=== PATIENT | male | born 1960 | race Caucasian/White ===

== ENCOUNTER → 2019-03-19 12:58 | Outpatient (BNVA) | payer OTHER, SELFPAY | PROVIDERS: Referring Provider Internal Medicine Rheumatology; Visit Provider Internal Medicine Rheumatology | DX: M05.9 Rheumatoid arthritis with rheumatoid factor, unspecified (principal); Z79.899 Other long term (current) drug therapy | CPT/HCPCS: 36415; 80076; 82565; 86140 ==

== ENCOUNTER → 2019-03-19 13:07 | Outpatient (BNVA) | payer OTHER, SELFPAY | PROVIDERS: Referring Provider Internal Medicine Rheumatology; Visit Provider Internal Medicine Pulmonary Disease | DX: Z79.899 Other long term (current) drug therapy (principal); M05.9 Rheumatoid arthritis with rheumatoid factor, unspecified | CPT/HCPCS: 85025 ==

== ENCOUNTER → 2019-04-26 12:55 | Outpatient (BNVA) | payer OTHER, SELFPAY | PROVIDERS: Visit Provider Internal Medicine Rheumatology | DX: M05.9 Rheumatoid arthritis with rheumatoid factor, unspecified (principal); J44.9 Chronic obstructive pulmonary disease, unspecified; Z79.899 Other long term (current) drug therapy; Z79.52 Long term (current) use of systemic steroids; F17.210 Nicotine dependence, cigarettes, uncomplicated | CPT/HCPCS: 99214 ==

== ENCOUNTER 2019-04-30 15:36 | Outpatient (CLI) | payer OTHER, SELFPAY ==
--- NOTE | 2019-04-30 15:42 | XR_ITS ---
WS: [id number] XR chest 2V* [id number] REASON FOR EXAM: COPD FINDINGS: Tortuosity of the descending thoracic aorta. The heart is not grossly enlarged. The lung cruz are adequately aerated no pneumonia, pleural effusion, pulmonary edema, no evidence o f emphysema, and there is no masses. XR/XR chest 2V* [id number] IMPRESSION: No active cardiopulmonary changes.
== END 2019-04-30 15:37 | disposition home or self-care (01) ==
LOC: RADWPI 15:39
PROVIDERS: PCP Nurse Practitioner Family; Visit Provider Internal Medicine Rheumatology
DX: J44.9 Chronic obstructive pulmonary disease, unspecified (principal)
CPT/HCPCS: 71046

== ENCOUNTER → 2019-06-21 13:45 | Outpatient (BNVA) | payer OTHER, SELFPAY | PROVIDERS: PCP Nurse Practitioner Family; Visit Provider Internal Medicine Rheumatology | DX: M05.79 Rheumatoid arthritis with rheumatoid factor of multiple sites without organ or systems involvement (principal); Z79.899 Other long term (current) drug therapy; T14.90XA Injury, unspecified, initial encounter; W19.XXXA Unspecified fall, initial encounter; J43.9 Emphysema, unspecified; M81.0 Age-related osteoporosis without current pathological fracture; F17.210 Nicotine dependence, cigarettes, uncomplicated; Z79.52 Long term (current) use of systemic steroids | CPT/HCPCS: 96372; 99214; J1885 ==

== ENCOUNTER 2019-06-21 15:29 | Outpatient (CLI) | payer OTHER, SELFPAY ==
--- NOTE | 2019-06-21 15:41 | XR_ITS ---
WS: [id number] XR pelvis 1-2V* [id number] REASON FOR EXAM: fall FINDINGS: Sacroiliac joints were normal. Both hip joints show degenerate changes worse on the left side. No definite fractures are seen in either hip joint or pelvis. XR/XR pelvis 1-2V* [id number] IMPRESSION: Osteoarthritic changes of both hip joints worse on the left There is degenerate changes along the iliac crest There is no fractures seen.
--- NOTE | 2019-06-21 15:41 | XR_ITS ---
WS: [id number] XR chest 2V* [id number] REASON FOR EXAM: fall FINDINGS: There is fracture of the eighth and ninth ribs on the right side. And questionable fracture of the seventh rib on the left. The heart is not enlarged no lung contusion either lung field are seen. The clavicles were normal. The thoracic spine shows no definite fractures. No lung contusions or pneumonia as are seen are pulmonary edema. XR/XR chest 2V* [id number] IMPRESSION: Fracture eighth and ninth ribs on the right side Questionable fracture the seventh rib on the left The remaining chest was normal.
--- NOTE | 2019-06-21 15:41 | XR_ITS ---
WS: [id number] XR lumbar spine 2-3V* 00007 REASON FOR EXAM: fall FINDINGS: Lumbar spine series 3 views show degenerate changes along the apophyseal joints of the L2 a nd L4 vertebra as. Degenerate changes L5-S1 There is mild compression deformities seen of the L1-L2 vertebra as. The T11-T12 vertebra show degenerate changes. XR/XR lumbar spine 2-3V* [id number] IMPRESSION: Mild compression changes L1 and L2 Degenerate changes along the apophyseal joints Degenerated disc changes L5-S1.
[2019-06-21 16:29] LABS: Basophils # 0.1 10^3/uL (0.0-0.1); Basophils % 1.1 %; Eosinophils # 0.2 10^3/uL (0.0-0.8); Eosinophils % 2.2 %; Hematocrit 48.9 % (42.0-52.0); Hemoglobin 15.7 g/dL (11.7-16.6); Lymphocytes # 3.6 10^3/uL (0.8-4.8); Lymphocytes % 32.5 %; Mean Corpuscular HGB Conc 32.1 g/dL (30.0-36.0); Mean Corpuscular Hemoglobin 33.7 pg (28.0-34.0); Mean Corpuscular Volume 104.9 fL (80-94); Mean Platelet Volume 9.4 fL (7.4-10.4); Monocytes # 1.4 10^3/uL (0.2-0.9); Monocytes % 12.4 %; Neutrophils # 5.5 10^3/uL (1.8-7.7); Neutrophils % 50.3 %; Nucleated Red Blood Cells % 0 %; Platelet Count 308 10^3/cmm (130-400); Red Blood Count 4.66 10^6/uL (4.1-5.3)
[2019-06-21 16:39] LABS: Alanine Aminotransferase 26 U/L (0-41); Albumin Level 4.4 g/dL (3.5-5.2); Alkaline Phosphatase 72 IU/L (40-130); Aspartate Amino Transferase 25 U/L (0-40); Globulin 2.8 g/dL (1.3-4.6); Total Bilirubin 0.2 mg/dL (0.15-1.2); Total Protein 7.2 g/dL (6.6-8.7)
[2019-06-21 17:52] LABS: C Reactive Protein 3.9 mg/L (0.0-4.9); Erythrocyte Sedimentation Rate 23 mm/hr (0-10)
== END 2019-06-21 15:30 | disposition home or self-care (01) ==
LOC: RAD 15:35
PROVIDERS: Visit Provider Internal Medicine Rheumatology
DX: T14.90XA Injury, unspecified, initial encounter (principal); Z79.899 Other long term (current) drug therapy; W19.XXXA Unspecified fall, initial encounter; M16.0 Bilateral primary osteoarthritis of hip; S22.41XA Multiple fractures of ribs, right side, initial encounter for closed fracture; X58.XXXA Exposure to other specified factors, initial encounter
CPT/HCPCS: 36415; 71046; 72100; 72170; 80076; 82565; 85025; 85651; 86140

== ENCOUNTER 2019-07-06 13:03 | Outpatient (CLI) | payer OTHER, SELFPAY ==
--- NOTE | 2019-07-06 16:15 | XR_ITS ---
WS: [id number] DEXA (DUAL ENERGY X-RAY ABSORPTIOMETRY) Bone mineral density was performed using a [employer] machine. HISTORY: osteoporosis, 58-year-old male. COMPARISON: None available. Lumbar spine BMD (L1-L4): 1.198 g/cm2 T score: -0.2 Z score: -0.6 Total hip BMD: Left: 1.029 g/cm2. T score: -0.5 Z score: -0.5 Right: 1.002 g/cm2. T score: -0.7 Z score: -0.7 10 year probability of a major osteoporotic fracture is 6%. XR/XR DEXA axial skeleton* [id number] IMPRESSION: NORMAL BONE MINERAL DENSITY.
== END 2019-07-06 13:04 | disposition home or self-care (01) ==
LOC: RADWPI 13:07
PROVIDERS: Visit Provider Internal Medicine Rheumatology
DX: M81.0 Age-related osteoporosis without current pathological fracture (principal)
CPT/HCPCS: 77080

== ENCOUNTER 2019-07-16 09:11 | Outpatient (CLI) | payer OTHER, SELFPAY ==
--- NOTE | 2019-07-16 09:15 | CT_ITS ---
WS: [id number] CT CHEST WITHOUT INTRAVENOUS CONTRAST HISTORY: Evaluate for Multiple rib fractures TECHNIQUE: Contiguous 5 mm axial imaging performed on the thorax. Coronal and sagittal reformats are submitted. All CT scans at [facility] use at least one of these dose optimization techniq ues: automated exposure control; mA and/or kV adjustment per patient size (includes targeted exams wh ere dose is matched to clinical indication); or iterative reconstruction. CONTRAST: None DLP: 1255.65 mGycm COMPARISON: 06/24/2017 and chest radiograph 06/21/2019 Lungs and central airway: Hyperexpanded lungs with mild paraseptal emphysema. There has been a slight progression of the interstitial thickening since the prior examination. Linear pleural thickening al arpita the minor fissure is stable. Benign granuloma medial RIGHT upper lobe. Long-term stability of an 8 mm noncalcified nodule in the LEFT lower lobe. There is an additional irregular 8 mm nodule in the periphery of the RIGHT lower lobe, image 45 of series 3 which was also present on the prior study wit h greater than two-year stability. Pleura: Normal. No pleural effusion. Heart and pericardium: Normal size heart. No pericardial effusion. Mediastinum and david: No mediastinum or hilar adenopathy. Vessels: Mild atherosclerosis aorta and coronary arteries. Normal size pulmonary artery. Chest wall and lower neck: No soft tissue masses. Upper abdomen: Negative. Osseous structures: Mild thoracic spondylosis. Very slight anterior wedging of T12 stable. Remote hea led fractures posterior lateral RIGHT seventh, eighth, and ninth ribs. Remote healed fractures in the LEFT eighth and ninth ribs. No acute fracture.. No acute fractures or bone destruction. These fractu res were present on the study from 06/24/2017. CT/CT chest wo con [id number] IMPRESSION: 1. Long-term stability of healed bilateral rib fractures as described above. S imilar to the prior study of 06/24/2017. 2. Long-term stability of pulmonary nodules. No further workup necessary. 3. Paraseptal emphysema with mild progression since 06/24/2017.
== END 2019-07-16 09:12 | disposition home or self-care (01) ==
PROVIDERS: Visit Provider Internal Medicine Rheumatology
DX: S22.49XA Multiple fractures of ribs, unspecified side, initial encounter for closed fracture (principal); X58.XXXA Exposure to other specified factors, initial encounter; Z87.81 Personal history of (healed) traumatic fracture; R91.8 Other nonspecific abnormal finding of lung field; J43.9 Emphysema, unspecified
CPT/HCPCS: 71250

== ENCOUNTER 2019-08-08 11:23 | Outpatient (CLI) | payer OTHER, SELFPAY ==
--- NOTE | 2019-08-08 13:27 | PFTS_ITS ---
Date of Study:08/08/19 Date of Dictation: MECHANICS: Forced vital capacity (FVC) is reduced. Forced expiratory volume in one second (FEV1) is reduced. FEV1/FVC is normal. FLOW VOLUME LOOP: Reduced flow with scooping. LUNG VOLUMES: Lung volumes were not measured DIFFUSING CAPACITY FOR CARBON MONOXIDE: Normal. INTERPRETATION: The pulmonary function tests are consistent with moderate restriction. There is no significant postbronchodilator response. Gas exchange (DLCO) is normal. MTDD
== END 2019-08-08 11:24 | disposition home or self-care (01) ==
LOC: RT 11:27
PROVIDERS: PCP Nurse Practitioner Family; Visit Provider Internal Medicine Critical Care Medicine
DX: J43.9 Emphysema, unspecified (principal)
CPT/HCPCS: 94060; 94729; J7611

== ENCOUNTER 2019-09-05 17:54 | Emergency (ER) | payer OTHER, SELFPAY ==
[2019-09-05] VITALS (7 sets, daily range): BP systolic 107–178; BP diastolic 67–120; PULSE 88–112; RESP 15–20; TEMP 39.3; O2SAT 88–97; BMI 41.3
[2019-09-05 19:15] LABS: Basophils # 0.1 10^3/uL (0.0-0.1); Basophils % 0.4 %; Eosinophils % 0.1 %; Hematocrit 46.8 % (42.0-52.0); Lymphocytes # 1.9 10^3/uL (0.8-4.8); Lymphocytes % 8.3 %; Mean Corpuscular HGB Conc 32.1 g/dL (30.0-36.0); Mean Corpuscular Hemoglobin 34.6 pg (28.0-34.0); Mean Corpuscular Volume 108.1 fL (80-94); Mean Platelet Volume 9.5 fL (7.4-10.4); Monocytes # 1.5 10^3/uL (0.2-0.9); Monocytes % 6.6 %; Neutrophils # 18.65 10^3/uL (1.8-7.7); Neutrophils % 83.5 %; Nucleated Red Blood Cells % 0.1 %; Platelet Count 197 10^3/cmm (130-400); Red Blood Count 4.33 10^6/uL (4.1-5.3); Red Cell Distribution Width 13.9 % (12.1-15.1); White Blood Count 22.4 10^3/uL (4.0-10.0)
[2019-09-05 19:37] LABS: Alanine Aminotransferase 36 U/L (0-41); Alkaline Phosphatase 64 IU/L (40-130); Blood Urea Nitrogen 20 mg/dL (6-20); Calcium 9.1 mg/dL (8.5-10.5); Carbon Dioxide 26 mmol/L (22-29); Chloride 100 mmol/L (98-107); Globulin 3.1 g/dL (1.3-4.6); Glomerular Filtration Rate 116.2 mL/min (90-130); Glucose 175 mg/dL (65-115); Lipase 12 U/L (13-60); Osmolality Calculated 289 mOsm/kg (285-295); Sodium 139 mmol/L (136-145); Total Bilirubin 0.9 mg/dL (0.15-1.2); Total Protein 7.1 g/dL (6.6-8.7)
[2019-09-05 19:47] LABS: Aspartate Amino Transferase 37 U/L (0-40)
--- NOTE | 2019-09-05 20:55 | XR_ITS ---
WS: [id number] PORTABLE CHEST HISTORY: fever COMPARISON: 06/21/2019 Mild pulmonary hyperinflation. No pneumonia. Normal vasculature. No pleural effusion or pneumothorax. Cardiac size: Mildly enlarged cardiac silhouette. Mediastinum/Aorta: Mild atherosclerosis aorta. Bilateral AC joint narrowing. XR/XR chest 1V portable [id number] IMPRESSION: Chronic emphysema and cardiomegaly. No acute cardiopulmonary disease.
--- NOTE | 2019-09-05 20:55 | CTR_ITS ---
PROCEDURE INFORMATION: Exam: CT Abdomen And Pelvis With Contrast Exam date and time: 09/05/2019 8:58 PM Age: 58 years old Clinical indication: Fever; Abdominal pain; Localized; Lower; Prior surgery; Surgery type: Stents TECHNIQUE: Imaging protocol: Computed tomography of the abdomen and pelvis with intravenous contrast. Radiation optimization: All CT scans at this facility use at least one of these dose optimization techniques: automated exposure control; mA and/or kV adjustment per patient size (includes targeted exams where dose is matched to clinical indication); or iterative reconstruction. Contrast material: OMNI 300; Contrast volume: 95 ml; Contrast route: INTRAVENOUS (IV); COMPARISON: CT Abdomen/Pelvis o [id number] 12/03/2015 2:20 PM RADIATION DOSE METRICS: Total DLP (mGy-cm): 1955.57 FINDINGS: Lungs: Bibasilar atelectasis. Liver: Normal. No mass. Gallbladder and bile ducts: Normal. No calcified stones. No ductal dilation. Pancreas: Normal. No ductal dilation. Spleen: Normal. No splenomegaly. Adrenals: Normal. No mass. Kidneys and ureters: Right kidney cyst, no follow-up advised. Stomach and bowel: Prominent fluid in the small bowel suggestive of an enteritis. Appendix: No evidence of appendicitis. Intraperitoneal space: Unremarkable. No free air. No significant fluid collection. Vasculature: Unremarkable. No abdominal aortic aneurysm. Lymph nodes: Unremarkable. No enlarged lymph nodes. Bladder: Unremarkable as visualized. Reproductive: Unremarkable as visualized. Bones/joints: L1 vertebral body chronic compression fracture. Soft tissues: Unremarkable. CT/CT abdomen pelvis w con* [id number] IMPRESSION: 1. Prominent fluid in the small bowel suggestive of an enteritis. 2. L1 vertebral body chronic compression fracture. 3. Bibasilar atelectasis. 4. Right kidney cyst, no follow-up advised. Radiation Dose CTDIVOL = (mGy): DLP = 1955.57 (mGy-cm)
--- NOTE | 2019-09-05 21:00 | W.ED.ABDPA2 ---
HPI - Abdominal Pain General: Chief Complaint: Abdominal Pain Stated Complaint: abd pain Time Seen by Provider: 09/05/19 20:54 Source: patient Mode of arrival: ambulatory Limitations: no limitations History of Present Illness: HPI narrative: 58-year-old male who states he has had lower abdominal abdominal pain for the last day. He states pain is sharp in nature. He is also had a fever. He denies any dysuria. He denies any vomiting or diarrhea. He denies any cough or chest pain. Denies any worsening improving factors. MD elicited complaint: abdominal pain Onset (ago): day(s) Location: RLQ Severity: moderate Quality: sharp Radiation: none Associated Symptoms: Reports fever(s); Denies dysuria Review of Systems Const: Reports: fever(s) Eyes: Denies: blurry vision or eye discomfort ENMT: Denies: throat pain or dental pain Card: Denies: chest pain Resp: Denies: dyspnea GI: Reports: abdominal pain : Denies: dysuria Musc: Denies: neck pain or back pain Skin/Breast: Denies: rash Neuro: Denies: headache(s) Psych: Denies: depression Kenji/Lymph: Denies: easy bruising All/Imm: Denies: urticaria PFSH ED PFSH: Medical History (Updated 09/05/19 @ 23:45 by Tisha Lopez MD) CHF (congestive heart failure) COPD (chronic obstructive pulmonary disease) Depression Fall High risk medication use HTN (hypertension) Hyperlipidemia Immunization counseling Memory loss STEPHANIE (obstructive sleep apnea) Restless leg Seropositive rheumatoid arthritis Type 2 diabetes mellitus Surgical History History of carpal tunnel surgery History of surgical amputation of finger of right hand Stented coronary artery Family History Other Arthritis Diabetes Hypertension Stroke Denies family history of Rheumatoid arthritis Systemic lupus erythematosus (SLE) in adult Social History Smoking and tobacco status: current every day smoker cigarettes Packs smoked per day: 0.5 Years cigarettes smoked: 45 Alcohol intake: former Lives independently: Yes Household members: spouse Marital status: Current occupational status: disabled History of recent travel: No Current gender identity: Male Physical Exam Const: COMMON NORMALS: no acute distress, patient oriented x3 and healthy appearing HENMT: COMMON NORMALS: normocephalic and atraumatic HEAD & SCALP: normocephalic and atraumatic Eye: COMMON NORMALS: Equal, round and reactive pupils present and EOMs intact bilaterally PUPIL: Yes Equal, round and reactive pupils present Neck/C-Spine: COMMON NORMALS: full ROM and supple Chest: COMMONS NORMALS: normal inspection of the chest and normal palpation of entire chest wall Resp: COMMON NORMALS: normal respiratory effort, No retractions, No use of accessory muscles and clear to auscultation bilaterally AUSCULTATION: clear to auscultation bilaterally Cardio: COMMON NORMALS: regular rate, regular rhythm and No murmurs present (Cardio) RATE: regular rate RHYTHM: regular rhythm GI: COMMON NORMALS: Normal to inspection, nondistended, normoactive bowel sounds present, Soft to palpation and no masses PALPATION: Yes Soft to palpation OTHER: diffuse lower abdominal tenderness Extremity: COMMON NORMALS: normal to inspection and full ROM Neuro: COMMON NORMALS: patient oriented x3, moves all extremities and no focal motor deficits Psych: COMMON NORMALS: mental status grossly normal, Normal thought process present and cooperative THOUGHT PROCESS: Normal thought process present Skin: COMMON NORMALS: no rashes or lesions noted and no wounds GENERAL SKIN EXAM: no rashes or lesions noted Course Vital Signs: Vital signs: Vital Signs Temperature 102.7 F H 09/05/19 18:20 Pulse Rate 89 09/06/19 00:17 Respiratory Rate 15 09/06/19 00:17 Blood Pressure 157/96 09/06/19 00:17 Pulse Oximetry 97 09/06/19 00:17 MDM - Abdominal Pain MDM Narrative: Medical decision making narrative: Patient presents with abdominal pain with possible enteritis colitis. We will start him on Augmentin along with pain medicine. His pain is much improved here and his normal exam at discharge is benign. He does have an elevated white count but he does take prednisone chronically for his COPD. Patient is stable for discharge and is to follow-up with his primary care doctor in 2 to 4 days I did instruct him if he has any increasing fever or pain he is to return to the ER immediately. He understands and agrees to this plan. Lab Data: Labs: Lab Results 09/05/19 09/05/19 09/05/19 Range/Units 19:05 19:05 19:05 WBC 22.4 H (4.0-10.0) 10^3/ uL RBC 4.33 (4.1-5.3) 10^6/u L Hgb 15.0 (11.7-16.6) g/dL Hct 46.8 (42.0-52.0) % MCV 108.1 H (80-94) fL MCH 34.6 H (28.0-34.0) pg MCHC 32.1 (30.0-36.0) g/dL RDW 13.9 (12.1-15.1) % Plt Count 197 (130-400) 10^3/c mm MPV 9.5 (7.4-10.4) fL Neut % (Auto) 83.5 % Lymph % (Auto) 8.3 % [place] % (Auto) 6.6 % Eos % (Auto) 0.1 % Baso % (Auto) 0.4 % Neut # (Auto) 18.65 H (1.8-7.7) 10^3/u L Lymph # (Auto) 1.9 (0.8-4.8) 10^3/u L [place] # (Auto) 1.5 H (0.2-0.9) 10^3/u L Eos # (Auto) 0.0 (0.0-0.8) 10^3/u L Baso # (Auto) 0.1 (0.0-0.1) 10^3/u L Nucleated RBC % (a uto) 0.1 % Nucleated RBCs # 0.0 /100WBC Sodium 139 (136-145) mmol/L Potassium 4.0 (3.5-5.1) mmol/L Chloride 100 (98-107) mmol/L Carbon Dioxide 26 (22-29) mmol/L Anion Gap 17.0 (5-19) BUN 20 (6-20) mg/dL Creatinine 0.7 (0.7-1.2) mg/dL GFR Calculation 116.2 (90-130) mL/min Glucose 175 H (65-115) mg/dL Calculated Osmolal ity 289 (285-295) mOsm/k g Lactate 1.7 (0.5-2.2) mmol/L Calcium 9.1 (8.5-10.5) mg/dL Total Bilirubin 0.9 (0.15-1.2) mg/dL AST 37 (0-40) U/L ALT 36 (0-41) U/L Alkaline Phosphata se 64 (40-130) IU/L Total Protein 7.1 (6.6-8.7) g/dL Albumin 4.0 (3.5-5.2) g/dL Globulin 3.1 (1.3-4.6) g/dL Lipase 12 L (13-60) U/L Urine Color (Yellow) Urine Appearance (CLEAR) Urine pH (5-7) Ur Specific Gravit y (1.005-1.030) Urine Protein (Negative) Urine Glucose (UA) (Normal) Urine Ketones (Negative) Urine Blood (Negative) Urine Nitrate (Negative) Urine Bilirubin (NEGATIVE) Urine Urobilinogen (Negative) mg/dL Ur Leukocyte [place] (Negative) Urine RBC (0-2) /hpf Urine WBC (0-5) /hpf Ur Squamous Epith Cells (0-5) Amorphous Sediment Urine Bacteria (NONE) 09/05/19 Range/Units 22:25 WBC (4.0-10.0) 10^3/ uL RBC (4.1-5.3) 10^6/u L Hgb (11.7-16.6) g/dL Hct (42.0-52.0) % MCV (80-94) fL MCH (28.0-34.0) pg MCHC (30.0-36.0) g/dL RDW (12.1-15.1) % Plt Count (130-400) 10^3/c mm MPV (7.4-10.4) fL Neut % (Auto) % Lymph % (Auto) % [place] % (Auto) % Eos % (Auto) % Baso % (Auto) % Neut # (Auto) (1.8-7.7) 10^3/u L Lymph # (Auto) (0.8-4.8) 10^3/u L [place] # (Auto) (0.2-0.9) 10^3/u L Eos # (Auto) (0.0-0.8) 10^3/u L Baso # (Auto) (0.0-0.1) 10^3/u L Nucleated RBC % (a uto) % Nucleated RBCs # /100WBC Sodium (136-145) mmol/L Potassium (3.5-5.1) mmol/L Chloride (98-107) mmol/L Carbon Dioxide (22-29) mmol/L Anion Gap (5-19) BUN (6-20) mg/dL Creatinine (0.7-1.2) mg/dL GFR Calculation (90-130) mL/min Glucose (65-115) mg/dL Calculated Osmolal ity (285-295) mOsm/k g Lactate (0.5-2.2) mmol/L Calcium (8.5-10.5) mg/dL Total Bilirubin (0.15-1.2) mg/dL AST (0-40) U/L ALT (0-41) U/L Alkaline Phosphata se (40-130) IU/L Total Protein (6.6-8.7) g/dL Albumin (3.5-5.2) g/dL Globulin (1.3-4.6) g/dL Lipase (13-60) U/L Urine Color Yellow (Yellow) Urine Appearance Clear (CLEAR) Urine pH 8 H (5-7) Ur Specific Gravit y 1.010 (1.005-1.030) Urine Protein 1+ H (Negative) Urine Glucose (UA) Norm (Normal) Urine Ketones Negative (Negative) Urine Blood Neg (Negative) Urine Nitrate Negative (Negative) Urine Bilirubin Neg (NEGATIVE) Urine Urobilinogen Norm (Negative) mg/dL Ur Leukocyte [place] Negative (Negative) Urine RBC Rare (0-2) /hpf Urine WBC 0-4 H (0-5) /hpf Ur Squamous Epith Cells Rare (0-5) Amorphous Sediment Not Reportable Urine Bacteria Trace (NONE) Imaging Data ^: CT Abd/Pel: Attestation: I personally reviewed and interpreted this imaging study as follows: Radiologist's impression: [address] [address] [address] Scan Report Signed Patient: Scott Boswell Unit #: [id number] : 1960 Age/Sex: 58 / M ADM Date: 09/05/19 Loc: ER Room/Bed: Attending Dr: Ordering Provider/Ordering MD: Tisha Lpoez MD Date of Service: 09/05/19 Procedure(s): CT abdomen pelvis w con* [id number] Accession Number(s): [id number] Report Number: [id number] PROCEDURE INFORMATION: Exam: CT Abdomen And Pelvis With Contrast Exam date and time: 09/05/2019 8:58 PM Age: 58 years old Clinical indication: Fever; Abdominal pain; Localized; Lower; Prior surgery; Surgery type: Stents TECHNIQUE: Imaging protocol: Computed tomography of the abdomen and pelvis with intravenous contrast. Radiation optimization: All CT scans at this facility use at least one of these dose optimization techniques: automated exposure control; mA and/or kV adjustment per patient size (includes targeted exams where dose is matched to clinical indication); or iterative reconstruction. Contrast material: OMNI 300; Contrast volume: 95 ml; Contrast route: INTRAVENOUS (IV); COMPARISON: CT Abdomen/Pelvis o [id number] 12/03/2015 2:20 PM RADIATION DOSE METRICS: Total DLP (mGy-cm): 1955.57 FINDINGS: Lungs: Bibasilar atelectasis. Liver: Normal. No mass. Gallbladder and bile ducts: Normal. No calcified stones. No ductal dilation. Pancreas: Normal. No ductal dilation. Spleen: Normal. No splenomegaly. Adrenals: Normal. No mass. Kidneys and ureters: Right kidney cyst, no follow-up advised. Stomach and bowel: Prominent fluid in the small bowel suggestive of an enteritis. Appendix: No evidence of appendicitis. Intraperitoneal space: Unremarkable. No free air. No significant fluid collection. Vasculature: Unremarkable. No abdominal aortic aneurysm. Lymph nodes: Unremarkable. No enlarged lymph nodes. Bladder: Unremarkable as visualized. Reproductive: Unremarkable as visualized. Bones/joints: L1 vertebral body chronic compression fracture. Soft tissues: Unremarkable. CT/CT abdomen pelvis w con* [id number] IMPRESSION: 1. Prominent fluid in the small bowel suggestive of an enteritis. 2. L1 vertebral body chronic compression fracture. 3. Bibasilar atelectasis. 4. Right kidney cyst, no follow-up advised. Discharge Plan Discharge Patient Disposition: Home, Self-Care Clinical Impression: Abdominal pain Qualifiers: Abdominal location: generalized Qualified Code(s): R10.84 - Generalized abdominal pain Condition: Stable Prescriptions: New Augmentin 875-125 mg tablet 1 tab PO BID Qty: 14 RF: 0 ondansetron 4 mg tablet,disintegrating 4 mg PO Q6H PRN (Reason: nausea and vomiting) Qty: 14 RF: 0 [place] 5-325 mg tablet 1 tab PO Q6H PRN (Reason: pain) Qty: 14 RF: 0 No Action folic acid 1 mg tablet 1 mg PO DAILY RF: 0 memantine [Namenda XR] 28 mg capsule,sprinkle,ER 24hr 28 mg PO DAILY RF: 0 trandolapril 4 mg tablet 4 mg PO DAILY RF: 0 duloxetine 60 mg capsule,delayed release(DR/EC) 60 mg PO DAILY RF: 0 pregabalin [Lyrica] 150 mg capsule 150 mg PO DAILY RF: 0 ropinirole 2 mg tablet 2 mg PO TID RF: 0 carvedilol 6.25 mg tablet 6.25 mg PO BID RF: 0 metformin 1,000 mg tablet 1,000 mg PO BID RF: 0 oxycodone-acetaminophen 10-325 mg tablet 1 tab PO TID PRNRF: 0 albuterol sulfate [ProAir HFA] 90 mcg/actuation HFA aerosol inhaler 2 puff INHALATION Q6H PRNRF: 0 nitroglycerin [Nitrostat] 0.4 mg tablet, sublingual 0.4 mg SUBLINGUAL Q5M PRNRF: 0 amlodipine 2.5 mg tablet 2.5 mg PO DAILY RF: 0 rosuvastatin 40 mg tablet 40 mg PO DAILY RF: 0 chlorthalidone 25 mg tablet 25 mg PO DAILY RF: 0 pantoprazole 40 mg tablet,delayed release (DR/EC) 40 mg PO QAM Qty: 30 RF: 3 albuterol sulfate 2.5 mg /3 mL (0.083 %) solution for nebulization 2.5 mg INHALATION Q6H PRN (Reason: shortness of breath or wheezing) RF: 0 Symbicort 160-4.5 mcg/actuation HFA aerosol inhaler 2 puff INHALATION Q12H 90 Days Qty: 10.2 RF: 3 Spiriva with HandiHaler 18 mcg capsule, w/inhalation device 1 cap INHALATION DAILY 90 Days Qty: 60 RF: 3 meloxicam 15 mg tablet 15 mg PO DAILY RF: 0 fluticasone propionate 50 mcg/actuation spray,suspension 2 spray INTRANASAL DAILY RF: 0 ipratropium-albuterol 0.5 mg-3 mg(2.5 mg base)/3 mL solution for nebulization 3 ml INHALATION QID Qty: 320 RF: 3 Enbrel Mini 50 mg/mL (1 mL) cartridge 50 mg SUBCUT .Qweekly Qty: 4 RF: 3 methotrexate sodium 2.5 mg tablet 20 mg PO .weekly Qty: 40 RF: 3 prednisone 2.5 mg tablet 15 mg PO DAILY 30 Days Qty: 150 RF: 2 diclofenac potassium 50 mg tablet 50 mg PO TID Qty: 30 RF: 1 Discharge Orders: Discharge Order (Routine); Ordered 09/06/19 Ordered By: Tisha Lopez Referrals: GUNNAR SCHREIBER, [employer] [Primary Care Provider] - 1-3 days Discharge Diet: Advance as tolerated Discharge Activity: Resume usual activity Patient Instructions: Abdominal Pain (ED) Discharge Date/Time: 09/06/19 00:18 Coding Level of Care Code 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
[2019-09-05] MEDS: ipratropium-albuterol 3 mL Neb INHALATION (21:30)
[2019-09-05] MEDS: acetaminophen 325 mg Tablet 650 MG PO (21:40)
[2019-09-05] MEDS: sodium chloride 0.9% 1,000 ML 999 ML IV (21:42)
[2019-09-05] MEDS: ondansetron 2 mg/ML SDV 2 mL 4 MG IVP (21:43)
[2019-09-05] MEDS: morphine 4 mg/mL SDV 1 mL IVP (21:43)
[2019-09-05 22:07] LABS: Lactate (Lactic Acid level) 1.7 mmol/L (0.5-2.2)
[2019-09-05 23:32] LABS: Add Urine Microscopic? YES; Bacteria Urine TRACE; Bilirubin Urine Neg (NEGATIVE); Blood Urine Neg (Negative); Glucose Urine UA Norm (Normal); Ketones Urine Negative (Negative); Leukocyte Esterase Urine Negative (Negative); Nitrate Urine Negative (Negative); Protein Urine 1+ (Negative); RBC Urine RARE /hpf (0-2); Squamous Epithelial Cell Urine RARE (0-5); Urine Appearance Clear (CLEAR); Urine Color Yellow (Yellow); Urobilinogen Urine Norm (Negative); WBC Urine 0-4 /hpf (0-5); pH Urine 8 (5-7)
[2019-09-06 00:17] VITALS: BP 157/96; PULSE 89; RESP 15; O2SAT 97
== END 2019-09-06 00:18 | disposition home or self-care (01) ==
PROVIDERS: Emergency Provider Emergency Medicine; PCP Nurse Practitioner Family
DX: R10.84 Generalized abdominal pain (principal); F17.210 Nicotine dependence, cigarettes, uncomplicated; I11.0 Hypertensive heart disease with heart failure; I50.9 Heart failure, unspecified; J44.9 Chronic obstructive pulmonary disease, unspecified; E78.5 Hyperlipidemia, unspecified; E11.9 Type 2 diabetes mellitus without complications; Z79.84 Long term (current) use of oral hypoglycemic drugs
CPT/HCPCS: 12345; 36415; 71045; 74177; 80053; 81001; 81003; 83605; 83690; 85025; 94640; 96361; 96374; 96375; 99283; 99284; J2270; J2405; J7030; Q9967

== ENCOUNTER → 2019-10-01 13:02 | Outpatient (BNVA) | payer OTHER, SELFPAY | PROVIDERS: PCP Nurse Practitioner Family; Visit Provider Internal Medicine Rheumatology | DX: M05.79 Rheumatoid arthritis with rheumatoid factor of multiple sites without organ or systems involvement (principal); Z79.899 Other long term (current) drug therapy; J43.9 Emphysema, unspecified; K52.9 Noninfective gastroenteritis and colitis, unspecified; Z79.52 Long term (current) use of systemic steroids; F17.210 Nicotine dependence, cigarettes, uncomplicated; M54.9 Dorsalgia, unspecified | CPT/HCPCS: 99214 ==

== ENCOUNTER 2019-10-31 10:10 | Outpatient (CLI) | payer MEDICARE, SELFPAY ==
[2019-10-31 12:11] LABS: Basophils # 0.1 10^3/uL (0.0-0.1); Basophils % 1.2 %; Eosinophils # 0.2 10^3/uL (0.0-0.8); Eosinophils % 1.9 %; Hematocrit 45.6 % (42.0-52.0); Lymphocytes # 2.3 10^3/uL (0.8-4.8); Lymphocytes % 21.8 %; Mean Corpuscular HGB Conc 32.9 g/dL (30.0-36.0); Mean Corpuscular Hemoglobin 34.6 pg (28.0-34.0); Mean Corpuscular Volume 105.3 fL (80-94); Mean Platelet Volume 9.2 fL (7.4-10.4); Monocytes # 0.9 10^3/uL (0.2-0.9); Monocytes % 8.1 %; Neutrophils # 7.03 10^3/uL (1.8-7.7); Neutrophils % 65.6 %; Nucleated Red Blood Cells % 0 %; Platelet Count 300 10^3/cmm (130-400); Red Blood Count 4.33 10^6/uL (4.1-5.3); Red Cell Distribution Width 13.6 % (12.1-15.1); White Blood Count 10.7 10^3/uL (4.0-10.0)
[2019-10-31 12:34] LABS: LAB Peripheral Smear Sent for Review
[2019-10-31 12:46] LABS: Alanine Aminotransferase 27 U/L (0-41); Alkaline Phosphatase 65 IU/L (40-130); Anion Gap 17.8 (5-19); Aspartate Amino Transferase 28 U/L (0-40); Blood Urea Nitrogen 17 mg/dL (6-20); Calcium 9.2 mg/dL (8.5-10.5); Carbon Dioxide 28 mmol/L (22-29); Chloride 103 mmol/L (98-107); Globulin 2.9 g/dL (1.3-4.6); Glomerular Filtration Rate 99.3 mL/min (90-130); Glucose 200 mg/dL (65-115); Lactate Dehydrogenase 178 U/L (135-225); Osmolality Calculated 305 mOsm/kg (285-295); Potassium 4.8 mmol/L (3.5-5.1); Sodium 144 mmol/L (136-145); Total Bilirubin 0.2 mg/dL (0.15-1.2); Total Protein 6.9 g/dL (6.6-8.7)
[2019-10-31 13:48] LABS: Erythrocyte Sedimentation Rate 21 mm/hr (0-10)
[2019-10-31 13:51] LABS: Vitamin B12 > 2000 pg/mL (232-1245)
--- NOTE | 2019-11-01 08:03 | ONC CON_ITS ---
Dr. Celaya New Patient Note Patient: Scott Boswell Unit #: [id number]: 1960 Dicatated By: Cj Celaya M.D.Date of Visit: Oct 31, 2019 Onc MED New Patient/Consult Referring Physician: Fiona Pina Chief Complaint: Neutrophilia. History of Present Illness: This is a 59 year-old man with a mild neutrophilia. He has multiple medical illnesses including hypertension, hyperlipidemia, coronary artery disease, asthma/COPD, rheumatoid arthritis, and degenerative disease of the spine. He is followed at the [facility]. I am asked to see him in regard to a mild neutrophilia. The records which were provided include a CBC from 10/08/2019 which showed borderline high hemoglobin at 16.3 grams with hematocrit 46.8%. The red cell indices were slightly macrocytic. The white blood cell count was elevated at 15,200. The platelet count was normal at 302,000. The differential included 71% neutrophils, 21% lymphocytes, 5% monocytes, 1% eosinophils, and 1% basophils. His comprehensive metabolic profile from 09/18/2019 showed normal renal function with BUN 22 and creatinine 0.80 mg/dL. The total bilirubin and liver enzymes were normal. His hemoglobin A1c was elevated at 7.1%. He says he has been feeling pretty good, though he does have very limited activity due to shortness of breath and to chronic back pain. His ECOG score is 2. He has good appetite. He has had a weight gain in the range of 15 to 20 pounds over the past year, and he may have had a recent gain of 5 pounds, depending on the accuracy of scales. He does not have fever. He says he always sweats. He has chronic sinus drainage. He has cough productive of a little bit of light yellow sputum. He has shortness of breath. He does not complain of chest pain. He did have an episode of heart fluttering this morning. He has no GI complaints. He has urinary frequency and nocturia. He has chronic pain in the lower back and in the left hip and leg. He also has generalized joint pain associated with the rheumatoid arthritis. He does not complain of headache. He does tend to get dizzy. He complains that his feet tingle and burn. He sometimes has difficulty sleeping at night, but he does nap a lot during the daytime. He is on BiPAP. Past Medical History: His medical history includes asthma/chronic obstructive pulmonary disease, coronary artery disease, degenerative disease of the spine, depression, history of congestive heart failure, hyperlipidemia, hypertension, obstructive sleep apnea, rheumatoid arthritis, and type II diabetes. Past Surgical History: His surgical/procedural history includes carpal tunnel release bilaterally, colonoscopy, and coronary angioplasty/stent placement. Medications: Adult Aspirin EC Low Strength 1 Tablet (of 81 mg) Tablet, enteric coated Oral daily, amLODIPine Besylate 1 Tablet (of 5 mg) Oral daily, Opdeets-Serzhntpm-Xnvx 1 Tablet Oral daily, Carvedilol 1 Tablet (of 6.25 mg) Oral daily, Chlorthalidone 1 Tablet (of 25 mg) Oral daily, DULoxetine HCl 1 Capsule (of 60 mg) Capsule Delayed Release Particles Oral daily, Fish Oil 1 Capsule (of 1000 mg) Oral b.i.d., Flonase 2 Prescott(s) (of 50 mcg/act) Suspension Nasal daily, Folic Acid 1 Tablet (of 1 mg) Oral daily, Lyrica 1 Capsule (of 75 mg) Oral t.i.d., Meloxicam 1 Tablet (of 15 mg) Oral daily, Memantine HCl ER 1 Capsule (of 28 mg) Capsule SR 24 HR Oral daily, metFORMIN HCl 1 Tablet (of 1000 mg) Oral b.i.d., Methotrexate 2 Tablet (of 2.5 mg) Oral b.i.d., Multivitamin 1 Tablet Oral daily, oxyCODONE-Acetaminophen 1 Tablet (of 10-325 mg) Oral q 4 to 6 hours PRN, predniSONE 1 Tablet (of 2.5 mg) Oral 5x/d, ProAir HFA 1 Puff(s) (of 108 (90 base) mcg/act) Aerosol, solution Inhalation q 4 to 6 hours PRN, rOPINIRole HCl 1 Tablet (of 2 mg) Oral t.i.d., Rosuvastatin Calcium 1 Tablet (of 40 mg) Oral at bedtime, Spiriva HandiHaler 1 Capsule (of 18 mcg) Inhalation daily, Symbicort 1 Puff(s) (of 160-4.5 mcg/act) Aerosol Inhalation b.i.d., Trandolapril 1 Tablet (of 4 mg) Oral daily Allergies: MILK PRODUCTS, Reglan, and tiZANidine HCl. Social History: Mr. Boswell is . He had prviously worked on [employer]. He is disabled due to previous back injury. He has history of smoking for 50 years, previously in excess of 2 packs of cigarettes daily. He cut down somewhere in the range of 10 years ago. He currently smokes 1/2 pack/day. He had heavy alcohol use over a period of approximately 30 years. He stopped drinking 12 years ago. Family History: Father at age 53 as result of multiple strokes. Mother of head injury at age 72. He had 8 brothers, only 2 of whom are still living. One of drowning, another of suicide, another of collapsed lung in association with HIV disease. Two brothers reportedly of liver cancer and one had coronary artery disease. Review Of Symptoms: Constitutional - He sleeps alot during the day. Appetite is good. His weight has been fluctuating. No fevers. He has sweating. No hot flashes. ECOG score is 2, Eyes - No change in vision, ENMT - He has hearing loss and tinnitus. He has chronic sinus congestion/drainage. No mouth sores. No sore throat or difficulty swallowing, Hematologic/Lymphatic - He bruises and bleeds very easily, Respiratory - His shortness of breath seems to be getting worse. He has cough productive of yellow phlegm. No pleuritic pain or hemoptysis. He uses a BIPAP at night, Cardiovascular - No angina pain. He had a fluttering feeling in his chest this morning, Gastrointestinal - No nausea or vomiting. No heartburn or acid reflux. No diarrhea or constipation. No blood in the stool or black stools, Genitourinary (M) - No dysuria or hematuria. He has urinary frequency. No urgency or incontinence, Musculoskeletal - He has generalized aches from rheumatoid arthritis. He also has alot of pain in his lower back and hips, Integumentary - He has discoloration and swelling in his lower extremities, Neurologic - No headache. He has dizziness upon standing. He has a burning sensation and tingling in both feet. No other focal neurologic symptoms, Psychiatric - He has anxiety and he has had depression. He sometimes has difficulty staying asleep. Vital Signs: Performed on Oct 31, 2019 10:56: 7, 41.65 (HIGH), 2.50 sq.m, 71.00 in, 94 % (LOW), 81 /min, 24 /min, 141/79 mm(hg) (HIGH), 97.7 F (LOW), and 298.6 lbs (HIGH). Physical Examination: Constitutional - He appears somewhat weak generally. He has limited mobility, Eyes - Sclerae nonicteric. Conjunctivae clear, ENMT - No lesions noted in the oral cavity, Neck - No mass or thyromegaly, Hematologic/Lymphatic - No cervical, clavicular, or axillary adenopathy, Respiratory - Lungs show diminished air movement bilaterally. There are mild expiratory rhonchi, Cardiovascular - Heart rhythm is regular with occasional premature beats. There is no murmur, gallop, or rub noted, Abdomen - Moderately distended. There is some mild tenderness in the periumbilical area. Liver and spleen are not enlarged. There is no abdominal mass or ascites noted and there is no inguinal adenopathy, Back/Spine - No spine or CVA tenderness noted, Extremities - There are venous stasis changes bilaterally. There is mild lower extremity edema. He has a palpable dorsalis pedis pulse on the right. I do not feel pedal pulses on the left, but both feet are warm to touch, Integumentary - No suspicious skin lesions noted, Neurologic - No focal neurologic deficits noted. Lab/Imaging: In reviewing his records in [facility], a protein electrophoresis from 2017 showed an IgM monoclonal gammopathy quantitating at 0.67 g/dL. The serum free light chain assay showed normal kappa/lambda ratio of 0.58. 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 A noncontrast chest CT on 07/16/2019 showed long-term stability of healed bilateral rib fractures and long-term stability of subcentimeter pulmonary nodules. There was evidence of paraseptal emphysema with mild progression compared to the previous study from June 2017. Contrast-enhanced CT abdomen/pelvis on 09/05/2019 showed prominent fluid in the small bowel suggestive of enteritis. There was evidence of chronic L1 vertebral compression fracture. There was no evidence of malignancy. Impression: 1. Patient with mild neutrophilia. Given his multiple underlying medical illnesses, the probability is very high that it is reactive. Myeloproliferative disease at this point is not excluded. 2. He was found to have an IgM monoclonal gammopathy by protein electrophoresis in 2017. The clinical significance is uncertain. 3. 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 His other medical illnesses include: 4. Hypertension. 5. Hyperlipidemia. 6. Coronary artery disease with previous angioplasty/stent placement. 7. History of congestive heart failure. 8. He has elevated hemoglobin A1c level, consistent with type 2 diabetes. 9. He has symptoms of peripheral neuropathy. 10. Asthma/COPD. 11. Obstructive sleep apnea. 12. Seropositive rheumatoid arthritis. 13. Degenerative disease of the spine. 14. Anxiety/depression. Plan: The laboratory findings and clinic complications were reviewed with the patient. He has some mild neutrophilia. As noted, given his multiple underlying medical illnesses, the probability is very high that this is reactive. However, at this point a myeloproliferative disorder is not excluded. He will have additional laboratory studies today to include CBC, comprehensive metabolic profile, sed rate and LDH level, TSH level, and B12 level. I also will check a FISH study for BCR/abl, and I will review the blood smear. He will have further evaluation as indicated. While it is not urgent, at some point down the line I will want to recheck a protein electrophoresis and transferrin saturation. Signed By: Cj Celaya M.D. <<Signature on File>>
[2019-11-06 16:08] LABS: P190 BCR ALB1 Not Detected; P210 BCR ALB1 Not Detected; Prior Results Not Given
== END 2019-10-31 10:11 | disposition home or self-care (01) ==
PROVIDERS: PCP Nurse Practitioner Family; Visit Provider Internal Medicine Medical Oncology
DX: D72.828 Other elevated white blood cell count (principal); D47.2 Monoclonal gammopathy; R53.83 Other fatigue; G62.9 Polyneuropathy, unspecified; I10 Essential (primary) hypertension; E78.5 Hyperlipidemia, unspecified; I25.10 Atherosclerotic heart disease of native coronary artery without angina pectoris; J44.9 Chronic obstructive pulmonary disease, unspecified; M05.9 Rheumatoid arthritis with rheumatoid factor, unspecified; M47.9 Spondylosis, unspecified; F41.8 Other specified anxiety disorders; E11.9 Type 2 diabetes mellitus without complications; F17.210 Nicotine dependence, cigarettes, uncomplicated; Z79.84 Long term (current) use of oral hypoglycemic drugs
CPT/HCPCS: 80053; 81206; 82607; 83615; 84443; 85025; 85651; 99204

== ENCOUNTER 2019-11-08 11:00 | Outpatient (CLI) | payer MEDICARE, SELFPAY | END 2019-11-08 11:01 | disposition home or self-care (01) | LOC: SLEEP 11-12 11:55 | PROVIDERS: PCP Nurse Practitioner Family; Visit Provider Internal Medicine Critical Care Medicine | DX: J44.9 Chronic obstructive pulmonary disease, unspecified (principal) | CPT/HCPCS: 94762 ==

== ENCOUNTER → 2020-01-14 11:25 | Outpatient (BNVA) | payer OTHER, SELFPAY | PROVIDERS: PCP Nurse Practitioner Family; Visit Provider Internal Medicine Rheumatology | DX: M05.79 Rheumatoid arthritis with rheumatoid factor of multiple sites without organ or systems involvement (principal); Z79.899 Other long term (current) drug therapy; J43.9 Emphysema, unspecified; M16.12 Unilateral primary osteoarthritis, left hip; Z79.52 Long term (current) use of systemic steroids; F17.210 Nicotine dependence, cigarettes, uncomplicated; Z79.1 Long term (current) use of non-steroidal anti-inflammatories (NSAID) | CPT/HCPCS: 99214 ==

== ENCOUNTER 2020-01-30 12:57 | Outpatient (CLI) | payer MEDICARE, SELFPAY ==
[2020-01-30 14:19] LABS: Basophils # 0.1 10^3/uL (0.0-0.1); Eosinophils # 0.1 10^3/uL (0.0-0.8); Hematocrit 45.4 % (42.0-52.0); Hemoglobin 14.7 g/dL (11.7-16.6); Lymphocytes # 1.5 10^3/uL (0.8-4.8); Lymphocytes % 16.7 %; Mean Corpuscular HGB Conc 32.4 g/dL (30.0-36.0); Mean Corpuscular Hemoglobin 34.1 pg (28.0-34.0); Mean Corpuscular Volume 105.3 fL (80-94); Mean Platelet Volume 9.7 fL (7.4-10.4); Monocytes # 0.5 10^3/uL (0.2-0.9); Neutrophils # 6.59 10^3/uL (1.8-7.7); Neutrophils % 74.6 %; Nucleated Red Blood Cells % 0 %; Platelet Count 288 10^3/cmm (130-400); Red Blood Count 4.31 10^6/uL (4.1-5.3); White Blood Count 8.8 10^3/uL (4.0-10.0)
[2020-01-30 14:35] LABS: Alanine Aminotransferase 22 U/L (0-41); Albumin Level 4.2 g/dL (3.5-5.2); Alkaline Phosphatase 73 IU/L (40-130); Aspartate Amino Transferase 29 U/L (0-40); C Reactive Protein 2.4 mg/L (0.0-4.9); Globulin 2.9 g/dL (1.3-4.6); Glomerular Filtration Rate 99.3 mL/min (90-130); Total Bilirubin 0.2 mg/dL (0.15-1.2); Total Protein 7.1 g/dL (6.6-8.7)
[2020-01-30 17:28] LABS: Erythrocyte Sedimentation Rate 27 mm/hr (0-10)
[2020-01-31 17:09] LABS: Alternaria Alternata (M6) Ige <0.10 kU/L; Alternaria Class 0; Bermuda Class 0; Bermuda Grass (G2) Ige <0.10 kU/L; Cat Dander (E1) Ige <0.10 kU/L; Cat Dander Class 0; Common Ragweed (Short) (W1) Ig <0.10 kU/L; D. Farinae Class 0; Dermatophagoides Class 0; Dermatophagoides Farinae (D2) <0.10 kU/L; Dermatophagoides Pteronyssinus <0.10 kU/L; Dog Dander (E5) Ige <0.10 kU/L; Dog Dander Class 0; Elm (T8) Ige <0.10 kU/L; Elm Class 0; English Plantain (W9) Ige <0.10 kU/L; English Plantain Class 0; House Dust (Greer) (H1) Ige <0.10 kU/L; House Dust (Hollister- Stier) <0.10 kU/L; House Dust Class 0; Immunoglobulin E 145 kU/L (<OR=114); Immunoglobulin E 149 kU/L (<OR=114); Johnson Grass (G10) Ige <0.10 kU/L; Johnson Grass Cl 0; June Grass Class 0; June Grass(Kentucky Blue) (G8) <0.10 kU/L; Lamb'S Quarters Class 0/1; Maple (Box Elder) (T1) Ige <0.10 kU/L; Maple Class 0; Meadow Fescue (G4) Ige <0.10 kU/L; Meadow Fescue Class 0; Mucor Racemosus Class 0; Oak (T7) Ige <0.10 kU/L; Oak Class 0; Orchard Grass (Cocksfoot) (G3) <0.10 kU/L; Penicillium Class 0; Penicillium Notatum (M1) Ige <0.10 kU/L; Perennial Rye Grass (G5) Ige <0.10 kU/L; Perennial Rye Grass Class 0; Ragweeed Class 0; Rough Marsh Elder (W16) Ige <0.10 kU/L; Rough Marsh Elder Class 0; Sweet Vernal Class 0; Sweet Vernal Grass (G1) Ige <0.10 kU/L; Timothy Grass (G6) Ige <0.10 kU/L; Timothy Grass Class 0
[2020-02-05 15:28] LABS: Aspergillus Fumigatus, Igg Ab, 11.5 mg/L (<=102)
== END 2020-01-30 12:58 | disposition home or self-care (01) ==
PROVIDERS: Internal Medicine Critical Care Medicine; PCP Nurse Practitioner Family; Visit Provider Internal Medicine Rheumatology
DX: M05.79 Rheumatoid arthritis with rheumatoid factor of multiple sites without organ or systems involvement (principal); T78.40XA Allergy, unspecified, initial encounter; Z79.899 Other long term (current) drug therapy
CPT/HCPCS: 36415; 80076; 82565; 82785; 85025; 85651; 86003; 86140

== ENCOUNTER 2020-02-19 10:09 | Outpatient (CLI) | payer MEDICARE, SELFPAY ==
--- NOTE | 2020-02-19 10:15 | USCV_ITS ---
Scott Boswell Age: 59 Gender: M : 1960 Exam Date: 02/19/2020 10:35 Ordering Phys: Cheryl Koehler MD Technologist: Halina Bravo [place] [facility]: CHF BP: 156 / 98 HR: 83 Rhythm: Sinus Technical Quality: Adequate MEASUREMENTS (Male / Female) Normal Values 2D ECHO LV Diastolic Diameter PLAX 5.8 cm 4.2 - 5.9 / 3.9 - 5.3 cm LV Systolic Diameter PLAX 4.3 cm LV Chamber Size 3.3 cm IVS Diastolic Thickness 0.8 cm 0.6 - 1.0 / 0.6 - 0.9 cm IVS Systolic Thickness 1.7 cm LVPW Diastolic Thickness 1.0 cm 0.6 - 1.0 / 0.6 - 0.9 cm LVPW Systolic Thickness 0.9 cm RV Chamber Size 2.9 cm LVOT Diameter 2.0 cm LV Ejection Fraction 2D Teich 51.3 % LA Diameter 3.8 cm LA Width 3.3 cm LA Height 5.2 cm RA Width 3.6 cm RA Height 4.5 cm Aorta at Sinotubular Diameter 2.4 cm M-MODE LV Diastolic Diameter MM 6.0 cm 4.2 - 5.9 / 3.9 - 5.3 cm LV Systolic Diameter MM 4.0 cm LV Ejection Fraction MM Teich 61.1 % IVS Diastolic Thickness MM 1.0 cm 0.6 - 1.0 / 0.6 - 0.9 cm IVS Systolic Thickness MM 1.3 cm LVPW Diastolic Thickness MM 1.2 cm 0.6 - 1.0 / 0.6 - 0.9 cm LVPW Systolic Thickness MM 1.5 cm Aortic Annulus Diameter 3.2 cm LA Ao Ratio MM 1.3 MV E Point Septal Separation 0.3 cm DOPPLER AV Peak Velocity 147.0 cm/s LVOT Peak Velocity 116.0 cm/s AV Area Cont Eq vti 2.9 cm squared AV Area Cont Eq pk 2.5 cm squared MV Area PHT 3.1 cm squared Mitral E to A Ratio 1.1 MV E' Velocity 44.0 cm/s Mitral E to MV E' Ratio 11.3 Mitral E to LV E' Lateral Ratio 9.0 Mitral E to LV E' Septal Ratio 15.2 TV Peak E Velocity 45.0 cm/s Right Atrial Pressure 8.0 mmHg PV Peak Velocity 68.0 cm/s FINDINGS Left Ventricle Normal left ventricular size and systolic function, EF55%.no regional wall motion abnormalities. Right Ventricle Possibly of normal size ejection fraction Right Atrium The right atrium is normal in size. Left Atrium The left atrium is normal in size. Mitral Valve No gross abnormalities noted Aortic Valve No gross abnormalities noted Tricuspid Valve No gross abnormalities noted Pulmonic Valve Pulmonic valve not well visualized. Pericardium Normal pericardium without effusion. Aorta Normal ascending aorta dimension. CONCLUSIONS Normal left ventricular size and systolic function, EF55%. No regional wall motion abnormalities. No significant stenotic or regurgitant lesions. Possibly normal chamber sizes. Technically difficult study because of the poor ultrasonic window Dr Ashly Matos MD [facility] (Electronically Signed) Final Date: 19 February 2020 17:34 S
== END 2020-02-19 10:10 | disposition home or self-care (01) ==
LOC: RAD 10:14
PROVIDERS: PCP Nurse Practitioner Family; Visit Provider Internal Medicine Critical Care Medicine
DX: I50.9 Heart failure, unspecified (principal)
CPT/HCPCS: 93306

== ENCOUNTER 2020-03-27 10:04 | Outpatient (CLI) | payer MEDICARE, SELFPAY ==
--- NOTE | 2020-03-27 10:14 | CT_ITS ---
WS: [id number] LDCT LUNG CANCER SCREENING TECHNIQUE: Noncontrast CT of the chest with coronal and sagittal reformatted images. CLINICAL INFORMATION: NICOTINE DEPENDENCE, CIGARETTES COMPARISON: CT July 16, 2019 DLP: 51.81 mGy.cm DIvol: 1.[address] scans at [facility] use at least one of these dose optimization techniques: automat ed exposure control; mA and/or kV adjustment per patient size (includes targeted exams where dose is matched to clinical indication); or iterative reconstruction. FINDINGS: Moderate chronic emphysematous changes. No acute pulmonary infiltrates. No consolidation pleural flui d. No mediastinal or hilar lymphadenopathy. Coronary calcification. No mediastinal or hilar lymphadenopa thy. No axillary lymphadenopathy. Chronic bilateral rib fractures with callus formation. A few bilateral scattered noncalcified pulmonary nodules largest in the right upper lobe and left low er lobe measuring 6 mm. No significant changes from the prior examination. No no new suspicious pulmo nary parenchymal opacities. CT/CT lung screening 64521 IMPRESSION: LUNG-RADS: 2-Benign Appearance or Behavior FOLLOW UP: 12 Month: Continue annual screening with LDCT
== END 2020-03-27 10:05 | disposition home or self-care (01) ==
LOC: CT 10:05
PROVIDERS: PCP Nurse Practitioner Family; Visit Provider Internal Medicine Critical Care Medicine
DX: Z12.2 Encounter for screening for malignant neoplasm of respiratory organs (principal); F17.210 Nicotine dependence, cigarettes, uncomplicated
CPT/HCPCS: 71271

== ENCOUNTER → 2020-05-28 12:42 | Outpatient (BNVA) | payer MEDICARE, SELFPAY | PROVIDERS: PCP Nurse Practitioner Family; Visit Provider Internal Medicine Rheumatology | DX: M05.79 Rheumatoid arthritis with rheumatoid factor of multiple sites without organ or systems involvement (principal); Z79.899 Other long term (current) drug therapy; Z79.52 Long term (current) use of systemic steroids; M16.12 Unilateral primary osteoarthritis, left hip; M54.89 Other dorsalgia; J44.9 Chronic obstructive pulmonary disease, unspecified; Z87.81 Personal history of (healed) traumatic fracture; F17.210 Nicotine dependence, cigarettes, uncomplicated | CPT/HCPCS: 80076; 82565; 85025; 86140; 99214 ==

== ENCOUNTER → 2020-09-10 12:54 | Outpatient (BNVA) | payer MEDICARE, SELFPAY | PROVIDERS: PCP Nurse Practitioner Family; Visit Provider Internal Medicine Rheumatology | DX: Z71.89 Other specified counseling (principal); M05.79 Rheumatoid arthritis with rheumatoid factor of multiple sites without organ or systems involvement; Z79.899 Other long term (current) drug therapy | CPT/HCPCS: 36415; 80076; 82565; 85025; 86140 ==

== ENCOUNTER 2020-11-10 15:11 | Outpatient (CLI) | payer MEDICARE, SELFPAY ==
[2020-11-10 17:10] LABS: Alanine Aminotransferase 58 U/L (0-41); Albumin Level 4.4 g/dL (3.5-5.2); Alkaline Phosphatase 55 IU/L (40-130); Aspartate Amino Transferase 61 U/L (0-40); Total Bilirubin 0.2 mg/dL (0.15-1.2); Total Protein 6.4 g/dL (6.6-8.7)
== END 2020-11-10 15:12 | disposition home or self-care (01) ==
PROVIDERS: PCP Nurse Practitioner Family; Visit Provider Internal Medicine Rheumatology
DX: M05.79 Rheumatoid arthritis with rheumatoid factor of multiple sites without organ or systems involvement (principal); Z79.899 Other long term (current) drug therapy
CPT/HCPCS: 80076

== ENCOUNTER → 2020-12-15 15:08 | Outpatient (BNVA) | payer MEDICARE, SELFPAY | PROVIDERS: PCP Nurse Practitioner Family; Visit Provider Surgery | DX: Z11.52 Encounter for screening for COVID-19 (principal); Z20.822 Contact with and (suspected) exposure to COVID-19 | CPT/HCPCS: 87635 ==

== ENCOUNTER 2020-12-17 11:03 | Outpatient (CLI) | payer MEDICARE, SELFPAY ==
--- NOTE | 2020-12-17 09:12 | USCV_ITS ---
Dobutamine Stress Echo Scott Boswell Age: 60 Gender: M : 1960 Exam Date: 12/17/2020 12:35 Ordering Phys: Teresa Lang MD ([email or web address]) Technologist: Arnaud Corral [place] [facility] [place]ication: Shortness of breath Rhythm: Sinus Patient History: Smoker, Dyspnea/SOB Cardiac Medications: Beta nai, Statin Medications in past 24 hours: NONE Contrast: Optison Total Dose (mL): 3 Stress Results Protocol: Pharmacologic Peak Dose (???g/kg/min): 40 Duration (min:sec): 11:08 Atropine:(mg) 0.5 Target HR: 137 Double Product: 64511 Resting HR: 81 Resting BP: 136 / 80 Peak HR: 146 Peak BP: 148 / 85 Max Predicted HR: 161 91 % Max Predicted HR Stress Summary: The hemodynamic response to stress was normal. The patient's target heart rate was achieved. BP Response: Normal Reason for Termination: Exceeded target heart rate (85% max predicted) Cardiac Symptoms: None ECG Analysis Resting EKG: Stress EKG: Arrhythmia: MEASUREMENTS (Male/Female) Normal Values FINDINGS Baseline: Normal left ventricle ejection, estimated ejection fraction around 60%, No wall motion abnormality. At low and peak exercise level: Augmentation of cavity was good left ventricle function was hyperdynamic estimated ejection fraction was 60 to 70%, no wall motion abnormality Recovery: Uneventful no wall motion abnormality noted. CONCLUSIONS Echocardiographic portion of stress test was not suggestive of ischemia. Teresa Lang MD (Electronically Signed) Final Date: 17 December 2020 19:10 S
--- NOTE | 2020-12-17 11:00 | USCV_ITS ---
Scott Boswell Age: 60 Gender: M : 1960 Exam Date: 12/17/2020 10:56 Ordering Phys: Teresa Lang MD ([email or web address]) Technologist: Morro Colon Parachute Folder [place] [facility] [place]: PVD RIGHT LEFT Brachial 141.00 mmHg Brachial 142.00 mmHg Pressure (mmHg) Waveform Pressure (mmHg) Waveform 152.00 Above Knee 145.00 157.00 Below Knee 118.00 167.00 INSIDE TECHNICAL SALES REPRESENTATIVE 152.00 156.00 DPA 124.00 1.18 Ankle/Brachial Index 1.07 133.00 Pre-Exercise Toe Pressure 147.00 0.94 Pre-Exercise Toe/Brachial Index 1.04 FINDINGS Normal resting ABIs bilaterally Normal resting TBIs bilaterally Normal PVR waveforms bilaterally CONCLUSIONS No significant arterial obstruction, based on the above findings Dr Ashly Matos MD [facility] (Electronically Signed) Final Date: 17 December 2020 22:26 S
[2020-12-17 11:57] VITALS: BMI 42.3
--- NOTE | 2020-12-17 11:58 | ECG_ITS ---
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 Baseline heart rate was 81 beats per minute. Baseline blood pressure was 136/80 millimeters of mercury. Target heart rate was 161 beats per minute. Maximum heart rate achieved was 146, which was 90 % of the target heart rate. Maximum blood pressure was 148/85 millimeters of mercury. Total exercise time was 11-minute. The reason for ending the test was completion of the protocol. The patient complained of shortness of breath during the stress test, which then resolved at the end of the test. ELECTROCARDIOGRAM: BASELINE: Showed sinus rhythm, normal axis, no significant ST-T changes at the baseline noted. At the mid and peak dobutamine : No significant ST-T changes suggestive of ischemia noted. RECOVERY: During the recovery period, heart rate dropped appropriately. No significant ST-T changes in the recovery suggestive of ischemia noted. CONCLUSION: 1. Please see dobutamine dose infusion as per protocol in the main body of the test 2. Heart rate response was appropriate. 3. Blood pressure response was appropriate. 4. Symptoms not suggestive of ischemia. 5. Electrocardiogram portion of the stress test was not suggestive of ischemia. Electronically Signed On 12-31-2020 20:07:17 PROPERTY ECONOMIST by TERESA LANG [email or web address]
[2020-12-17] MEDS: sodium chloride 0.9% 250 ML 75 ML IV (12:35)
[2020-12-17] MEDS: DOBUTtamine 200 MG in sodium chloride 0.9% 34 ML 20 MG IV (12:42)
[2020-12-17] MEDS: atropine 0.1 mg/mL Syr 10 mL 0.5 MG IVP (12:52)
[2020-12-17] MEDS: metoprolol tartrate 1 mg/1 mL SDV 5 mL 5 MG IVP (12:56)
[2020-12-17 13:21] VITALS: BP 142/78; PULSE 93
== END 2020-12-17 11:04 | disposition home or self-care (01) ==
LOC: CDL 11:05
PROVIDERS: PCP Nurse Practitioner Family; Visit Provider Internal Medicine Cardiovascular Disease
DX: R06.02 Shortness of breath (principal); I73.9 Peripheral vascular disease, unspecified
CPT/HCPCS: 93017; 93350; 93352; 93923; J0461; J1250; J3490; J7050

== ENCOUNTER 2020-12-19 08:21 | Day surgery (SDC) | payer MEDICARE, SELFPAY ==
[2020-12-18 07:16] VITALS: BMI 41.1
--- NOTE | 2020-12-19 08:42 | P.ANESASSM_ITS ---
Pre-Anesthetic Assessment Pre-Anesthetic Assessment: Height/Weight: Height 1.8 m Weight 133.81 kg Preop Diagnosis: GERD Proposed Procedure: Operation Date: 12/19/20 09:30 Proposed Procedures p EGD 95782 K21.9(Not Applicable) - Leonel Boucher MD Familial anesthetic complications: none Was Beta Chantelle taken within 24 hours: Yes Was Clonidine taken within 24 hours: N/A Last intake: > 8 hrs Social: Social History: No alcohol and No tobacco Comment: former smoker Exam: Pre-Anes Outpt Exam: alert, oriented x 3, clear to auscultation bilaterally and regular rate & rhythm Airway: Cervical ROM: WNL MP: 4 Dentition: False Additional comments: large tongue and neck, tay Pulmonary: Pulmonary: COPD (3 L NC continuously (didn't bring it with him today)), Sleep apnea and SOB CV/HEM: CV/HEM: CAD (stents 2007), CHF and HTN Comments: CONCLUSIONS Normal left ventricular size and systolic function, EF55%. No regional wall motion abnormalities. No significant stenotic or regurgitant lesions. Possibly normal chamber sizes. Technically difficult study because of the poor ultrasonic window 12/17/20 stress echo FINDINGS Baseline: Normal left ventricle ejection, estimated ejection fraction around 60%, No wall motion abnormality. At low and peak exercise level: Augmentation of cavity was good left ventricle function was hyperdynamic estimated ejection fraction was 60 to 70%, no wall motion abnormality Recovery: Uneventful no wall motion abnormality noted. CONCLUSIONS Echocardiographic portion of stress test was not suggestive of ischemia Spoke with Dr David vaughn to proceed GI: GI: GERD Metabolic: Metabolic: Morbid obesity Neuropsych: Neuropsych: CVA (2006 - still Staggers like he's drunk ) Anesthetic Plan: ASA status: 4 Risk of > 500 ml blood loss (7ml/kg in child gume): No PFSH Anesthesia PFSH: Medical History CAD (coronary artery disease) CHF (congestive heart failure) COPD (chronic obstructive pulmonary disease) Depression Enteritis GERD (gastroesophageal reflux disease) HTN (hypertension) Hyperlipidemia Memory loss STEPHANIE (obstructive sleep apnea) Osteoarthritis of left hip Restless leg Seropositive rheumatoid arthritis Type 2 diabetes mellitus Surgical History History of carpal tunnel surgery History of colonoscopy with polypectomy 2010 History of sinus surgery History of surgical amputation of finger of right hand Stented coronary artery Family History Other Arthritis Diabetes Hypertension Stroke Denies family history of Rheumatoid arthritis Systemic lupus erythematosus (SLE) in adult Social History Quit status (tobacco): has quit using tobacco Year quit tobacco: 2020 Former quit date comment: Hx of 1 PPD x 53 Years Second hand smoke exposure: Yes Smoking risk assessment/counseling performed?: No Alcohol intake: former Counseling given: No Counseling given: No Lives independently: Yes Household members: spouse Marital status: Current occupational status: disabled Pets and animals: Yes History of recent travel: No Current gender identity: Male Data Anesthesia Cardiac Studies: No Data to Display
[2020-12-19 09:11] VITALS: BP 125/93; PULSE 73; RESP 18; TEMP 36.2; O2SAT 91
[2020-12-19] MEDS: sodium chloride 0.9% 1,000 ML 30 ML IV (09:26)
[2020-12-19 09:30] LABS: Glucose Point of Care 135 mg/dL (70-110)
--- NOTE | 2020-12-19 10:10 | W.PM.OPSFHP ---
Same Day Surgery H&P Indication for Procedure/HPI DATE OF PROCEDURE: December 19, 2020 CHIEF COMPLAINT/INDICATIONFOR SURGICAL PROCEDURE: gerd/egd PREOP DIAGNOSIS: GERD PLANNED PROCEDRUE: Operation Date: 12/19/20 09:30 Proposed Procedures p EGD 29708 K21.9(Not Applicable) - Leonel Boucher MD Medications/Allergies* Home Medications Medication Instructions Recorded Confirmed Type albuterol sulfate 90 mcg/actuation 2 puff INHALATION Q6H PRN 04/25/19 12/18/20 History aerosol inhaler chlorthalidone 25 mg tablet 25 mg PO DAILY 04/25/19 12/18/20 History duloxetine 60 mg capsule,delayed 60 mg PO DAILY 04/25/19 12/18/20 History release memantine 28 mg capsule 28 mg PO DAILY 04/25/19 12/18/20 History sprinkle,extended release 24hr metformin 1,000 mg tablet 1,000 mg PO BID 04/25/19 12/19/20 History nitroglycerin 0.4 mg sublingual 0.4 mg SUBLINGUAL Q5M PRN 04/25/19 12/18/20 History tablet oxycodone-acetaminophen 10 mg-325 1 tab PO TID PRN 04/25/19 12/18/20 History mg tablet ropinirole 2 mg tablet 2 mg PO TID 04/25/19 12/18/20 History rosuvastatin 40 mg tablet 40 mg PO DAILY 04/25/19 12/18/20 History trandolapril 4 mg tablet 4 mg PO DAILY 04/25/19 12/18/20 History albuterol sulfate 2.5 mg INHALATION Q6H PRN 05/23/19 12/18/20 History fluticasone propionate 50 2 spray INTRANASAL DAILY 07/23/19 12/18/20 History mcg/actuation nasal spray,suspension meloxicam 15 mg tablet 15 mg PO DAILY 07/23/19 12/18/20 History carvedilol 6.25 mg tablet 6.25 mg PO DAILY tab 10/01/19 12/19/20 History amlodipine 2.5 mg tablet 10 mg PO DAILY tab 05/28/20 12/18/20 History ascorbic acid (vitamin C) 500 mg 500 mg PO DAILY 11/11/20 12/18/20 History tablet cholecalciferol (vitamin D3) 25 25 mcg PO DAILY 11/11/20 12/18/20 History mcg (1,000 unit) capsule dulaglutide 0.75 mg/0.5 mL 0.75 mg SUBCUT .Once weekly ml 11/11/20 12/18/20 History subcutaneous pen injector krill oil 500 mg capsule 500 mg PO DAILY 11/11/20 12/18/20 History multivitamin 1 tab PO DAILY 11/11/20 12/18/20 History potassium chloride 20 mEq 20 meq PO DAILY tab 11/11/20 12/18/20 History tablet,extended release pregabalin 150 mg capsule 150 mg PO TID cap 11/11/20 12/18/20 History Allergies/Adverse Reactions Allergy/AdvReac Type Severity Reaction Status Date / Time metoclopramide [From Reglan] Allergy Severe ALGY-Hives Verified 12/16/20 13:25 Current Medications: Generic Name Dose Route Start Last Admin Trade Name Freq PRN Reason Stop Dose Admin Sodium Chloride 1,000 mls @ 30 mls/hr 12/19/20 09:15 12/19/20 09:26 Sodium Chloride 0.9% IV 12/20/20 09:14 30 mls/hr .Q24H BRADEN Administration Pertinent History/Comorbid Conditions* Medical History (Updated 11/21/20 @ 15:49 by Leonel Boucher MD) CAD (coronary artery disease) CHF (congestive heart failure) COPD (chronic obstructive pulmonary disease) Depression Enteritis GERD (gastroesophageal reflux disease) HTN (hypertension) Hyperlipidemia Memory loss STEPHANIE (obstructive sleep apnea) Osteoarthritis of left hip Restless leg Seropositive rheumatoid arthritis Type 2 diabetes mellitus Surgical History (Updated 11/21/20 @ 12:12 by Leonel Boucher MD) History of carpal tunnel surgery History of colonoscopy with polypectomy 2010 History of sinus surgery History of surgical amputation of finger of right hand Stented coronary artery Family History (Updated 06/21/19 @ 14:11 by Arcelia Mathis LPN) Diabetes Arthritis Hypertension Stroke Denies family history of Rheumatoid arthritis Systemic lupus erythematosus (SLE) in adult Social History Quit status (tobacco): has quit using tobacco Year quit tobacco: 2020 Former quit date comment: Hx of 1 PPD x 53 Years Second hand smoke exposure: Yes Smoking risk assessment/counseling performed?: No Alcohol intake: former Counseling given: No Counseling given: No Lives independently: Yes Household members: spouse Marital status: Current occupational status: disabled Pets and animals: Yes History of recent travel: No Current gender identity: Male Pertinent Exam Findings alert, oriented x 3 and regular rate & rhythm Recommendations Surgery/Procedure today Coding Level of Care Code Acute Civil Engineering Project 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
[2020-12-19 10:32] VITALS: BP 133/75; PULSE 79; RESP 16; TEMP 36.4; O2SAT 95
[2020-12-19 10:55] VITALS: BP 143/87; PULSE 77; RESP 16; TEMP 36.3; O2SAT 98
== END 2020-12-19 10:57 | disposition home or self-care (01) ==
PROVIDERS: PCP Nurse Practitioner Family; Visit Provider Surgery
PROC: 0DJ08ZZ Inspection of Upper Intestinal Tract, Via Natural or Artificial Opening Endoscopic (ICD-10-PCS; CPT 43235; principal; 2020-12-19 09:30)
DX: K21.9 Gastro-esophageal reflux disease without esophagitis (principal); K29.60 Other gastritis without bleeding; Z79.84 Long term (current) use of oral hypoglycemic drugs; I11.0 Hypertensive heart disease with heart failure; I50.9 Heart failure, unspecified; I25.10 Atherosclerotic heart disease of native coronary artery without angina pectoris; J44.9 Chronic obstructive pulmonary disease, unspecified; E11.9 Type 2 diabetes mellitus without complications; G47.33 Obstructive sleep apnea (adult) (pediatric); E78.5 Hyperlipidemia, unspecified; M05.9 Rheumatoid arthritis with rheumatoid factor, unspecified; M16.12 Unilateral primary osteoarthritis, left hip; G25.81 Restless legs syndrome; Z87.891 Personal history of nicotine dependence
CPT/HCPCS: 36416; 43239; 82962; 88305; 96360; J2704; J7030

== ENCOUNTER 2021-01-29 07:08 | Outpatient (CLI) | payer MEDICARE, SELFPAY ==
--- NOTE | 2021-01-29 08:00 | NM_ITS ---
WS: [id number] NUCLEAR MEDICINE GASTRIC EMPTYING EXAMINATION HISTORY: E11.43 - Type 2 diabetes mellitus with diabetic autonomic... COMPARISON: None available. TECHNIQUE: The patient ingested a meal containing 1.1 mCi of Tc 99m sulfur colloid mixed with eggs. The patient was placed in supine position and imaging over the abdomen was performed for a total of 9 0 minutes. Computer acquisition with the region of interest placed over the stomach to evaluate gastr ic emptying half-time. Radionuclide uptake evident within the stomach after ingestion of the radionuclide meal. 50% emptying of the stomach is calculated at 33 minutes. This is well within normal. At 50 minutes there is very little residual food remaining within the stomach. NM/[place] [id number] IMPRESSION: No evidence for gastroparesis.
== END 2021-01-29 07:09 | disposition home or self-care (01) ==
LOC: NM 07:11
PROVIDERS: PCP Nurse Practitioner Family; Visit Provider Surgery
DX: E11.43 Type 2 diabetes mellitus with diabetic autonomic (poly)neuropathy (principal); K31.84 Gastroparesis
CPT/HCPCS: 78264; A9541

== ENCOUNTER → 2021-02-02 13:25 | Outpatient (BNVA) | payer MEDICARE, SELFPAY | PROVIDERS: PCP Nurse Practitioner Family; Visit Provider Internal Medicine Rheumatology | DX: M05.79 Rheumatoid arthritis with rheumatoid factor of multiple sites without organ or systems involvement (principal); M54.59 Other low back pain; Z79.899 Other long term (current) drug therapy; J43.9 Emphysema, unspecified; Z71.89 Other specified counseling; Z87.891 Personal history of nicotine dependence | CPT/HCPCS: 99214 ==

== ENCOUNTER 2021-02-16 15:07 | Outpatient (CLI) | payer MEDICARE, SELFPAY ==
--- NOTE | 2021-02-16 15:15 | XR_ITS ---
WS: [id number] HIP WITH PELVIS LEFT TECHNIQUE: 3 views of the left hip with pelvis CLINICAL INFORMATION: LEFT HIP PAIN COMPARISON: None. FINDINGS: Advanced degenerative arthritis left hip with joint space narrowing. Iysi-ma-iwtu articulation. No ac coral fractures. Normal visualized left pubic rami. XR/XR hip LT 2-3V wo/w pel* [id number] IMPRESSION: Advanced degenerative arthritis left hip with joint space narrowing and bone-on -bone articulation. Tonnis classification: grade 3: large cysts in femoral head/acetabulum or joint space obliteration/severe narrowing or severe femoral head deformity vs AVN
== END 2021-02-16 15:08 | disposition home or self-care (01) ==
PROVIDERS: PCP Nurse Practitioner Family; Visit Provider Nurse Practitioner Family
DX: M16.12 Unilateral primary osteoarthritis, left hip
CPT/HCPCS: 73502

== ENCOUNTER → 2021-02-25 13:29 | Outpatient (BNVA) | payer MEDICARE, SELFPAY | PROVIDERS: PCP Nurse Practitioner Family; Referring Provider Nurse Practitioner Family; Visit Provider Specialist | DX: M16.12 Unilateral primary osteoarthritis, left hip (principal) | CPT/HCPCS: 73502 ==

== ENCOUNTER → 2021-04-23 13:25 | Outpatient (BNVA) | payer MEDICARE, SELFPAY | PROVIDERS: PCP Nurse Practitioner Family; Visit Provider Internal Medicine Critical Care Medicine | DX: J42 Unspecified chronic bronchitis (principal); G47.30 Sleep apnea, unspecified; I50.9 Heart failure, unspecified; R12 Heartburn; Z87.891 Personal history of nicotine dependence | CPT/HCPCS: 99214 ==

== ENCOUNTER → 2021-05-11 15:26 | Outpatient (BNVA) | payer MEDICARE, SELFPAY | PROVIDERS: PCP Nurse Practitioner Family; Visit Provider Internal Medicine Cardiovascular Disease | DX: I25.10 Atherosclerotic heart disease of native coronary artery without angina pectoris (principal); I50.9 Heart failure, unspecified; R07.9 Chest pain, unspecified; Z87.891 Personal history of nicotine dependence | CPT/HCPCS: 99213 ==

== ENCOUNTER → 2021-06-05 12:36 | Outpatient (BNVA) | payer MEDICARE, SELFPAY | PROVIDERS: PCP Nurse Practitioner Family; Visit Provider Internal Medicine Rheumatology | DX: M19.90 Unspecified osteoarthritis, unspecified site (principal); J44.9 Chronic obstructive pulmonary disease, unspecified; Z71.89 Other specified counseling; Z87.891 Personal history of nicotine dependence; M05.79 Rheumatoid arthritis with rheumatoid factor of multiple sites without organ or systems involvement; Z79.899 Other long term (current) drug therapy | CPT/HCPCS: 99214 ==

== ENCOUNTER → 2021-06-08 11:32 | Outpatient (BNVA) | payer MEDICARE, SELFPAY | PROVIDERS: PCP Nurse Practitioner Family; Visit Provider Internal Medicine Rheumatology | DX: M05.79 Rheumatoid arthritis with rheumatoid factor of multiple sites without organ or systems involvement (principal); Z79.899 Other long term (current) drug therapy; J44.9 Chronic obstructive pulmonary disease, unspecified; Z87.891 Personal history of nicotine dependence | CPT/HCPCS: 80076; 82565; 85025; 86140 ==

== ENCOUNTER 2021-06-11 08:10 | Outpatient (CLI) | payer MEDICARE, SELFPAY ==
--- NOTE | 2021-06-11 13:01 | PFTS_ITS ---
Date of Study:06/11/21 Date of Dictation: 06/11/2021 MECHANICS: Postbronchodilator forced vital capacity (FVC) is reduced. Postbronchodilator forced expiratory volume in one second (FEV1) is moderately reduced 55 %. FEV1/FVC is normal. There is no significant response to bronchodilators. FLOW VOLUME LOOP: Normal. LUNG VOLUMES: Total lung capacity (TLC) is reduced. Residual volume (RV) is normal. DIFFUSING CAPACITY FOR CARBON MONOXIDE: Normal . INTERPRETATION: The spirometry consistent with moderate restriction. There is no significant response to bronchodilators. Lung volumes are reduced. Normal gas transfer Please correlate clinically. MTDD
== END 2021-06-11 08:11 | disposition home or self-care (01) ==
LOC: RT 08:14
PROVIDERS: PCP Nurse Practitioner Family; Visit Provider Internal Medicine Critical Care Medicine
DX: R06.02 Shortness of breath (principal); J42 Unspecified chronic bronchitis
CPT/HCPCS: 94060; 94726; 94729; J7611

== ENCOUNTER 2021-07-01 07:37 | Outpatient (CLI) | payer MEDICARE, SELFPAY ==
[2021-06-29 12:31] LABS: Basophils # 0.1 10^3/uL (0.0-0.1); Basophils % 1.2 %; Eosinophils # 0.3 10^3/uL (0.0-0.8); Eosinophils % 2.3 %; Hematocrit 44.3 % (42.0-52.0); Hemoglobin 14.8 g/dL (11.7-16.6); Lymphocytes # 2.5 10^3/uL (0.8-4.8); Lymphocytes % 22.8 %; Mean Corpuscular HGB Conc 33.4 g/dL (30.0-36.0); Mean Corpuscular Hemoglobin 33.6 pg (28.0-34.0); Mean Corpuscular Volume 100.5 fl (80-94); Mean Platelet Volume 9.6 fL (7.4-10.4); Monocytes # 0.8 10^3/uL (0.2-0.9); Monocytes % 7.2 %; Neutrophils # 7.25 10^3/uL (1.8-7.7); Neutrophils % 65.9 %; Nucleated Red Blood Cells % 0 %; Platelet Count 296 10^3/cmm (130-400); Red Blood Count 4.41 10^6/uL (4.1-5.3); Red Cell Distribution Width 14.1 % (12.1-15.1)
[2021-06-29 13:04] LABS: Alanine Aminotransferase 37 U/L (0-41); Albumin Level 4.8 g/dL (3.5-5.2); Alkaline Phosphatase 62 IU/L (40-130); Aspartate Amino Transferase 43 U/L (0-40); Globulin 3.1 g/dL (1.3-4.6); Glomerular Filtration Rate 86.4 mL/min (90-130); Total Bilirubin 0.2 mg/dL (0.15-1.2); Total Protein 7.9 g/dL (6.6-8.7)
[2021-07-01] VITALS (48 sets, daily range): BP systolic 108–198; BP diastolic 58–120; PULSE 72–91; RESP 11–27; O2SAT 81–96; BMI 42.5
--- NOTE | 2021-07-01 07:30 | XACV_ITS ---
Exam Room: 2 Ht: 180 cm Wt: 138 kg BSA: 2.70 m2 Gender: Male : 1960 Any Known Allergies: Other Exam Priority: Routine Procedure(s): Procedure Description: Diagnostic procedure Procedure Description: PCI procedure Procedure Description: Left Heart Catheterization Procedure Description: Coronary IVUS Procedure Description: Drug Eluting Coronary Stent Procedure Description: PTCA Procedure Description: Coronary Angiography Diagnostic Cath Status: Elective Diagnostic Findings * 60-year-old man with past medical history of coronary artery disease with prior stents, hypertension, morbid obesity, COPD and obstructive sleep apnea who has been complaining of worsening chest pain and shortness of breath. * Mid Circumflex: obstructive 70% stenosis, ZULAY: 3 flow. * Proximal Right Coronary Artery: obstructive 70% stenosis, ZULAY: 3 flow. Ostial RCA has 70% stenosis. * Left Main has no disease. * Left Anterior Descending has no disease. * Coronary angiography shows right dominance. PCI Status: Elective PCI Indication: Other Interventional Findings * PROCEDURE DETAIL: We engaged the left main artery with XB 3.5 guide catheter. IV heparin was used to maintain ACT above 250 S. We crossed the mid left circumflex artery stenosis with run-through guidewire. 2.5 x 12 mm semicompliant balloon was used to predilate the stenosis. This was followed by placement of 3.5 x 15 mm resolute [place] drug-eluting stent. At this time final angiogram was performed that showed excellent stent expansion, no residual stenosis and ZULAY-3 flow. We then turned our attention to RCA stenosis. JR4 guide catheter was used to engage RCA. Run-through wire was used to cross the stenosis. Proximal RCA was predilated with 2.5 x 12 mm semicompliant balloon. This was followed by placement of 3.0 x 15 mm resolute [place] drug-eluting stent. We then dilated to the ostial RCA old stent with 3.0 x 8 mm noncompliant balloon. At this time we performed final angiogram that showed excellent stent expansion, no residual stenosis and ZULAY-3 flow. Guidewire and guide catheter were removed. Patient left the Desktop Publishing Associate in a stable condition.. * Proximal Right Coronary Artery: 70% stenosis treated with a AB TREK 2.50X12 RX BALLOON, MDT R RANJIT 3.0X15 JACLYN, and MDTrue NC EUPHORA RX [id number] BALLOON. 0% residual stenosis, ZULAY: 3 flow. * Proximal Circumflex to Mid Circumflex: 70% stenosis treated with a AB TREK 2.50X12 RX BALLOON, and MDT R RANJIT 3.5X15 JACLYN. 0% residual stenosis, ZULAY: 3 flow. Conclusions 1. There is obstructive coronary artery disease with two vessel disease. 2. Proximal Right Coronary Artery was treated with a Balloon, Drug Eluting Stent, and Balloon. 3. Proximal Circumflex to Mid Circumflex was treated with a Balloon, and Drug Eluting Stent. Recommendations * Transfer to [facility]. * Aspirin and plavix for atleast 1 year. * High intensity statin therapy. * Outpatient cardiology follow up in 4 weeks. Interventional RX Recommendation: PCI w/o planned CABG Diagnostic RX Recommendation: PCI w/o planned CABG Anticoagulation: Heparin Pressures Phase:Rest AO : 132 / 83 ( 98 ) @ 9:55:00 AM 119 / 83 ( 99 ) @ 10:06:00 AM 146 / 73 ( 109 ) @ 10:16:00 AM 142 / 80 ( 105 ) @ 10:16:00 AM 142 / 94 ( 115 ) @ 10:16:00 AM 145 / 82 ( 108 ) @ 10:19:00 AM 141 / 86 ( 110 ) @ 10:51:00 AM 151 / 89 ( 118 ) @ 11:06:00 AM LV : 158 / -9 / 19 @ 10:15:00 AM 159 / 0 / 22 @ 10:16:00 AM Valves Phase:DefaultPhase AV : 19.0 @ 10:22:16 AM AV Mean Gradient: 9.0 @ 10:22:16 AM Clinical Evaluation EBL: 5mL-10mL Procedural Details Procedure Consent Obtained. Pre-Procedure Time Out. Identified patient by full name and date of as verbalized by the patient/guarantor. Does the consent match the physician's order: Yes. Accurate & Complete Informed Consent: Yes. Inpatient/Outpatient History & Physical on Chart: Yes. If H&P is completed, is and addenduem needed: No; If yes, is the addendum complete: N/A. Visualize and Verify Site with Patient/Guarantor: N/A. Relevant Radiology Images available: Yes. The risks, benefits, and alternatives of sedation and/or procedure were discussed by physician. The patient agrees to continue. Procedure started. [facility] Clinical Fraility Score: 4: Vulnerable. [employer] Indications: Worsening Angina. Chest Pain Symptom Assessment: Typical Angina Symptoms. Cardiovascular Instability: No. Correct patient, site and procedure confirmed by cath team. PERRLA. Strong, equal hand roving inspector bilaterally. Lungs clear x 5 lobes. IV Site on Arrival: 18 gauge in the right forearm. IV Fluids: 0.9% NaCl at KVO. 0 mL infused prior to laboratory asst. Pre Procedural Pulses: bilateral dorsalis pedis was Doppled. Pre Procedural Pulses: bilateral posterior tibial was Doppled. Pre Procedural Pulses: bilateral radial was 2+. Oxygen started at 2liters/min via nasal canula. right groin was prepped with chloroprep then draped in the usual sterile fashion. right radial was prepped with chloroprep then draped in the usual sterile fashion. Physician notified. Baseline sample Acquired. HR: 80 BPM. Patient's family in CPRU. Dr. Hernandez will update at the completion of the procedure. Physician arrived. Physician scrubbed in. Immediate Pre-Procedure Time Out. Correct Patient: Yes; Correct Procedure: Yes; Correct Site: Yes; Correct Patient Position: Yes; Correct Supplies: Yes; Dried Flammable Prep: Yes; Blood Products Available: N/A. Lidocaine 1% infiltrated to the right radial. Arterial access obtained. A 5 qatari TIG catheter in over wire. Multiple views taken of left coronary artery. Catheter redirected to the RCA. Multiple views taken of right coronary artery. Catheter removed over the standard wire. A 5 qatari JL4 catheter in over wire. Multiple views taken of left coronary artery. 0.035 x [address] glidewire in. Catheter out. Dr. Hernandez reviewing cine. 6 qatari JR 4 guide catheter was inserted over the wire. EDP Sample taken: LV 158/-10,19; HR: 78 BPM; SpO2: 97%. Pullback taken: LV 159/0,22; AO 146/73(109); Mean: 9mmHg, Peak to Peak: 19mmHg, SEP: 21sec/min; HR: 77 BPM; SpO2: 96%. OmniWire pressure guidewire was advanced through the guide catheter to lesion in the prox RCA. Side port of sheath attached to Normal Saline flush at KVO to maintain patency. KVO off. iFR currently not working, will abort for now. iFR wire out. Guide out. 6 qatari XB 3.5 guide catheter was inserted over the wire. Runthrough guidewire was advanced through the guide catheter to lesion in the mid Circ. Inflation number : 1 A AB TREK 2.50X12 RX BALLOON was prepped and advanced across the Prox CX , then inflated to 12 LIZANDRO for 0:21 seconds. Balloon out. RANJIT 3.5 x 15 stent in, unable to advance, removed intact. Guideliner in. Inflation Number : 2 A DEBRA R RANJIT 3.5X15 JACLYN -Lot Number# [id number] was prepped and advanced across the Prox CX. The stent was deployed at 14 LIZANDRO for 0:27 seconds. Exp 2023-10-21. Guideliner and stent balloon out. Results checked. Guide catheter out. ACT drawn. Results 235 seconds. Therapeutic limits - pre-heparin administration 90-150 seconds and monitoring heparin during a vascular procedure >250 seconds. 6 qatari JR 4 guide catheter was inserted over the wire. IVUS catheter was advanced through the guide catheter to lesion in the prox RCA. Inflation number : 1 A AB TREK 2.50X12 RX BALLOON was prepped and advanced across the Prox RCA , then inflated to 14 LIZANDRO for 0:21 seconds. Balloon out. Inflation Number : 2 A MDT R RANJIT 3.0X15 JACLYN -Lot Number# was prepped and advanced across the Prox RCA. The stent was deployed at 14 LIZANDRO for 0:18 seconds. Results checked. Inflation number : 3 A MDT NC EUPHORA RX [id number] BALLOON was prepped and advanced across the Prox RCA , then inflated to 8 LIZANDRO for 0:14 seconds. Inflation number: 4 The MDT NC EUPHORA RX [id number] BALLOON was reinflated across the Prox RCA, to 8 LIZANDRO for 0:35 seconds. Inflation number: 5 The MDT NC EUPH[place] RX [id number] BALLOON was reinflated across the Prox RCA, to 10 LIZANDRO for 0:24 seconds. Inflation number: 6 The MDT NC EUPH[place] RX [id number] BALLOON was reinflated across the Prox RCA, to 10 LIZANDRO for 0:19 seconds. Balloon out. Results checked. Wire out. Guide catheter out. ACT drawn. Results 216 seconds. Therapeutic limits - pre-heparin administration 90-150 seconds and monitoring heparin during a vascular procedure >[address] Hernandez scrubbed out. A TR Band was successful obtaining hemostatsis at the Right Radial artery insertion site. TR band placed. Hemostasis obtained. Post Procedure: Pulses reassessed and unchanged. PERRLA. Strong, equal hand roving inspector bilaterally. No VTE prophylaxis required. Medication's Wasted: Lidocaine 1% = 5 mL. Medication's Wasted: Nitro = 49.4 mg. Medication's Wasted: Heparin = 1000 units. Total IV fluids: 116 mL. Post-op diagnosis: PCI of the Mid CX/IVUS and PCI of the Proximal RCA/IVUS and PTCA of ostial RCA. Complications: none. Estimated blood loss: 5mL-10mL. Responsiveness - Normal response to verbal stimuli; alert and oriented, PERRLA. Airway - Unaffected, no intervention required; spontaneous ventilation. Circulation: W/N/L, pulses unchanged. Nausea/Vomiting: No. Procedure completed. Patient transferred by bed to ICU. Vital chart was stopped. Access Site Site: Right Radial artery Sheath Size: 6 Fr Hemostasis Method: TR Band Hemostasis Success: Successful Procedure Medications Start: 8:42 AM Stop: 8:42 AM Medication: Versed Amount: 1 mg Route: I.V. Start: 8:42 AM Stop: 8:42 AM Medication: Fentanyl Amount: 25 mcg Route: I.V. Start: 8:50 AM Stop: 8:50 AM Medication: Versed Amount: 1 mg Route: I.V. Start: 8:54 AM Stop: 8:54 AM Medication: Nitrogylcerin Amount: 200 mcg Route: I.A. Start: 8:55 AM Stop: 8:55 AM Medication: Heparin Amount: 5000 units Route: I.V. Start: 9:11 AM Stop: 9:11 AM Medication: Versed Amount: 1 mg Route: I.V. Start: 9:14 AM Stop: 9:14 AM Medication: Heparin Amount: 6000 units Route: I.V. Start: 9:39 AM Stop: 9:39 AM Medication: Versed Amount: 1 mg Route: I.V. Start: 9:43 AM Stop: 9:43 AM Medication: Nitrogylcerin Amount: 200 mcg Route: I.C. Start: 9:48 AM Stop: 9:48 AM Medication: Heparin Amount: 2000 units Route: I.V. Start: 9:50 AM Stop: 9:50 AM Medication: Heparin Amount: 2000 units Route: I.V. Start: 9:53 AM Stop: 9:53 AM Medication: Aggrastat 12.5 mg/250 mL Amount: 70 ml Route: I.V. bolus Start: 9:53 AM Stop: 9:53 AM Medication: Aggrastat 12.5 mg/250 mL Amount: 25.2 ml/hr Route: I.V. drip Start: 10:07 AM Stop: 10:07 AM Medication: Nitrogylcerin Amount: 200 mcg Route: I.C. Start: 10:14 AM Stop: 10:14 AM Medication: Aspirin Amount: 325 mg Route: P.O. Start: 10:14 AM Stop: 10:14 AM Medication: Plavix Amount: 600 mg Route: P.O. Start: 10:16 AM Stop: 10:16 AM Medication: Heparin Amount: 2000 units Route: I.V. Start: 10:16 AM Stop: 10:16 AM Medication: Heparin Amount: 1000 units Route: I.V. I, the attending physician, have reviewed and verified all procedure medications. Yes, all medications given per verbal order History/Risk Factors Hypertension: Yes Dyslipidemia: Yes Peripheral Arterial Disease (PAD): No Myocardial Infarction (KS): No Obesity: Yes Renal Disease: No Tobacco Use: Former Prior Interventions PCI: Yes CABG: No Valve Surgery: No Date of PCI: 02/14/2010 Report Signatures Finalized by Donis Hernandez MD on 07/12/2021 11:35 PM
[2021-07-01] MEDS: diphenhydrAMINE 50 mg Capsule PO (07:45)
--- NOTE | 2021-07-01 08:47 | W.PM.OPSFHP ---
Same Day Surgery H&P Indication for Procedure/HPI DATE OF PROCEDURE: July 01, 2021 CHIEF COMPLAINT/INDICATIONFOR SURGICAL PROCEDURE: Worsening angina PREOP DIAGNOSIS: Worsening angina PLANNED PROCEDURE: Operation Date: 07/01/21 08:30 Proposed Procedures p Cardiac Catheterization(Left) - Donis Hernandez M.D Possible percutaneous coronary intervention 60-year-old man with past medical history of coronary artery disease with prior stents, hypertension, morbid obesity, COPD and obstructive sleep apnea who has been complaining of worsening chest pain and shortness of breath. Her stress test was normal last year. His functional capacity is decreasing. Also feels fatigued. He was seen by Dr. Barnard last month and given his worsening symptoms, plan was to perform coronary angiogram with possible percutaneous coronary intervention ROS CONSTITUTIONAL: No fever chills weight loss or gain or night sweats. [] HEENT: Normocephalic, atraumatic.[] RESPIRATORY: No cough, sputum, hemoptysis or wheezing.[] CARDIOVASCULAR: Has on and off chest discomfort and shortness of breath, no PND, orthopnea, lower extremity edema, presyncope or syncope. [] GI: no nausea vomiting diarrhea. [] FABRIC DESIGNER: No numbness, tingling, weakness or loss of function in any part of the body. [] MUSCULOSKELETAL: No knee or joint pain or rashes. [] Medications/Allergies* Home Medications Medication Instructions Recorded Confirmed Type albuterol sulfate 90 mcg/actuation 2 puff INHALATION Q6H PRN 04/25/19 07/01/21 History aerosol inhaler (ProAir HFA) chlorthalidone 25 mg tablet 25 mg PO DAILY 04/25/19 07/01/21 History duloxetine 60 mg capsule,delayed 60 mg PO DAILY 04/25/19 07/01/21 History release memantine 28 mg capsule 28 mg PO DAILY 04/25/19 07/01/21 History sprinkle,extended release 24hr (Namenda XR) metformin 1,000 mg tablet 1,000 mg PO BID 04/25/19 07/01/21 History nitroglycerin 0.4 mg sublingual 0.4 mg SUBLINGUAL Q5M PRN 04/25/19 07/01/21 History tablet (Nitrostat) oxycodone-acetaminophen 10 mg-325 1 tab PO TID PRN 04/25/19 07/01/21 History mg tablet ropinirole 2 mg tablet 2 mg PO TID 04/25/19 07/01/21 History rosuvastatin 40 mg tablet 40 mg PO DAILY 04/25/19 07/01/21 History trandolapril 4 mg tablet 4 mg PO DAILY 04/25/19 07/01/21 History albuterol sulfate 2.5 mg INHALATION Q6H PRN 05/23/19 07/01/21 History meloxicam 15 mg tablet 15 mg PO DAILY 07/23/19 07/01/21 History carvedilol 6.25 mg tablet 6.25 mg PO DAILY tab 10/01/19 07/01/21 History amlodipine 2.5 mg tablet 10 mg PO DAILY tab 05/28/20 07/01/21 History dulaglutide 0.75 mg/0.5 mL 0.75 mg SUBCUT .Once weekly ml 11/11/20 06/05/21 History subcutaneous pen injector (Trulicity) potassium chloride 20 mEq 20 meq PO DAILY tab 11/11/20 07/01/21 History tablet,extended release pregabalin 150 mg capsule (Lyrica) 150 mg PO TID cap 11/11/20 07/01/21 History fluticasone propionate 50 2 spray INTRANASAL DAILY PRN 05/11/21 07/01/21 History mcg/actuation nasal spray,suspension furosemide 20 mg tablet 40 mg PO DAILY 07/01/21 07/01/21 History Allergies/Adverse Reactions Allergy/AdvReac Type Severity Reaction Status Date / Time metoclopramide [From Reglan] Allergy Severe ALGY-Hives Verified 06/05/21 12:33 Current Medications: Generic Name Dose Route Start Last Admin Trade Name Freq PRN Reason Stop Dose Admin Sodium Chloride 1,000 mls @ 50 mls/hr 07/01/21 07:30 07/01/21 08:37 Sodium Chloride 0.9% IV 07/02/21 03:29 Not Given .Q20H ONE Pertinent History/Comorbid Conditions* Medical History (Updated 05/11/21 @ 16:32 by Moi Barnard MD) CAD (coronary artery disease) Chest pain CHF (congestive heart failure) COPD (chronic obstructive pulmonary disease) Depression Enteritis GERD (gastroesophageal reflux disease) HTN (hypertension) Hyperlipidemia Memory loss STEPHANIE (obstructive sleep apnea) Osteoarthritis of left hip Restless leg Seropositive rheumatoid arthritis Type 2 diabetes mellitus Surgical History (Updated 12/19/20 @ 10:42 by Leonel Boucher MD) H/O esophagogastroduodenoscopy (12/19/20) History of carpal tunnel surgery History of colonoscopy with polypectomy 2010 History of sinus surgery History of surgical amputation of finger of right hand Stented coronary artery Family History (Updated 06/21/19 @ 14:11 by Arcelia Mathis LPN) Diabetes Arthritis Hypertension Stroke Denies family history of Rheumatoid arthritis Systemic lupus erythematosus (SLE) in adult Social History Smoking and tobacco status: former smoker Quit status (tobacco): has quit using tobacco Year quit tobacco: 2020 Former quit date comment: Hx of 1 PPD x 53 Years Second hand smoke exposure: Yes Smoking risk assessment/counseling performed?: No Alcohol intake: former Counseling given: No Counseling given: No Lives independently: Yes Household members: spouse Marital status: Current occupational status: disabled Pets and animals: Yes History of recent travel: No Current gender identity: Male Pertinent Exam Findings alert, oriented x 3, clear to auscultation bilaterally and regular rate & rhythm Conscious Sedation Assessment PATIENT ASSESSED PRIOR TO SEDATION, WITH NO CHANGE NOTED: Yes AIRWAY EVAL/ANESTHESIA PLAN: ASA IV, Monitored Anesthesia, Local Anesthesia, Risks, benefits & alternatives of sedation and/or procedure discussed and Patient agrees to continue as planned Recommendations Surgery/Procedure today (Left heart cath with possible percutaneous coronary intervention) Coding Level of Care Code Acute Programmer Operator Numerical Control for Wali Peralta
[2021-07-01] MEDS: tirofiban 5 MG/100 ML PREMIX 24.9 MG IV (11:09)
[2021-07-01] MEDS: albuterol 8 gm MDI 2 PUFF INHALATION ×2 (11:16→19:59)
[2021-07-01] MEDS: sodium chloride 0.9% 1,000 ML 100 ML IV ×2 (12:32→20:02)
[2021-07-01] MEDS: ropinirole 2 mg Tablet PO ×2 (14:48→20:03)
[2021-07-01] MEDS: pregabalin 150 mg Capsule PO ×2 (14:48→20:03)
[2021-07-01] MEDS: oxyCODONE-APAP 10-325 mg Tablet 1 TAB PO (20:03)
[2021-07-01] MEDS: metoprolol tartrate 50 mg Tablet PO (21:44)
[2021-07-01] MEDS: amlodipine 5 mg Tablet PO (21:44)
[2021-07-02] VITALS (24 sets, daily range): BP systolic 112–161; BP diastolic 60–93; PULSE 61–76; RESP 10–28; O2SAT 90–95
[2021-07-02 02:42] LABS: Basophils # 0.1 10^3/uL (0.0-0.1); Basophils % 0.8 %; Eosinophils # 0.2 10^3/uL (0.0-0.8); Eosinophils % 2.2 %; Hematocrit 39.5 % (42.0-52.0); Hemoglobin 13.2 g/dL (11.7-16.6); Lymphocytes # 1.5 10^3/uL (0.8-4.8); Lymphocytes % 15.2 %; Mean Corpuscular HGB Conc 33.4 g/dL (30.0-36.0); Mean Corpuscular Hemoglobin 34.3 pg (28.0-34.0); Mean Corpuscular Volume 102.6 fl (80-94); Mean Platelet Volume 9.4 fL (7.4-10.4); Monocytes # 1.2 10^3/uL (0.2-0.9); Monocytes % 11.7 %; Neutrophils # 6.86 10^3/uL (1.8-7.7); Neutrophils % 69.6 %; Nucleated Red Blood Cells % 0 %; Platelet Count 254 10^3/cmm (130-400); Red Blood Count 3.85 10^6/uL (4.1-5.3); Red Cell Distribution Width 14.8 % (12.1-15.1); White Blood Count 9.9 10^3/uL (4.0-10.0)
[2021-07-02 03:02] LABS: Blood Urea Nitrogen 18 mg/dL (6-20); Carbon Dioxide 30 mmol/L (22-29); Chloride 101 mmol/L (98-107); Glomerular Filtration Rate 115.4 mL/min (90-130); Glucose 131 mg/dL (65-115); Osmolality Calculated 298 mOsm/kg (285-295); Sodium 142 mmol/L (136-145)
[2021-07-02 03:14] LABS: Anion Gap 14.1 (5-19); Potassium 3.1 mmol/L (3.5-5.1)
[2021-07-02] MEDS: sodium chloride 0.9% 1,000 ML 100 ML IV (06:20)
--- NOTE | 2021-07-02 07:44 | PM.SDS ---
Short Stay Summary Providers Date of Admit/Discharge: 07/01/21 Attending Provider: Donis Hernandez M.D Primary Care Provider: Beverly Garrison Chief Complaint: 33505 [id number] HPI History of Present Illness 60-year-old man with past medical history of coronary artery disease with prior stents, hypertension, morbid obesity, COPD and obstructive sleep apnea who has been complaining of worsening chest pain and shortness of breath.? Stress test was normal last year.? His functional capacity is decreasing.? Also feels fatigued. He was seen by Dr. Barnard last month and given his worsening symptoms, plan was to perform coronary angiogram with possible percutaneous coronary intervention Review of Systems Const: Denies: fever(s) or chills Eyes: Denies: dry eyes ENMT: Denies: bleeding gums Card: Reports: chest pain, palpitations, irregular heart rhythm, edema, swelling of feet/ankles, lightheadedness and dyspnea on exertion; Denies: syncope or pre-syncope Resp: Reports: dyspnea, wheezing and chest congestion GI: Denies: hematochezia : Denies: hematuria Musc: Denies: neck pain or back pain Skin/Breast: Reports: dry skin Neuro: Reports: dizziness; Denies: headache(s) Psych: Reports: anxiety and depression Endo: Reports: tired all the time Kenji/Lymph: Reports: easy bruising and easy bleeding All/Imm: Reports: seasonal rhinorrhea Home Meds/Allergies Home Medications and Allergies Home Medications Medication Instructions Recorded Confirmed Type albuterol sulfate 90 mcg/actuation 2 puff INHALATION Q6H PRN 04/25/19 07/09/21 History aerosol inhaler (ProAir HFA) chlorthalidone 25 mg tablet 25 mg PO DAILY 04/25/19 07/09/21 History duloxetine 60 mg capsule,delayed 60 mg PO DAILY 04/25/19 07/09/21 History release memantine 28 mg capsule 28 mg PO DAILY 04/25/19 07/09/21 History sprinkle,extended release 24hr (Namenda XR) metformin 1,000 mg tablet 1,000 mg PO BID 04/25/19 07/09/21 History nitroglycerin 0.4 mg sublingual 0.4 mg SUBLINGUAL Q5M PRN 04/25/19 07/09/21 History tablet (Nitrostat) oxycodone-acetaminophen 10 mg-325 1 tab PO TID PRN 04/25/19 07/09/21 History mg tablet ropinirole 2 mg tablet 2 mg PO TID 04/25/19 07/09/21 History rosuvastatin 40 mg tablet 40 mg PO DAILY 04/25/19 07/09/21 History trandolapril 4 mg tablet 4 mg PO DAILY 04/25/19 07/09/21 History albuterol sulfate 2.5 mg INHALATION Q6H PRN 05/23/19 07/09/21 History meloxicam 15 mg tablet 15 mg PO DAILY 07/23/19 07/09/21 History carvedilol 6.25 mg tablet 6.25 mg PO DAILY tab 10/01/19 07/09/21 History amlodipine 2.5 mg tablet 10 mg PO DAILY tab 05/28/20 07/09/21 History dulaglutide 0.75 mg/0.5 mL 0.75 mg SUBCUT .Once weekly ml 11/11/20 07/09/21 History subcutaneous pen injector (Trulicity) potassium chloride 20 mEq 20 meq PO DAILY tab 11/11/20 07/09/21 History tablet,extended release pregabalin 150 mg capsule (Lyrica) 150 mg PO TID cap 11/11/20 07/09/21 History fluticasone propionate 50 2 spray INTRANASAL DAILY PRN 05/11/21 07/09/21 History mcg/actuation nasal spray,suspension furosemide 20 mg tablet 40 mg PO DAILY 07/01/21 07/09/21 History Allergies Allergy/AdvReac Type Severity Reaction Status Date / Time metoclopramide [From Reglan] Allergy Severe ALGY-Hives Verified 07/09/21 08:20 PFSH Acute PFSH: Medical History CAD (coronary artery disease) Chest pain CHF (congestive heart failure) COPD (chronic obstructive pulmonary disease) Depression Enteritis GERD (gastroesophageal reflux disease) HTN (hypertension) Hyperlipidemia Memory loss STEPHANIE (obstructive sleep apnea) Osteoarthritis of left hip Restless leg Seropositive rheumatoid arthritis Type 2 diabetes mellitus Surgical History H/O esophagogastroduodenoscopy (12/19/20) History of carpal tunnel surgery History of colonoscopy with polypectomy 2010 History of sinus surgery History of surgical amputation of finger of right hand Stented coronary artery Family History Other Arthritis Diabetes Hypertension Stroke Denies family history of Rheumatoid arthritis Systemic lupus erythematosus (SLE) in adult Social History Smoking and tobacco status: former smoker Quit status (tobacco): has quit using tobacco Year quit tobacco: 2020 Former quit date comment: Hx of 1 PPD x 53 Years Second hand smoke exposure: Yes Smoking risk assessment/counseling performed?: No Alcohol intake: former Counseling given: No Counseling given: No Lives independently: Yes Household members: spouse Marital status: Current occupational status: disabled Pets and animals: Yes History of recent travel: No Current gender identity: Male Vitals/I&O/Wt Last Vital Signs Pulse 74 07/02/21 06:15 Resp 12 07/02/21 06:15 BP 141/67 07/02/21 06:15 Pulse Ox 95 07/02/21 04:30 07/01/21 07/02/21 07/02/21 22:59 06:59 14:59 Intake Total 990 / 0925.582 0339 / 2300.965 Output Total 300 / 950 Balance 990 / 650.965 700 / 1350.965 Weight last 48 hrs Weight 305 lb Physical Exam Narrative: GENERAL: Patient is alert, awake and oriented x3. [] NECK: No jugular vein distension. [] HEENT: No cyanosis. No icterus. No pallor. [] HEART: Regular S1 and S2. No murmur, rub or gallop. [] LUNGS: Clear to auscultate bilaterally. [] ABDOMEN: Soft, nontender and nondistended. Positive bowel sounds. No guarding, rebound or tenderness. [] CENTRAL NERVOUS SYSTEM: Grossly nonfocal. [] EXTREMITIES: Lower extremities with 1+ edema bilaterally. Pulses palpable in the lower extremities, both dorsalis pedis and posterior tibial. [] Hospital Course Hospital Course 60-year-old man with past medical history of coronary artery disease with prior stents, hypertension, morbid obesity, COPD and obstructive sleep apnea who has been complaining of worsening chest pain and shortness of breath.? Her stress test was normal last year.? His functional capacity is decreasing.? Also feels fatigued. He was seen by Dr. Barnard last month and given his worsening symptoms, plan was to perform coronary angiogram with possible percutaneous coronary intervention Coronary angiogram showed severe mid left circumflex artery stenosis which underwent successful revascularization with JACLYN x1. Proximal RCA also had a significant stenosis underwent successful revascularization with JACLYN x1. Ostial RCA in-stent restenosis was treated with balloon angioplasty. Patient stayed in the hospital overnight and was discharged stable condition on aspirin and Plavix. Patient with follow-up as outpatient. 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 Routin e Exams 07/01/21 07:30 Taken Discharge Plan Discharge Patient Disposition: Home Prescriptions: New clopidogrel 75 mg Tablet 75 mg PO DAILY Qty: 90 3RF aspirin 81 mg Tablet,Delayed Release (Dr/Ec) 81 mg PO DAILY Qty: 90 3RF Continued memantine [Namenda XR] 28 mg capsule,sprinkle,ER 24hr 28 mg PO DAILY 0RF trandolapril 4 mg tablet 4 mg PO DAILY 0RF duloxetine 60 mg capsule,delayed release(DR/EC) 60 mg PO DAILY 0RF ropinirole 2 mg tablet 2 mg PO TID 0RF oxycodone-acetaminophen 10-325 mg tablet 1 tab PO TID PRN (Reason: Pain) 0RF albuterol sulfate [ProAir HFA] 90 mcg/actuation HFA aerosol inhaler 2 puff INHALATION Q6H PRN (Reason: Shortness Of Breath) 0RF nitroglycerin [Nitrostat] 0.4 mg tablet, sublingual 0.4 mg SUBLINGUAL Q5M PRN (Reason: Chest Pain) 0RF rosuvastatin 40 mg tablet 40 mg PO DAILY 0RF chlorthalidone 25 mg tablet 25 mg PO DAILY 0RF carvedilol 6.25 mg tablet 6.25 mg PO DAILY 0RF amlodipine 2.5 mg tablet 10 mg PO DAILY 0RF pregabalin [Lyrica] 150 mg capsule 150 mg PO TID 0RF Trulicity 0.75 mg/0.5 mL pen injector 0.75 mg SUBCUT .Once weekly 0RF potassium chloride 20 mEq tablet extended release 20 meq PO DAILY 0RF albuterol sulfate 2.5 mg /3 mL (0.083 %) solution for nebulization 2.5 mg INHALATION Q6H PRN (Reason: shortness of breath or wheezing) 0RF Symbicort 160-4.5 mcg/actuation HFA aerosol inhaler 2 puff INHALATION Q12H 90 Days Qty: 10.2 3RF meloxicam 15 mg tablet 15 mg PO DAILY 0RF fluticasone propionate 50 mcg/actuation spray,suspension 2 spray INTRANASAL DAILY PRN (Reason: allergy) 0RF Rx Instructions: administer into each nostril Incruse Ellipta 62.5 mcg/actuation blister with device 1 inh inhalation DAILY 30 Days Qty: 30 3RF Rinvoq 15 mg tablet extended release 24 hr 15 mg PO DAILY Qty: 30 3RF methotrexate sodium 2.5 mg tablet 10 mg PO .weekly Qty: 60 1RF Spiriva Respimat 1.25 mcg/actuation mist 2 puff inhalation DAILY Qty: 4 3RF montelukast [Singulair] 10 mg tablet 10 mg PO DAILY 30 Days Qty: 30 4RF furosemide 20 mg tablet 40 mg PO DAILY 0RF Held metformin 1,000 mg tablet 1,000 mg PO BID 0RF Hold Instructions: Resume on 07/04/21. No Action pantoprazole 40 mg tablet,delayed release (DR/EC) 40 mg PO DAILY 28 Days Qty: 30 0RF Discharge Orders: Discharge Order (Routine); Ordered 07/02/21 Ordered By: Donis Hernandez Referrals: Moi Barnard MD [Physician] - 1 month ( appointment ,Tuesday ,July at 1:00 pm ) Adela Nguyen FNP [Nurse Practitioner] - 7-10 days (This follow up has been scheduled ,Adela Nguyen APN Nurse .for wound check ,lab work following post angiogram /stent placement. at 09:45 am ) Diet: Diabetic Activity: Increase activity as tolerated Patient Instructions: Aspirin (By mouth) (Vero Extra Strength, Vero Aspirin Children[facility],..., Clopidogrel (By mouth) (Plavix), Coronary Angioplasty (DC), Basic Carbohydrate Counting (DC), Post Angiogram Home Care Instructions Activity Restrictions/Additional Instructions: Please do not lift more than 5 pounds of weight for the next 5 days Discharge Date/Time: 07/02/21 09:30 Attestations Medical Necessity Statement*: Care not expected to cross 2 midnights. Patient had outpatient coronary angiogram. Successful revascularization of mid left circumflex artery and RCA. Was observed overnight and is ready to be discharged today. Time Spent in Patient Care*: less than 30 min Quality Metrics Clinical Quality Measures: [ No reported AMI, CVA or VTE this stay] Coding Level of Care Code Acute Speed Reading Teacher for Wali Peralta
[2021-07-02] MEDS: chlorthalidone 25 mg Tablet PO (08:06)
[2021-07-02] MEDS: ropinirole 2 mg Tablet PO (08:06)
[2021-07-02] MEDS: potassium chloride ER 20 mEq Tablet 40 MEQ PO (08:06)
[2021-07-02] MEDS: aspirin 81 mg EC Tablet PO (08:06)
[2021-07-02] MEDS: carvedilol 6.25 mg Tablet PO (08:07)
[2021-07-02] MEDS: amlodipine 10 mg Tablet PO (08:07)
[2021-07-02] MEDS: duloxetine 60 mg Capsule PO (08:07)
[2021-07-02] MEDS: pregabalin 150 mg Capsule PO (08:07)
[2021-07-02] MEDS: atorvastatin 40 mg Tablet 80 MG PO (08:07)
[2021-07-02] MEDS: clopidogrel 75 mg Tablet PO (08:07)
--- NOTE | 2021-07-02 09:31 | PC.NURSE ---
Patient discharged to main entrance door via w/c with staff and family. IV removed and catheter tip intact. All discharge and follow up appointments information given to patient. Prescriptions sent to pharmacy, all activity restrictions explained and patient verbalized understanding.
== END 2021-07-02 09:30 | disposition home or self-care (01) ==
LOC: CCL 07:40 → ICU 11:18
PROVIDERS: Internal Medicine Rheumatology; PCP Nurse Practitioner Family; Visit Provider Internal Medicine
DX: I25.10 Atherosclerotic heart disease of native coronary artery without angina pectoris (principal); R07.89 Other chest pain; Z95.5 Presence of coronary angioplasty implant and graft; I10 Essential (primary) hypertension; E66.01 Morbid (severe) obesity due to excess calories; Z68.41 Body mass index [BMI] 40.0-44.9, adult; J44.9 Chronic obstructive pulmonary disease, unspecified; G47.33 Obstructive sleep apnea (adult) (pediatric); E78.5 Hyperlipidemia, unspecified; E11.9 Type 2 diabetes mellitus without complications; Z79.84 Long term (current) use of oral hypoglycemic drugs; Z87.891 Personal history of nicotine dependence; I25.110 Atherosclerotic heart disease of native coronary artery with unstable angina pectoris
CPT/HCPCS: 36415; 80048; 80076; 82565; 85025; 85347; 86140; 92978; 93452; 93458; 94640; 96360; 96361; 99152; 99153; C1725; C1753; C1769; C1874; C1887; C1894; C9600; J1644; J2250; J3010; J3490; J3535; J7030; Q0163; Q9967

== ENCOUNTER → 2021-07-09 09:43 | Outpatient (BNVA) | payer MEDICARE, SELFPAY | PROVIDERS: PCP Nurse Practitioner Family; Visit Provider Nurse Practitioner Family | DX: I25.10 Atherosclerotic heart disease of native coronary artery without angina pectoris (principal); Z98.61 Coronary angioplasty status | CPT/HCPCS: 80048; 99213; 99214 ==

== ENCOUNTER → 2021-08-10 13:03 | Outpatient (BNVA) | payer MEDICARE, SELFPAY | PROVIDERS: PCP Nurse Practitioner Family; Visit Provider Internal Medicine Cardiovascular Disease | DX: Z09 Encounter for follow-up examination after completed treatment for conditions other than malignant neoplasm (principal); R07.9 Chest pain, unspecified; J42 Unspecified chronic bronchitis; E66.01 Morbid (severe) obesity due to excess calories; Z68.41 Body mass index [BMI] 40.0-44.9, adult; I11.0 Hypertensive heart disease with heart failure; I50.9 Heart failure, unspecified; G47.30 Sleep apnea, unspecified; J43.9 Emphysema, unspecified; Z87.891 Personal history of nicotine dependence; Z95.5 Presence of coronary angioplasty implant and graft; I25.10 Atherosclerotic heart disease of native coronary artery without angina pectoris | CPT/HCPCS: 99214 ==

== ENCOUNTER → 2021-09-14 14:26 | Outpatient (BNVA) | payer MEDICARE, SELFPAY | PROVIDERS: PCP Nurse Practitioner Family; Visit Provider Internal Medicine Rheumatology | DX: M05.79 Rheumatoid arthritis with rheumatoid factor of multiple sites without organ or systems involvement (principal); Z79.899 Other long term (current) drug therapy; Z71.89 Other specified counseling; J43.9 Emphysema, unspecified; Z87.891 Personal history of nicotine dependence | CPT/HCPCS: 72040; 99214 ==

== ENCOUNTER → 2021-11-16 15:00 | Outpatient (BNVA) | payer MEDICARE, SELFPAY | PROVIDERS: PCP Nurse Practitioner Family; Visit Provider Internal Medicine | DX: I25.10 Atherosclerotic heart disease of native coronary artery without angina pectoris (principal); I11.0 Hypertensive heart disease with heart failure; I50.9 Heart failure, unspecified; F17.210 Nicotine dependence, cigarettes, uncomplicated; E66.01 Morbid (severe) obesity due to excess calories; Z68.41 Body mass index [BMI] 40.0-44.9, adult; G47.30 Sleep apnea, unspecified; J43.9 Emphysema, unspecified; J42 Unspecified chronic bronchitis | CPT/HCPCS: 99214 ==

== ENCOUNTER → 2022-03-17 12:15 | Outpatient (BNVA) | payer MEDICARE, SELFPAY | PROVIDERS: PCP Family Medicine; Visit Provider Internal Medicine Rheumatology | DX: M05.79 Rheumatoid arthritis with rheumatoid factor of multiple sites without organ or systems involvement (principal); Z71.89 Other specified counseling; Z79.899 Other long term (current) drug therapy; J43.9 Emphysema, unspecified; M16.12 Unilateral primary osteoarthritis, left hip; Z87.891 Personal history of nicotine dependence; Z87.81 Personal history of (healed) traumatic fracture | CPT/HCPCS: 99214 ==

== ENCOUNTER 2022-04-01 11:58 | Inpatient (IN) | payer MEDICARE, SELFPAY ==
[2022-04-01] VITALS (47 sets, daily range): BP systolic 92–156; BP diastolic 54–99; PULSE 65–117; RESP 9–24; TEMP 36.8–37.1; O2SAT 81–98; BMI 43.2
--- NOTE | 2022-04-01 12:12 | XR_ITS ---
WS: [id number] Portable AP upright chest, 04/01/2022 Clinical Data: sob Comparison: Portable chest, 09/05/2019 Findings: There is a right lower lobe patchy opacity which can be seen with pneumonia, atelectasis an d/or effusion. The heart is enlarged. The left lung is clear. No pneumothorax or pulmonary vascular e ngorgement is seen. The aortic arch and descending thoracic aorta show tortuosity. Monitor leads are on the chest wall. XR/XR chest 1V portable [id number] Impression: 1. Patchy right lower lobe opacity which may be pneumonia, atelectasis and/or e ffusion. 2. Cardiomegaly and atherosclerosis.
--- NOTE | 2022-04-01 12:12 | ED_ITS ---
HPI - SOB/Dyspnea General: Chief Complaint: Shortness of Breath/Dyspnea Stated Complaint: low ox Time Seen by Provider: 04/01/22 12:12 Limitations: altered mental status History of Present Illness: HPI Narrative: Mr. Boswell is a 61-year-old gentleman with history of COPD, CAD, obesity with STEPHANIE, heart failure presenting to the emergency department for respiratory distress. He had a fall few days ago and essentially since that time has had increasing shortness of breath with some hemoptysis. He was seen in clinic today and noted to have hypoxemia and referred to the emergency department for further evaluation. Patient was hypoxemic on nasal cannula and has decreased LOC. History provided by . No other specific changes in health, exacerbating, or alleviating factors identified. Review of Systems General: Reports: ROS unobtainable due to mental status [facility] PFSH: Medical History CAD (coronary artery disease) Chest pain CHF (congestive heart failure) COPD (chronic obstructive pulmonary disease) Depression Enteritis GERD (gastroesophageal reflux disease) HTN (hypertension) Hyperlipidemia Memory loss STEPHANIE (obstructive sleep apnea) Osteoarthritis of left hip Restless leg Seropositive rheumatoid arthritis Type 2 diabetes mellitus Surgical History H/O esophagogastroduodenoscopy (12/19/20) History of carpal tunnel surgery History of colonoscopy with polypectomy 2010 History of sinus surgery History of surgical amputation of finger of right hand Stented coronary artery Family History Other Arthritis Diabetes Hypertension Stroke Denies family history of Rheumatoid arthritis Systemic lupus erythematosus (SLE) in adult Social History Smoking and tobacco status: current every day smoker cigarettes Packs smoked per day: 0.25 Years cigarettes smoked: 45 Quit status (tobacco): has quit using tobacco Year quit tobacco: 2020 Former quit date comment: Hx of 1 PPD x 53 Years Second hand smoke exposure: Yes Smoking risk assessment/counseling performed?: No Alcohol intake: former Counseling given: No Counseling given: No Lives independently: Yes Household members: spouse Marital status: Current occupational status: disabled Pets and animals: Yes History of recent travel: No Current gender identity: Male Physical Exam Const: COMMON NORMALS: alert GENERAL APPEARANCE: well developed and ill appearing HENMT: COMMON NORMALS: normocephalic and atraumatic HEAD & SCALP: normocephalic and atraumatic THROAT: posterior oropharynx normal Eye: COMMON NORMALS: conjunctivae normal CONJUNCTIVA: Yes conjunctivae normal SCLERA: sclerae normal Neck/C-Spine: COMMON NORMALS: supple GENERAL: Yes trachea midline Resp: EFFORT & INSPECTION: Yes tachypneic and Yes respiratory distress Cardio: COMMON NORMALS: regular rate and regular rhythm RATE: regular rate RHYTHM: regular rhythm GI: COMMON NORMALS: Soft to palpation PALPATION: Yes Soft to palpation and No Tenderness to palpation present (GI) OTHER: Left upper quadrant abdominal contusion Extremity: GENERAL: Yes normal exam except as noted and No edema Neuro: COMMON NORMALS: moves all extremities SENSORIUM/ORIENTATION: Yes alert and Yes Orientation impaired Procedures Intubation Time out performed: Yes sedative: Etomidate Mg Given: 40 paralytic: Vecuronium Mg Given: 15 Laryngoscope: fiber optic video scope ET Tube Size: 8 ET Tube Uncuffed: No Tube Secured Depth (cm): 25 Tube Secured Location: lips Tube Placement Confirmation: visualized tube passing through cords, equal breath sounds bilaterally, no breath sounds over epigastrium and confirmation by capnometry Patient Tolerated Procedure: well and no complications Intubation Complications: none Course Vital Signs: Vital signs: Vital Signs Temperature 98.6 F 04/11/22 12:00 Pulse Rate 109 H 04/11/22 18:00 Respiratory Rate 25 H 04/11/22 18:00 Blood Pressure 156/96 04/11/22 18:00 Pulse Oximetry 93 04/11/22 18:00 Oxygen Delivery Me thod 04/11/22 18:00 Oxygen Flow Rate 6 04/11/22 18:00 Fraction of Inspir ed Oxygen 35 04/10/22 08:00 MDM - SOB/Dyspnea Medical Decision Making 61-year-old male with complex history presenting to the emergency department due to respiratory symptoms. Patient hypoxemic on initial arrival despite supplemental oxygen. Patient has decreased level of consciousness however he believe that he is able to protect his airway and subsequently BiPAP ordered. No focal neurologic exam findings identified. Initial blood gas with compensated pH and hypercapnia. RT treatment ended. Antibiotics and IV fluids given. EKG notable for sinus rhythm with nonspecific ST segment abnormalities. Normal axis and intervals. No STEMI. Labs with leukocytosis, normal hemoglobin and platelet count. Metabolic panel without significant electrolyte arrangement, there is elevated glucose without evidence of DKA. Intermediate range 2 out of troponin. Elevated BNP. Negative viral panel. Chest x-ray concerning for pneumonia. CT head negative for acute pathology. CT chest abdomen pelvis with no PE, right pneumonia, no GI pathology identified. On serial reassessment patient has declined mental status. Patient has decompensation and further worsening on ABG. I discussed with the patient's and she wishes to proceed with aggressive management. I did discuss that given patient's and her comorbidities give likely challenge to wean patient off ventilator. She understands and still wishes to proceed. Patient intubated without complication. No desaturation. Satisfactory post intubation x-ray. Most likely etiology of patient's symptoms is pneumonia with sepsis, acute exacerbation of chronic respiratory failure, heart failure exacerbation, acute alteration mental status. The results of ED evaluation were discussed with the patient including plan for admission due to requirement for level of care not available if discharged to prevent significant worsening/deterioration. Patient agreeable with plan. Discussed with hospitalist service who was agreeable to admit patient. Medical Records I reviewed the patient's medical records. Lab Data I reviewed the patient's lab results. 04/01/22 12:15 04/01/22 12:15 Labs/Radiology: Radiology Impressions Chest/Abdomen/Pelvis CT 04/01/22 12:27 IMPRESSION: 1. Quality of this examination is overall limited by body habitus, position of the arms and motion. 2. No central pulmonary embolism. 3. RIGHT lung pneumonia. Most dense consolidation RIGHT lower lobe. 4. No GI tract obstruction. No renal obstruction. Adnexa normal appendix. Chest CTA 04/02/22 14:04 IMPRESSION: 1. Negative CT angiogram of the chest. No evidence of acute pulmonary embolism. 2. Decreased lung volumes with rather extensive lower lobe atelectasis progressed from previous exam. 3. Superimposed nodular infiltrate right lower lobe improved from earlier study. 4. Significant cardiomegaly, stable. 5. Mild mediastinal lymphadenopathy, stable. Chest X-Ray 04/08/22 07:39 IMPRESSION: 1. Bibasal infiltrates and atelectasis and pleural effusions showing little change. 2. The ET tube and NG tube have been removed. 3. Cardiac enlargement unchanged. Head CT 04/11/22 10:14 IMPRESSION: 1. No acute intracranial abnormality. 2. Small mastoid effusion. Laboratory Results WBC 16.7 10^3/uL (4.0-10.0) H 04/01/22 12:15 RBC 5.48 10^6/uL (4.1-5.3) H 04/01/22 12:15 Hgb 14.8 g/dL (11.7-16.6) 04/01/22 12:15 Hct 49.7 % (42.0-52.0) 04/01/22 12:15 MCV 90.7 fl (80-94) 04/01/22 12:15 MCH 27.0 pg (28.0-34.0) L 04/01/22 12:15 MCHC 29.8 g/dL (30.0-36.0) L 04/01/22 12:15 RDW 15.8 % (12.1-15.1) H 04/01/22 12:15 Plt Count 324 10^3/cmm (130-400) 04/01/22 12:15 MPV 9.7 fL (7.4-10.4) 04/01/22 12:15 Neut % (Auto) 78.3 % 04/01/22 12:15 Lymph % (Auto) 10.3 % 04/01/22 12:15 [place]row[place] % (Auto) 9.8 % 04/01/22 12:15 Eos % (Auto) 0.5 % 04/01/22 12:15 Baso % (Auto) 0.5 % 04/01/22 12:15 Neut # (Auto) 13.06 10^3/uL (1.8-7.7) H 04/01/22 12:15 Lymph # (Auto) 1.7 10^3/uL (0.8-4.8) 04/01/22 12:15 [place] # (Auto) 1.6 10^3/uL (0.2-0.9) H 04/01/22 12:15 Eos # (Auto) 0.1 10^3/uL (0.0-0.8) 04/01/22 12:15 Baso # (Auto) 0.1 10^3/uL (0.0-0.1) 04/01/22 12:15 Nucleated RBC % (auto) 0.2 % 04/01/22 12:15 Nucleated RBCs # 0.0 /100WBC 04/01/22 12:15 PT 14.40 SECONDS (12.1-14.9) 04/01/22 12:15 INR 1.09 (0.8-1.2) 04/01/22 12:15 APTT 32.8 SECONDS (23.9-36.7) 04/01/22 12:15 Specimen Type Arterial 04/01/22 17:08 Sample Site Radial, left 04/01/22 17:08 ABG pH 7.29 (7.35-7.45) L 04/01/22 17:08 ABG pCO2 70.5 mmHg (35-45) H* 04/01/22 17:08 ABG pO2 75.4 mmHg (80.0-100.0) L 04/01/22 17:08 ABG HCO3 34.2 mmol/L (22-26) H 04/01/22 17:08 ABG O2 Saturation 93.7 04/01/22 14:44 ABG Base Excess 5.2 mmol/L (-2.0-2.0) H 04/01/22 17:08 Wil Test Pos 04/01/22 17:08 A-a O2 Gradient 22.1 mmHg (5-10) H 04/01/22 14:44 Hematocrit 42.8 % (42-52) 04/01/22 17:08 Hgb O2 Saturation 90.5 % (95-100) L 04/01/22 14:44 Carboxyhemoglobin 3.0 %THgb (0.4-20.1) 04/01/22 14:44 Methemoglobin 0.5 % (0.4-1.5) 04/01/22 14:44 Total Hemoglobin 14.8 g/dL (14-18) 04/01/22 14:44 Sodium 144.0 mmol/L (131-143) H 04/01/22 14:44 Potassium 3.8 mmol/L (3.5-5.0) 04/01/22 14:44 Glucose 177.0 mg/dL (70-115) H 04/01/22 14:44 Ionized Calcium 1.2 mmol/L (1.1-1.4) 04/01/22 14:44 O2 Delivery Device Vent 04/01/22 17:08 O2 Liters/Min 15.0 % 04/01/22 12:10 FiO2 70.0 % 04/01/22 17:08 Tidal Volume 0.50 04/01/22 17:08 PEEP 8.0 cmH20 04/01/22 17:08 Specimen Drawn By Anand 04/01/22 17:08 Raw Material Handler ID Anand 04/01/22 17:08 Sodium 142 mmol/L (136-145) 04/01/22 12:15 Potassium 3.8 mmol/L (3.5-5.1) 04/01/22 12:15 Chloride 96 mmol/L (98-107) L 04/01/22 12:15 Carbon Dioxide 33 mmol/L (22-29) H 04/01/22 12:15 Anion Gap 16.8 (5-19) 04/01/22 12:15 BUN 32 mg/dL (8-23) H 04/01/22 12:15 Creatinine 0.9 mg/dL (0.7-1.2) 04/01/22 12:15 GFR Calculation 86.1 mL/min (90-130) L 04/01/22 12:15 Glucose 123 mg/dL (65-115) H 04/01/22 12:15 Calculated Osmolality 302 mOsm/kg (285-295) H 04/01/22 12:15 Lactic Acid 1.5 mmol/L (0.5-2.2) 04/01/22 12:15 Calcium 8.8 mg/dL (8.5-10.5) 04/01/22 12:15 Total Bilirubin 0.3 mg/dL (0.15-1.2) 04/01/22 12:15 AST 42 U/L (0-40) H 04/01/22 12:15 ALT 26 U/L (0-41) 04/01/22 12:15 Alkaline Phosphatase 102 U/L (40-130) 04/01/22 12:15 Troponin T Baseline 75 ng/L (0-15) H 04/01/22 12:15 Troponin T 120 Minute 79.13 ng/L (0-15) H 04/01/22 14:30 Delta Troponin T 4.13 ABS# (0-10) 04/01/22 14:30 NT-Pro-B Natriuret Pep 4085 pg/mL (0-125) H 04/01/22 12:15 Total Protein 6.4 g/dL (6.6-8.7) L 04/01/22 12:15 Albumin 3.7 g/dL (3.5-5.2) 04/01/22 12:15 Globulin 2.7 g/dL (1.3-4.6) 04/01/22 12:15 Critical Care Time Critical Care Time: Critical Care Time: Yes Total Critical Care Time: 80 Attestation: Due to a high probability of clinically significant, possibly life threatening deterioration, the patient required my highest level of attention and preparedness to intervene emergently and I personally spent this critical care time directly and personally managing the patient. This critical care time included obtaining a history; examining the patient; pulse oximetry; ordering and review of laboratory and imaging studies; arranging urgent treatment with development of a management plan; evaluation of patient's response to treatment; frequent reassessment; and, discussions with other providers as applicable. It was exclusive of separately billable procedures. Primary system involved is respiratory Discharge Plan Discharge Patient Disposition: Admitted As Inpatient Admit Provider: Alfredo Broussard Clinical Impression: Pneumonia, Acute exacerbation of chronic obstructive airways disease, Sepsis, Acute respiratory failure with hypoxia and hypercapnia, Acute alteration in mental status, Elevated brain natriuretic peptide (BNP) level Condition: Stable Coding Level of Care Code ED Plaster Foreman for Wali Peralta
--- NOTE | 2022-04-01 12:17 | ECG_ITS ---
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 Measurements Intervals [place] Rate: 86 P: 0 NH: 0 QRS: 66 QRSD: 107 T: 62 QT: 384 QTc: 460 Interpretive Statements Multifocal atrial rhythm INFERIOR MYOCARDIAL INFARCTION , PROBABLY OLD [40+ ms Q WAVE AND/OR ST/T ABNORMALITY IN II/aVF] Compared to ECG 08/09/2017 07:41:57 Sinus rhythm no longer present T-wave abnormality no longer present Possible ischemia no longer present Myocardial infarct finding still present Electronically Signed On 04-01-2022 20:05:34 CENTER PUNCH OPERATOR by Ashly Matos M.D. [id number]
[2022-04-01 12:21] LABS: ABG PH Result 7.37 (7.35-7.45); Arterial Blood Gas Hematocrit 46.5 % (42-52); Blood Gas Allen Test Pos; Blood Gas Operator Identificat CAK; Blood Gas Sample Site Radial, left; Blood Gas Sample Type Arterial; HCO3 ABG 38.4 mmol/L (22-26); Oxygen Device NRB
--- NOTE | 2022-04-01 12:27 | CT_ITS ---
WS: [id number] CTA CHEST WITH CT ABDOMEN AND PELVIS. HISTORY: Altered mental status with fall. TECHNIQUE: CT angiogram is performed through the chest. Additional imaging is performed through the a bdomen and pelvis with IV contrast. Sagittal and coronal reformats have been submitted. MIP imaging also reviewed. All CT scans at [facility] use at least one of these dose optimization techniqu es: automated exposure control; mA and/or kV adjustment per patient size (includes targeted exams whe re dose is matched to clinical indication); or iterative reconstruction. Contrast: Omnipaque 350; 100 cc IV. DLP: 2779.90 mGy.cm COMPARISON: 09/05/2019 and 07/16/2019 Chest CTA: Limited opacification of the pulmonary arteries. No central pulmonary embolism. Atheroscle rosis aorta. No aneurysm. Marked enlargement of the LEFT heart chambers. No pericardial effusion. Den se consolidation RIGHT lower lobe from pneumonia. Additional tree-in-bud airspace disease RIGHT upper and RIGHT middle lobe. No significant effusion. No mediastinal or hilar adenopathy. Abdomen CT: Liver is normal size. Very mildly distended gallbladder with no adjacent inflammation. Ne gative spleen and pancreas. No adrenal mass. No renal obstruction. No ascites or free air. No GI tract obstruction. No mucosal thickening. Normal appendix. Pelvic CT: Nondistended urinary bladder. No adenopathy. No free fluid. CT/CT angio chest w abd pel w con IMPRESSION: 1. Quality of this examination is overall limited by body habitus, position of the arms and motion. 2. No central pulmonary embolism. 3. RIGHT lung pneumonia. Most dense consolidation RIGHT lower lobe. 4. No GI tract obstruction. No renal obstruction. Adnexa normal appendix.
[2022-04-01] MEDS: albuterol 2.5 mg/3 mL Neb INHALATION (12:28)
[2022-04-01] MEDS: ipratropium-albuterol 3 mL Neb INHALATION ×4 (12:28→23:49)
[2022-04-01 12:29] LABS: Basophils # 0.1 10^3/uL (0.0-0.1); Basophils % 0.5 %; Eosinophils # 0.1 10^3/uL (0.0-0.8); Eosinophils % 0.5 %; Hematocrit 49.7 % (42.0-52.0); Hemoglobin 14.8 g/dL (11.7-16.6); Lymphocytes # 1.7 10^3/uL (0.8-4.8); Lymphocytes % 10.3 %; Mean Corpuscular HGB Conc 29.8 g/dL (30.0-36.0); Mean Corpuscular Volume 90.7 fl (80-94); Mean Platelet Volume 9.7 fL (7.4-10.4); Monocytes # 1.6 10^3/uL (0.2-0.9); Monocytes % 9.8 %; Neutrophils # 13.06 10^3/uL (1.8-7.7); Neutrophils % 78.3 %; Nucleated Red Blood Cells % 0.2 %; Platelet Count 324 10^3/cmm (130-400); Red Blood Count 5.48 10^6/uL (4.1-5.3); Red Cell Distribution Width 15.8 % (12.1-15.1); White Blood Count 16.7 10^3/uL (4.0-10.0)
--- NOTE | 2022-04-01 12:29 | CT_ITS ---
WS: [id number] CT HEAD NONCONTRAST HISTORY: ams TECHNIQUE: Contiguous axial imaging performed through the brain in 2.5 mm imaging. Bone and soft tiss ue windows. Sagittal and coronal reformats reviewed. All CT scans at [facility] use at least one of these dose optimization techniques: automated exposure control; mA and/or kV adjustment per pa tient size (includes targeted exams where dose is matched to clinical indication); or iterative recon struction. DLP: 1156.79 mGy.cm COMPARISON: None available. No acute intracranial hemorrhage, midline shift or mass effect. Mild atrophy and moderate small vessel ischemic changes within the white matter. No sulcal effacement . Ventricles: Normal size with no hydrocephalus. No inferior displacement of cerebellar tonsils. Paranasal sinuses: As visualized are clear. Mastoid air cells: Well pneumatized. Calvarium and scalp: Skull is intact with no soft tissue edema or swelling. CT/CT head wo con* [id number] IMPRESSION: 1. No acute intracranial hemorrhage or edema. 2. Mild atrophy and moderate small vessel ischemic type changes.
[2022-04-01 12:50] LABS: INR 1.09 (0.8-1.2)
[2022-04-01 12:51] LABS: Partial Thromboplastin Time 32.8 SECONDS (23.9-36.7)
[2022-04-01 12:54] LABS: ABG PCO2 66.8 mmHg (35-45)
[2022-04-01 12:55] LABS: Lactic Sepsis W/Reflex 1.5 mmol/L (0.5-2.2)
[2022-04-01 12:58] LABS: Troponin(5th) Baseline 75 ng/L (0-15)
[2022-04-01 13:07] LABS: Alanine Aminotransferase 26 U/L (0-41); Albumin Level 3.7 g/dL (3.5-5.2); Alkaline Phosphatase 102 U/L (40-130); Anion Gap 16.8 (5-19); Aspartate Amino Transferase 42 U/L (0-40); Blood Urea Nitrogen 32 mg/dL (8-23); Calcium 8.8 mg/dL (8.5-10.5); Carbon Dioxide 33 mmol/L (22-29); Chloride 96 mmol/L (98-107); Globulin 2.7 g/dL (1.3-4.6); Glomerular Filtration Rate 86.1 mL/min (90-130); Glucose 123 mg/dL (65-115); NT Pro B Type Natriuretic Pept 4085 pg/mL (0-125); Osmolality Calculated 302 mOsm/kg (285-295); Potassium 3.8 mmol/L (3.5-5.1); Sodium 142 mmol/L (136-145); Total Bilirubin 0.3 mg/dL (0.15-1.2); Total Protein 6.4 g/dL (6.6-8.7)
[2022-04-01] MEDS: SODIUM CHLORIDE 0.9% 2259 ML IV (13:27)
[2022-04-01] MEDS: piperacillin-tazobactam 4.5 GM in sodium chloride 0.9% (plus) 50 ML IV (13:27)
[2022-04-01] MEDS: iohexol 350 mg/mL 500 mL Btl (per mL) IV (14:10)
--- NOTE | 2022-04-01 14:26 | ECG_ITS ---
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 Measurements Intervals [place] Rate: 86 P: 70 MD: 245 QRS: 30 QRSD: 98 T: 87 QT: 401 QTc: 480 Interpretive Statements SINUS RHYTHM WITH FIRST DEGREE AV BLOCK WITH FREQUENT SUPRAVENTRICULAR PREMATURE COMPLEXES INFERIOR MYOCARDIAL INFARCTION , PROBABLY OLD [40+ ms Q WAVE AND/OR ST/T ABNORMALITY IN II/aVF] Compared to ECG 04/01/2022 12:17:10 First degree AV block now present Atrial fibrillation no longer present Myocardial infarct finding still present Electronically Signed On 04-01-2022 20:15:56 BUS AND TROLLEY INSPECTING DISPATCHER by Ashly Matos M.D. [id number]
--- NOTE | 2022-04-01 14:56 | PC.NURSE ---
PT SLIGHTLY RESPONSIVE TO STERNAL RUB. PT GROANS WHEN STERNAL RUB IS PERFORMED. PT EYES DO NOT OPEN. PT DOES NOT WITHDRAW FROM PAINFUL STIMULI.
[2022-04-01 14:57] LABS: ABG PH Result 7.23 (7.35-7.45); Alveolar-Arterial Oxygen Gradi 22.1 mmHg (5-10); Arterial Blood Gas Hematocrit 45.5 % (42-52); Base Excess ABG 5.4 mmol/L (-2.0-2.0); Blood Gas Allen Test Pos; Blood Gas Operator Identificat MONRO; Blood Gas Sample Site Radial, left; Blood Gas Sample Type Arterial; HCO3 ABG 36.6 mmol/L (22-26); HGB O2 Sat 90.5 % (95-100); Ionized Calcium Level - ABG 1.2 mmol/L (1.1-1.4); Methemoglobin 0.5 % (0.4-1.5); Oxygen Device BIPAP; Oxygen Saturation ABG 93.7; PO2 ABG 82.5 mmHg (80.0-100.0); Potassium Level - ABG 3.8 mmol/L (3.5-5.0); Total Hemoglobin 14.8 g/dL (14-18)
--- NOTE | 2022-04-01 14:57 | PC.NURSE ---
PHYSICIAN NOTIFIED ABOUT PT RESPONSIVENESS. NO VERBAL ORDERS AT THIS TIME.
[2022-04-01 14:58] LABS: ABG PCO2 88.2 mmHg (35-45)
--- NOTE | 2022-04-01 15:03 | XR_ITS ---
WS: [id number] Portable AP supine chest, 04/01/2022, 1522 hours Clinical Data: post intubation Comparison: Portable chest, 04/01/2022, 1222 hours Findings: There is an endotracheal tube above the lucy. The right lower lobe opacity and heart siz e remain the same. XR/XR chest 1V portable [id number] Impression: Satisfactory placement of endotracheal tube.
[2022-04-01 15:05] LABS: Troponin 5 2HR 79.13 ng/L (0-15)
[2022-04-01 15:06] LABS: Troponin 5 2HR Delta 4.13 ABS# (0-10)
[2022-04-01] MEDS: etomidate 2 mg/mL INJ SDV 10 mL 40 MG IVP (15:16)
[2022-04-01] MEDS: vecuronium 10 mg SDV 15 MG IVP (15:17)
--- NOTE | 2022-04-01 15:41 | PC.NURSE ---
INTUBATION: PHYSICIAN: MARIO 40MG ETOMIDATE GIVEN AT 1516 ADMINISTERED BY EPHRAIM ESPINO RN 15 MG VECURONIUM GIVEN AT 1517 ADMINISTERED BY EPHRAIM ESPINO RN TUBE SIZE: 8 PLACEMENT: 25 AT LIP XRAY VERIFIED PLACEMENT OF TUBE.
[2022-04-01] MEDS: propofol 1,000 MG/100 ML INJ 4.37 MG IV (16:48)
--- NOTE | 2022-04-01 16:52 | PC.NURSE ---
SOFT WRIST RESTRAINT APPLIED PER VERBAL ORDER OF DR. MARTIN
[2022-04-01 17:20] LABS: ABG PH Result 7.29 (7.35-7.45); Arterial Blood Gas Hematocrit 42.8 % (42-52); Base Excess ABG 5.2 mmol/L (-2.0-2.0); Blood Gas Allen Test Pos; Blood Gas Sample Type Arterial; HCO3 ABG 34.2 mmol/L (22-26); PO2 ABG 75.4 mmHg (80.0-100.0)
[2022-04-01 17:23] LABS: ABG PCO2 70.5 mmHg (35-45)
[2022-04-01 17:25] LABS: Blood Gas Drawn By MONRO; Blood Gas Operator Identificat MONRO; Oxygen Device VENT
--- NOTE | 2022-04-01 17:40 | XRR_ITS ---
PROCEDURE INFORMATION: Exam: XR Chest Exam date and time: 04/01/2022 5:43 PM Age: 61 years old Clinical indication: Device placement; Other: Og tube placement TECHNIQUE: Imaging protocol: Radiologic exam of the chest. Views: 1 view. COMPARISON: CR XR chest 1V portable [id number] 04/01/2022 3:10 PM FINDINGS: Tubes, catheters and devices: There is an endotracheal tube with the tip 3.8 cm above the lucy. Interval placement of an enteric tube with the tip lower esophagus. Lungs: Stable mild interstitial pulmonary edema with superimposed atelectasis versus pneumonia in the right and left lower lobes. Pleural spaces: Stable small right pleural effusion. Heart/Mediastinum: Stable moderate enlargement of the cardiac silhouette. Bones/joints: Unremarkable for age. XR/XR chest 1V portable [id number] IMPRESSION: 1. Stable mild interstitial pulmonary edema with superimposed atelectasis versus pneumonia in the right and left lower lobes. Recommend followup chest imaging to insure resolution of these findings. 2. Stable small right pleural effusion. 3. There is an endotracheal tube with the tip 3.8 cm above the lucy. 4. Interval placement of an enteric tube with the tip lower esophagus. Recommend advancing the tube a minimum of 17 cm.. 5. Incidental/nonacute findings are listed in the report.
[2022-04-01 17:42] LABS: Blood Gas Sample Site Radial, left
--- NOTE | 2022-04-01 18:05 | PM.HP ---
Providers/Chief Complaint Admitting Physician: Alfredo Broussard Primary Care Provider: Tania Garcia DO Chief Complaint: low ox History of Present Illness 61-year-old gentleman was brought in for evaluation from orthopedic clinic where he was following up for assessment of hip arthritis and consideration of hip replacement surgery, there he was found to be hypoxic with saturation down in the 60s. 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 He has not missed any of his treatments. She states that he has had worsened productive cough for longer than a week, getting more dyspneic, as well as having hemoptysis, he had a fall on Tuesday with contusion/large bruise on the left upper quadrant of the abdomen, reported some burning sensation at the left side near the umbilicus. She denies that he had any fever. They were visited by their little niece last week who had a cold, and thought perhaps he may have picked up an infection from her. She denies any vomiting, denies any aspiration with food or drink. He also has congestive heart failure, history of cardiac stents. Has been having some peripheral edema although not clear that this is worse than usual. Takes diuretics at home, also wears compression stockings. In ER he was found to be in hypoxic and hypercapnic respiratory failure with tachypnea 24, respiratory distress, decreased level of consciousness. With leukocytosis 16.7, heart rates 80s-90s. Chest x-ray with patchy right lower lobe opacity which may be pneumonia, atelectasis and/or effusion. Cardiomegaly and atherosclerosis. CT chest abdomen pelvis with overall limited quality due to body habitus, position of the arms and motion. No central pulmonary embolism. Right lung pneumonia. Most dense consolidation right lower lobe. No GI tract obstruction. No renal obstruction. Adnexa normal appendix. Head CT without acute findings. Mild atrophy and moderate small vessel ischemic type changes. Received breathing treatment, steroid, fluid bolus, Zosyn and vancomycin. 7.37/66.8/117/30 8.4 initially started on BiPAP, but without improvement, repeat ABG 7.23/88.2/83.5/36.6. He was intubated and started on mechanical ventilatory support. Review of Systems General: Reports: ROS unobtainable due to endotracheal tube Narrative: ROS as above obtained from his . Additionally she states he has not had any fevers at home, no headache, no chest pain or pressure. No nausea vomiting or diarrhea. Abdominal tenderness as above after fall. She states that while walking with a walker his legs somehow gave out from underneath him and he fell onto his left upper quadrant onto the walker. He always has some slight reddish discoloration of his lower extremities. Denies any other new pain, focal redness or rash. Medications/Allergies Home Medications Medication Instructions Recorded Confirmed Last Taken Type chlorthalidone 25 mg tablet 25 mg PO DAILY 04/25/19 04/01/22 04/01/22 History duloxetine 60 mg capsule,delayed 60 mg PO DAILY 04/25/19 04/01/22 04/01/22 History release memantine 28 mg capsule 28 mg PO DAILY 04/25/19 04/01/22 04/01/22 History sprinkle,extended release 24hr (Namenda XR) metformin 1,000 mg tablet 1,000 mg PO BID 04/25/19 04/01/22 04/01/22 History nitroglycerin 0.4 mg sublingual 0.4 mg sublingual Q5M PRN Chest 04/25/19 04/01/22 12/19/20 History tablet (Nitrostat) Pain oxycodone-acetaminophen 10 mg-325 1 tab PO TID PRN Pain 04/25/19 04/01/22 04/01/22 History mg tablet ropinirole 2 mg tablet 4 mg PO TID 04/25/19 04/01/22 04/01/22 History rosuvastatin 40 mg tablet 40 mg PO DAILY 04/25/19 04/01/22 03/31/22 History trandolapril 4 mg tablet 4 mg PO DAILY 04/25/19 04/01/22 04/01/22 History albuterol sulfate 2.5 mg/3 mL 2.5 mg inhalation Q6H PRN 05/23/19 04/01/22 12/19/20 History (0.083 %) solution for nebulization shortness of breath or wheezing budesonide-formoterol HFA 160 2 puff inhalation Q12H 90 days 05/23/19 04/01/22 04/01/22 Rx mcg-4.5 mcg/actuation aerosol #10.2 grams inhaler (Symbicort) carvedilol 6.25 mg tablet 6.25 mg PO DAILY 10/01/19 04/01/22 04/01/22 History dulaglutide 0.75 mg/0.5 mL 1.5 mg SUBCUT .Once weekly 11/11/20 04/01/22 03/29/22 History subcutaneous pen injector (Trulicity) pregabalin 150 mg capsule (Lyrica) 150 mg PO TID 11/11/20 04/01/22 04/01/22 History fluticasone propionate 50 2 spray intranasal DAILY PRN 05/11/21 04/01/22 Unknown History mcg/actuation nasal allergy spray,suspension clopidogrel 75 mg tablet 75 mg PO DAILY #90 tabs 07/02/21 04/01/22 04/01/22 Rx potassium chloride 20 mEq 40 meq PO DAILY #180 tabs 07/22/21 04/01/22 04/01/22 Rx tablet,extended release albuterol sulfate 90 mcg/actuation 2 puff inhalation Q6H PRN 08/04/21 04/01/22 Unknown Rx aerosol inhaler (ProAir HFA) Shortness Of Breath #8.5 grams amlodipine 2.5 mg tablet 5 mg PO DAILY #180 tabs 09/04/21 04/01/22 04/01/22 Rx montelukast 10 mg tablet 10 mg PO DAILY #30 tabs 02/09/22 04/01/22 Unknown Rx (Singulair) diclofenac sodium 75 mg 75 mg PO Q12H PRN for severe pain 03/17/22 04/01/22 Unknown Rx tablet,delayed release as needed #30 tabs adalimumab 40 mg/0.8 mL 40 mg (0.8 mL) SUBCUT .Q7days 28 03/25/22 04/01/22 Unknown Rx subcutaneous pen kit (Humira Pen) days #4 ea ascorbic acid (vitamin C) 500 mg 500 mg PO DAILY 04/01/22 04/01/22 04/01/22 History capsule,extended release (Vitamin C) cholecalciferol (vitamin D3) 25 25 mcg PO DAILY 04/01/22 04/01/22 04/01/22 History mcg (1,000 unit) capsule (Vitamin D3) folic acid 20 mg capsule 20 mg PO DAILY 04/01/22 04/01/22 04/01/22 History furosemide 40 mg tablet 40 mg PO DAILY 04/01/22 04/01/22 04/01/22 History meloxicam 15 mg tablet 15 mg PO DAILY 04/01/22 04/01/22 04/01/22 History gqtpyhxhadwm-xvi-lyers acid-vit 1 tab PO DAILY 04/01/22 04/01/22 04/01/22 History K-lycop 400 mcg-20 mcg-370 mcg tablet (Men's 50 Plus Multivitamin) vitamin C 45 mg-zinc citrate 3.75 1 tab PO DAILY 04/01/22 04/01/22 04/01/22 History mg-elderberry 50 mg chewable tablet ([employer]) Allergies Allergy/AdvReac Type Severity Reaction Status Date / Time metoclopramide [From Reglan] Allergy Severe ALGY-Hives Verified 04/01/22 11:48 gabapentin Allergy Unknown Unknown Verified 04/01/22 11:48 PFSH Acute PFSH: Medical History CAD (coronary artery disease) Chest pain CHF (congestive heart failure) COPD (chronic obstructive pulmonary disease) Depression Enteritis GERD (gastroesophageal reflux disease) HTN (hypertension) Hyperlipidemia Memory loss STEPHANIE (obstructive sleep apnea) Osteoarthritis of left hip Restless leg Seropositive rheumatoid arthritis Type 2 diabetes mellitus Surgical History H/O esophagogastroduodenoscopy (12/19/20) History of carpal tunnel surgery History of colonoscopy with polypectomy 2010 History of sinus surgery History of surgical amputation of finger of right hand Stented coronary artery Family History Other Arthritis Diabetes Hypertension Stroke Denies family history of Rheumatoid arthritis Systemic lupus erythematosus (SLE) in adult Social History Smoking and tobacco status: current every day smoker cigarettes Packs smoked per day: 0.25 Years cigarettes smoked: 45 Quit status (tobacco): has quit using tobacco Year quit tobacco: 2020 Former quit date comment: Hx of 1 PPD x 53 Years Second hand smoke exposure: Yes Smoking risk assessment/counseling performed?: No Alcohol intake: former Counseling given: No Counseling given: No Lives independently: Yes Household members: spouse Marital status: Current occupational status: disabled Pets and animals: Yes History of recent travel: No Current gender identity: Male Vitals/I&O/Wt Last Vital Signs Temp 98.7 F 04/01/22 12:01 Pulse 117 H 04/01/22 16:52 Resp 14 04/01/22 17:26 BP 134/92 04/01/22 16:52 Pulse Ox 93 04/01/22 17:26 O2 Del Method 04/01/22 16:42 O2 Flow Rate 2 04/01/22 12:01 FiO2 70 04/01/22 17:26 04/01/22 04/01/22 04/01/22 06:59 14:59 22:59 Intake Total 50 / 50 520.627 / 570.627 Balance 50 / 50 520.627 / 570.627 Weight last 48 hrs Weight 145.603 kg Physical Exam Narrative: at bedside provides history. Const: GENERAL APPEARANCE: patient mechanically ventilated HENMT: COMMON NORMALS: oropharynx normal Neck/C-Spine: COMMON NORMALS: no JVD Resp: AUSCULTATION: rhonchi, wheezes and diminished lung sounds Cardio: COMMON NORMALS: S1 normal heart sound present, S2 normal heart sound present and No murmurs present (Cardio) RATE: tachycardic RHYTHM: regular rhythm HEART SOUNDS: S1 normal heart sound present and S2 normal heart sound present GI: COMMON NORMALS: Normal to inspection, nondistended, normoactive bowel sounds present, Soft to palpation and non-tender PALPATION: Yes Soft to palpation OTHER: Large abdomen. Large oval shaped bruise over left upper quadrant Extremity: COMMON NORMALS: no joint enlargement OTHER: 2+ BL LE edema Compression stockings Neuro: SENSORIUM/ORIENTATION: Yes alert Skin: COMMON NORMALS: no rashes or lesions noted GENERAL SKIN EXAM: no rashes or lesions noted OTHER: Faint erythema/stasis of bilateral lower extremities above compression stockings. No induration, not hot to touch. Urinary Catheter Management: Perez: Cath Placed During This Visit: yes Urinary Catheter Date of Insertion: 04/01/22 Urinary Catheter Time of Insertion: 17:48 Sepsis: Is patient septic: Yes Focused sepsis exam performed: Yes Data 04/01/22 12:15 02/16/23 12:15 Micro: Microbiology 04/01/22 12:49 Blood Culture - Preliminary Blood SPECIMEN COLLECTED 04/01/22 12:49 Blood Culture - Preliminary Blood SPECIMEN COLLECTED A&P Assessment and plan (1) Pneumonia: Right lower lobe pneumonia. His denies any aspiration. He has had worsening of productive cough over the last week. States initially came in contact with their niece who was having a cold and they thought maybe he got an infection from her. He received Zosyn, vancomycin. We will continue empiric antibiotics. Collect urine bacterial antigens. Assess MRSA PCR. Check COVID-19 PCR panel. Collect sputum culture. Continue mechanical ventilatory support in intensive care unit. Continue sedation, currently also blood pressure soft after intubation, started on norepinephrine. Pulmonary toilet. PPI prophylaxis for stress ulcer. DVT prophylaxis with SCD only due to hemoptysis. Monitor hemoptysis. ABG in the morning. Reassess respiratory status, mental status in the morning. Discussed with ER physician. ER documentation reviewed. (2) Acute exacerbation of chronic obstructive airways disease: Continue IV steroid with Solu-Medrol. Additionally antibiotics and assessments as above. Breathing treatments with DuoNebs. (3) Sepsis: Sepsis with leukocytosis 16.7, sinus tachycardia 117. Pulmonary source with pneumonia. Without endorgan damage currently. Follow-up blood culture. Additional work-up and treatment above under pneumonia. Lactic acid noted 1.5. (4) Acute respiratory failure with hypoxia and hypercapnia: Normally on 3 L of oxygen continuously, BiPAP at night for COPD/STEPHANIE. Currently failed BiPAP, required intubation mechanical ventilation. Failed BiPAP support in ER. Required intubation mechanical ventilation. Secondary to pneumonia, COPD exacerbation, decompensated CHF. (5) Acute alteration in mental status: Acute metabolic encephalopathy on presentation secondary to respiratory failure, hypercapnia. Possibly secondary to sepsis as well. secondary to hypoxic and hypercapnic acute respiratory failure. Treat underlying conditions as above. (6) Elevated brain natriuretic peptide (BNP) level: Acute diastolic CHF with lower extremity edema, dyspnea and hypoxia, BNP 4085. Last echocardiogram back in 2020 with normal ejection fraction, suboptimal study. Complete troponin EKG series. Troponin with moderate elevation to 75-80. Suspect likely demand secondary to respiratory failure. Assess with TTE. Mechanical ventilatory support as above. We will give 40 mg IV Lasix. Follow-up volume status, renal function and blood pressures which are soft. Plan Hemoptysis since last week: Suspect secondary to pneumonia. Does not appear to have signs of contusion on the left side where his fall/large bruise was. SCDs only for DVT prophylaxis. CAD Depression GERD HTN HLD Memory loss STEPHANIE on nightly BiPAP Osteoarthritis of left hip Restless leg Seropositive RA DM2: Sliding scale insulin, glucose monitoring requested. Attestations Medical Necessity Statement*: [place] of over 2 midnights anticipated for assessment of management of acute on chronic respiratory failure with need for mechanical ventilatory support, to monitor, COPD, CHF decompensation, with acute encephalopathy, sepsis. Coding Level of Care Code Critical Care >/= 30 minutes Critical care time (in minutes): 60 The high probability of a clinically significant, sudden or life threatening deterioration, as referenced in this documentation, required my full and direct attention, intervention and personal management. The critical care time shown is in addition to time spent performing any reported separately billable procedures and includes the following: [x] Data and vital sign review and interpretation [x] Patient assessment, examination and intervention [x] Medication orders and management [x] Patient/Family updates as able [x] Care Coordination and Documentation. Diagnoses Pneumonia J18.9 Acute exacerbation of chronic obstructive airways disease J44.1 Sepsis A41.9 Acute respiratory failure with hypoxia and hypercapnia J96.01; J96.02 Acute alteration in mental status R41.82 Elevated brain natriuretic peptide (BNP) level R79.89
--- NOTE | 2022-04-01 18:13 | ECG_ITS ---
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 Measurements Intervals [place] Rate: 62 P: 102 MD: 182 QRS: 30 QRSD: 107 T: 111 QT: 458 QTc: 468 Interpretive Statements SINUS RHYTHM WITH OCCASIONAL SUPRAVENTRICULAR PREMATURE COMPLEXES LOW QRS VOLTAGE IN PRECORDIAL LEADS [QRS DEFLECTION < 1.0 mV IN CHEST LEADS] INFERIOR MYOCARDIAL INFARCTION , PROBABLY OLD [40+ ms Q WAVE AND/OR ST/T ABNORMALITY IN II/aVF] Compared to ECG 04/01/2022 14:26:02 Low QRS voltage now present First degree AV block no longer present Myocardial infarct finding still present Electronically Signed On 04-01-2022 20:18:48 OPERATING ROOM NURSE by Ashly Matos M.D. [id number]
[2022-04-01 19:22] LABS: Troponin 5 6HR 69.13 ng/L (0-15)
[2022-04-01 19:24] LABS: Troponin 5 6HR Delta -5.87 ng/L (0-12)
[2022-04-01] MEDS: propofol 1,000 MG/100 ML INJ 30.58 MG IV (19:50)
[2022-04-01] MEDS: piperacillin-tazobactam 3.375 GM in sodium chloride 0.9% (plus) 50 ML IV (19:58)
[2022-04-01] MEDS: FUROsemide 10 mg/mL SDV 4mL 40 MG IVP (19:58)
[2022-04-01] MEDS: pantoprazole 40 mg SDV IVP (19:58)
[2022-04-01] MEDS: sodium chloride 0.9% 1,000 ML 999 ML IV (20:17)
[2022-04-01] MEDS: insulin lispro 100 unit/1 mL SUBCUT (20:30)
[2022-04-01 20:35] LABS: Glucose Point of Care 199 mg/dL (70-110)
[2022-04-01 21:15] LABS: Adenovirus Not Detected (NOT DETECT); Chlamydia Pneumoniae Not Detected (NOT DETECT); Coronavirus 229E,HKU1,NL63,OC4 Not Detected (NOT DETECT); Human Metapneumovirus Not Detected (NOT DETECT); Human Rhinovirus/Enterovirus Not Detected (NOT DETECT); Influenza A Not Detected (NOT DETECT); Influenza A H1 Not Detected (NOT DETECT); Influenza A H1-2009 Not Detected (NOT DETECT); Influenza A H3 Not Detected (NOT DETECT); Influenza B Not Detected (NOT DETECT); Mycoplasma Pneumoniae Not Detected (NOT DETECT); Parainfluenza Virus Type 1 Not Detected (NOT DETECT); Parainfluenza Virus Type 2 Not Detected (NOT DETECT); Parainfluenza Virus Type 3 Not Detected (NOT DETECT); Parainfluenza Virus Type 4 Not Detected (NOT DETECT); Respiratory Syncytial Virus A Not Detected (NOT DETECT); Respiratory Syncytial Virus B Not Detected (NOT DETECT); SARS-COV-2 Not Detected (NOT DETECT)
[2022-04-01] MEDS: propofol 1,000 MG/100 ML INJ 34.95 MG IV (22:50)
[2022-04-01] MEDS: vancomycin 1,500 MG/300 ML PIGGYBACK 200 MG IV (23:01)
[2022-04-02] VITALS (65 sets, daily range): BP systolic 91–141; BP diastolic 53–86; PULSE 75–100; RESP 3–18; TEMP 36.1–37.1; O2SAT 65–94; BMI 44.1
--- NOTE | 2022-04-02 00:03 | USCV_ITS ---
Obswell Scott Age: 61 Gender: M : 1960 Exam Date: 04/02/2022 01:08 Ordering Phys: Alfredo Broussard MD Technologist: LUZ ELENA [place] [facility] [place]: c/o respiratory distress. Patient on vent in ICU- 9. history CAD, morbid obesity, hx CHF. BP: 134 / 92 HR: 76 Rhythm: Sinus Technical Quality: Fair with [employer] MEASUREMENTS (Male / Female) Normal Values 2D ECHO LV Diastolic Diameter PLAX 4.7 cm 4.2 - 5.9 / 3.9 - 5.3 cm LV Systolic Diameter PLAX 3.4 cm IVS Diastolic Thickness 2.0 cm 0.6 - 1.0 / 0.6 - 0.9 cm IVS Systolic Thickness 2.5 cm LVPW Diastolic Thickness 1.7 cm 0.6 - 1.0 / 0.6 - 0.9 cm LVPW Systolic Thickness 2.4 cm LVOT Diameter 2.0 cm LV Ejection Fraction 2D Teich 57.5 % LV Ejection Fraction MOD 2C 61.6 % LV Ejection Fraction 2C AL 63.1 % LA Diameter 5.3 cm LA Width 4.4 cm LA Height 5.8 cm RA Width 3.8 cm RA Height 6.1 cm Aorta at Sinotubular Diameter 3.1 cm IVC Diameter 2.1 cm M-MODE Aortic Annulus Diameter 3.4 cm LA Ao Ratio MM 1.6 MV E Point Septal Separation 0.5 cm DOPPLER AV Peak Velocity 140.0 cm/s LVOT Peak Velocity 90.0 cm/s AV Area Cont Eq vti 2.3 cm squared AV Area Cont Eq pk 2.1 cm squared MV Area PHT 2.7 cm squared Mitral E to A Ratio 1.0 MV E' Velocity 54.5 cm/s Mitral E to MV E' Ratio 11.9 Mitral E to LV E' Lateral Ratio 11.7 Mitral E to LV E' Septal Ratio 12.2 TR Peak Velocity 220.0 cm/s TR Peak Gradient 19.4 mmHg TV Peak E Velocity 40.0 cm/s Right Atrial Pressure 10.0 mmHg Pulmonary Artery Systolic Pressu 29.4 mmHg PV Peak Velocity 85.0 cm/s RV Acceleration Time 0.1 s RV Ejection Time 0.3 s RV AcT/ET 0.3 FINDINGS Left Ventricle Normal left ventricular cavity size and systolic function. Increased left ventricular wall thickness. Left ventricular ejection fraction is estimated at 55 %. There seems to be mild hypokinesis of apical lateral wall. Normal diastolic function. Right Ventricle Normal right ventricular size and systolic function. Right ventricular systolic pressure 27 mmHg. Right Atrium Normal right atrial size. Left Atrium Normal left atrial size. Mitral Valve Structurally normal mitral valve. No mitral valve stenosis. No mitral valve regurgitation. Aortic Valve Structurally normal trileaflet aortic valve. No aortic valve stenosis. No aortic valve regurgitation. Tricuspid Valve Structurally normal tricuspid valve. Trace tricuspid valve regurgitation. Pulmonic Valve Structurally normal pulmonic valve. No pulmonary valve stenosis. No significant pulmonary valve regurgitation. Pericardium No pericardial effusion Aorta Normal size aortic root and proximal ascending aorta. IVC Normal IVC dimension with <50% respiratory change of the inferior vena cava. CONCLUSIONS 1. This is a technically difficult study. [employer]ison was used per protocol. 2. Normal left ventricular cavity size and systolic function. Increased left ventricular wall thickness. Left ventricular ejection fraction is estimated at 55 %. There seems to be mild hypokinesis of apical lateral wall. Normal diastolic function. 3. Normal pulmonary artey pressure. 4. Direct comparison to previous study dated 02/19/20 is not possible d/t TDS study. Tressa Roberts MD (Electronically Signed) Final Date: 02 April 2022 13:24 S
[2022-04-02] MEDS: propofol 1,000 MG/100 ML INJ 34.95 MG IV ×2 (01:22→21:06)
[2022-04-02] MEDS: insulin lispro 100 unit/1 mL SUBCUT ×4 (01:28→17:42)
[2022-04-02 01:33] LABS: Glucose Point of Care 187 mg/dL (70-110)
[2022-04-02] MEDS: ipratropium-albuterol 3 mL Neb INHALATION ×6 (03:13→23:38)
[2022-04-02 03:22] LABS: Basophils % 0.2 %; Hematocrit 46.3 % (42.0-52.0); Hemoglobin 13.7 g/dL (11.7-16.6); Lymphocytes # 0.9 10^3/uL (0.8-4.8); Lymphocytes % 6.7 %; Mean Corpuscular HGB Conc 29.6 g/dL (30.0-36.0); Mean Corpuscular Hemoglobin 27.5 pg (28.0-34.0); Mean Corpuscular Volume 92.8 fl (80-94); Mean Platelet Volume 9.7 fL (7.4-10.4); Monocytes # 0.4 10^3/uL (0.2-0.9); Monocytes % 2.7 %; Neutrophils # 11.79 10^3/uL (1.8-7.7); Neutrophils % 89.7 %; Nucleated Red Blood Cells % 0 %; Platelet Count 312 10^3/cmm (130-400); Red Blood Count 4.99 10^6/uL (4.1-5.3); Red Cell Distribution Width 15.9 % (12.1-15.1); White Blood Count 13.2 10^3/uL (4.0-10.0)
[2022-04-02 03:39] LABS: Alanine Aminotransferase 20 U/L (0-41); Alkaline Phosphatase 108 U/L (40-130); Anion Gap 15.1 (5-19); Aspartate Amino Transferase 30 U/L (0-40); Blood Urea Nitrogen 31 mg/dL (8-23); Calcium 8.1 mg/dL (8.5-10.5); Carbon Dioxide 32 mmol/L (22-29); Chloride 101 mmol/L (98-107); Globulin 3.1 g/dL (1.3-4.6); Glomerular Filtration Rate 98.6 mL/min (90-130); Glucose 192 mg/dL (65-115); Magnesium 2.1 mg/dL (1.7-2.3); Osmolality Calculated 312 mOsm/kg (285-295); Potassium 3.1 mmol/L (3.5-5.1); Sodium 145 mmol/L (136-145); Total Bilirubin 0.2 mg/dL (0.15-1.2); Total Protein 6.1 g/dL (6.6-8.7)
[2022-04-02] MEDS: piperacillin-tazobactam 3.375 GM in sodium chloride 0.9% (plus) 50 ML IV ×3 (04:18→19:47)
[2022-04-02] MEDS: propofol 1,000 MG/100 ML INJ 26.21 MG IV (04:33)
[2022-04-02 05:17] LABS: ABG PCO2 60.1 mmHg (35-45); ABG PH Result 7.38 (7.35-7.45); Alveolar-Arterial Oxygen Gradi 42.6 mmHg (5-10); Arterial Blood Gas Hematocrit 43.6 % (42-52); Base Excess ABG 7.8 mmol/L (-2.0-2.0); Blood Gas Allen Test Pos; Blood Gas Operator Identificat JB; Blood Gas Sample Site Radial, right; Blood Gas Sample Type Arterial; Carboxyhemoglobin 0.8 %THgb (0.4-20.1); HCO3 ABG 35.2 mmol/L (22-26); HGB O2 Sat 91.2 % (95-100); Ionized Calcium Level - ABG 1.1 mmol/L (1.1-1.4); Methemoglobin 0.5 % (0.4-1.5); Oxygen Device VENT; Oxygen Saturation ABG 92.4; PO2 ABG 68.1 mmHg (80.0-100.0); Total Hemoglobin 14.2 g/dL (14-18)
[2022-04-02] MEDS: perflutren protein-a microsphr 0.22 mg/mL SDV 3 mL IV (05:46)
[2022-04-02] MEDS: vancomycin 1,500 MG/300 ML PIGGYBACK 200 MG IV ×2 (06:14→14:09)
[2022-04-02 06:29] LABS: Glucose Point of Care 162 mg/dL (70-110)
[2022-04-02] MEDS: propofol 1,000 MG/100 ML INJ 30.58 MG IV ×5 (07:55→17:42)
[2022-04-02 08:55] LABS: Glucose Point of Care 155 mg/dL (70-110)
[2022-04-02] MEDS: pantoprazole 40 mg SDV IVP (10:00)
[2022-04-02] MEDS: FUROsemide 10 mg/mL SDV 4mL 40 MG IVP (10:01)
[2022-04-02] MEDS: lidocaine 1% 5 ML in potassium chloride premix 100 ML 26.25 ML IV (10:15)
--- NOTE | 2022-04-02 11:04 | PC.CHAP ---
Pastoral Care Encounter/Spiritual Assessment Type of Contact [] Declined liaison planner visit [] Patient/Family/Request visit [] Outpatient visit [] Follow-up visit [] Physician referral [] Code/Alert [x] Routine visit [] Staff referral [] Actively dying [] Patient sleeping [x] Family support [] [] Out of room [] Palliative care [] [] Receiving care in room [] Pre-surgical visit [] Trauma [] Long length of stay [] ICU visit [] Other: Relational/Emotional Strength [x] Patient feels connected with others/family/visitors/staff [] Distress [] Loneliness/isolation [] Abandonment Spirituality of Patient x] Person of Bisi [] Attends Spiritism of their Bisi []x Believes in Prayer [] Reads Bible or Restorationist materials [] There are Spiritual issues to be addressed [employer] Interventions [x] Prayer x] Active listening [x] Non-anxious presence [] Spiritual/emotional support [] Crisis/trauma care [] Spiritual counseling [] Bereavement support [] Provided bereavement packet [] Provided Bible/devotional materials [] Provided toy/stuffed animal, coloring book to patient or family member [] Provided Communion [] Anointing/[place] [] Salvation x] Completed spiritual assessment [] Other: Impact on Illness or Injury [] Angry [] Fearful [] Anxious [] Often cries [] Exhaustion [] Unable to work [] Unable to attend anglican [] Unable to walk/stand [] Unable to read [] Unable to drive [] Unable to eat/drink [] Unable to sleep [] Unable to be with family [] Patient intubated [] Other: Summary Time spent with patient 10 min
[2022-04-02 11:56] LABS: Glucose Point of Care 161 mg/dL (70-110)
--- NOTE | 2022-04-02 13:41 | PM.PN ---
Subjective Subjective: Noted waking up this morning, opening his eyes, interacting with his . He is sedated/sleeping during my visit. states he has not been in discomfort. Intubated, mechanically ventilated. at bedside. States that he goes by Sara. States that she has been preparing him that he may not be extubated today. Vitals/I&O/Wt Last Vital Signs Temp 97 F L 04/02/22 12:00 Pulse 86 04/02/22 12:05 Resp 16 04/02/22 12:57 BP 106/63 04/02/22 12:00 Pulse Ox 92 04/02/22 12:57 O2 Del Method 04/02/22 12:05 O2 Flow Rate 2 04/01/22 12:01 FiO2 65 04/02/22 12:57 04/01/22 04/02/22 04/02/22 22:59 06:59 14:59 Intake Total 3034.979 / 3084.979 1942.339 / 5027.318 553.133 / 553.133 Output Total 1775 / 1775 600 / 2375 Balance 1259.979 / 3919.999 8019.339 / 2652.318 553.133 / 553.133 Weight last 48 hrs Weight 143.789 kg Weight 140.784 kg Weight 145.603 kg Physical Exam Narrative: at bedside provides history. Const: GENERAL APPEARANCE: patient mechanically ventilated HENMT: COMMON NORMALS: oropharynx normal Neck/C-Spine: COMMON NORMALS: no JVD Resp: AUSCULTATION: rhonchi, wheezes and diminished lung sounds Cardio: COMMON NORMALS: no JVD, regular rhythm, S1 normal heart sound present, S2 normal heart sound present and No murmurs present (Cardio) RATE: tachycardic RHYTHM: regular rhythm HEART SOUNDS: S1 normal heart sound present and S2 normal heart sound present GI: COMMON NORMALS: Normal to inspection, nondistended, normoactive bowel sounds present, Soft to palpation and non-tender PALPATION: Yes Soft to palpation OTHER: Large abdomen. Large oval shaped bruise over left upper quadrant Extremity: COMMON NORMALS: no joint enlargement OTHER: 2+ BL LE edema Compression stockings Skin: COMMON NORMALS: no rashes or lesions noted GENERAL SKIN EXAM: no rashes or lesions noted OTHER: Bilateral stasis erythema, states that it is unchanged and chronic. No induration, not hot to touch. Urinary Catheter Management: Perez: Cath Placed During This Visit: yes Reason for Continuing Indwelling Catheter: Accurate Measurement of Urinary Output in Critically Ill Patients Urinary Catheter Date of Insertion: 04/01/22 Urinary Catheter Time of Insertion: 17:48 Data 04/02/22 02:44 04/02/22 02:44 Micro: Microbiology 04/01/22 12:49 Blood Culture - Preliminary Blood NEGATIVE TO DATE 04/01/22 12:49 Blood Culture - Preliminary Blood NEGATIVE TO DATE 04/01/22 18:35 Legionella Urinary Antigen - Final Urine Catheterized 04/01/22 18:35 Bacterial Antigens - Final Urine,Clean Catch A&P Assessment and plan (1) Pneumonia: Reviewed documented vitals, respiratory support. Discussed with RT, is on 65% FiO2. Moderate amount of secretions. Sputum culture obtained and sent. Continue empiric antibiotic coverage IV with Zosyn, vancomycin. Reviewed bacterial antigen results, negative. MRSA PCR pending. COVID-19 PCR panel reviewed and negative. Discussed with his RN, OG tube noted on chest x-ray needing advancement. Per RN this tube was removed in ER. We will cautiously attempt to replace so that he may get his home medications including Plavix. Right lower lobe pneumonia. His denies any aspiration. He has had worsening of productive cough over the last week. States initially came in contact with their niece who was having a cold and they thought maybe he got an infection from her. Continue mechanical ventilatory support in intensive care unit. Continue sedation, currently also blood pressure soft after intubation, started on norepinephrine. Continue to reassess respiratory status, oxygenation, secretions, awakening trial again tomorrow. Pulmonary toilet. PPI prophylaxis for stress ulcer. DVT prophylaxis with SCD only due to hemoptysis. Monitor hemoptysis. ABG in the morning. Reassess respiratory status, mental status in the morning. Discussed additionally with pulmonology. With history of hemoptysis, poor mobility, will additionally assess CTA for more detailed assessment of segmental/subsegmental PE. Will obtain duplex lower extremities as well. With hemoptysis danger of him on anticoagulation empirically. Dispatch Specialist will additionally consider possible bedside bronchoscopy. (2) Acute exacerbation of chronic obstructive airways disease: ABG reviewed and better today, 7.38/60.1/68.1 Moderate amount of secretions as above. Continue IV steroid with Solu-Medrol. Additionally antibiotics and assessments as above. Breathing treatments with DuoNebs. (3) Sepsis: Improving, noted improvement in leukocytosis, tachycardia. Overnight noticed transient Levophed support, weaned off. Follow-up blood culture. Additional work-up and treatment above under pneumonia. Lactic acid noted 1.5. (4) Elevated brain natriuretic peptide (BNP) level: Reviewed MINISTERIO, and positive balance. Additional Lasix 40 mg IV. TTE reviewed, EF 55%. Normal diastolic function. Seems to be mild hypokinesis of apical lateral wall. Normal pulmonary artery pressure. Possible direct comparison to prior study. Acute diastolic CHF with lower extremity edema, dyspnea and hypoxia, BNP 4085. Last echocardiogram back in 2020 with normal ejection fraction, suboptimal study. Troponin with moderate elevation secondary likely to demand ischemia. History of underlying CAD, wall motion abnormality noted. May benefit subsequently from additional risk stratification with stress testing. Mechanical ventilatory support as above. Follow-up volume status, renal function. Follow blood pressures, improved today. Weaned off pressor. (5) Acute respiratory failure with hypoxia and hypercapnia: Continue treatment of underlying conditions as above. Normally on 3 L of oxygen continuously, BiPAP at night for COPD/STEPHANIE. Currently failed BiPAP, required intubation mechanical ventilation. Failed BiPAP support in ER. Required intubation mechanical ventilation. Secondary to pneumonia, COPD exacerbation, decompensated CHF. (6) Acute alteration in mental status: Acute metabolic encephalopathy on presentation secondary to respiratory failure, hypercapnia. Possibly secondary to sepsis as well. secondary to hypoxic and hypercapnic acute respiratory failure. Treat underlying conditions as above. Plan Hemoptysis since last week: Suspect secondary to pneumonia. Does not appear to have signs of contusion on the left side where his fall/large bruise was. SCDs only for DVT prophylaxis. CAD Depression GERD HTN HLD Memory loss STEPHANIE on nightly BiPAP Osteoarthritis of left hip Restless leg Seropositive RA DM2: Sliding scale insulin, glucose monitoring requested. Attestations Medical Necessity Statement*: Continue admission for management Coding Level of Care Code Critical Care >/= 30 minutes Critical care time (in minutes): 50 The high probability of a clinically significant, sudden or life threatening deterioration, as referenced in this documentation, required my full and direct attention, intervention and personal management. The critical care time shown is in addition to time spent performing any reported separately billable procedures and includes the following: [x] Data and vital sign review and interpretation [x] Patient assessment, examination and intervention [x] Medication orders and management [x] Patient/Family updates as able [x] Care Coordination and Documentation. Diagnoses Pneumonia J18.9 Acute exacerbation of chronic obstructive airways disease J44.1 Sepsis A41.9 Elevated brain natriuretic peptide (BNP) level R79.89 Acute respiratory failure with hypoxia and hypercapnia J96.01; J96.02 Acute alteration in mental status R41.82
--- NOTE | 2022-04-02 14:04 | USCV_ITS ---
Scott Boswell Age: 61 Gender: M : 1960 Exam Date: 04/02/2022 14:40 Ordering Phys: Alfredo Broussard MD Technologist: RISA [place] [facility] [place] PROCEDURES: Venous duplex imaging was performed in bilateral lower extremities. The following venous structures were evaluated: common femoral vein, profunda vein, proximal portion of the greater saphenous vein, superficial femoral vein, and the popliteal vein. Serial compression, augmentation maneuvers, and spectral Doppler flow evaluation were performed. In addition, the posterior tibial and peroneal trunk were evaluated. FINDINGS: The veins were found to be easily compressible with spontaneous blood flow. Non pulsatile flow pattern. CONCLUSIONS No evidence of DVT in the above-mentioned identifiable vein Dr Ashly Matos MD [facility] (Electronically Signed) Final Date: 04 April 2022 21:19 S
--- NOTE | 2022-04-02 14:04 | CTR_ITS ---
PROCEDURE INFORMATION: Exam: CTA Chest With Contrast Exam date and time: 04/02/2022 3:58 PM Age: 61 years old Clinical indication: Dyspnea; Prior surgery; Surgery date: 6+ months; Surgery type: Stent; Patient HX: Low o2; Additional info: Assess for pe TECHNIQUE: Imaging protocol: Computed tomographic angiography of the chest with contrast. 3D rendering (Not supervised by radiologist): MIP and/or 3D reconstructed images were created by the technologist. Radiation optimization: All CT scans at this facility use at least one of these dose optimization techniques: automated exposure control; mA and/or kV adjustment per patient size (includes targeted exams where dose is matched to clinical indication); or iterative reconstruction. Contrast material: OMNI 350; Contrast volume: 100 ml; Contrast route: INTRAVENOUS (IV); Other protocol: This patient has received 2 known CTs and 0 known cardiac nuclear medicine studies in the 12 months prior to the current study. COMPARISON: CT angio chest w abd pel w con 04/01/2022 2:03 PM RADIATION DOSE METRICS: Total DLP (mGy-cm): 546.92 FINDINGS: Pulmonary arteries: Pulmonary vasculature is adequately opacified without filling defects or other evidence of acute pulmonary embolism. Aorta: Unremarkable. No aortic aneurysm. No aortic dissection. Trachea: There is an ET 2 in adequate position 4 cm above the lucy. There is an NG tube coursing into the stomach. Lungs: Lung volumes are moderately decreased, stable. There is progressive bilateral lower lobe atelectasis more pronounced on the left. Previously noted superimposed nodular infiltrate right lower lobe has significantly improved. There is some residual bronchiolitis. Pleural spaces: Unremarkable. No pneumothorax. No pleural effusion. Heart: Heart is significantly enlarged, unchanged. Lymph nodes: There is mild mediastinal lymphadenopathy with multiple small and borderline mediastinal lymph nodes, stable. Bones/joints: Unremarkable. No acute fracture. Soft tissues: Unremarkable. CT/CT angio chest PE protcl [id number] IMPRESSION: 1. Negative CT angiogram of the chest. No evidence of acute pulmonary embolism. 2. Decreased lung volumes with rather extensive lower lobe atelectasis progressed from previous exam. 3. Superimposed nodular infiltrate right lower lobe improved from earlier study. 4. Significant cardiomegaly, stable. 5. Mild mediastinal lymphadenopathy, stable.
[2022-04-02] MEDS: iohexol 350 mg/mL 500 mL Btl (per mL) IV (15:58)
[2022-04-02 17:38] LABS: Glucose Point of Care 187 mg/dL (70-110)
[2022-04-02 22:51] LABS: Vancomycin Trough 28.6 ug/mL (10-15)
[2022-04-02] MEDS: propofol 1,000 MG/100 ML INJ 39.31 MG IV (23:30)
[2022-04-03] VITALS (40 sets, daily range): BP systolic 108–144; BP diastolic 55–95; PULSE 63–97; RESP 16; TEMP 36.4–36.8; O2SAT 90–95; BMI 45.0
[2022-04-03 00:18] LABS: Glucose Point of Care 173 mg/dL (70-110)
[2022-04-03] MEDS: insulin lispro 100 unit/1 mL SUBCUT ×4 (00:19→18:01)
[2022-04-03] MEDS: propofol 1,000 MG/100 ML INJ 34.95 MG IV (02:14)
[2022-04-03] MEDS: vancomycin 1,250 MG/250 ML PIGGYBACK 200 MG IV ×2 (02:14→18:44)
[2022-04-03] MEDS: ipratropium-albuterol 3 mL Neb INHALATION ×6 (03:14→23:05)
[2022-04-03] MEDS: propofol 1,000 MG/100 ML INJ 39.31 MG IV ×6 (04:17→18:45)
[2022-04-03] MEDS: piperacillin-tazobactam 3.375 GM in sodium chloride 0.9% (plus) 50 ML IV ×3 (04:32→21:28)
[2022-04-03 04:55] LABS: ABG PCO2 57.3 mmHg (35-45); Blood Gas Allen Test Pos; Blood Gas Operator Identificat JB; Blood Gas Sample Site Radial, right; Blood Gas Sample Type Arterial; HCO3 ABG 35.8 mmol/L (22-26); Oxygen Device VENT; PO2 ABG 79.3 mmHg (80.0-100.0)
[2022-04-03 05:33] LABS: Basophils % 0.2 %; Hematocrit 44.4 % (42.0-52.0); Hemoglobin 13.1 g/dL (11.7-16.6); Lymphocytes # 1.1 10^3/uL (0.8-4.8); Lymphocytes % 7.8 %; Mean Corpuscular HGB Conc 29.5 g/dL (30.0-36.0); Mean Corpuscular Hemoglobin 26.8 pg (28.0-34.0); Mean Platelet Volume 10.1 fL (7.4-10.4); Monocytes # 0.8 10^3/uL (0.2-0.9); Monocytes % 5.5 %; Neutrophils # 11.91 10^3/uL (1.8-7.7); Neutrophils % 85.6 %; Nucleated Red Blood Cells % 0.1 %; Platelet Count 302 10^3/cmm (130-400); Red Blood Count 4.88 10^6/uL (4.1-5.3); White Blood Count 13.9 10^3/uL (4.0-10.0)
--- NOTE | 2022-04-03 05:40 | XRR_ITS ---
PROCEDURE INFORMATION: Exam: XR Chest Exam date and time: 04/03/2022 7:20 AM Age: 61 years old Clinical indication: Dyspnea; Additional info: [facility] lung sounds TECHNIQUE: Imaging protocol: Radiologic exam of the chest. Views: 1 view. COMPARISON: CR (CHEST, ) 04/01/2022 5:43 PM FINDINGS: Tubes, catheters and devices: Endotracheal tube is in satisfactory position. Feeding tube is in satisfactory position. Lungs: Low lung volumes. There is increased lung markings, in association with haziness of the lungs and small bilateral pleural effusions, which in the setting of cardiomegaly is consistent with pulmonary edema. Pneumonia should be excluded clinically. No pneumothorax. Pleural spaces: See Lungs finding. Heart/Mediastinum: Stable cardiomediastinal silhouette. Bones/joints: Unremarkable. XR/XR chest 1V portable [id number] IMPRESSION: Imaging findings of pulmonary edema with small bilateral pleural effusions. Pneumonia should be excluded clinically.
--- NOTE | 2022-04-03 05:45 | PC.NURSE ---
[facility] Lung sounds Coarse crackles heard upon auscultation of patient's lung sounds and edema in hands graded as +[address] Berg contacted and order received for chest xray. Order placed.
[2022-04-03 05:54] LABS: Alanine Aminotransferase 18 U/L (0-41); Albumin Level 2.9 g/dL (3.5-5.2); Alkaline Phosphatase 102 U/L (40-130); Anion Gap 12.6 (5-19); Aspartate Amino Transferase 25 U/L (0-40); Blood Urea Nitrogen 28 mg/dL (8-23); Calcium 8.3 mg/dL (8.5-10.5); Carbon Dioxide 34 mmol/L (22-29); Chloride 97 mmol/L (98-107); Globulin 3.2 g/dL (1.3-4.6); Glomerular Filtration Rate 76.2 mL/min (90-130); Glucose 178 mg/dL (65-115); Osmolality Calculated 300 mOsm/kg (285-295); Potassium 3.6 mmol/L (3.5-5.1); Sodium 140 mmol/L (136-145); Total Bilirubin 0.3 mg/dL (0.15-1.2); Total Protein 6.1 g/dL (6.6-8.7)
[2022-04-03 06:12] LABS: Glucose Point of Care 193 mg/dL (70-110)
[2022-04-03 08:02] LABS: Glucose Point of Care 132 mg/dL (70-110)
[2022-04-03] MEDS: pantoprazole 40 mg SDV IVP (08:18)
[2022-04-03] MEDS: FUROsemide 10 mg/mL SDV 4mL 60 MG IVP ×2 (09:22→16:28)
[2022-04-03] MEDS: ropinirole 2 mg Tablet 4 MG PO ×3 (10:03→21:29)
[2022-04-03] MEDS: montelukast sodium 10 mg Tablet PO (10:03)
[2022-04-03] MEDS: clopidogrel 75 mg Tablet PO (10:03)
[2022-04-03] MEDS: duloxetine 60 mg Capsule PO (10:03)
[2022-04-03] MEDS: pregabalin 150 mg Capsule PO ×3 (10:03→21:29)
[2022-04-03] MEDS: heparin 5,000 unit/mL INJ 1 mL 5000 UNIT SUBCUT (10:33)
[2022-04-03 11:47] LABS: Glucose Point of Care 177 mg/dL (70-110)
[2022-04-03 17:15] LABS: Glucose Point of Care 217 mg/dL (70-110)
[2022-04-03 18:17] LABS: Vancomycin Trough 16.6 ug/mL (10-15)
--- NOTE | 2022-04-03 19:33 | P.PN_ITS ---
Subjective Subjective: Intubated, mechanically ventilated, was getting restless earlier this morning. Could not tolerate SCDs overnight, getting much more restless as told by his . Vitals/I&O/Wt Last Vital Signs Temp 97.6 F 04/03/22 18:00 Pulse 76 04/03/22 18:00 Resp 16 04/03/22 18:22 BP 141/83 04/03/22 18:00 Pulse Ox 92 04/03/22 18:22 O2 Del Method 04/03/22 18:00 O2 Flow Rate 2 04/01/22 12:01 FiO2 55 04/03/22 18:22 04/03/22 04/03/22 04/03/22 06:59 14:59 22:59 Intake Total 661.15 / 2176.180 427.916 / 427.916 250 / 677.916 Output Total 1000 / 2000 1700 / 1700 1200 / 2900 Balance -338.85 / 176.180 -1272.084 / -1272.084 -950 / -2222.084 Weight last 48 hrs Weight 146.51 kg Weight 143.789 kg Physical Exam Narrative: at bedside provides history. Const: COMMON NORMALS: alert GENERAL APPEARANCE: patient mechanically ventilated HENMT: COMMON NORMALS: oropharynx normal Neck/C-Spine: COMMON NORMALS: no JVD Resp: AUSCULTATION: rhonchi, wheezes and diminished lung sounds Cardio: COMMON NORMALS: no JVD, regular rhythm, S1 normal heart sound present, S2 normal heart sound present and No murmurs present (Cardio) RATE: tachycardic RHYTHM: regular rhythm HEART SOUNDS: S1 normal heart sound present and S2 normal heart sound present GI: COMMON NORMALS: Normal to inspection, nondistended, normoactive bowel sounds present, Soft to palpation and non-tender PALPATION: Yes Soft to palpation OTHER: Large abdomen. Large oval shaped bruise over left upper quadrant Extremity: COMMON NORMALS: no joint enlargement OTHER: 2+ BL LE edema Neuro: SENSORIUM/ORIENTATION: Yes alert Skin: COMMON NORMALS: no rashes or lesions noted GENERAL SKIN EXAM: no rashes or lesions noted OTHER: Bilateral stasis erythema, states that it is unchanged and chronic. No induration, not hot to touch. Urinary Catheter Management: Perez: Cath Placed During This Visit: yes Reason for Continuing Indwelling Catheter: Accurate Measurement of Urinary Output in Critically Ill Patients Urinary Catheter Date of Insertion: 04/01/22 Urinary Catheter Time of Insertion: 17:48 Data 04/03/22 05:00 04/03/22 05:00 Micro: Microbiology 04/01/22 15:33 Gram Stain - Final Sputum - Endotracheal Tube Aspirate Sputum Culture - Final 04/01/22 18:35 MRSA Culture - Final Nose A&P Assessment and plan (1) Pneumonia: Review of vital signs, ventilator settings, showing some mild improvement in oxygenation. So far no bleeding. Could not tolerate SCDs. Adding heparin VTE prophylaxis. Follow-up hemoglobin and monitor for hemoptysis. Discussed with pulmonology, CT imaging appears to be corresponding more to pne umonia, less likely bleeding. This is supported with not getting up any blood with suctioning. Off pressor support. Maintaining blood pressure. Continue to monitor closely. Continue sedation. Propofol attempted to be weaned off, he became restless. Depending on how he is waking up may need conscious sedation to aid with transition. Awakening trial in the morning. MRSA PCR reviewed and negative. Follow-up sputum culture Continue empiric antibiotic coverage IV with Zosyn, vancomycin. If continue to improve may be able to discontinue vancomycin. Reviewed bacterial antigen results, negative. COVID-19 PCR panel reviewed and negative. Her G-tube was replaced. Resumed number of his home medications. Right lower lobe pneumonia. His denies any aspiration. He has had worsening of productive cough over the last week. States initially came in contact with their niece who was having a cold and they thought maybe he got an infection from her. Continue to reassess respiratory status, oxygenation, secretions, awakening trial again tomorrow. Pulmonary toilet. PPI prophylaxis for stress ulcer. DVT prophylaxis with SCD only due to hemoptysis. (2) Acute exacerbation of chronic obstructive airways disease: As above. Sputum culture reviewed, so far pending, Gram stain with moderate PMN, few gram- positive cocci, tiny, moderate gram-positive cocci in pairs and chains. Continue IV steroid with Solu-Medrol. Additionally antibiotics and assessments as above. Breathing treatments with DuoNebs. (3) Sepsis: Improving, noted improvement in leukocytosis, tachycardia. Overnight noticed transient Levophed support, weaned off. Follow-up blood culture. Additional work-up and treatment above under pneumonia. Lactic acid noted 1.5. (4) Elevated brain natriuretic peptide (BNP) level: Still in positive balance this morning on review of MINISTERIO. Reviewed chest x-ray showing pulmonary edema. Added standing Lasix 60 mg every 12 hours. TTE reviewed, EF 55%. Normal diastolic function. Seems to be mild hypokinesis of apical lateral wall. Normal pulmonary artery pressure. Possible direct comparison to prior study. Acute diastolic CHF with lower extremity edema, dyspnea and hypoxia, BNP 4085. Last echocardiogram back in 2020 with normal ejection fraction, suboptimal study. Troponin with moderate elevation secondary likely to demand ischemia. History of underlying CAD, wall motion abnormality noted. May benefit subsequently from additional risk stratification with stress testing. Mechanical ventilatory support as above. Follow-up volume status, renal function. Follow blood pressures, improved. Weaned off pressor. (5) Acute respiratory failure with hypoxia and hypercapnia: Continue treatment of underlying conditions as above. Normally on 3 L of oxygen continuously, BiPAP at night for COPD/STEPHANIE. Currently failed BiPAP, required intubation mechanical ventilation. Failed BiPAP support in ER. Required intubation mechanical ventilation. Secondary to pneumonia, COPD exacerbation, decompensated CHF. (6) Acute alteration in mental status: Acute metabolic encephalopathy on presentation secondary to respiratory failure, hypercapnia. Possibly secondary to sepsis as well. secondary to hypoxic and hypercapnic acute respiratory failure. Treat underlying conditions as above. Plan Hemoptysis since last week: Suspect secondary to pneumonia. Does not appear to have signs of contusion on the left side where his fall/large bruise was. So far no additional blood noted in pulmonary secretions. CAD Depression GERD HTN HLD Memory loss STEPHANIE on nightly BiPAP Osteoarthritis of left hip Restless leg Seropositive RA DM2: Sliding scale insulin, glucose monitoring requested. Discussed with care coordination, depending on how long it takes him to recover, and his condition afterwards may or may not need rehabilitation. Attestations Medical Necessity Statement*: Continue admission for respiratory failure. Coding Level of Care Code Critical Care >/= 30 minutes Critical care time (in minutes): 50 The high probability of a clinically significant, sudden or life threatening deterioration, as referenced in this documentation, required my full and direct attention, intervention and personal management. The critical care time shown is in addition to time spent performing any reported separately billable procedures and includes the following: [x] Data and vital sign review and interpretation [x ] Patient assessment, examination and intervention [x] Medication orders and management [] Patient/Family updates as able [x] Care Coordination and Documentation. Diagnoses Pneumonia J18.9 Acute exacerbation of chronic obstructive airways disease J44.1 Sepsis A41.9 Elevated brain natriuretic peptide (BNP) level R79.89 Acute respiratory failure with hypoxia and hypercapnia J96.01; J96.02 Acute alteration in mental status R41.82
[2022-04-03] MEDS: propofol 1,000 MG/100 ML INJ 26.21 MG IV (22:02)
[2022-04-03 23:34] LABS: Glucose Point of Care 154 mg/dL (70-110)
[2022-04-04] VITALS (37 sets, daily range): BP systolic 122–152; BP diastolic 74–103; PULSE 57–83; RESP 16; TEMP 36.4–36.8; O2SAT 90–94
[2022-04-04] MEDS: insulin lispro 100 unit/1 mL SUBCUT ×4 (00:13→17:33)
[2022-04-04] MEDS: chlorhexidine gluconate 4% Btl 118 mL 1 APPLIC TOPICAL (00:15)
[2022-04-04] MEDS: propofol 1,000 MG/100 ML INJ 34.95 MG IV (01:09)
[2022-04-04] MEDS: ipratropium 0.5 mg/2.5 mL Neb INHALATION ×6 (03:21→23:27)
[2022-04-04] MEDS: albuterol 2.5 mg/3 mL Neb INHALATION ×6 (03:21→23:28)
[2022-04-04] MEDS: propofol 1,000 MG/100 ML INJ 39.31 MG IV ×8 (03:51→21:51)
[2022-04-04] MEDS: FUROsemide 10 mg/mL SDV 4mL 60 MG IVP ×2 (03:59→15:19)
[2022-04-04] MEDS: piperacillin-tazobactam 3.375 GM in sodium chloride 0.9% (plus) 50 ML IV ×3 (03:59→21:26)
[2022-04-04 05:36] LABS: Basophils % 0.2 %; Hematocrit 44.9 % (42.0-52.0); Hemoglobin 13.3 g/dL (11.7-16.6); Lymphocytes # 0.7 10^3/uL (0.8-4.8); Mean Corpuscular HGB Conc 29.6 g/dL (30.0-36.0); Mean Corpuscular Hemoglobin 26.7 pg (28.0-34.0); Mean Corpuscular Volume 90.2 fl (80-94); Mean Platelet Volume 10.2 fL (7.4-10.4); Monocytes # 0.6 10^3/uL (0.2-0.9); Monocytes % 5.7 %; Neutrophils # 9.08 10^3/uL (1.8-7.7); Neutrophils % 86.3 %; Nucleated Red Blood Cells % 0 %; Platelet Count 302 10^3/cmm (130-400); Red Blood Count 4.98 10^6/uL (4.1-5.3); Red Cell Distribution Width 16.1 % (12.1-15.1); White Blood Count 10.5 10^3/uL (4.0-10.0)
[2022-04-04] MEDS: vancomycin 1,250 MG/250 ML PIGGYBACK 200 MG IV (06:03)
[2022-04-04 06:04] LABS: Alanine Aminotransferase 18 U/L (0-41); Alkaline Phosphatase 85 U/L (40-130); Aspartate Amino Transferase 22 U/L (0-40); Blood Urea Nitrogen 29 mg/dL (8-23); Calcium 8.7 mg/dL (8.5-10.5); Carbon Dioxide 34 mmol/L (22-29); Chloride 94 mmol/L (98-107); Globulin 3.2 g/dL (1.3-4.6); Glomerular Filtration Rate 76.2 mL/min (90-130); Glucose 184 mg/dL (65-115); Osmolality Calculated 301 mOsm/kg (285-295); Sodium 140 mmol/L (136-145); Total Bilirubin 0.3 mg/dL (0.15-1.2); Total Protein 6.2 g/dL (6.6-8.7)
[2022-04-04 06:06] LABS: Glucose Point of Care 202 mg/dL (70-110)
[2022-04-04 06:08] LABS: Anion Gap 15.3 (5-19); Potassium 3.3 mmol/L (3.5-5.1)
[2022-04-04] MEDS: clopidogrel 75 mg Tablet PO (08:32)
[2022-04-04] MEDS: duloxetine 60 mg Capsule PO (08:32)
[2022-04-04] MEDS: carvedilol 3.125 mg Tablet PO (08:32)
[2022-04-04] MEDS: atorvastatin 40 mg Tablet 80 MG PO (08:32)
[2022-04-04] MEDS: pregabalin 150 mg Capsule PO ×3 (08:33→21:26)
[2022-04-04] MEDS: pantoprazole 40 mg SDV IVP (08:33)
[2022-04-04] MEDS: ropinirole 2 mg Tablet 4 MG PO ×3 (08:33→21:25)
[2022-04-04] MEDS: montelukast sodium 10 mg Tablet PO (08:33)
[2022-04-04] MEDS: potassium chloride oral liq 20 mEq/15 mL UDC 40 MEQ OG-TUBE (09:15)
[2022-04-04] MEDS: heparin 5,000 unit/mL INJ 1 mL 5000 UNIT SUBCUT ×2 (10:20→21:26)
--- NOTE | 2022-04-04 11:56 | PC.SOCIAL ---
Imm updaate Imm not updated at this time as patient remains intubated. There is no plan to dc in next 24-48 hours.
[2022-04-04 12:39] LABS: Glucose Point of Care 172 mg/dL (70-110)
--- NOTE | 2022-04-04 13:13 | P.PN_ITS ---
Subjective Subjective: Intubated, sedated, not so restless today. Discussed concomitant CHF, fluid overload with his . states that he does not like to take his Lasix at home as he is bothered Vitals/I&O/Wt Last Vital Signs Temp 97.5 F L 04/04/22 04:00 Pulse 66 04/04/22 12:00 Resp 16 04/04/22 11:14 BP 132/81 04/04/22 12:00 Pulse Ox 92 04/04/22 12:00 O2 Del Method 04/04/22 11:10 O2 Flow Rate 2 04/01/22 12:01 FiO2 55 04/04/22 12:00 04/03/22 04/04/22 04/04/22 22:59 06:59 14:59 Intake Total 669.658 / 1097.574 430.342 / 1527.916 580.171 / 580.171 Output Total 1850 / 3550 850 / 4400 1000 / 1000 Balance -1180.342 / -2452.426 -419.658 / -2872.084 -419.829 / -419.829 Weight last 48 hrs Weight 144.968 kg Weight 146.51 kg Physical Exam Narrative: at bedside provides history. Const: COMMON NORMALS: alert GENERAL APPEARANCE: patient mechanically vent ilated HENMT: COMMON NORMALS: oropharynx normal Neck/C-Spine: COMMON NORMALS: no JVD Resp: AUSCULTATION: rhonchi, wheezes and diminished lung sounds Cardio: COMMON NORMALS: no JVD, regular rhythm, S1 normal heart sound present, S2 normal heart sound present and No murmurs present (Cardio) RATE: tachycardic RHYTHM: regular rhythm HEART SOUNDS: S1 normal heart sound present and S2 normal heart sound present GI: COMMON NORMALS: Normal to inspection, nondistended, normoactive bowel sounds present, Soft to palpation and non-tender PALPATION: Yes Soft to palpation OTHER: Large abdomen. Large oval shaped bruise over left upper quadrant Extremity: COMMON NORMALS: no joint enlargement OTHER: 1-2+ BL LE edema improving, wrinkling Neuro: SENSORIUM/ORIENTATION: Yes alert Skin: COMMON NORMALS: no rashes or lesions noted GENERAL SKIN EXAM: no rashes or lesions noted OTHER: Bilateral stasis erythema, states that it is unchanged and chronic. No induration, not hot to touch. Urinary Catheter Management: Perez: Cath Placed During This Visit: yes Reason for Continuing Indwelling Catheter: Accurate Measurement of Urinary Output in Critically Ill Patients Urinary Catheter Date of Insertion: 04/01/22 Urinary Catheter Time of Insertion: 17:48 Data 04/04/22 04:24 04/04/22 04:24 Micro: Microbiology 04/01/22 15:33 Gram Stain - Final Sputum - Endotracheal Tube Aspirate Sputum Culture - Final A&P Assessment and plan (1) Pneumonia: Continues in hypoxic respiratory failure. Hypercapnia has improved. Ventilator settings reviewed, continues to require 55% FiO2. Leukocytosis is improving. Heart rate is doing well, afebrile. Cussed with his Fluid overload/acute CHF. But now he is diuresing well, and negative balance. Respiratory culture reviewed, heavy normal alexis present on day 2 final culture. On Zosyn and vancomycin. Vancomycin level appreciated, prior level 28.6, now improved to 16.6. We will stop vancomycin. Requesting procalcitonin for the morning. Ppneumonia, opacification does not appear to be secondary to hemorrhagic. This is supported with appearance on CT and not getting up any blood with suctioning. Continue ventilatory support and sedation. Wean down as tolerating. MRSA PCR reviewed and negative. Continue empiric antibiotic coverage IV with Zosyn, vancomycin. If continue to improve may be able to discontinue vancomycin. Reviewed bacterial antigen results, negative. COVID-19 PCR panel reviewed and negative. Her G-tube was replaced. Resumed number of his home medications. Right lower lobe pneumonia. His denies any aspiration. He has had worsening of productive cough over the last week. States initially came in contact with their niece who was having a cold and they thought maybe he got an infection from her. PPI prophylaxis for stress ulcer. DVT prophylaxis with heparin (2) Acute exacerbation of chronic obstructive airways disease: As above. Continue IV steroids unchanged for now. Lung sounds still diminished. Hypercapnia/respiratory status have resolved. Sputum culture reviewed, as above. Stop vancomycin as above. Breathing treatments with DuoNebs. Pulmonary toilet. (3) Sepsis: Reviewed CBC, WBC down to 10.5. No tachycardia or fever. Sepsis resolved Overnight noticed transient Levophed support, weaned off. Blood culture reviewed, preliminary negative. Additional work-up and treatment above under pneumonia. (4) Elevated brain natriuretic peptide (BNP) level: Acute diastolic CHF. Discussed with his . He is now diuresing well with increased Lasix 60 mg twice daily. Reviewed intake and output. In negative balance. Edema is improving. Some wrinkling on lower extremities is becoming evident. Still substantial edema left. Still hypoxic. Continue diuresis. Monitor I&O. Noted hypokalemic, requiring close electrolyte monitoring due to risk of adverse effects with electrolyte disturbances, arrhythmia. Continue cardiac monitoring. Recheck electrolytes in the morning. TTE - EF 55%. Normal diastolic function. Seems to be mild hypokinesis of apical lateral wall. Normal pulmonary artery pressure. Possible direct comparison to prior study. Will benefit from further CAD risk stratification with acute conditions improve. Acute diastolic CHF with lower extremity edema, dyspnea and hypoxia, BNP 4085. Last echocardiogram back in 2020 with normal ejection fraction, suboptimal study. Troponin with moderate elevation secondary likely to demand ischemia. History of underlying CAD, wall motion abnormality noted. May benefit subsequently from additional risk stratification with stress testing. Mechanical ventilatory support as above. Follow-up volume status, renal function. Follow blood pressures, improved. Weaned off pressor. (5) Acute respiratory failure with hypoxia and hypercapnia: Continue treatment of underlying conditions as above. Normally on 3 L of oxygen continuously, BiPAP at night for COPD/STEPHANIE. Currently failed BiPAP, required intubation mechanical ventilation. Failed BiPAP support in ER. Required intubation mechanical ventilation. Secondary to pneumonia, COPD exacerbation, decompensated CHF. (6) Acute alteration in mental status: Acute metabolic encephalopathy on presentation secondary to respiratory failure, hypercapnia. Possibly secondary to sepsis as well. secondary to hypoxic and hypercapnic acute respiratory failure. Treat underlying conditions as above. (7) Hypokalemia: Replacement potassium given. Follow-up potassium with intensive IV diuresis. Requested. Check also magnesium. Plan Hemoptysis since last week: Suspect secondary to pneumonia. Does not appear to have signs of contusion on the left side where his fall/large bruise was. So far no additional blood noted in pulmonary secretions. CAD Depression GERD HTN HLD Memory loss STEPHANIE on nightly BiPAP Osteoarthritis of left hip Restless leg Seropositive RA DM2: Sliding scale insulin, glucose monitoring requested. Discussed with care coordination, depending on how long it takes him to recover, and his condition afterwards may or may not need rehabilitation. Attestations Medical Necessity Statement*: Continue admission for assessment management of respiratory failure with pneumonia, acute CHF, COPD exacerbation. Coding Level of Care Code Critical Care >/= 30 minutes Critical care time (in minutes): 45 The high probability of a clinically significant, sudden or life threatening deterioration, as referenced in this documentation, required my full and direct attention, intervention and personal management. The critical care time shown is in addition to time spent performing any reported separately billable procedures and includes the following: [x] Data and vital sign review and interpretation [x ] Patient assessment, examination and intervention [x] Medication orders and management [x] Patient/Family updates as able [x] Care Coordination and Documentation. Diagnoses Pneumonia J18.9 Acute exacerbation of chronic obstructive airways disease J44.1 Sepsis A41.9 Elevated brain natriuretic peptide (BNP) level R79.89 Acute respiratory failure with hypoxia and hypercapnia J96.01; J96.02 Acute alteration in mental status R41.82 Hypokalemia E87.6
[2022-04-04 23:42] LABS: Glucose Point of Care 156 mg/dL (70-110)
[2022-04-05] VITALS (48 sets, daily range): BP systolic 101–159; BP diastolic 62–96; PULSE 64–92; RESP 16–18; TEMP 36.7–37.3; O2SAT 87–98
[2022-04-05] MEDS: chlorhexidine gluconate 4% Btl 118 mL 1 APPLIC TOPICAL (00:10)
[2022-04-05] MEDS: insulin lispro 100 unit/1 mL SUBCUT ×4 (00:10→18:07)
[2022-04-05] MEDS: propofol 1,000 MG/100 ML INJ 39.31 MG IV ×4 (00:34→07:51)
[2022-04-05] MEDS: ipratropium 0.5 mg/2.5 mL Neb INHALATION ×6 (04:03→23:25)
[2022-04-05] MEDS: albuterol 2.5 mg/3 mL Neb INHALATION ×6 (04:03→23:25)
[2022-04-05] MEDS: FUROsemide 10 mg/mL SDV 4mL 60 MG IVP ×2 (04:18→15:21)
[2022-04-05] MEDS: piperacillin-tazobactam 3.375 GM in sodium chloride 0.9% (plus) 50 ML IV ×3 (04:19→20:45)
[2022-04-05 05:31] LABS: Basophils % 0.2 %; Hematocrit 46.6 % (42.0-52.0); Hemoglobin 14.1 g/dL (11.7-16.6); Lymphocytes # 0.9 10^3/uL (0.8-4.8); Lymphocytes % 8.8 %; Mean Corpuscular HGB Conc 30.3 g/dL (30.0-36.0); Mean Corpuscular Hemoglobin 26.8 pg (28.0-34.0); Mean Corpuscular Volume 88.6 fl (80-94); Mean Platelet Volume 9.7 fL (7.4-10.4); Monocytes # 0.7 10^3/uL (0.2-0.9); Monocytes % 7.4 %; Neutrophils # 8.28 10^3/uL (1.8-7.7); Neutrophils % 82.9 %; Nucleated Red Blood Cells % 0 %; Platelet Count 275 10^3/cmm (130-400); Red Blood Count 5.26 10^6/uL (4.1-5.3); Red Cell Distribution Width 15.8 % (12.1-15.1)
[2022-04-05 05:55] LABS: Anion Gap 15.7 (5-19); Blood Urea Nitrogen 33 mg/dL (8-23); Calcium 8.6 mg/dL (8.5-10.5); Carbon Dioxide 34 mmol/L (22-29); Chloride 96 mmol/L (98-107); Glomerular Filtration Rate 98.6 mL/min (90-130); Glucose 182 mg/dL (65-115); Osmolality Calculated 306 mOsm/kg (285-295); Potassium 3.7 mmol/L (3.5-5.1); Sodium 142 mmol/L (136-145)
[2022-04-05 05:56] LABS: Magnesium 2.4 mg/dL (1.7-2.3)
[2022-04-05 06:00] LABS: Procalcitonin 0.05 ng/mL (0-0.5)
[2022-04-05 06:06] LABS: Glucose Point of Care 168 mg/dL (70-110)
--- NOTE | 2022-04-05 09:00 | PC.NURSE ---
During bedside rounding with Dr. Moore, plan made for weaning sedation and vent. Dr. Moore notified of possible propofol toxicity. Urine in Perez bag inspected by . No new orders at this time.
[2022-04-05] MEDS: montelukast sodium 10 mg Tablet PO (09:08)
[2022-04-05] MEDS: duloxetine 60 mg Capsule PO (09:08)
[2022-04-05] MEDS: atorvastatin 40 mg Tablet 80 MG PO (09:08)
[2022-04-05] MEDS: carvedilol 3.125 mg Tablet PO (09:08)
[2022-04-05] MEDS: clopidogrel 75 mg Tablet PO (09:08)
[2022-04-05] MEDS: pregabalin 150 mg Capsule PO ×3 (09:08→20:45)
[2022-04-05] MEDS: pantoprazole 40 mg SDV IVP (09:08)
[2022-04-05] MEDS: ropinirole 2 mg Tablet 4 MG PO ×3 (09:09→20:45)
--- NOTE | 2022-04-05 09:45 | P.PN_ITS ---
Subjective Subjective: Afebrile, hemodynamically stable. On fentanyl 125, propofol 40 when seen this morning. While examining patient started to wake up, he had a significant gag reflex, was biting down on the tube, oxygen saturation dropped to 84% when he was biting on the tube. Propofol was increased to 60, patient calmed down, oxygen saturation up to 91 to 92% with patient calm. ABG this morning 7.4/57.3/79.3/35.8 on 65% FiO2 PEEP of 10 on ventilator. Since then FiO2 has been titrated down to 55%. Net -4.2 L. Urine output has been 6 L over 24 hours. Medications: Reviewed: Yes Vitals/I&O/Wt Last Vital Signs Temp 98.7 F 04/05/22 07:00 Pulse 87 04/05/22 09:30 Resp 16 04/05/22 09:30 BP 127/77 04/05/22 08:00 Pulse Ox 91 04/05/22 09:30 O2 Del Method 04/05/22 09:15 O2 Flow Rate 2 04/01/22 12:01 FiO2 55 04/05/22 09:30 04/04/22 04/05/22 04/05/22 22:59 06:59 14:59 Intake Total 380.413 / 1060.584 595.654 / 1656.238 146.310 / 146.310 Output Total 2450 / 3450 1350 / 4800 1200 / 1200 Balance -2069.587 / -2389.416 -754.346 / -3143.762 -1053.690 / -1053.690 Weight last 48 hrs Weight 141.475 kg Weight 144.968 kg Physical Exam Narrative: General: Intubated sedated on fentanyl and propofol HEENT: PERRLA, pupils bilaterally equal and reactive, pallors not present Chest: Diffuse wheezing to auscultation bilaterally CVS: S1-S2 regular, no murmurs, no tachycardia, no gallops, no rubs Abdomen: Soft, nontender, no organomegaly, bowel sounds present Neuro: Unable to assess as intubated sedated. Extremities: No edema clubbing or cyanosis. Urinary Catheter Management: Perez: Cath Placed During This Visit: yes Reason for Continuing Indwelling Catheter: Accurate Measurement of Urinary Output in Critically Ill Patients Urinary Catheter Date of Insertion: 04/01/22 Urinary Catheter Time of Insertion: 17:48 Data 04/05/22 05:00 04/05/22 05:00 A&P Assessment and plan (1) Acute respiratory failure with hypoxia and hypercapnia: Acute hypoxic hypercapnic respiratory failure, failed BiPAP initially upon ad mission and needed to be intubated upon arrival. Patient has remained intubated since April 01, 2022. Likely that his respiratory failure is multifactorial, related to COPD exacerbation, CHF and pneumonia. Plan for today: We will attempt to wean down on his sedation, titrate down FiO2, would be okay for extubation with FiO2 closer to 45% given his longstanding COPD and hypoxia. Spontaneous breathing trial. If tolerates all of the above interventions we will plan to extubate over the next 24 hours. (2) Acute exacerbation of chronic obstructive airways disease: Still has significant wheezing and copious secretions coming out of his endotracheal tube. He is currently on treatment with Solu-Medrol 40 mg IV every 8 hour, will cut back to 40 mg IV every 12 hours today. Continue DuoNeb inhalation every 4 hours scheduled Add budesonide 0.5 mg elation twice daily Add glycopyrrolate to assist with secretions Continue pulmonary toilet Had initially hemoptysis upon presentation which has resolved. (3) Sepsis: Required transient Levophed support upon admission, has now been weaned off. Sepsis likely related to pneumonia. Currently on treatment with piperacillin/tazobactam (04/01-) Vancomycin has been discontinued after negative MRSA PCR Negative COVID PCR upon admission Respiratory culture with heavy respiratory alexis Blood culture reviewed, preliminary negative. (4) Elevated brain natriuretic peptide (BNP) level: Related to acute diastolic CHF. He is now diuresing well with increased Lasix 60 mg twice daily. Reviewed intake and output. In negative balance. Edema is nearly resolved. Continue diuresis. Monitor I&O. Creatinine stable at 0.8 TTE - EF 55%. Seems to be mild hypokinesis of apical lateral wall. Normal pulmonary artery pressure. Will benefit from further CAD risk stratification with acute conditions improve. Troponin with moderate elevation secondary likely to demand ischemia from CHF. History of underlying CAD, wall motion abnormality noted. May benefit subsequently from additional risk stratification with stress testing. (5) Pneumonia: As above and sepsis (6) Acute alteration in mental status: Acute metabolic encephalopathy on presentation secondary to respiratory failure, hypercapnia. Will need to be reassessed once extubated. (7) Hypokalemia: Now resolved Plan Other chronic medical conditions including CAD: Continue atorvastatin 80, Plavix 75 mg, Coreg 3.125 mg p.o. daily Depression GERD: Currently on Protonix HTN HLD Memory loss STEPHANIE on nightly BiPAP Osteoarthritis of left hip Restless leg Seropositive RA DM2: Sliding scale insulin, glucose monitoring requested. DVT prophylaxis: Lovenox PUD prophylaxis Protonix 40 mg IV daily currently at bedside, updated. Attestations Medical Necessity Statement*: Needs ongoing admission for hypoxic respiratory failure, currently on mechanical ventilation, attempts to wean down as noted above. Critical Care Time: The high probability of a clinically significant, sudden or life threatening deterioration of the patient's [respiratory,cardac] system(s) required my full and direct attention, intervention and personal management. The critical care time is as shown. This time is in addition to time spent performing any reported procedures but includes the following: [x] Data and vital sign review and interpretation [x] Patient assessment, examination and intervention [x] Documentation [x] Medication orders and management Coding Level of Care Code Critical Care >/= 30 minutes Critical care time (in minutes): 50 The high probability of a clinically significant, sudden or life threatening deterioration, as referenced in this documentation, required my full and direct attention, intervention and personal management. The critical care time shown is in addition to time spent performing any reported separately billable procedures and includes the following: [x] Data and vital sign review and interpretation [x ] Patient assessment, examination and intervention [x] Medication orders and management [x] Patient/Family updates as able [x] Care Coordination and Documentation. Diagnoses Acute respiratory failure with hypoxia and hypercapnia J96.01; J96.02 Acute exacerbation of chronic obstructive airways disease J44.1 Sepsis A41.9 Elevated brain natriuretic peptide (BNP) level R79.89 Pneumonia J18.9 Acute alteration in mental status R41.82 Hypokalemia E87.6
[2022-04-05] MEDS: propofol 1,000 MG/100 ML INJ 52.42 MG IV ×2 (10:27→11:37)
[2022-04-05] MEDS: enoxaparin 40 mg/0.4 mL Syringe SUBCUT (11:15)
[2022-04-05 12:59] LABS: Glucose Point of Care 187 mg/dL (70-110)
[2022-04-05] MEDS: propofol 1,000 MG/100 ML INJ 26.21 MG IV (13:43)
--- NOTE | 2022-04-05 14:34 | PC.NURSE ---
Dr. Moore aware of patient heart rate dropping intermittently to low 40's after repositioning patient. See MAR for Propofol titration. Dr. Moore updated on current vent settings. See respiratory documentation on ventilator settings. No new orders at this time.
[2022-04-05] MEDS: dexmedetomidine 400 MCG in sodium chloride 0.9% (100 ml) 100 ML IV (17:08)
[2022-04-05] MEDS: propofol 1,000 MG/100 ML INJ 21.84 MG IV (17:32)
[2022-04-05 18:02] LABS: Glucose Point of Care 180 mg/dL (70-110)
[2022-04-05] MEDS: budesonide 0.5 mg/2 mL Neb INHALATION (19:59)
[2022-04-05] MEDS: quetiapine 25 mg Tablet 50 MG PO (20:45)
--- NOTE | 2022-04-05 22:06 | P.CONIM_ITS ---
Providers/Reason For Consult Consulting Physician/Specialty*: Wilfredo Pinon MD/ Pulmonary Critical Care Reason for Consult*: help with weaning ventilator and extubation Requesting Physician: Belinda Moore MD Attending Physician: Belinda Moore MD Primary Care Provider: Tania Garcia DO History of Present Illness History of Present Illness 61-year-old gentleman with PMH of COPD on 3L home oxygen, Morbid Obesity BMI 43, STEPHANIE on BiPAP, CAD with stents, CHF, seropositive RA on humira untill 1 month ago He has hip arthritis and consideration of replacement surgery and went to orthopedic clinic - found to be hypoxic with saturation down in the 60s with worsening shortness of breath productive cough and hemoptysis. He had a fall 4 days ago with contusion/large bruise on the left upper quadrant of the abdomen. His admission? Chest x-ray with patchy right lower lobe opacity which may be pneumonia, atelectasis and/or effusion.? Cardiomegaly and atherosclerosis.? CT chest abdomen pelvis with overall limited quality due to body habitus, position of the arms and motion.? No central pulmonary embolism.? Right lung pneumonia.? Most dense consolidation right lower lobe.? Received breathing treatment, steroid, fluid bolus, Zosyn and vancomycin.? 7.37/66.8/117/30 8.4 initially started on BiPAP, but without improvement, repeat ABG 7.23/88.2/83.5/36.6.? He was intubated and started on mechanical ventilatory support. Since admission he has been on Zosyn, IV lasix 60 mg bid, net negative 4L, requiring 50% FIO2 on ventilator today while tapering of sedation, he became agitated and failed breathing trial, FIO2 increased up to 80%; increased propofol and he became bradycardiac to 40s. Pulmonary Critical care consulted to help with extubation Patient seen at bedside-intubated and sedated Currently FiO2 on ventilator down to 50%, there is still significant wheezing and clear secretions in the ET tube Patient was on Lyrica 150 mg 3 times daily at home-he is receiving it here as well Other labs and imaging reviewed Review of Systems General: Reports: ROS unobtainable due to endotracheal tube, ROS unobtainable due to medical condition and ROS unobtainable due to mental status Medications/Allergies Home Medications Medication Instructions Recorded Confirmed Last Taken Type chlorthalidone 25 mg tablet 25 mg PO DAILY 04/25/19 04/01/22 04/01/22 History duloxetine 60 mg capsule,delayed 60 mg PO DAILY 04/25/19 04/01/22 04/01/22 History release memantine 28 mg capsule 28 mg PO DAILY 04/25/19 04/01/22 03/31/22 History sprinkle,extended release 24hr (Namenda XR) metformin 1,000 mg tablet 1,000 mg PO BID 04/25/19 04/01/22 04/01/22 History nitroglycerin 0.4 mg sublingual 0.4 mg sublingual Q5M PRN Chest 04/25/19 04/01/22 12/19/20 History tablet (Nitrostat) Pain oxycodone-acetaminophen 10 mg-325 1 tab PO TID PRN Pain 04/25/19 04/01/22 04/01/22 History mg tablet ropinirole 2 mg tablet 4 mg PO TID 04/25/19 04/01/22 04/01/22 History rosuvastatin 40 mg tablet 40 mg PO DAILY 04/25/19 04/01/22 03/31/22 History trandolapril 4 mg tablet 4 mg PO DAILY 04/25/19 04/01/22 04/01/22 History albuterol sulfate 2.5 mg/3 mL 2.5 mg inhalation Q6H PRN 05/23/19 04/01/22 12/19/20 History (0.083 %) solution for nebulization shortness of breath or wheezing budesonide-formoterol HFA 160 2 puff inhalation Q12H 90 days 05/23/19 04/01/22 12/19/20 Rx mcg-4.5 mcg/actuation aerosol #10.2 grams inhaler (Symbicort) carvedilol 6.25 mg tablet 6.25 mg PO DAILY 10/01/19 04/01/22 04/01/22 History dulaglutide 0.75 mg/0.5 mL 1.5 mg SUBCUT .Once weekly 11/11/20 04/01/22 03/29/22 History subcutaneous pen injector (Trulicity) pregabalin 150 mg capsule (Lyrica) 150 mg PO TID 11/11/20 04/01/22 04/01/22 H istory fluticasone propionate 50 2 spray intranasal DAILY PRN 05/11/21 04/01/22 Unknown History mcg/actuation nasal allergy spray,suspension clopidogrel 75 mg tablet 75 mg PO DAILY #90 tabs 07/02/21 04/01/22 04/01/22 Rx potassium chloride 20 mEq 40 meq PO DAILY #180 tabs 07/22/21 04/01/22 04/01/22 Rx tablet,extended release albuterol sulfate 90 mcg/actuation 2 puff inhalation Q6H PRN 08/04/21 04/01/22 Unknown Rx aerosol inhaler (ProAir HFA) Shortness Of Breath #8.5 grams amlodipine 2.5 mg tablet 5 mg PO DAILY #180 tabs 09/04/21 04/01/22 04/01/22 Rx montelukast 10 mg tablet 10 mg PO DAILY #30 tabs 02/09/22 04/01/22 03/25/22 Rx (Singulair) diclofenac sodium 75 mg 75 mg PO Q12H PRN for severe pain 03/17/22 04/01/22 04/01/22 Rx tablet,delayed release as needed #30 tabs adalimumab 40 mg/0.8 mL 40 mg (0.8 mL) SUBCUT .Q7days 28 03/25/22 04/01/22 02/28/22 Rx subcutaneous pen kit (Humira Pen) days #4 ea ascorbic acid (vitamin C) 500 mg 500 mg PO DAILY 04/01/22 04/01/22 04/01/22 History capsule,extended release (Vitamin C) cholecalciferol (vitamin D3) 25 25 mcg PO DAILY 04/01/22 04/01/22 03/31/22 History mcg (1,000 unit) capsule (Vitamin D3) folic acid 20 mg capsule 20 mg PO DAILY 04/01/22 04/01/22 04/01/22 History furosemide 40 mg tablet 40 mg PO DAILY 04/01/22 04/01/22 04/01/22 History meloxicam 15 mg tablet 15 mg PO DAILY 04/01/22 04/01/22 04/01/22 History oawxdjacjpkr-kis-xoydr acid-vit 1 tab PO DAILY 04/01/22 04/01/22 04/01/22 History K-lycop 400 mcg-20 mcg-370 mcg tablet (Men's 50 Plus Multivitamin) vitamin C 45 mg-zinc citrate 3.75 1 tab PO DAILY 04/01/22 04/01/22 03/31/22 History mg-elderberry 50 mg chewable tablet ([employer]) Allergies Allergy/AdvReac Type Severity Reaction Status Date / Time metoclopramide [From Reglan] Allergy Severe ALGY-Hives Verified 04/01/22 11:48 gabapentin Allergy Unknown Unknown Verified 04/01/22 11:48 Current Medications Generic Name Dose Route Start Last Admin Trade Name Jhonq PRN Reason Stop Dose Admin Albuterol Sulfate 2.5 mg 04/04/22 04:00 04/05/22 19:59 Albuterol 2.5 Mg/3 Ml Neb INHALATION 2.5 mg Q4H.RESPIRATORY BRADEN Administration Atorvastatin Calcium 80 mg 04/04/22 09:00 04/05/22 09:08 Atorvastatin 40 Mg Tablet PO 80 mg DAILY BRADEN Administration Budesonide 0.5 mg 04/05/22 20:00 04/05/22 19:59 Budesonide 0.5 Mg/2 Ml Neb INHALATION 0.5 mg BID.RESPIRATORY BRADEN Administration Carvedilol 3.125 mg 04/04/22 09:00 04/05/22 09:08 Carvedilol 3.125 Mg Tablet PO 3.125 mg DAILY BRADEN Administration Chlorhexidine Gluconate 1 applic 04/03/22 01:00 04/05/22 00:10 Chlorhexidine Gluconate 4% Btl 118 Ml TOPICAL 1 applic Q24H BRADEN Administration Clopidogrel Bisulfate 75 mg 04/03/22 09:45 04/05/22 09:08 Clopidogrel 75 Mg Tablet PO 75 mg DAILY BRADEN Administration Duloxetine HCl 60 mg 04/03/22 09:45 04/05/22 09:08 Duloxetine 60 Mg Capsule PO 60 mg DAILY BRADEN Administration Enoxaparin Sodium 40 mg 04/05/22 10:00 04/05/22 11:15 Enoxaparin 40 Mg/0.4 Ml Syringe SUBCUT 40 mg Q24H BRADEN Administration Furosemide 60 mg 04/03/22 08:45 04/05/22 15:21 Furosemide 10 Mg/Ml Sdv 4ml IVP 60 mg BID@0400,1600 BRADEN Administration Propofol 1,000 mg in 100 mls @ 0 mls/hr 04/01/22 15:15 04/05/22 18:11 Diprivan IV 11.45 mcg/kg/min .Q0M BRADEN 10 mls/hr Titration Protocol Per Protocol Fentanyl 1,000 mcg/ Sodium 100 mls @ 0 mls/hr 04/01/22 15:15 04/04/22 09:21 Chloride IV Infused .Q0M BRADEN Titration Protocol Per Protocol Piperacillin Sod/Tazobactam 50 mls @ 12.5 mls/hr 04/01/22 20:30 04/05/22 20:45 Sod 3.375 gm/ Sodium Chloride IV 12.5 mls/hr Q8H BRADEN Administration Protocol Fentanyl 2,500 mcg/ Sodium 250 mls @ 0 mls/hr 04/04/22 07:30 04/05/22 19:45 Chloride IV Infused .Q0M BRADEN Titration Protocol Per Protocol Dexmedetomidine HCl 400 mcg/ 104 mls @ 0 mls/hr 04/05/22 17:00 04/05/22 21:01 Sodium Chloride IV 0.8 mcg/kg/hr .Q0M BRADEN 29.43 mls/hr Titration Protocol Per Protocol Insulin Human Lispro 0 unit 04/01/22 18:45 04/05/22 18:07 Insulin Lispro 100 Unit/1 Ml SUBCUT 2 unit Q6H BRADEN Administration Protocol Ipratropium [place] 0.5 mg 04/04/22 04:00 04/05/22 19:59 Ipratropium 0.5 Mg/2.5 Ml Neb INHALATION 0.5 mg Q4H.RESPIRATORY BRADEN Administration Methylprednisolone Sodium Succinate 40 mg 04/05/22 16:00 04/05/22 15:20 Methylprednisolone Sod Succ 40 Mg/Ml Inj IVP 40 mg Q12H BRADEN Administration Montelukast Sodium 10 mg 04/03/22 10:00 04/05/22 09:08 Montelukast Sodium 10 Mg Tablet PO 10 mg DAILY BRADEN Administration Non-Formulary Medication 28 mg 04/03/22 10:00 04/05/22 09:07 Memantine [Namenda Xr] PO Not Given DAILY BRADEN Pantoprazole Sodium 40 mg 04/01/22 18:50 04/05/22 09:08 Pantoprazole 40 Mg Sdv IVP 40 mg DAILY BRADEN Administration Pregabalin 150 mg 04/03/22 09:50 04/05/22 20:45 Pregabalin 150 Mg Capsule PO 150 mg TID BRADEN Administration Quetiapine Fumarate 50 mg 04/05/22 21:00 04/05/22 20:45 Quetiapine 25 Mg Tablet PO 50 mg BEDTIME BRADEN Administration Ropinirole HCl 4 mg 04/03/22 09:50 04/05/22 20:45 Ropinirole 2 Mg Tablet PO 4 mg TID BRADEN Administration PFSH Acute PFSH: Medical History CAD (coronary artery disease) Chest pain CHF (congestive heart failure) COPD (chronic obstructive pulmonary disease) Depression Enteritis GERD (gastroesophageal reflux disease) HTN (hypertension) Hyperlipidemia Memory loss STEPHANIE (obstructive sleep apnea) Osteoarthritis of left hip Restless leg Seropositive rheumatoid arthritis Type 2 diabetes mellitus Surgical History H/O esophagogastroduodenoscopy (12/19/20) History of carpal tunnel surgery History of colonoscopy with polypectomy 2010 History of sinus surgery History of surgical amputation of finger of right hand Stented coronary artery Family History Other Arthritis Diabetes Hypertension Stroke Denies family history of Rheumatoid arthritis Systemic lupus erythematosus (SLE) in adult Social History Smoking and tobacco status: current every day smoker cigarettes Packs smoked per day: 0.25 Years cigarettes smoked: 45 Quit status (tobacco): has quit using tobacco Year quit tobacco: 2020 Former quit date comment: Hx of 1 PPD x 53 Years Second hand smoke exposure: Yes Smoking risk assessment/counseling performed?: No Alcohol intake: former Counseling given: No Counseling given: No Lives independently: Yes Household members: spouse Marital status: Current occupational status: disabled Pets and animals: Yes History of recent travel: No Current gender identity: Male Vitals/I&O/Wt Last Vital Signs Temp 99.1 F 04/05/22 18:00 Pulse 66 04/05/22 20:00 Resp 16 04/05/22 20:00 BP 118/71 04/05/22 19:00 Pulse Ox 92 04/05/22 20:00 O2 Del Method 04/05/22 20:00 O2 Flow Rate 95 04/05/22 11:00 FiO2 55 04/05/22 20:00 04/05/22 04/05/22 04/05/22 06:59 14:59 22:59 Intake Total 595.654 / 1656.238 491.303 / 491.303 379.767 / 871.070 Output Total 1350 / 4800 1500 / 1500 1500 / 3000 Balance -754.346 / -3143.762 -1008.697 / -1008.697 -1120.233 / -2128.930 Weight last 48 hrs Weight 311 lb 14.4 oz Weight 319 lb 9.6 oz Physical Exam Narrative: PHYSICAL EXAM: General: lying in bed, sedated and intubated. HEENT:NCAT, PERRLA, EOMI Neck: Supple Lungs: Bilateral diffuse wheeze and bibasilar crackles Heart: s1/s2, RRR Abd: soft, NT, ND, BS + Normoactive Extremities: No edema APPLICATIONS INSTRUCTOR: sedated and limited APPLICATIONS INSTRUCTOR exam possible. SKIN: no rash Urinary Catheter Management: Perez: Cath Placed During This Visit: yes Reason for Continuing Indwelling Catheter: Accurate Measurement of Urinary Output in Critically Ill Patients Urinary Catheter Date of Insertion: 04/01/22 Urinary Catheter Time of Insertion: 17:48 Data 04/05/22 05:00 04/05/22 05:00 Other Labs: Radiology Impressions Chest/Abdomen/Pelvis CT 04/01/22 12:27 IMPRESSION: 1. Quality of this examination is overall limited by body habitus, position of the arms and motion. 2. No central pulmonary embolism. 3. RIGHT lung pneumonia. Most dense consolidation RIGHT lower lobe. 4. No GI tract obstruction. No renal obstruction. Adnexa normal appendix. Head CT 04/01/22 12:29 IMPRESSION: 1. No acute intracranial hemorrhage or edema. 2. Mild atrophy and moderate small vessel ischemic type changes. Chest CTA 04/02/22 14:04 IMPRESSION: 1. Negative CT angiogram of the chest. No evidence of acute pulmonary embolism. 2. Decreased lung volumes with rather extensive lower lobe atelectasis progressed from previous exam. 3. Superimposed nodular infiltrate right lower lobe improved from earlier study. 4. Significant cardiomegaly, stable. 5. Mild mediastinal lymphadenopathy, stable. Chest X-Ray 04/06/22 05:00 IMPRESSION: 1. Cardiac enlargement with pulmonary edema and signs of CHF. 2. Bibasal infiltrates. Superimposed pneumonia not excluded. 3. ET tube and enteric tube both in satisfactory location. 4. Overall, little change since the previous study. Laboratory Results WBC 11.5 10^3/uL (4.0-10.0) H 04/06/22 04:45 RBC 5.70 10^6/uL (4.1-5.3) H 04/06/22 04:45 Hgb 15.5 g/dL (11.7-16.6) 04/06/22 04:45 Hct 50.0 % (42.0-52.0) 04/06/22 04:45 MCV 87.7 fl (80-94) 04/06/22 04:45 MCH 27.2 pg (28.0-34.0) L 04/06/22 04:45 MCHC 31.0 g/dL (30.0-36.0) 04/06/22 04:45 RDW 16.0 % (12.1-15.1) H 04/06/22 04:45 Plt Count 267 10^3/cmm (130-400) 04/06/22 04:45 MPV 9.8 fL (7.4-10.4) 04/06/22 04:45 Neut % (Auto) 69.9 % 04/06/22 04:45 Lymph % (Auto) 17.1 % 04/06/22 04:45 [place] % (Auto) 11.5 % 04/06/22 04:45 Eos % (Auto) 0.3 % 04/06/22 04:45 Baso % (Auto) 0.3 % 04/06/22 04:45 Neut # (Auto) 8.02 10^3/uL (1.8-7.7) H 04/06/22 04:45 Lymph # (Auto) 2.0 10^3/uL (0.8-4.8) 04/06/22 04:45 [place] # (Auto) 1.3 10^3/uL (0.2-0.9) H 04/06/22 04:45 Eos # (Auto) 0.0 10^3/uL (0.0-0.8) 04/06/22 04:45 Baso # (Auto) 0.0 10^3/uL (0.0-0.1) 04/06/22 04:45 Nucleated RBC % (auto) 0 % 04/06/22 04:45 Nucleated RBCs # 0.0 /100WBC 04/06/22 04:45 PT 14.40 SECONDS (12.1-14.9) 04/01/22 12:15 INR 1.09 (0.8-1.2) 04/01/22 12:15 APTT 32.8 SECONDS (23.9-36.7) 04/01/22 12:15 Specimen Type Arterial 04/06/22 05:57 Sample Site Radial, right 04/06/22 05:57 ABG pH 7.49 (7.35-7.45) H 04/06/22 05:57 ABG pCO2 52.4 mmHg (35-45) H 04/06/22 05:57 ABG pO2 58.6 mmHg (80.0-100.0) L 04/06/22 05:57 ABG HCO3 39.9 mmol/L (22-26) H 04/06/22 05:57 ABG O2 Saturation 93.0 04/06/22 05:57 ABG Base Excess 14.1 mmol/L (-2.0-2.0) H 04/06/22 05:57 Wil Test Pos 04/06/22 05:57 A-a O2 Gradient 34.8 mmHg (5-10) H 04/06/22 05:57 Hematocrit 43.6 % (42-52) 04/06/22 05:57 Hgb O2 Saturation 91.1 % (95-100) L 04/06/22 05:57 Carboxyhemoglobin 1.1 %THgb (0.4-20.1) 04/06/22 05:57 Methemoglobin 1.0 % (0.4-1.5) 04/06/22 05:57 Total Hemoglobin 14.2 g/dL (14-18) 04/06/22 05:57 Sodium 144.0 mmol/L (131-143) H 04/06/22 05:57 Potassium 3.4 mmol/L (3.5-5.0) L 04/06/22 05:57 Glucose 228.0 mg/dL (70-115) H 04/06/22 05:57 Ionized Calcium 1.1 mmol/L (1.1-1.4) 04/06/22 05:57 O2 Delivery Device Vent 04/06/22 05:57 O2 Liters/Min 15.0 % 04/01/22 12:10 FiO2 55.0 % 04/06/22 05:57 Tidal Volume 0.50 04/06/22 05:57 PEEP 10.0 cmH20 04/06/22 05:57 Specimen Drawn By Anand 04/01/22 17:08 Utility Aircrewman ID dayna 04/06/22 05:57 Sodium 143 mmol/L (136-145) 04/06/22 04:45 Potassium 3.3 mmol/L (3.5-5.1) L 04/06/22 04:45 Chloride 95 mmol/L (98-107) L 04/06/22 04:45 Carbon Dioxide 37 mmol/L (22-29) H 04/06/22 04:45 Anion Gap 14.3 (5-19) 04/06/22 04:45 BUN 32 mg/dL (8-23) H 04/06/22 04:45 Creatinine 0.8 mg/dL (0.7-1.2) 04/06/22 04:45 GFR Calculation 98.6 mL/min (90-130) 04/06/22 04:45 Glucose 176 mg/dL (65-115) H 04/06/22 04:45 POC Glucose 198 mg/dL (70-110) H 04/06/22 18:06 Calculated Osmolality 307 mOsm/kg (285-295) H 04/06/22 04:45 Lactic Acid 1.5 mmol/L (0.5-2.2) 04/01/22 12:15 Calcium 8.8 mg/dL (8.5-10.5) 04/06/22 04:45 Magnesium 2.4 mg/dL (1.7-2.3) H 04/05/22 05:00 Total Bilirubin 0.3 mg/dL (0.15-1.2) 04/04/22 04:24 AST 22 U/L (0-40) 04/04/22 04:24 ALT 18 U/L (0-41) 04/04/22 04:24 Alkaline Phosphatase 85 U/L (40-130) 04/04/22 04:24 Troponin T Baseline 75 ng/L (0-15) H 04/01/22 12:15 Troponin T 120 Minute 79.13 ng/L (0-15) H 04/01/22 14:30 Delta Troponin T 4.13 ABS# (0-10) 04/01/22 14:30 Troponin T Hi Sens 6Hr 69.13 ng/L (0-15) H 04/01/22 18:35 Troponin T Hi Sens 6Hr Delta -5.87 ng/L (0-12) L 04/01/22 18:35 NT-Pro-B Natriuret Pep 4085 pg/mL (0-125) H 04/01/22 12:15 Total Protein 6.2 g/dL (6.6-8.7) L 04/04/22 04:24 Albumin 3.0 g/dL (3.5-5.2) L 04/04/22 04:24 Globulin 3.2 g/dL (1.3-4.6) 04/04/22 04:24 Procalcitonin 0.05 ng/mL (0-0.5) 04/05/22 05:00 Vancomycin Trough 16.6 ug/mL (10-15) H 04/03/22 17:20 Coronavirus 229E (PCR) Not detected (NOT DETECT) 04/01/22 18:35 SARS-CoV-2 (PCR) Not detected (NOT DETECT) 04/01/22 18:35 A&P Assessment and plan (1) Acute respiratory failure with hypoxia and hypercapnia: (2) Pneumonia: (3) Acute exacerbation of chronic obstructive airways disease: (4) Morbid obesity with BMI of 40.0-44.9, adult: (5) CAD (coronary artery disease): (6) Seropositive rheumatoid arthritis of multiple sites: (7) Sleep apnea: (8) High risk medication use: (9) Heart failure: (10) Difficult ventilator weaning: Plan #Acute Hypoxic Hypercapneic respiratory failure secondary to COPD exacerbation due to right lower lobe pneumonia #Underlying CHF with history of CAD s/p stents #Underlying seropositive rheumatoid arthritis-on Humira- reported last dose was 1 month ago #Takes Lyrica 150 3 times daily as outpatient #STEPHANIE on BiPAP at nighttime #Severe underlying emphysema patient with chronic smoking history -Currently intubated and sedated-on CMV 500/10/5 5% -Failed breathing trial-secondary to significant secretions, persistent end expiratory wheeze as well as agitation while tapering down sedation -He is on fentanyl 175 mcg/hour, propofol 40 Mg/hour-recommended to start Precedex and taper down propofol, -He is already on Lyrica 150 3 Mg twice daily -less likely benzodiazepine withdrawal; I will start him Seroquel 50 mg at bedtime -Patient continues to have diffuse end expiratory wheeze-recommended to continue scheduled nebulizations, IV steroids 40 every 12 hours -Currently on Zosyn -Plan is to continue aggressive diuresis and reevaluate tomorrow morning ICU CHECKLIST: Problem list updated Verbal orders reviewed and signed Code Status: Full code Disposition: Remains in ICU Critically ill: Yes MD discussed with: Hospitalist, RN, RT taking care of the patient Analgesia: Fentanyl Glycemic Control: Insulin scale coverage Nutrition: Tube feeding Restraint Renewal (within 24 hrs): Yes Ulcer Prophylaxis: PPI Chemical Thromboprophylaxis: Prophylaxis: Lovenox Mechanical Thromboprophylaxis: SCDs Need for Central line: N/A Need for Perez catheter: For urine output monitoring Consult Attestations Medical Necessity Statement: Acute hypoxic/hypercapnic respiratory failure secondary to COPD exacerbation due to right lower lobe pneumonia-currently still on ventilator and undergoing weaning trials possibility of extubation in next 24 to 48 hours-remains in ICU for more than 48 hours Time Spent in Patient Care: Greater than 35 minutes (>than 50% of time spent in counselling and/or direct pt care on unit) . Critical Care Time: Critical Care Time (No Overlap):55 min This patient has a high probability of clinically significant, sudden or life threatening deterioration of the patient's () systems required my full, direct attention, the highest level of physician preparedness for urgent intervention and personal management. I managed/supervised life or organ supporting interventions that required frequent physician assessment. I devoted my full attention in the ICU to the direct care of this patient for the period of time indicated above. Time I spent with family or surrogate(s) is included only if the patient was incapable of providing necessary information or participating in decision making. This time includes the following services provided: Telemetry review Mechanical Ventilation Hemodynamic interpretation, assessment and management Review and interpretation of CXR Review and interpretation of lab values Review and interpretation of microbiologic data and culture results Review of medications and administration Review and interpretation of Nutrition requirements and management Discussion of management with other consultants and services Clinical update to family members [x] Data and vital sign review and interpretation [x] Patient assessment, examination and intervention [x] Documentation [x] Medication orders and management Time spent for teaching as well as performing procedures are billed separately and is not included in this note Coding Level of Care Code Critical Care >/= 30 minutes Critical care time (in minutes): 55 The high probability of a clinically significant, sudden or life threatening deterioration, as referenced in this documentation, required my full and direct attention, intervention and personal management. The critical care time shown is in addition to time spent performing any reported separately billable procedures and includes the following: [x] Data and vital sign review and interpretation [x ] Patient assessment, examination and intervention [x] Medication orders and management [x] Patient/Family updates as able [x] Care Coordination and Documentation. Diagnoses Acute respiratory failure with hypoxia and hypercapnia J96.01; J96.02 Pneumonia J18.9 Acute exacerbation of chronic obstructive airways disease J44.1 Morbid obesity with BMI of 40.0-44.9, adult E66.01; Z68.41 CAD (coronary artery disease) I25.10 Seropositive rheumatoid arthritis of multiple sites M05.79 Sleep apnea G47.30 High risk medication use Z79.899 Heart failure I50.9 Difficult ventilator weaning Z99.11 Time Spent (min) 55
[2022-04-05] MEDS: dexmedetomidine 400 MCG in sodium chloride 0.9% (100 ml) 100 ML 33.11 MCG IV (22:16)
[2022-04-05 23:53] LABS: Glucose Point of Care 190 mg/dL (70-110)
[2022-04-06] VITALS (73 sets, daily range): BP systolic 104–175; BP diastolic 60–113; PULSE 63–73; RESP 15–20; TEMP 37.5–38.5; O2SAT 90–100
[2022-04-06] MEDS: insulin lispro 100 unit/1 mL SUBCUT ×4 (00:10→18:16)
[2022-04-06] MEDS: chlorhexidine gluconate 4% Btl 118 mL 1 APPLIC TOPICAL (00:10)
[2022-04-06] MEDS: albuterol 2.5 mg/3 mL Neb INHALATION ×5 (03:26→20:48)
[2022-04-06] MEDS: ipratropium 0.5 mg/2.5 mL Neb INHALATION ×5 (03:26→20:49)
[2022-04-06] MEDS: FUROsemide 10 mg/mL SDV 4mL 60 MG IVP (04:04)
[2022-04-06] MEDS: piperacillin-tazobactam 3.375 GM in sodium chloride 0.9% (plus) 50 ML IV ×3 (04:05→21:08)
--- NOTE | 2022-04-06 05:00 | XR_ITS ---
WS: [id number] Exam: XR chest 1V portable [id number] Date/Time of Exam: 04/06/2022 5:36 AM Reason For Exam: follow up, possible extubation Comparison 04/03/2022. Marked cardiac enlargement with probable pulmonary edema. Bibasal pleural effusions. The lungs are fu lly inflated. ET tube ends about 4 cm above the lucy in good position. An enteric tube is noted pro bably extending into the stomach but the tip is out of the [id number]. Additional monitoring leads superimpose the chest. Bony structures are intact. Widening of the mediastinum unchanged. Bibasal in filtrates showing little change. XR/XR chest 1V portable [id number] IMPRESSION: 1. Cardiac enlargement with pulmonary edema and signs of CHF. 2. Bibasal infiltrates. Superimposed pneumonia not excluded. 3. ET tube and enteric tube both in satisfactory location. 4. Overall, little change since the previous study.
[2022-04-06 05:01] LABS: Basophils % 0.3 %; Eosinophils % 0.3 %; Hemoglobin 15.5 g/dL (11.7-16.6); Lymphocytes % 17.1 %; Mean Corpuscular Hemoglobin 27.2 pg (28.0-34.0); Mean Corpuscular Volume 87.7 fl (80-94); Mean Platelet Volume 9.8 fL (7.4-10.4); Monocytes # 1.3 10^3/uL (0.2-0.9); Monocytes % 11.5 %; Neutrophils # 8.02 10^3/uL (1.8-7.7); Neutrophils % 69.9 %; Nucleated Red Blood Cells % 0 %; Platelet Count 267 10^3/cmm (130-400); White Blood Count 11.5 10^3/uL (4.0-10.0)
[2022-04-06 05:26] LABS: Anion Gap 14.3 (5-19); Blood Urea Nitrogen 32 mg/dL (8-23); Calcium 8.8 mg/dL (8.5-10.5); Carbon Dioxide 37 mmol/L (22-29); Chloride 95 mmol/L (98-107); Glomerular Filtration Rate 98.6 mL/min (90-130); Glucose 176 mg/dL (65-115); Osmolality Calculated 307 mOsm/kg (285-295); Potassium 3.3 mmol/L (3.5-5.1); Sodium 143 mmol/L (136-145)
[2022-04-06 06:13] LABS: ABG PCO2 52.4 mmHg (35-45); ABG PH Result 7.49 (7.35-7.45); Alveolar-Arterial Oxygen Gradi 34.8 mmHg (5-10); Arterial Blood Gas Hematocrit 43.6 % (42-52); Base Excess ABG 14.1 mmol/L (-2.0-2.0); Blood Gas Allen Test Pos; Blood Gas Sample Site Radial, right; Blood Gas Sample Type Arterial; Carboxyhemoglobin 1.1 %THgb (0.4-20.1); HCO3 ABG 39.9 mmol/L (22-26); HGB O2 Sat 91.1 % (95-100); Ionized Calcium Level - ABG 1.1 mmol/L (1.1-1.4); Oxygen Device VENT; PO2 ABG 58.6 mmHg (80.0-100.0); Potassium Level - ABG 3.4 mmol/L (3.5-5.0); Total Hemoglobin 14.2 g/dL (14-18)
[2022-04-06 06:16] LABS: Glucose Point of Care 192 mg/dL (70-110)
[2022-04-06] MEDS: potassium chloride premix 100 ML 50 MEQ IV (06:24)
[2022-04-06] MEDS: potassium chloride ER 20 mEq Tablet 40 MEQ PO (06:25)
[2022-04-06] MEDS: budesonide 0.5 mg/2 mL Neb INHALATION ×2 (08:00→20:48)
[2022-04-06] MEDS: pantoprazole 40 mg SDV IVP (08:23)
[2022-04-06] MEDS: ropinirole 2 mg Tablet 4 MG PO ×3 (08:23→21:09)
[2022-04-06] MEDS: atorvastatin 40 mg Tablet 80 MG PO (08:23)
[2022-04-06] MEDS: duloxetine 60 mg Capsule PO (08:23)
[2022-04-06] MEDS: montelukast sodium 10 mg Tablet PO (08:24)
[2022-04-06] MEDS: carvedilol 3.125 mg Tablet PO (08:24)
[2022-04-06] MEDS: clopidogrel 75 mg Tablet PO (08:25)
[2022-04-06] MEDS: pregabalin 150 mg Capsule PO ×3 (08:25→21:09)
[2022-04-06] MEDS: enoxaparin 40 mg/0.4 mL Syringe SUBCUT (09:33)
[2022-04-06 11:58] LABS: Glucose Point of Care 161 mg/dL (70-110)
--- NOTE | 2022-04-06 12:09 | PC.SOCIAL ---
IMM Updated Updated pt's on IMM. No questions voiced. Provided a copy. Initialed, dated, & timed a copy & placed in chart.
[2022-04-06] MEDS: FUROsemide 10 mg/mL SDV 4mL 20 MG IVP (15:15)
[2022-04-06] MEDS: acetaminophen 325 mg Tablet 650 MG PO ×2 (15:31→21:09)
--- NOTE | 2022-04-06 17:34 | PM.PN ---
Subjective Subjective: Patient spiked a temperature of 100.4 Fahrenheit today. Blood cultures have been taken. Continues to be on 55% FiO2 this morning with ABG showing 7.4/52.4/58.6 indicating hypoxia on 55% FiO2. Appreciate pulmonology recommendations. Medications: Reviewed: Yes Vitals/I&O/Wt Last Vital Signs Temp 100.3 F H 04/06/22 14:00 Pulse 68 04/06/22 15:08 Resp 20 H 04/06/22 17:14 BP 166/105 04/06/22 14:00 Pulse Ox 92 04/06/22 17:14 O2 Del Method 04/06/22 15:00 O2 Flow Rate 95 04/05/22 11:00 FiO2 40 04/06/22 17:14 04/06/22 04/06/22 04/06/22 06:59 14:59 22:59 Intake Total 417.330 / 1381.638 484.003 / 484.003 310 / 794.003 Output Total 1999 / 5800 Balance -1582.670 / -4418.362 484.003 / 484.003 310 / 794.003 Weight last 48 hrs Weight 140.977 kg Weight 141.475 kg Physical Exam Narrative: General: Intubated sedated on fentanyl and propofol HEENT: PERRLA, pupils bilaterally equal and reactive, pallors not present Chest: Diffuse wheezing to auscultation bilaterally CVS: S1-S2 regular, no murmurs, no tachycardia, no gallops, no rubs Abdomen: Soft, nontender, no organomegaly, bowel sounds present Neuro: Unable to assess as intubated sedated. Extremities: No edema clubbing or cyanosis. Urinary Catheter Management: Perez: Cath Placed During This Visit: yes Reason for Continuing Indwelling Catheter: Accurate Measurement of Urinary Output in Critically Ill Patients Urinary Catheter Date of Insertion: 04/01/22 Urinary Catheter Time of Insertion: 17:48 Data 04/06/22 04:45 04/06/22 04:45 Micro: Microbiology 04/01/22 12:49 Blood Culture - Final Blood NO GROWTH AFTER 5 DAYS 04/01/22 12:49 Blood Culture - Final Blood NO GROWTH AFTER 5 DAYS 04/06/22 10:12 Blood Culture - Preliminary Blood SPECIMEN COLLECTED 04/06/22 10:12 Blood Culture - Preliminary Blood SPECIMEN COLLECTED A&P Assessment and plan (1) Acute respiratory failure with hypoxia and hypercapnia: Acute hypoxic hypercapnic respiratory failure, failed BiPAP initially upon admission and needed to be intubated upon arrival. Patient has remained intubated since April 01, 2022. Likely that his respiratory failure is multifactorial, related to COPD exacerbation, CHF and pneumonia. Plan for today: Continued attempts to wean from ventilator appreciate pulmonology recommendations., titrate down FiO2, would be okay for extubation with FiO2 closer to 45% given his longstanding COPD and hypoxia. Spontaneous breathing trial. (2) Acute exacerbation of chronic obstructive airways disease: Still has significant wheezing and copious secretions coming out of his endotracheal tube. He is currently on treatment with Solu-Medrol 40 mg IV 12 hours today. Continue DuoNeb inhalation every 4 hours scheduled continue budesonide 0.5 mg elation twice daily Add glycopyrrolate to assist with secretions Continue pulmonary toilet Had initially hemoptysis upon presentation which has resolved. (3) Sepsis: Required transient Levophed support upon admission, has now been weaned off. Sepsis likely related to pneumonia. Currently on treatment with piperacillin/tazobactam (04/01-) Vancomycin has been discontinued after negative MRSA PCR Negative COVID PCR upon admission Respiratory culture with heavy respiratory alexis Blood culture reviewed, preliminary negative. Repeated today with fever 100.4F. CXR with consolidation, no new changes (4) Elevated brain natriuretic peptide (BNP) level: Related to acute diastolic CHF. He is now diuresing well with increased Lasix 60 mg twice daily. Reviewed intake and output. In negative balance. Edema is nearly resolved. Continue diuresis. Monitor I&O. Creatinine stable at 0.8 TTE - EF 55%. Seems to be mild hypokinesis of apical lateral wall. Normal pulmonary artery pressure. Will benefit from further CAD risk stratification with acute conditions improve. Troponin with moderate elevation secondary likely to demand ischemia from CHF. History of underlying CAD, wall motion abnormality noted. May benefit subsequently from additional risk stratification with stress testing. (5) Pneumonia: As above and sepsis (6) Acute alteration in mental status: Acute metabolic encephalopathy on presentation secondary to respiratory failure, hypercapnia. Will need to be reassessed once extubated. (7) Hypokalemia: Now resolved Plan Other chronic medical conditions including CAD: Continue atorvastatin 80, Plavix 75 mg, Coreg 3.125 mg p.o. daily Depression GERD: Currently on Protonix HTN HLD Memory loss STEPHANIE on nightly BiPAP Osteoarthritis of left hip Restless leg Seropositive RA DM2: Sliding scale insulin, glucose monitoring requested. DVT prophylaxis: Lovenox PUD prophylaxis Protonix 40 mg IV daily currently at bedside, updated. Attestations Medical Necessity Statement*: continued attempts at weaning down oxygen requirements with goal to extubate Coding Level of Care Code Critical Care >/= 30 minutes Diagnoses Acute respiratory failure with hypoxia and hypercapnia J96.01; J96.02 Acute exacerbation of chronic obstructive airways disease J44.1 Sepsis A41.9 Elevated brain natriuretic peptide (BNP) level R79.89 Pneumonia J18.9 Acute alteration in mental status R41.82 Hypokalemia E87.6
[2022-04-06 18:08] LABS: Glucose Point of Care 198 mg/dL (70-110)
--- NOTE | 2022-04-06 18:34 | P.PCN_ITS ---
Procedure/Consent Time out: Time Out Performed: Yes Consent: Consent for Procedure: Consent obtained from other (indicate) () Procedure Narrative: 55854 Dx Bronchoscope w/Washings or airway inspection 00335 Dx Bronchoscope w/BAL 95858 Bronchoscopy w/ therapeutic aspiration of the tracheobronchial tree (clearance of airway secretions, removal of mucus plugs) Surgeon: Wilfredo Pinon MD [facility] Brief History: Mr. Scott Boswell is a 61-year-old male with past medical history of severe COPD, severe RA on Humira, CHF-admitted for acute on chronic hypoxic/hypercapnic respiratory failure requiring mechanical intubation secondary to COPD exacerbation due to right lower lobe pneumonia. Patient was initially respo nding to Zosyn-however he started spiking fevers today. Today I am doing bronchoscopic inspection of airways and to obtain bronchoalveolar lavage samples from right lower lobe Bronchoscopy for airway inspection and obtaining bronchoalveolar lavage sample for various studies Pre-Operative Diagnosis: Bilateral infiltrates predominantly right upper lobe suspicious for pneumonia Post-Operative Diagnosis:?Same Indication:?Persistent fever spikes in patient got intubated for respiratory failure on significant immunosuppression-suspicious for PCP pneumonia/fungal pneumonia Pre-procedure Evaluation:Patient was evaluated clinically and ancillary testing reviewed. ASA: 4 Malampati score:?unable to evaluate due to presence of endotracheal tube Description of the procedure: The procedure was explained to the patient at bedside and she agreed with the procedure. Anesthesia: Patient is already on fentanyl GTT, Precedex gtt.-titrated to achieve adequate sedation; Local anesthesia: The Lucy, right and left mainstem bronchi were anesthetized with 1% lidocaine, 3 mL. Once adequate sedation was achieved, patient hemodynamics were stable, the flexible bronchoscope was introduced through ET tube and used for?initial inspection (67095)..? The lower trachea mucosa appeared normal, no endotracheal lesion was seen.? The lucy was sharp.? The lucy, the right and left mainstem bronchi are anesthetized with 1% lidocaine.? In a systematic manner bilateral bronchial tree was then examined. ? The bronchoscope was then introduced into the right mainstem bronchus.? The right upper lobe, right middle lobe and right lower lobe bronchi were examined up to the third subsegmental level and no abnormalities were identified. ? There were thick mucus secretions in right middle lobe as well as right lower lobe segments which were suctioned right away.([id number]) The bronchoscope was advanced into the left mainstem bronchus.? The mucosa appeared normal with no endobronchial lesions.? Then the scope was advanced into left upper lobe, lingula and left lower lobe bronchi, and there was scant mucus with clear secretions were noted which were easily suctioned.? There were no endobronchial lesions.? The scope was further advanced into the third subsegmental level and mucosa appeared normal with significant mucus secretions clogging left lower lobe, which were suctioned right away.? After thorough suctioning, the scope was then wedged in medial segment of right lower pper lobe, instilled 30 cc normal saline, aspirated 15 cc bronchoalveolar lavage fluid.([id number]) After making sure there is no active bleeding bronchoscope was retracted and procedure terminated. ? ? Samples: 1.? Bronchoalveolar fluid from right lower lobe-sent for fluid analysis, micro biology cultures, PCP PCR, galactomannan, Complications: None.The patient tolerated well with vital stable. Acute Procedures Epistaxis Control: Time out performed: Yes
--- NOTE | 2022-04-06 19:02 | PC.NURSE ---
Shift Note:Pt remains sedated and intubated. Fentanyl and Precedex for sedation, slightly decreased the rate at the end of the shift, see MAR. His lungs sounds were diminished, wheezy and /or coarse at times. OG was clamped at beginning of shift, he started having more gastric secrections, now OG to LIS. He was febrile, highest temp 101. 3 axilliary. Acetaminophen admin for temp, and pt bathed. Blood cultures and a broncoscopy completed this shift. Sinus rhythm noted on monitor throughout shift. NO edema noted. No Bm this shift . 2700ml urine output noted this shift. Frequent safety and comfort rounds continue. Orders and/or nursing care completed as indicated. Patient monitored for response to intervention and treatment(s). Education provided includes solu-medrol, precedes, plan of care, progress and broncoscopy. Patient's access services representative verbalized understanding ot topics discussed, pt unable at this time. . Will continue to monitor.
--- NOTE | 2022-04-06 21:05 | PM.PN ---
Subjective Subjective: -seen patient multiple times today -Today morning-patient was on 55% FiO2-received a 60 Mg Lasix today supervisor seaming and has significant urine output-2 hours evening his FiO2 came down to 40% -Overall with Precedex 1.2, fentanyl 175, Seroquel 50 mg at bedtime, Lyrica 150 mg 3 times daily-patient appears more calm today -His wheezing is significantly improved compared to yesterday -Labs revealed hypokalemia 3.3-patient received supplementation -Skin appeared dry-we will back off on Lasix - There were temperature spikes-Tmax 101.5-repeat blood cultures sent, and I performed bronchoscopy today evening at bedside which revealed a thick mucus secretions in bilateral lower lobes and right middle lobe-all the secretions were suctioned and BAL sent from right lower lobe for cultures, galactomannan, PCP-given patient's history of being on Humira for rheumatoid arthritis -I will plan for awakening trial as well as breathing trial tomorrow morning -labs and imaging reviewed Medications: Reviewed: Yes Vitals/I&O/Wt Last Vital Signs Temp 101 F H 04/06/22 20:00 Pulse 68 04/06/22 20:49 Resp 16 04/06/22 20:49 BP 138/77 04/06/22 20:00 Pulse Ox 93 04/06/22 20:49 O2 Del Method 04/06/22 20:49 O2 Flow Rate 95 04/05/22 11:00 FiO2 70 04/06/22 20:49 04/06/22 04/06/22 04/06/22 06:59 14:59 22:59 Intake Total 417.330 / 1381.638 484.003 / 484.003 477.499 / 961.502 Output Total 1999 / 5800 700 / 700 1999 / 2700 Balance -1582.670 / -4418.362 -215.997 / -215.997 -1522.501 / -1738.498 Weight last 48 hrs Weight 310 lb 12.8 oz Weight 311 lb 14.4 oz Physical Exam Narrative: PHYSICAL EXAM: General: lying in bed, sedated and intubated. 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 SKIN: Appears dry on the legs Urinary Catheter Management: Perez: Cath Placed During This Visit: yes Reason for Continuing Indwelling Catheter: Accurate Measurement of Urinary Output in Critically Ill Patients Urinary Catheter Date of Insertion: 04/01/22 Urinary Catheter Time of Insertion: 17:48 Data 04/06/22 04:45 04/06/22 04:45 Other Labs: Radiology Impressions Chest/Abdomen/Pelvis CT 04/01/22 12:27 IMPRESSION: 1. Quality of this examination is overall limited by body habitus, position of the arms and motion. 2. No central pulmonary embolism. 3. RIGHT lung pneumonia. Most dense consolidation RIGHT lower lobe. 4. No GI tract obstruction. No renal obstruction. Adnexa normal appendix. Head CT 04/01/22 12:29 IMPRESSION: 1. No acute intracranial hemorrhage or edema. 2. Mild atrophy and moderate small vessel ischemic type changes. Chest CTA 04/02/22 14:04 IMPRESSION: 1. Negative CT angiogram of the chest. No evidence of acute pulmonary embolism. 2. Decreased lung volumes with rather extensive lower lobe atelectasis progressed from previous exam. 3. Superimposed nodular infiltrate right lower lobe improved from earlier study. 4. Significant cardiomegaly, stable. 5. Mild mediastinal lymphadenopathy, stable. Chest X-Ray 04/06/22 05:00 IMPRESSION: 1. Cardiac enlargement with pulmonary edema and signs of CHF. 2. Bibasal infiltrates. Superimposed pneumonia not excluded. 3. ET tube and enteric tube both in satisfactory location. 4. Overall, little change since the previous study. Laboratory Results WBC 11.5 10^3/uL (4.0-10.0) H 04/06/22 04:45 RBC 5.70 10^6/uL (4.1-5.3) H 04/06/22 04:45 Hgb 15.5 g/dL (11.7-16.6) 04/06/22 04:45 Hct 50.0 % (42.0-52.0) 04/06/22 04:45 MCV 87.7 fl (80-94) 04/06/22 04:45 MCH 27.2 pg (28.0-34.0) L 04/06/22 04:45 MCHC 31.0 g/dL (30.0-36.0) 04/06/22 04:45 RDW 16.0 % (12.1-15.1) H 04/06/22 04:45 Plt Count 267 10^3/cmm (130-400) 04/06/22 04:45 MPV 9.8 fL (7.4-10.4) 04/06/22 04:45 Neut % (Auto) 69.9 % 04/06/22 04:45 Lymph % (Auto) 17.1 % 04/06/22 04:45 [place] % (Auto) 11.5 % 04/06/22 04:45 Eos % (Auto) 0.3 % 04/06/22 04:45 Baso % (Auto) 0.3 % 04/06/22 04:45 Neut # (Auto) 8.02 10^3/uL (1.8-7.7) H 04/06/22 04:45 Lymph # (Auto) 2.0 10^3/uL (0.8-4.8) 04/06/22 04:45 [place] # (Auto) 1.3 10^3/uL (0.2-0.9) H 04/06/22 04:45 Eos # (Auto) 0.0 10^3/uL (0.0-0.8) 04/06/22 04:45 Baso # (Auto) 0.0 10^3/uL (0.0-0.1) 04/06/22 04:45 Nucleated RBC % (auto) 0 % 04/06/22 04:45 Nucleated RBCs # 0.0 /100WBC 04/06/22 04:45 PT 14.40 SECONDS (12.1-14.9) 04/01/22 12:15 INR 1.09 (0.8-1.2) 04/01/22 12:15 APTT 32.8 SECONDS (23.9-36.7) 04/01/22 12:15 Specimen Type Arterial 04/06/22 05:57 Sample Site Radial, right 04/06/22 05:57 ABG pH 7.49 (7.35-7.45) H 04/06/22 05:57 ABG pCO2 52.4 mmHg (35-45) H 04/06/22 05:57 ABG pO2 58.6 mmHg (80.0-100.0) L 04/06/22 05:57 ABG HCO3 39.9 mmol/L (22-26) H 04/06/22 05:57 ABG O2 Saturation 93.0 04/06/22 05:57 ABG Base Excess 14.1 mmol/L (-2.0-2.0) H 04/06/22 05:57 Wil Test Pos 04/06/22 05:57 A-a O2 Gradient 34.8 mmHg (5-10) H 04/06/22 05:57 Hematocrit 43.6 % (42-52) 04/06/22 05:57 Hgb O2 Saturation 91.1 % (95-100) L 04/06/22 05:57 Carboxyhemoglobin 1.1 %THgb (0.4-20.1) 04/06/22 05:57 Methemoglobin 1.0 % (0.4-1.5) 04/06/22 05:57 Total Hemoglobin 14.2 g/dL (14-18) 04/06/22 05:57 Sodium 144.0 mmol/L (131-143) H 04/06/22 05:57 Potassium 3.4 mmol/L (3.5-5.0) L 04/06/22 05:57 Glucose 228.0 mg/dL (70-115) H 04/06/22 05:57 Ionized Calcium 1.1 mmol/L (1.1-1.4) 04/06/22 05:57 O2 Delivery Device Vent 04/06/22 05:57 O2 Liters/Min 15.0 % 04/01/22 12:10 FiO2 55.0 % 04/06/22 05:57 Tidal Volume 0.50 04/06/22 05:57 PEEP 10.0 cmH20 04/06/22 05:57 Specimen Drawn By Anand 04/01/22 17:08 Manager Regional ID dayna 04/06/22 05:57 Sodium 143 mmol/L (136-145) 04/06/22 04:45 Potassium 3.3 mmol/L (3.5-5.1) L 04/06/22 04:45 Chloride 95 mmol/L (98-107) L 04/06/22 04:45 Carbon Dioxide 37 mmol/L (22-29) H 04/06/22 04:45 Anion Gap 14.3 (5-19) 04/06/22 04:45 BUN 32 mg/dL (8-23) H 04/06/22 04:45 Creatinine 0.8 mg/dL (0.7-1.2) 04/06/22 04:45 GFR Calculation 98.6 mL/min (90-130) 04/06/22 04:45 Glucose 176 mg/dL (65-115) H 04/06/22 04:45 POC Glucose 198 mg/dL (70-110) H 04/06/22 18:06 Calculated Osmolality 307 mOsm/kg (285-295) H 04/06/22 04:45 Lactic Acid 1.5 mmol/L (0.5-2.2) 04/01/22 12:15 Calcium 8.8 mg/dL (8.5-10.5) 04/06/22 04:45 Magnesium 2.4 mg/dL (1.7-2.3) H 04/05/22 05:00 Total Bilirubin 0.3 mg/dL (0.15-1.2) 04/04/22 04:24 AST 22 U/L (0-40) 04/04/22 04:24 ALT 18 U/L (0-41) 04/04/22 04:24 Alkaline Phosphatase 85 U/L (40-130) 04/04/22 04:24 Troponin T Baseline 75 ng/L (0-15) H 04/01/22 12:15 Troponin T 120 Minute 79.13 ng/L (0-15) H 04/01/22 14:30 Delta Troponin T 4.13 ABS# (0-10) 04/01/22 14:30 Troponin T Hi Sens 6Hr 69.13 ng/L (0-15) H 04/01/22 18:35 Troponin T Hi Sens 6Hr Delta -5.87 ng/L (0-12) L 04/01/22 18:35 NT-Pro-B Natriuret Pep 4085 pg/mL (0-125) H 04/01/22 12:15 Total Protein 6.2 g/dL (6.6-8.7) L 04/04/22 04:24 Albumin 3.0 g/dL (3.5-5.2) L 04/04/22 04:24 Globulin 3.2 g/dL (1.3-4.6) 04/04/22 04:24 Procalcitonin 0.05 ng/mL (0-0.5) 04/05/22 05:00 Vancomycin Trough 16.6 ug/mL (10-15) H 04/03/22 17:20 Coronavirus 229E (PCR) Not detected (NOT DETECT) 04/01/22 18:35 SARS-CoV-2 (PCR) Not detected (NOT DETECT) 04/01/22 18:35 Micro: Microbiology 04/01/22 12:49 Blood Culture - Final Blood NO GROWTH AFTER 5 DAYS 04/01/22 12:49 Blood Culture - Final Blood NO GROWTH AFTER 5 DAYS 04/06/22 10:12 Blood Culture - Preliminary Blood SPECIMEN COLLECTED 04/06/22 10:12 Blood Culture - Preliminary Blood SPECIMEN COLLECTED A&P Assessment and plan (1) Acute respiratory failure with hypoxia and hypercapnia: (2) Pneumonia: (3) Acute exacerbation of chronic obstructive airways disease: (4) Morbid obesity with BMI of 40.0-44.9, adult: (5) CAD (coronary artery disease): (6) Seropositive rheumatoid arthritis of multiple sites: (7) Sleep apnea: (8) High risk medication use: (9) Heart failure: (10) Difficult ventilator weaning: (11) Diuretic-induced hypokalemia: Plan #Acute Hypoxic Hypercapneic respiratory failure secondary to COPD exacerbation due to right lower lobe pneumonia #Underlying CHF with history of CAD s/p stents #Underlying seropositive rheumatoid arthritis-on Humira- reported last dose was 1 month ago #Takes Lyrica 150 3 times daily as outpatient #STEPHANIE on BiPAP at nighttime #Severe underlying emphysema patient with chronic smoking history #Diuretic induced hypokalemia #Difficulty weaning #Fever spikes -Currently intubated and sedated-on CMV 500/10/40% -appears well sedated with fentanyl 175 mcg/hour, precedex 1.2, seroquel 50 gm at bedtime; pt received duloxetine; Lyrica 150 3 Mg twice daily -less likely benzodiazepine withdrawal; -improvement in wheeze-recommended to continue scheduled nebulizations, IV steroids 40 every 12 hours -Currently on Zosyn; Tmax 101.5-sent for blood cultures, BAL cultures-bronchoscopy showed thick mucus secretions in bilateral lower lobes and right middle lobe; there is also concern for fungal pneumonias as patient was receiving Humira 1 month ago for rheumatoid arthritis-send BAL for galactomannan and PCP as well in view of spiking fevers -K3.3-supplemented potassium-patient appears clinically dry-is significantly net -9 L since admission-we will reduce Lasix to 20 mg twice daily -We will proceed with awakening trial and breathing trial tomorrow morning ICU CHECKLIST: Problem list updated Verbal orders reviewed and signed Code Status: Full code Disposition: Remains in ICU Critically ill: Yes MD discussed with: Hospitalist, RN, RT taking care of the patient Analgesia: Fentanyl Glycemic Control: Insulin scale coverage Nutrition: Tube feeding Restraint Renewal (within 24 hrs): Yes Ulcer Prophylaxis: PPI Chemical Thromboprophylaxis: Prophylaxis: Lovenox Mechanical Thromboprophylaxis: SCDs Need for Central line: N/A Need for Perez catheter: For urine output monitoring Attestations Medical Necessity Statement*: We will continue in ICU Critical Care Time: Critical Care Time (No Overlap): 57 min This patient has a high probability of clinically significant, sudden or life threatening deterioration of the patient's (respiratory, renal, cardiac, neurological) systems required my full, direct attention, the highest level of physician preparedness for urgent intervention and personal management. I managed/supervised life or organ supporting interventions that required frequent physician assessment. I devoted my full attention in the ICU to the direct care of this patient for the period of time indicated above. Time I spent with family or surrogate(s) is included only if the patient was incapable of providing necessary information or participating in decision making. This time includes the following services provided: Telemetry review Mechanical Ventilation Hemodynamic interpretation, assessment and management Review and interpretation of CXR Review and interpretation of lab values Review and interpretation of microbiologic data and culture results Review of medications and administration Review and interpretation of Nutrition requirements and management Discussion of management with other consultants and services Clinical update to family members [x] Data and vital sign review and interpretation [x] Patient assessment, examination and intervention [x] Documentation [x] Medication orders and management Time spent for teaching as well as performing procedures are billed separately and is not included in this note Coding Level of Care Code Critical Care >/= 30 minutes Diagnoses Acute respiratory failure with hypoxia and hypercapnia J96.01; J96.02 Pneumonia J18.9 Acute exacerbation of chronic obstructive airways disease J44.1 Morbid obesity with BMI of 40.0-44.9, adult E66.01; Z68.41 CAD (coronary artery disease) I25.10 Seropositive rheumatoid arthritis of multiple sites M05.79 Sleep apnea G47.30 High risk medication use Z79.899 Heart failure I50.9 Difficult ventilator weaning Z99.11 Diuretic-induced hypokalemia E87.6; T50.2X5A Time Spent (min) 57
[2022-04-06] MEDS: quetiapine 25 mg Tablet 50 MG PO (21:09)
[2022-04-06 22:02] LABS: Adenovirus Not Detected (NOT DETECT); Chlamydia Pneumoniae Not Detected (NOT DETECT); Coronavirus 229E,HKU1,NL63,OC4 Not Detected (NOT DETECT); Human Metapneumovirus Not Detected (NOT DETECT); Human Rhinovirus/Enterovirus Not Detected (NOT DETECT); Influenza A Not Detected (NOT DETECT); Influenza A H1 Not Detected (NOT DETECT); Influenza A H1-2009 Not Detected (NOT DETECT); Influenza A H3 Not Detected (NOT DETECT); Influenza B Not Detected (NOT DETECT); Mycoplasma Pneumoniae Not Detected (NOT DETECT); Parainfluenza Virus Type 1 Not Detected (NOT DETECT); Parainfluenza Virus Type 2 Not Detected (NOT DETECT); Parainfluenza Virus Type 3 Not Detected (NOT DETECT); Parainfluenza Virus Type 4 Not Detected (NOT DETECT); Respiratory Syncytial Virus A Not Detected (NOT DETECT); Respiratory Syncytial Virus B Not Detected (NOT DETECT); SARS-COV-2 Not Detected (NOT DETECT)
[2022-04-06 22:16] LABS: Apprearance, Bronch Wash Hazy (CLEAR); Bronch Source Right Lower Lobe; Color, Bronc Wash Colorless; PATH Referral Yes
[2022-04-07] VITALS (80 sets, daily range): BP systolic 97–148; BP diastolic 53–93; PULSE 60–108; RESP 12–28; TEMP 37.4–38.8; O2SAT 87–96
[2022-04-07] MEDS: albuterol 2.5 mg/3 mL Neb INHALATION ×7 (00:18→23:21)
[2022-04-07] MEDS: ipratropium 0.5 mg/2.5 mL Neb INHALATION ×6 (00:18→23:21)
[2022-04-07 01:17] LABS: Total Cells Counted Bronch 200
[2022-04-07 01:26] LABS: Glucose Point of Care 176 mg/dL (70-110)
[2022-04-07] MEDS: insulin lispro 100 unit/1 mL SUBCUT ×4 (01:26→18:20)
[2022-04-07] MEDS: chlorhexidine gluconate 4% Btl 118 mL 1 APPLIC TOPICAL (01:27)
[2022-04-07 03:10] LABS: Basophils % 0.3 %; Eosinophils % 0.2 %; Hemoglobin 15.5 g/dL (11.7-16.6); Lymphocytes # 2.2 10^3/uL (0.8-4.8); Lymphocytes % 17.2 %; Mean Corpuscular HGB Conc 29.8 g/dL (30.0-36.0); Mean Corpuscular Hemoglobin 26.5 pg (28.0-34.0); Mean Platelet Volume 10.8 fL (7.4-10.4); Monocytes # 1.6 10^3/uL (0.2-0.9); Monocytes % 12.6 %; Neutrophils # 8.68 10^3/uL (1.8-7.7); Neutrophils % 68.6 %; Nucleated Red Blood Cells % 0 %; Platelet Count 236 10^3/cmm (130-400); Red Blood Count 5.84 10^6/uL (4.1-5.3); Red Cell Distribution Width 16.2 % (12.1-15.1); White Blood Count 12.6 10^3/uL (4.0-10.0)
--- NOTE | 2022-04-07 04:00 | XR_ITS ---
WS: [id number] Exam: XR chest 1V portable [id number] Date/Time of Exam: 04/07/2022 3:50 AM Reason For Exam: pulmonary edema Comparison 04/06/2022. Improved infiltrates in the left lower lung zone. There is still a infiltrate and atelectasis in the right lower lobe. The heart is smaller. ET tube remains in good position about 4 cm above the lucy. Slightly less pulmonary vascular congestion. Left basal pleural effusion unchanged. An NG tube exten ds below the level of the diaphragm but the tip is not visible. XR/XR chest 1V portable [id number] IMPRESSION: 1. Chest radiograph showing some improvement since the last exam. The heart is smaller. Less pulmonary vascular congestion. 2. ET tube remains in good position. NG tube extends below the diaphragm.
[2022-04-07] MEDS: piperacillin-tazobactam 3.375 GM in sodium chloride 0.9% (plus) 50 ML IV ×3 (04:31→21:13)
[2022-04-07] MEDS: FUROsemide 10 mg/mL SDV 4mL 20 MG IVP ×2 (04:31→15:54)
[2022-04-07 05:16] LABS: ABG PCO2 51.4 mmHg (35-45); ABG PH Result 7.46 (7.35-7.45); Arterial Blood Gas Hematocrit 48.4 % (42-52); Base Excess ABG 10.6 mmol/L (-2.0-2.0); Blood Gas Sample Site Brachial, left; Blood Gas Sample Type Arterial; HCO3 ABG 36.6 mmol/L (22-26); Oxygen Device VENT; PO2 ABG 60.8 mmHg (80.0-100.0)
[2022-04-07 06:53] LABS: Alanine Aminotransferase 22 U/L (0-41); Albumin Level 3.2 g/dL (3.5-5.2); Alkaline Phosphatase 79 U/L (40-130); Anion Gap 13.8 (5-19); Aspartate Amino Transferase 23 U/L (0-40); Blood Urea Nitrogen 32 mg/dL (8-23); Calcium 8.7 mg/dL (8.5-10.5); Carbon Dioxide 34 mmol/L (22-29); Chloride 97 mmol/L (98-107); Creatinine Clr Calc Pharmacy 122.4938; Globulin 3.4 g/dL (1.3-4.6); Glomerular Filtration Rate 86.1 mL/min (90-130); Glucose 204 mg/dL (65-115); Osmolality Calculated 305 mOsm/kg (285-295); Potassium 3.8 mmol/L (3.5-5.1); Sodium 141 mmol/L (136-145); Total Bilirubin 0.7 mg/dL (0.15-1.2); Total Protein 6.6 g/dL (6.6-8.7)
[2022-04-07 06:58] LABS: Glucose Point of Care 201 mg/dL (70-110)
[2022-04-07] MEDS: acetaminophen 325 mg Tablet 650 MG PO (07:30)
[2022-04-07] MEDS: budesonide 0.5 mg/2 mL Neb INHALATION ×2 (08:22→20:04)
[2022-04-07] MEDS: ropinirole 2 mg Tablet 4 MG PO ×2 (08:52→15:54)
[2022-04-07] MEDS: duloxetine 60 mg Capsule PO (08:52)
[2022-04-07] MEDS: pantoprazole 40 mg SDV IVP (08:52)
[2022-04-07] MEDS: clopidogrel 75 mg Tablet PO (08:53)
[2022-04-07] MEDS: montelukast sodium 10 mg Tablet PO (08:53)
[2022-04-07] MEDS: atorvastatin 40 mg Tablet 80 MG PO (08:53)
[2022-04-07] MEDS: pregabalin 150 mg Capsule PO ×2 (08:53→15:54)
[2022-04-07] MEDS: carvedilol 3.125 mg Tablet PO (08:54)
[2022-04-07] MEDS: enoxaparin 40 mg/0.4 mL Syringe SUBCUT (09:50)
[2022-04-07 11:06] LABS: Glucose Point of Care 156 mg/dL (70-110)
[2022-04-07] MEDS: vancomycin 1,500 MG/300 ML PIGGYBACK 200 MG IV (11:35)
--- NOTE | 2022-04-07 14:22 | PM.PN ---
Subjective Subjective: Patient has been febrile to 101 Fahrenheit. Blood cultures returned positive for gram-positive cocci awaiting further identification. Vancomycin has been restarted. Continuing to attempt weaning down on FiO2 underwent. Underwent bronchoscopy yesterday due to new fevers, mucous was encountered, cleared and culture sent. Medications: Reviewed: Yes Vitals/I&O/Wt Last Vital Signs Temp 101.1 F H 04/07/22 12:15 Pulse 68 04/07/22 14:00 Resp 20 H 04/07/22 13:30 BP 103/55 04/07/22 14:00 Pulse Ox 94 04/07/22 14:00 O2 Del Method 04/07/22 11:35 O2 Flow Rate 95 04/05/22 11:00 FiO2 50 04/07/22 13:30 04/06/22 04/07/22 04/07/22 22:59 06:59 14:59 Intake Total 617.499 / 1101.502 630.823 / 1732.325 644.607 / 644.607 Output Total 2000 / 2700 1400 / 4100 1100 / 1100 Balance -1382.501 / -1598.498 -769.177 / -2367.675 -455.393 / -455.393 Weight last 48 hrs Weight 135.1 kg Weight 140.977 kg Physical Exam Narrative: General: intubated, sedated HEENT: PERRLA, pupils bilaterally equal and reactive, pallors not present Chest: Normal vesicular breath sounds, no added sounds, equal good air entry bilaterally CVS: S1-S2 regular, no murmurs, no tachycardia, no gallops, no rubs Abdomen: Soft, nontender, no organomegaly, bowel sounds present Neuro: intubated, sedated Extremities: stasis dermatitis changes B/L LE, no edema or cellulitis Urinary Catheter Management: Perez: Cath Placed During This Visit: yes Reason for Continuing Indwelling Catheter: Accurate Measurement of Urinary Output in Critically Ill Patients Urinary Catheter Date of Insertion: 04/01/22 Urinary Catheter Time of Insertion: 17:48 Data 04/07/22 02:33 04/07/22 06:18 Micro: Microbiology 04/07/22 12:54 Blood Culture - Preliminary Blood SPECIMEN COLLECTED 04/07/22 12:45 Blood Culture - Preliminary Blood SPECIMEN COLLECTED 04/06/22 10:12 Blood Culture - Preliminary Blood 04/06/22 10:12 Blood Culture - Preliminary Blood 04/06/22 18:25 Gram Stain - Final Lung Right Lower Lobe 04/01/22 12:49 Blood Culture - Final Blood NO GROWTH AFTER 5 DAYS 04/01/22 12:49 Blood Culture - Final Blood NO GROWTH AFTER 5 DAYS A&P Assessment and plan (1) Acute respiratory failure with hypoxia and hypercapnia: Acute hypoxic hypercapnic respiratory failure, failed BiPAP initially upon admission and needed to be intubated upon arrival. Patient has remained intubated since April 01, 2022. Likely that his respiratory failure is multifactorial, related to COPD exacerbation, CHF and pneumonia. Plan for today: Continued attempts to wean from ventilator s/p bronchoscopy yesterday, cx awaited, Sent Ag/GM and BDG from bronch and serum, low suspicion for opportunistic infection currently (2) Acute exacerbation of chronic obstructive airways disease: He is currently on treatment with Solu-Medrol 40 mg IV 12 hours today. Continue DuoNeb inhalation every 4 hours scheduled continue budesonide 0.5 mg elation twice daily Add glycopyrrolate to assist with secretions Continue pulmonary toilet Had initially hemoptysis upon presentation which has resolved. Appreciate pulmonary recommendations (3) Sepsis: Required transient Levophed support upon admission, has now been weaned off. Sepsis likely related to pneumonia. Currently on treatment with piperacillin/tazobactam (04/01-) Vancomycin added today after + blood cx for GPC, pending further identification Repeat blood cx Negative COVID PCR upon admission Respiratory culture with heavy respiratory alexis (4) Elevated brain natriuretic peptide (BNP) level: Related to acute diastolic CHF. He is now diuresing well with increased Lasix 60 mg twice daily. Reviewed intake and output. In negative balance. Edema is nearly resolved. Continue diuresis. Monitor I&O. Creatinine stable at 0.8 TTE - EF 55%. Seems to be mild hypokinesis of apical lateral wall. Normal pulmonary artery pressure. Will benefit from further CAD risk stratification with acute conditions improve. Troponin with moderate elevation secondary likely to demand ischemia from CHF. History of underlying CAD, wall motion abnormality noted. May benefit subsequently from additional risk stratification with stress testing. (5) Pneumonia: As above and sepsis (6) Acute alteration in mental status: Acute metabolic encephalopathy on presentation secondary to respiratory failure, hypercapnia. Will need to be reassessed once extubated. (7) Hypokalemia: Now resolved Plan Other chronic medical conditions including CAD: Continue atorvastatin 80, Plavix 75 mg, Coreg 3.125 mg p.o. daily Depression GERD: Currently on Protonix HTN HLD Memory loss STEPHANIE on nightly BiPAP Osteoarthritis of left hip Restless leg Seropositive RA DM2: Sliding scale insulin, glucose monitoring requested. DVT prophylaxis: Lovenox PUD prophylaxis Protonix 40 mg IV daily currently at bedside, updated. Attestations Medical Necessity Statement*: + blood cx, broadening abx, s/p bronch yesterday, continued attempts at extubation Coding Level of Care Code Critical Care >/= 30 minutes Diagnoses Acute respiratory failure with hypoxia and hypercapnia J96.01; J96.02 Acute exacerbation of chronic obstructive airways disease J44.1 Sepsis A41.9 Elevated brain natriuretic peptide (BNP) level R79.89 Pneumonia J18.9 Acute alteration in mental status R41.82 Hypokalemia E87.6
[2022-04-07 16:31] LABS: ABG PH Result 7.39 (7.35-7.45); Alveolar-Arterial Oxygen Gradi 14.8 mmHg (5-10); Arterial Blood Gas Hematocrit 48.7 % (42-52); Base Excess ABG 9.3 mmol/L (-2.0-2.0); Blood Gas Allen Test Pos; Blood Gas Operator Identificat CAK; Blood Gas Sample Site Brachial, left; Blood Gas Sample Type Arterial; Carboxyhemoglobin 1.3 %THgb (0.4-20.1); HCO3 ABG 37.2 mmol/L (22-26); HGB O2 Sat 85.6 % (95-100); Ionized Calcium Level - ABG 1.2 mmol/L (1.1-1.4); Methemoglobin 0.6 % (0.4-1.5); Oxygen Device VENT; Oxygen Saturation ABG 87.3; PO2 ABG 57.5 mmHg (80.0-100.0); Potassium Level - ABG 3.6 mmol/L (3.5-5.0); Total Hemoglobin 15.9 g/dL (14-18)
--- NOTE | 2022-04-07 16:57 | P.PN_ITS ---
Subjective Subjective: -Continues to spike fevers, blood cultures growing gram-positive cocci-identification pending, started on vancomycin and another set of blood cultures sent -Hemodynamically stable -Taper down fentanyl to 25 mcg/hour and currently on Precedex-opens eyes moves all his limbs and follows commands -Chest x-ray today morning showing some improvement since last exam. Less pulmonary vascular congestion --2.3 L last 24 hours and -10 L since admission, renal function is good, electrolytes are normal -Tolerated pressure support ventilation 01/19, FiO2 35%, PEEP of 6 and generating tidal volumes 420-ABG 7.3 /57/37/87 % saturation -We will proceed with extubation to BiPAP with 5 to 6 L supplemental oxygen -Other labs and imaging reviewed Medications: Reviewed: Yes Vitals/I&O/Wt Last Vital Signs Temp 101.1 F H 04/07/22 12:15 Pulse 87 04/07/22 15:22 Resp 12 04/07/22 15:22 BP 103/55 04/07/22 14:00 Pulse Ox 92 04/07/22 15:22 O2 Del Method 04/07/22 15:22 O2 Flow Rate 95 04/05/22 11:00 FiO2 35 04/07/22 15:22 04/07/22 04/07/22 04/07/22 06:59 14:59 22:59 Intake Total 630.823 / 1732.325 644.607 / 644.607 12.833 / 657.440 Output Total 1400 / 4100 1100 / 1100 Balance -769.177 / -2367.675 -455.393 / -455.393 12.833 / -442.560 Weight last 48 hrs Weight 297 lb 13.512 oz Weight 310 lb 12.8 oz Physical Exam Narrative: PHYSICAL EXAM: General: lying in bed, sedated and intubated. HEENT:NCAT, PERRLA, EOMI Neck: Supple Lungs: Improved diffuse wheeze there are still some bibasilar crepitations Heart: s1/s2, RRR Abd: soft, NT, ND, BS + Normoactive Extremities: No edema AGRICULTURAL RESEARCH DIRECTOR: sedated and limited AGRICULTURAL RESEARCH DIRECTOR exam possible. SKIN: Appears dry on the legs Urinary Catheter Management: Perez: Cath Placed During This Visit: yes Reason for Continuing Indwelling Catheter: Accurate Measurement of Urinary Output in Critically Ill Patients Urinary Catheter Date of Insertion: 04/01/22 Urinary Catheter Time of Insertion: 17:48 Data 04/07/22 02:33 04/07/22 06:18 Other Labs: Radiology Impressions Chest/Abdomen/Pelvis CT 04/01/22 12:27 IMPRESSION: 1. Quality of this examination is overall limited by body habitus, position of the arms and motion. 2. No central pulmonary embolism. 3. RIGHT lung pneumonia. Most dense consolidation RIGHT lower lobe. 4. No GI tract obstruction. No renal obstruction. Adnexa normal appendix. Head CT 04/01/22 12:29 IMPRESSION: 1. No acute intracranial hemorrhage or edema. 2. Mild atrophy and moderate small vessel ischemic type changes. Chest CTA 04/02/22 14:04 IMPRESSION: 1. Negative CT angiogram of the chest. No evidence of acute pulmonary embolism. 2. Decreased lung volumes with rather extensive lower lobe atelectasis progressed from previous exam. 3. Superimposed nodular infiltrate right lower lobe improved from earlier study. 4. Significant cardiomegaly, stable. 5. Mild mediastinal lymphadenopathy, stable. Chest X-Ray 04/07/22 04:00 IMPRESSION: 1. Chest radiograph showing some improvement since the last exam. The heart is smaller. Less pulmonary vascular congestion. 2. ET tube remains in good position. NG tube extends below the diaphragm. Laboratory Results WBC 12.6 10^3/uL (4.0-10.0) H 04/07/22 02:33 RBC 5.84 10^6/uL (4.1-5.3) H 04/07/22 02:33 Hgb 15.5 g/dL (11.7-16.6) 04/07/22 02:33 Hct 52.0 % (42.0-52.0) 04/07/22 02:33 MCV 89.0 fl (80-94) 04/07/22 02:33 MCH 26.5 pg (28.0-34.0) L 04/07/22 02:33 MCHC 29.8 g/dL (30.0-36.0) L 04/07/22 02:33 RDW 16.2 % (12.1-15.1) H 04/07/22 02:33 Plt Count 236 10^3/cmm (130-400) 04/07/22 02:33 MPV 10.8 fL (7.4-10.4) H 04/07/22 02:33 Neut % (Auto) 68.6 % 04/07/22 02:33 Lymph % (Auto) 17.2 % 04/07/22 02:33 [place] % (Auto) 12.6 % 04/07/22 02:33 Eos % (Auto) 0.2 % 04/07/22 02:33 Baso % (Auto) 0.3 % 04/07/22 02:33 Neut # (Auto) 8.68 10^3/uL (1.8-7.7) H 04/07/22 02:33 Lymph # (Auto) 2.2 10^3/uL (0.8-4.8) 04/07/22 02:33 [place] # (Auto) 1.6 10^3/uL (0.2-0.9) H 04/07/22 02:33 Eos # (Auto) 0.0 10^3/uL (0.0-0.8) 04/07/22 02:33 Baso # (Auto) 0.0 10^3/uL (0.0-0.1) 04/07/22 02:33 Nucleated RBC % (auto) 0 % 04/07/22 02:33 Nucleated RBCs # 0.0 /100WBC 04/07/22 02:33 PT 14.40 SECONDS (12.1-14.9) 04/01/22 12:15 INR 1.09 (0.8-1.2) 04/01/22 12:15 APTT 32.8 SECONDS (23.9-36.7) 04/01/22 12:15 Specimen Type Arterial 04/07/22 16:19 Sample Site Brachial, left 04/07/22 16:19 ABG pH 7.39 (7.35-7.45) 04/07/22 16:19 ABG pCO2 51.4 mmHg (35-45) H 04/07/22 05:04 ABG pO2 57.5 mmHg (80.0-100.0) L 04/07/22 16:19 ABG HCO3 37.2 mmol/L (22-26) H 04/07/22 16:19 ABG O2 Saturation 87.3 04/07/22 16:19 ABG Base Excess 9.3 mmol/L (-2.0-2.0) H 04/07/22 16:19 Wil Test Pos 04/07/22 16:19 A-a O2 Gradient 14.8 mmHg (5-10) H 04/07/22 16:19 Hematocrit 48.7 % (42-52) 04/07/22 16:19 Hgb O2 Saturation 85.6 % (95-100) L 04/07/22 16:19 Carboxyhemoglobin 1.3 %THgb (0.4-20.1) 04/07/22 16:19 Methemoglobin 0.6 % (0.4-1.5) 04/07/22 16:19 Total Hemoglobin 15.9 g/dL (14-18) 04/07/22 16:19 Sodium 145.0 mmol/L (131-143) H 04/07/22 16:19 Potassium 3.6 mmol/L (3.5-5.0) 04/07/22 16:19 Glucose 154.0 mg/dL (70-115) H 04/07/22 16:19 Ionized Calcium 1.2 mmol/L (1.1-1.4) 04/07/22 16:19 O2 Delivery Device Vent 04/07/22 16:19 O2 Liters/Min 15.0 % 04/01/22 12:10 FiO2 35.0 % 04/07/22 16:19 Tidal Volume 0.50 04/06/22 05:57 PEEP 6.0 cmH20 04/07/22 16:19 Specimen Drawn By Anand 04/01/22 17:08 Core Cleaner ID Cak 04/07/22 16:19 Sodium 141 mmol/L (136-145) 04/07/22 06:18 Potassium 3.8 mmol/L (3.5-5.1) 04/07/22 06:18 Chloride 97 mmol/L (98-107) L 04/07/22 06:18 Carbon Dioxide 34 mmol/L (22-29) H 04/07/22 06:18 Anion Gap 13.8 (5-19) 04/07/22 06:18 BUN 32 mg/dL (8-23) H 04/07/22 06:18 Creatinine 0.9 mg/dL (0.7-1.2) 04/07/22 06:18 GFR Calculation 86.1 mL/min (90-130) L 04/07/22 06:18 Glucose 204 mg/dL (65-115) H 04/07/22 06:18 POC Glucose 156 mg/dL (70-110) H 04/07/22 11:03 Calculated Osmolality 305 mOsm/kg (285-295) H 04/07/22 06:18 Lactic Acid 1.5 mmol/L (0.5-2.2) 04/01/22 12:15 Calcium 8.7 mg/dL (8.5-10.5) 04/07/22 06:18 Magnesium 2.4 mg/dL (1.7-2.3) H 04/05/22 05:00 Total Bilirubin 0.7 mg/dL (0.15-1.2) 04/07/22 06:18 AST 23 U/L (0-40) 04/07/22 06:18 ALT 22 U/L (0-41) 04/07/22 06:18 Alkaline Phosphatase 79 U/L (40-130) 04/07/22 06:18 Troponin T Baseline 75 ng/L (0-15) H 04/01/22 12:15 Troponin T 120 Minute 79.13 ng/L (0-15) H 04/01/22 14:30 Delta Troponin T 4.13 ABS# (0-10) 04/01/22 14:30 Troponin T Hi Sens 6Hr 69.13 ng/L (0-15) H 04/01/22 18:35 Troponin T Hi Sens 6Hr Delta -5.87 ng/L (0-12) L 04/01/22 18:35 NT-Pro-B Natriuret Pep 4085 pg/mL (0-125) H 04/01/22 12:15 Total Protein 6.6 g/dL (6.6-8.7) 04/07/22 06:18 Albumin 3.2 g/dL (3.5-5.2) L 04/07/22 06:18 Globulin 3.4 g/dL (1.3-4.6) 04/07/22 06:18 Procalcitonin 0.05 ng/mL (0-0.5) 04/05/22 05:00 Nasal Influ A H1 2008 PCR Not detected (NOT DETECT) 04/06/22 18:10 Bronch Specimen Source Right lower lobe 04/06/22 18:25 Bronchial Fluid Color Colorless 04/06/22 18:25 Bronchial Fluid Appearance Hazy (CLEAR) 04/06/22 18:25 Bronchial Fluid WBC 1513 /uL 04/06/22 18:25 Bronchial Fluid RBC 350 10^3/uL 04/06/22 18:25 Bronch Cells Counted 200 04/06/22 18:25 Bronchial Neutrophils 47.00 % (0.9-2.3) H 04/06/22 18: Bronchial Lymphocytes 52.00 % (10.71-12.91) H 04/06/22 18: Bronchial Macrophages 1.00 % (83.6-86.8) L 04/06/22 18:25 Bronchial Diff Comment Yes 04/06/22 18: Vancomycin Trough 16.6 ug/mL (10-15) H 04/03/22 17:20 Adenovirus (PCR) Not detected (NOT DETECT) 04/06/22 18:10 C. pneumoniae DNA (PCR) Not detected (NOT DETECT) 04/06/22 18:10 Coronavirus 229E (PCR) Not detected (NOT DETECT) 04/06/22 18:10 Human Metapneumovir PCR Not detected (NOT DETECT) 04/06/22 18:10 Influenza A (H1) PCR Not detected (NOT DETECT) 04/06/22 18:10 Influenza A (H3) PCR Not detected (NOT DETECT) 04/06/22 18:10 Influenza Type A (PCR) Not detected (NOT DETECT) 04/06/22 18:10 Influenza Type B (PCR) Not detected (NOT DETECT) 04/06/22 18:10 M. pneumoniae (PCR) Not detected (NOT DETECT) 04/06/22 18:10 Parainfluenza 1 (PCR) Not detected (NOT DETECT) 04/06/22 18:10 Parainfluenza 2 (PCR) Not detected (NOT DETECT) 04/06/22 18:10 Parainfluenza 3 (PCR) Not detected (NOT DETECT) 04/06/22 18:10 Parainfluenza 4 (PCR) Not detected (NOT DETECT) 04/06/22 18:10 RSV Type A (PCR) Not detected (NOT DETECT) 04/06/22 18:10 RSV Type B (PCR) Not detected (NOT DETECT) 04/06/22 18:10 Entero/Rhino (PCR) Not detected (NOT DETECT) 04/06/22 18:10 SARS-CoV-2 (PCR) Not detected (NOT DETECT) 04/06/22 18:10 Micro: Microbiology 04/07/22 12:54 Blood Culture - Preliminary Blood SPECIMEN COLLECTED 04/07/22 12:45 Blood Culture - Preliminary Blood SPECIMEN COLLECTED 04/06/22 10:12 Blood Culture - Preliminary Blood 04/06/22 10:12 Blood Culture - Preliminary Blood 04/06/22 18:25 Gram Stain - Final Lung Right Lower Lobe 04/01/22 12:49 Blood Culture - Final Blood NO GROWTH AFTER 5 DAYS 04/01/22 12:49 Blood Culture - Final Blood NO GROWTH AFTER 5 DAYS A&P Assessment and plan (1) Acute respiratory failure with hypoxia and hypercapnia: (2) Pneumonia: (3) Acute exacerbation of chronic obstructive airways disease: (4) Morbid obesity with BMI of 40.0-44.9, adult: (5) CAD (coronary artery disease): (6) Seropositive rheumatoid arthritis of multiple sites: (7) Sleep apnea: (8) High risk medication use: (9) Heart failure: (10) Difficult ventilator weaning: (11) Bacteremia: Plan #Acute Hypoxic Hypercapneic respiratory failure secondary to COPD exacerbation due to right lower lobe pneumonia-improving #Underlying CHF with history of CAD s/p stents on Plavix 75 Mg p.o. daily, Lipitor 80 Mg p.o. daily, carvedilol 3.125 Mg p.o. daily, #Underlying seropositive rheumatoid arthritis-on Humira- reported last dose was 1 month ago #Takes Lyrica 150 3 times daily as outpatient #STEPHANIE on BiPAP at nighttime #Severe underlying emphysema patient with chronic smoking history-continue scheduled albuterol/Atrovent/budesonide nebulizations, taper IV steroids based on clinical response #Diuretic induced hypokalemia-resolved #Difficulty weaning-passed SAT and SBT today-we will extubate to BiPAP on 5 to 6 L supplemental oxygen #Persistent fever spikes-blood culture 04/06/2022 growing gram-positive cocci in pairs and clusters-identification pending-started on vancomycin and continue Zosyn -Hemodynamically stable -Taper down fentanyl to 25 mcg/hour and currently on Precedex-opens eyes moves all his limbs and follows commands -Chest x-ray today morning showing some improvement since last exam. Less pulmonary vascular congestion --2.3 L last 24 hours and -10 L since admission, renal function is good, electrolytes are normal-on Lasix 20 Mg twice daily-I will reduce to daily once -Tolerated pressure support ventilation 12/6, FiO2 35%, PEEP of 6 and generating tidal volumes 420-ABG 7.3 9/62/57/37/87 % saturation -We will proceed with extubation to BiPAP with 5 to 6 L supplemental oxygenrecommended to continue scheduled nebulizations, IV steroids 40 every 12 hours -Continues to spike fevers, blood cultures growing gram-positive cocci- identification pending, started on vancomycin and another set of blood cultures sent, continue Zosyn; follow-up on, BAL cultures -Bronchoscopy showed thick mucus secretions in bilateral lower lobes and right middle lobe; there is also concern for fungal pneumonias as patient was receiving Humira 1 month ago for rheumatoid arthritis-send BAL for galactomannan and PCP as well in view of spiking fevers ICU CHECKLIST: Problem list updated Verbal orders reviewed and signed Code Status: Full code Disposition: Remains in ICU Critically ill: Yes MD discussed with: Hospitalist, RN, RT taking care of the patient Analgesia: Fentanyl Glycemic Control: Insulin scale coverage Nutrition: N.p.o. for tonight Restraint Renewal (within 24 hrs): Yes Ulcer Prophylaxis: PPI Chemical Thromboprophylaxis: Prophylaxis: Lovenox Mechanical Thromboprophylaxis: SCDs Need for Central line: N/A Need for Perez catheter: For urine output monitoring Attestations Medical Necessity Statement*: Possible extubation today evening, will need monitoring for 24 to 48 hours in ICU Critical Care Time: Critical Care Time (No Overlap): 63 min This patient has a high probability of clinically significant, sudden or life threatening deterioration of the patient's (respiratory, renal, cardiac, neurological) systems required my full, direct attention, the highest level of physician preparedness for urgent intervention and personal management. I managed/supervised life or organ supporting interventions that required frequent physician assessment. I devoted my full attention in the ICU to the direct care of this patient for the period of time indicated above. Time I spent with family or surrogate(s) is included only if the patient was incapable of providing necessary information or participating in decision making. This time includes the following services provided: Telemetry review Mechanical Ventilation Hemodynamic interpretation, assessment and management Review and interpretation of CXR Review and interpretation of lab values Review and interpretation of microbiologic data and culture results Review of medications and administration Review and interpretation of Nutrition requirements and management Discussion of management with other consultants and services Clinical update to family members [x] Data and vital sign review and interpretation [x] Patient assessment, examination and intervention [x] Documentation [x] Medication orders and management Time spent for teaching as well as performing procedures are billed separately and is not included in this note Critical Care Time (min): 63 Coding Level of Care Code Acute Code for g Fwd Diagnoses Acute respiratory failure with hypoxia and hypercapnia J96.01; J96.02 Pneumonia J18.9 Acute exacerbation of chronic obstructive airways disease J44.1 Morbid obesity with BMI of 40.0-44.9, adult E66.01; Z68.41 CAD (coronary artery disease) I25.10 Seropositive rheumatoid arthritis of multiple sites M05.79 Sleep apnea G47.30 High risk medication use Z79.899 Heart failure I50.9 Difficult ventilator weaning Z99.11 Bacteremia R78.81 Time Spent (min) 63
--- NOTE | 2022-04-07 18:08 | PC.NURSE ---
Extubated 175, nonverbal, following simple commands, VSS, HHFNC in place, at bedside.
[2022-04-07 18:20] LABS: Glucose Point of Care 178 mg/dL (70-110)
[2022-04-07 21:43] LABS: ABG PCO2 57.4 mmHg (35-45); ABG PH Result 7.42 (7.35-7.45); Alveolar-Arterial Oxygen Gradi 39.2 mmHg (5-10); Base Excess ABG 9.9 mmol/L (-2.0-2.0); Blood Gas Allen Test Pos; Blood Gas Operator Identificat JB; Blood Gas Sample Site Radial, right; Blood Gas Sample Type Arterial; Carboxyhemoglobin 1.4 %THgb (0.4-20.1); HCO3 ABG 37.1 mmol/L (22-26); HGB O2 Sat 81.6 % (95-100); Ionized Calcium Level - ABG 1.2 mmol/L (1.1-1.4); Methemoglobin 0.7 % (0.4-1.5); Oxygen Device HAG; Oxygen Saturation ABG 83.3; PO2 ABG 52.3 mmHg (80.0-100.0); Potassium Level - ABG 3.7 mmol/L (3.5-5.0); Total Hemoglobin 16.3 g/dL (14-18)
[2022-04-08] VITALS (40 sets, daily range): BP systolic 103–187; BP diastolic 58–135; PULSE 66–106; RESP 12–27; TEMP 36.6–37.3; O2SAT 89–95
[2022-04-08] MEDS: vancomycin 1,500 MG/300 ML PIGGYBACK 200 MG IV ×3 (00:18→23:36)
[2022-04-08 01:15] LABS: Glucose Point of Care 151 mg/dL (70-110)
[2022-04-08] MEDS: insulin lispro 100 unit/1 mL SUBCUT ×2 (01:16→06:29)
[2022-04-08] MEDS: chlorhexidine gluconate 4% Btl 118 mL 1 APPLIC TOPICAL (01:18)
[2022-04-08] MEDS: ipratropium 0.5 mg/2.5 mL Neb INHALATION ×2 (03:54→07:47)
[2022-04-08] MEDS: albuterol 2.5 mg/3 mL Neb INHALATION ×2 (03:54→07:47)
[2022-04-08] MEDS: piperacillin-tazobactam 3.375 GM in sodium chloride 0.9% (plus) 50 ML IV ×3 (03:58→20:04)
[2022-04-08] MEDS: FUROsemide 10 mg/mL SDV 4mL 20 MG IVP (03:59)
[2022-04-08 06:12] LABS: Basophils # 0.1 10^3/uL (0.0-0.1); Basophils % 0.4 %; Eosinophils # 0.1 10^3/uL (0.0-0.8); Eosinophils % 0.5 %; Hematocrit 50.8 % (42.0-52.0); Hemoglobin 15.8 g/dL (11.7-16.6); Lymphocytes # 0.7 10^3/uL (0.8-4.8); Lymphocytes % 4.9 %; Mean Corpuscular HGB Conc 31.1 g/dL (30.0-36.0); Mean Corpuscular Hemoglobin 27.2 pg (28.0-34.0); Mean Corpuscular Volume 87.4 fl (80-94); Mean Platelet Volume 12.1 fL (7.4-10.4); Monocytes # 1.1 10^3/uL (0.2-0.9); Monocytes % 7.5 %; Neutrophils # 11.95 10^3/uL (1.8-7.7); Neutrophils % 85.3 %; Nucleated Red Blood Cells % 0 %; Platelet Count 166 10^3/cmm (130-400); Red Blood Count 5.81 10^6/uL (4.1-5.3); Red Cell Distribution Width 16.5 % (12.1-15.1)
[2022-04-08 06:15] LABS: Slide Review Slide Review Perform
[2022-04-08 06:41] LABS: Glucose Point of Care 157 mg/dL (70-110)
[2022-04-08 07:24] LABS: Alanine Aminotransferase 54 U/L (0-41); Albumin Level 3.2 g/dL (3.5-5.2); Alkaline Phosphatase 83 U/L (40-130); Blood Urea Nitrogen 35 mg/dL (8-23); Calcium 8.8 mg/dL (8.5-10.5); Carbon Dioxide 32 mmol/L (22-29); Globulin 3.5 g/dL (1.3-4.6); Glomerular Filtration Rate 98.6 mL/min (90-130); Glucose 182 mg/dL (65-115); Total Bilirubin 0.9 mg/dL (0.15-1.2); Total Protein 6.7 g/dL (6.6-8.7)
--- NOTE | 2022-04-08 07:39 | XR_ITS ---
WS: [id number] Exam: XR chest 1V portable [id number] Date/Time of Exam: 04/08/2022 7:40 AM Reason For Exam: pneumonia Comparison 04/07/2022. The endotracheal tube has been removed and also the enteric tube. There is infiltrate and atelectasis in the right base with pleural effusion. There is also infiltrate in the left lower lobe with small left pleural effusion. Little change since previous study. The heart is enlarged but unchanged in siz e. The mediastinum is normal in contour. Bony structures are intact. Monitoring leads superimpose the chest. XR/XR chest 1V portable [id number] IMPRESSION: 1. Bibasal infiltrates and atelectasis and pleural effusions showing little mary nge. 2. The ET tube and NG tube have been removed. 3. Cardiac enlargement unchanged.
[2022-04-08] MEDS: budesonide 0.5 mg/2 mL Neb INHALATION ×2 (07:47→19:55)
[2022-04-08 07:48] LABS: Chloride 99 mmol/L (98-107); Osmolality Calculated 311 mOsm/kg (285-295); Sodium 144 mmol/L (136-145)
[2022-04-08 07:57] LABS: Anion Gap 16.7 (5-19); Aspartate Amino Transferase 63 U/L (0-40); Potassium 3.7 mmol/L (3.5-5.1)
[2022-04-08 08:03] LABS: Glucose Point of Care 163 mg/dL (70-110)
[2022-04-08 08:11] LABS: ABG PCO2 59.8 mmHg (35-45)
--- NOTE | 2022-04-08 08:54 | P.PN_ITS ---
Subjective Subjective: -Extubated successfully yesterday -Overnight placed on BiPAP-currently on high flow nasal cannula 40 L 40% saturating 92% -We will put him back on BiPAP at nighttime -No more fever spikes since yesterday evening -Hemodynamically stable -opens eyes moves all his limbs and follows commands- still drowsy - -10 L since admission, renal function is good, electrolytes are normal; reduced Lasix to 20 mg daily -bedside evaluation - recommended to keep NPO for today except meds -Other labs and imaging reviewed -plan is to send him to rehab Medications: Reviewed: Yes Vitals/I&O/Wt Last Vital Signs Temp 97.9 F 04/08/22 04:00 Pulse 75 04/08/22 08:03 Resp 20 H 04/08/22 08:03 BP 131/81 04/08/22 06:00 Pulse Ox 92 04/08/22 08:03 O2 Del Method 04/08/22 08:00 O2 Flow Rate 45 04/08/22 08:03 FiO2 60 04/08/22 08:03 04/07/22 04/08/22 04/08/22 22:59 06:59 14:59 Intake Total 99.449 / 744.056 355.769 / 1099.825 310 / 310 Output Total 1000 / 2100 1700 / 3800 Balance -900.551 / -1355.944 -1344.231 / -2700.175 310 / 310 Weight last 48 hrs Weight 288 lb 2.307 oz Weight 297 lb 13.512 oz Physical Exam Narrative: PHYSICAL EXAM: General: lying in bed, extubated, following commands appeared little bit drowsy from sedation HEENT:NCAT, PERRLA, EOMI Neck: Supple Lungs: Reduced to bilateral basal sounds with some coarse crepitations Heart: s1/s2, RRR Abd: soft, NT, ND, BS + Normoactive Extremities: No edema TOW DRIVER: Drowsy but following commands and answering all questions SKIN: Appears dry on the legs Urinary Catheter Management: Perez: Cath Placed During This Visit: yes Reason for Continuing Indwelling Catheter: Accurate Measurement of Urinary Output in Critically Ill Patients Urinary Catheter Date of Insertion: 04/01/22 Urinary Catheter Time of Insertion: 17:48 Data 04/08/22 05:51 04/08/22 06:32 Other Labs: Radiology Impressions Chest/Abdomen/Pelvis CT 04/01/22 12:27 IMPRESSION: 1. Quality of this examination is overall limited by body habitus, position of the arms and motion. 2. No central pulmonary embolism. 3. RIGHT lung pneumonia. Most dense consolidation RIGHT lower lobe. 4. No GI tract obstruction. No renal obstruction. Adnexa normal appendix. Head CT 04/01/22 12:29 IMPRESSION: 1. No acute intracranial hemorrhage or edema. 2. Mild atrophy and moderate small vessel ischemic type changes. Chest CTA 04/02/22 14:04 IMPRESSION: 1. Negative CT angiogram of the chest. No evidence of acute pulmonary embolism. 2. Decreased lung volumes with rather extensive lower lobe atelectasis progressed from previous exam. 3. Superimposed nodular infiltrate right lower lobe improved from earlier study. 4. Significant cardiomegaly, stable. 5. Mild mediastinal lymphadenopathy, stable. Chest X-Ray 04/08/22 07:39 IMPRESSION: 1. Bibasal infiltrates and atelectasis and pleural effusions showing little change. 2. The ET tube and NG tube have been removed. 3. Cardiac enlargement unchanged. Laboratory Results WBC 14.0 10^3/uL (4.0-10.0) H 04/08/22 05:51 RBC 5.81 10^6/uL (4.1-5.3) H 04/08/22 05:51 Hgb 15.8 g/dL (11.7-16.6) 04/08/22 05:51 Hct 50.8 % (42.0-52.0) 04/08/22 05:51 MCV 87.4 fl (80-94) 04/08/22 05:51 MCH 27.2 pg (28.0-34.0) L 04/08/22 05:51 MCHC 31.1 g/dL (30.0-36.0) 04/08/22 05:51 RDW 16.5 % (12.1-15.1) H 04/08/22 05:51 Plt Count 166 10^3/cmm (130-400) 04/08/22 05:51 MPV 12.1 fL (7.4-10.4) H 04/08/22 05:51 Neut % (Auto) 85.3 % 04/08/22 05:51 Lymph % (Auto) 4.9 % 04/08/22 05:51 Edgar % (Auto) 7.5 % 04/08/22 05:51 Eos % (Auto) 0.5 % 04/08/22 05:51 Baso % (Auto) 0.4 % 04/08/22 05:51 Neut # (Auto) 11.95 10^3/uL (1.8-7.7) H 04/08/22 05:51 Lymph # (Auto) 0.7 10^3/uL (0.8-4.8) L 04/08/22 05:51 Edgar # (Auto) 1.1 10^3/uL (0.2-0.9) H 04/08/22 05:51 Eos # (Auto) 0.1 10^3/uL (0.0-0.8) 04/08/22 05:51 Baso # (Auto) 0.1 10^3/uL (0.0-0.1) 04/08/22 05:51 Nucleated RBC % (auto) 0 % 04/08/22 05:51 Nucleated RBCs # 0.0 /100WBC 04/08/22 05:51 PT 14.40 SECONDS (12.1-14.9) 04/01/22 12:15 INR 1.09 (0.8-1.2) 04/01/22 12:15 APTT 32.8 SECONDS (23.9-36.7) 04/01/22 12:15 Specimen Type Arterial 04/07/22 21:28 Sample Site Radial, right 04/07/22 21:28 ABG pH 7.42 (7.35-7.45) 04/07/22 21:28 ABG pCO2 57.4 mmHg (35-45) H 04/07/22 21:28 ABG pO2 52.3 mmHg (80.0-100.0) L 04/07/22 21:28 ABG HCO3 37.1 mmol/L (22-26) H 04/07/22 21:28 ABG O2 Saturation 83.3 04/07/22 21:28 ABG Base Excess 9.9 mmol/L (-2.0-2.0) H 04/07/22 21:28 Wil Test Pos 04/07/22 21:28 A-a O2 Gradient 39.2 mmHg (5-10) H 04/07/22 21:28 Hematocrit 50.0 % (42-52) 04/07/22 21:28 Hgb O2 Saturation 81.6 % (95-100) L 04/07/22 21:28 Carboxyhemoglobin 1.4 %THgb (0.4-20.1) 04/07/22 21:28 Methemoglobin 0.7 % (0.4-1.5) 04/07/22 21:28 Total Hemoglobin 16.3 g/dL (14-18) 04/07/22 21:28 Sodium 146.0 mmol/L (131-143) H 04/07/22 21:28 Potassium 3.7 mmol/L (3.5-5.0) 04/07/22 21:28 Glucose 156.0 mg/dL (70-115) H 04/07/22 21:28 Ionized Calcium 1.2 mmol/L (1.1-1.4) 04/07/22 21:28 O2 Delivery Device Hag 04/07/22 21:28 O2 Liters/Min 55.0 % 04/07/22 21:28 FiO2 60.0 % 04/07/22 21:28 Tidal Volume 0.50 04/06/22 05:57 PEEP 6.0 cmH20 04/07/22 16:19 Specimen Drawn By Anand 04/01/22 17:08 Crisis Mental Health Therapist ID Anthony 04/07/22 21:28 Sodium 144 mmol/L (136-145) 04/08/22 06:32 Potassium 3.7 mmol/L (3.5-5.1) 04/08/22 06:32 Chloride 99 mmol/L (98-107) 04/08/22 06:32 Carbon Dioxide 32 mmol/L (22-29) H 04/08/22 06:32 Anion Gap 16.7 (5-19) 04/08/22 06:32 BUN 35 mg/dL (8-23) H 04/08/22 06:32 Creatinine 0.8 mg/dL (0.7-1.2) 04/08/22 06:32 GFR Calculation 98.6 mL/min (90-130) 04/08/22 06:32 Glucose 182 mg/dL (65-115) H 04/08/22 06:32 POC Glucose 94 mg/dL (70-110) 04/08/22 18:26 Calculated Osmolality 311 mOsm/kg (285-295) H 04/08/22 06:32 Lactic Acid 1.5 mmol/L (0.5-2.2) 04/01/22 12:15 Calcium 8.8 mg/dL (8.5-10.5) 04/08/22 06:32 Magnesium 2.4 mg/dL (1.7-2.3) H 04/05/22 05:00 Total Bilirubin 0.9 mg/dL (0.15-1.2) 04/08/22 06:32 AST 63 U/L (0-40) H 04/08/22 06:32 ALT 54 U/L (0-41) H 04/08/22 06:32 Alkaline Phosphatase 83 U/L (40-130) 04/08/22 06:32 Troponin T Baseline 75 ng/L (0-15) H 04/01/22 12:15 Troponin T 120 Minute 79.13 ng/L (0-15) H 04/01/22 14:30 Delta Troponin T 4.13 ABS# (0-10) 04/01/22 14:30 Troponin T Hi Sens 6Hr 69.13 ng/L (0-15) H 04/01/22 18:35 Troponin T Hi Sens 6Hr Delta -5.87 ng/L (0-12) L 04/01/22 18:35 NT-Pro-B Natriuret Pep 4085 pg/mL (0-125) H 04/01/22 12:15 Total Protein 6.7 g/dL (6.6-8.7) 04/08/22 06:32 Albumin 3.2 g/dL (3.5-5.2) L 04/08/22 06:32 Globulin 3.5 g/dL (1.3-4.6) 04/08/22 06:32 Procalcitonin 0.05 ng/mL (0-0.5) 04/05/22 05:00 Nasal Influ A H1 2008 PCR Not detected (NOT DETECT) 04/06/22 18:10 Bronch Specimen Source Right lower lobe 04/06/22 18:25 Bronchial Fluid Color Colorless 04/06/22 18:25 Bronchial Fluid Appearance Hazy (CLEAR) 04/06/22 18:25 Bronchial Fluid WBC 1513 /uL 04/06/22 18:25 Bronchial Fluid RBC 350 10^3/uL 04/06/22 18:25 Bronch Cells Counted 200 04/06/22 18:25 Bronchial Neutrophils 47.00 % (0.9-2.3) H 04/06/22 18:25 Bronchial Lymphocytes 52.00 % (10.71-12.91) H 04/06/22 18: Bronchial Macrophages 1.00 % (83.6-86.8) L 04/06/22 18:25 Bronchial Diff Comment Yes 04/06/22 18: Vancomycin Trough 16.6 ug/mL (10-15) H 04/03/22 17:20 Adenovirus (PCR) Not detected (NOT DETECT) 04/06/22 18:10 C. pneumoniae DNA (PCR) Not detected (NOT DETECT) 04/06/22 18:10 Coronavirus 229E (PCR) Not detected (NOT DETECT) 04/06/22 18:10 Human Metapneumovir PCR Not detected (NOT DETECT) 04/06/22 18:10 Influenza A (H1) PCR Not detected (NOT DETECT) 04/06/22 18:10 Influenza A (H3) PCR Not detected (NOT DETECT) 04/06/22 18:10 Influenza Type A (PCR) Not detected (NOT DETECT) 04/06/22 18:10 Influenza Type B (PCR) Not detected (NOT DETECT) 04/06/22 18:10 M. pneumoniae (PCR) Not detected (NOT DETECT) 04/06/22 18:10 Parainfluenza 1 (PCR) Not detected (NOT DETECT) 04/06/22 18:10 Parainfluenza 2 (PCR) Not detected (NOT DETECT) 04/06/22 18:10 Parainfluenza 3 (PCR) Not detected (NOT DETECT) 04/06/22 18:10 Parainfluenza 4 (PCR) Not detected (NOT DETECT) 04/06/22 18:10 RSV Type A (PCR) Not detected (NOT DETECT) 04/06/22 18:10 RSV Type B (PCR) Not detected (NOT DETECT) 04/06/22 18:10 Entero/Rhino (PCR) Not detected (NOT DETECT) 04/06/22 18:10 SARS-CoV-2 (PCR) Not detected (NOT DETECT) 04/06/22 18:10 Micro: Microbiology 04/07/22 12:54 Blood Culture - Preliminary Blood SPECIMEN COLLECTED 04/07/22 12:45 Blood Culture - Preliminary Blood SPECIMEN COLLECTED 04/06/22 10:12 Blood Culture - Preliminary Blood 04/06/22 10:12 Blood Culture - Preliminary Blood 04/06/22 18:25 Gram Stain - Final Lung Right Lower Lobe A&P Assessment and plan (1) Acute respiratory failure with hypoxia and hypercapnia: (2) Pneumonia: (3) Acute exacerbation of chronic obstructive airways disease: (4) Morbid obesity with BMI of 40.0-44.9, adult: (5) CAD (coronary artery disease): (6) Seropositive rheumatoid arthritis of multiple sites: (7) Sleep apnea: (8) High risk medication use: (9) Heart failure: (10) Difficult ventilator weaning: (11) Bacteremia: Plan #Acute Hypoxic Hypercapneic respiratory failure secondary to COPD exacerbation due to right lower lobe pneumonia-improving #Underlying CHF with history of CAD s/p stents on Plavix 75 Mg p.o. daily, Lipitor 80 Mg p.o. daily, carvedilol 3.125 Mg p.o. daily, #Underlying seropositive rheumatoid arthritis-on Humira- reported last dose was 1 month ago #Takes Lyrica 150 3 times daily as outpatient #STEPHANIE on BiPAP at nighttime #Severe underlying emphysema patient with chronic smoking history-continue scheduled albuterol/Atrovent/budesonide nebulizations, taper IV steroids based on clinical response #Diuretic induced hypokalemia-resolved #Difficulty weaning-passed SAT and SBT extubated to BiPAP with 40% FIO2 #Persistent fever spikes-blood culture 04/06/2022 growing gram-positive cocci in pairs and clusters-identification pending-started on vancomycin and continue Zosyn -Extubated to BIPAP yesterday and pt tolerating well; - Encourage bedside physical therapy and incentive spirometry and aggressive pulmonary toileting. -Hemodynamically stable -opens eyes moves all his limbs and follows commands -Chest x-ray today morning showing bilateral lower lobe infiltrate and effusions - we will do hypertonic saline nebulization three times daily and chest vest three times daily - continue scheduled nebulizations, IV steroids 40 every 12 hours- - -10 L since admission, renal function is good, electrolytes are normal-on Lasix 20 Mg twice daily-I will reduce to daily once -no fever spikes in last 24 hours, blood cultures growing gram-positive cocci- identification pending, started on vancomycin and another set of blood cultures sent, continue Zosyn; follow-up on, BAL cultures -Bronchoscopy showed thick mucus secretions in bilateral lower lobes and right middle lobe; there is also concern for fungal pneumonias as patient was receiving Humira 1 month ago for rheumatoid arthritis-sent BAL for galactomannan and PCP as well in view of spiking fevers -Speech therapy to continue to do bedside evaluation for swallow-today recommended to keep n.p.o. except medications -I have discontinued Seroquel as patient appears still drowsy and is on Lyrica 150 mg 3 times daily -Patient would benefit from pulmonary rehab/physical therapy-would recommend transfer to acute rehab ICU CHECKLIST: Problem list updated Verbal orders reviewed and signed Code Status: Full code Disposition: Remains in ICU Critically ill: Yes MD discussed with: Hospitalist, RN, RT taking care of the patient Analgesia: Fentanyl Glycemic Control: Insulin scale coverage Nutrition: N.p.o. for tonight Restraint Renewal (within 24 hrs): Yes Ulcer Prophylaxis: PPI Chemical Thromboprophylaxis: Prophylaxis: Lovenox Mechanical Thromboprophylaxis: SCDs Need for Central line: N/A Need for Perez catheter: For urine output monitoring Attestations Medical Necessity Statement*: still requiring 40% fio2 and improving clinically - may need 24 hours monitoring in ICU Time Spent in Patient Care: Greater than 35 minutes (>than 50% of time spent in counselling and/or direct pt care on unit) . Critical Care Time: Critical Care Time (No Overlap): 57 min This patient has a high probability of clinically significant, sudden or life threatening deterioration of the patient's (respiratory, renal, cardiac, neurological) systems required my full, direct attention, the highest level of physician preparedness for urgent intervention and personal management. I managed/supervised life or organ supporting interventions that required frequent physician assessment. I devoted my full attention in the ICU to the direct care of this patient for the period of time indicated above. Time I spent with family or surrogate(s) is included only if the patient was incapable of providing necessary information or participating in decision making. This time includes the following services provided: Telemetry review Mechanical Ventilation Hemodynamic interpretation, assessment and management Review and interpretation of CXR Review and interpretation of lab values Review and interpretation of microbiologic data and culture results Review of medications and administration Review and interpretation of Nutrition requirements and management Discussion of management with other consultants and services Clinical update to family members [x] Data and vital sign review and interpretation [x] Patient assessment, examination and intervention [x] Documentation [x] Medication orders and management Time spent for teaching as well as performing procedures are billed separately and is not included in this note Critical Care Time (min): 57 Coding Level of Care Code Critical Care >/= 30 minutes Diagnoses Acute respiratory failure with hypoxia and hypercapnia J96.01; J96.02 Pneumonia J18.9 Acute exacerbation of chronic obstructive airways disease J44.1 Morbid obesity with BMI of 40.0-44.9, adult E66.01; Z68.41 CAD (coronary artery disease) I25.10 Seropositive rheumatoid arthritis of multiple sites M05.79 Sleep apnea G47.30 High risk medication use Z79.899 Heart failure I50.9 Difficult ventilator weaning Z99.11 Bacteremia R78.81 Time Spent (min) 57
[2022-04-08] MEDS: ropinirole 2 mg Tablet 4 MG PO ×3 (09:49→20:04)
[2022-04-08] MEDS: enoxaparin 40 mg/0.4 mL Syringe SUBCUT (09:49)
[2022-04-08] MEDS: montelukast sodium 10 mg Tablet PO (09:49)
[2022-04-08] MEDS: carvedilol 3.125 mg Tablet PO (09:49)
[2022-04-08] MEDS: pregabalin 150 mg Capsule PO ×3 (09:49→20:04)
[2022-04-08] MEDS: atorvastatin 40 mg Tablet 80 MG PO (09:49)
[2022-04-08] MEDS: pantoprazole 40 mg SDV IVP (09:49)
[2022-04-08] MEDS: duloxetine 60 mg Capsule PO (09:49)
[2022-04-08] MEDS: clopidogrel 75 mg Tablet PO (09:49)
[2022-04-08 11:54] LABS: Glucose Point of Care 121 mg/dL (70-110)
[2022-04-08] MEDS: ipratropium-albuterol 3 mL Neb INHALATION ×4 (12:54→23:49)
--- NOTE | 2022-04-08 15:53 | PC.NURSE ---
Waste Fentanyl gtt 213 ML with MARY Gruber.
[2022-04-08 18:31] LABS: Glucose Point of Care 94 mg/dL (70-110)
[2022-04-08] MEDS: hyDRALAzine 20 mg/mL INJ 1 mL 10 MG IVP (20:04)
[2022-04-08 22:31] LABS: Vancomycin Trough 16.6 ug/mL (10-15)
--- NOTE | 2022-04-08 23:30 | P.PN_ITS ---
Subjective Subjective: extubated yesterday evening, initially to HHF then on Bipap. At time of evaluation today patient was on heated hi flow 40% fi02. He is now afebrile over last 24 hrs. HE is lethargic and intermittently confused today, answers simple questions but unable to participate in conversation. Medications: Reviewed: Yes Vitals/I&O/Wt Last Vital Signs Temp 98.0 F 04/08/22 20:00 Pulse 102 H 04/08/22 22:00 Resp 25 H 04/08/22 22:00 BP 153/98 04/08/22 22:00 Pulse Ox 89 L 04/08/22 22:00 O2 Del Method 04/08/22 20:00 O2 Flow Rate 40 04/08/22 20:00 FiO2 40 04/08/22 21:40 04/08/22 04/08/22 04/09/22 14:59 22:59 06:59 Intake Total 362.448 / 362.448 500 / 862.448 Output Total 1400 / 1400 Balance 362.448 / 362.448 -900 / -537.552 Weight last 48 hrs Weight 130.7 kg Weight 135.1 kg Physical Exam Narrative: General: No acute distress, AO x1-2 HEENT: PERRLA, pupils bilaterally equal and reactive, on heated hi flow Chest: Normal vesicular breath sounds anteriorly , no added sounds, equal good air entry bilaterally CVS: S1-S2 regular, no murmurs, no tachycardia, no gallops, no rubs Abdomen: Soft, nontender, no organomegaly, bowel sounds present Neuro: No focal deficits, no facial deformity, AO x3, power 5/5 in all limbs Extremities: resolved edema, changes of stasis dermatitis + Urinary Catheter Management: Perez: Cath Placed During This Visit: yes Reason for Continuing Indwelling Catheter: Accurate Measurement of Urinary Output in Critically Ill Patients Urinary Catheter Date of Insertion: 04/01/22 Urinary Catheter Time of Insertion: 17:48 Data 04/08/22 05:51 04/08/22 06:32 Micro: Microbiology 04/06/22 18:25 Gram Stain - Final Lung Right Lower Lobe Bronchoalveolar Lavage Culture - Preliminary 04/07/22 12:54 Blood Culture - Preliminary Blood NEGATIVE TO DATE 04/07/22 12:45 Blood Culture - Preliminary Blood NEGATIVE TO DATE A&P Assessment and plan (1) Acute respiratory failure with hypoxia and hypercapnia: Acute hypoxic hypercapnic respiratory failure, failed BiPAP initially upon admis keri and needed to be intubated upon arrival. Patient has remained intubated between April 01- April 07, 2022. Likely that his respiratory failure is multifactorial, related to COPD exacerbation, CHF and pneumonia. He has now successfully been extubated on 04/07/22. Currently on heated hi flow Remains lethargic and intermittently confused post extubation, suspect likely contributed by fenatnyl and precedex. The latter is being weaned down this morning. Plan to continue with intermittent and night time Bipap. (2) Acute exacerbation of chronic obstructive airways disease: He is currently on treatment with Solu-Medrol 40 mg IV 12 hours today.--> plan to taper further to q24h Continue DuoNeb inhalation every 4 hours scheduled continue budesonide 0.5 mg elation twice daily glycopyrrolate to assist with secretions Continue pulmonary toilet Had initially hemoptysis upon presentation which has resolved. Appreciate pulmonary recommendations (3) Sepsis: Required transient Levophed support upon admission, has now been weaned off. Sepsis likely related to pneumonia. Developed fever on 04/06; + blood cx for GPC on 04/06, pending further identification Repeat blood cx thus far negative Currently afebrile over last 24 hrs continue zosyn and vancomycin Negative COVID PCR upon admission s/p Bronchoscopy w/ therapeutic aspiration of the tracheobronchial tree (clearance of airway secretions, removal of mucus plugs). BAL cx remains pending. Ag/GM and fungitell added from serum and bronch to evalute for IFI since patient is on Humira, currently low suspcion for the same. (4) Elevated brain natriuretic peptide (BNP) level: Related to acute diastolic CHF. He has diuresed well with Lasix 60 mg twice daily. Edema is resolved. LE now with changes of stasis dermatitis reduced lasix to 20mg iv daily Continue diuresis. Monitor I&O. Creatinine stable at 0.8 TTE - EF 55%. Seems to be mild hypokinesis of apical lateral wall. Normal pulmonary artery pressure. Will benefit from further CAD risk stratification with acute conditions improve. Troponin with moderate elevation secondary likely to demand ischemia from CHF. History of underlying CAD, wall motion abnormality noted. May benefit subsequently from additional risk stratification with stress testing. (5) Pneumonia: As above and sepsis (6) Acute alteration in mental status: Acute metabolic encephalopathy on presentation secondary to respiratory failure, hypercapnia. CT head negative for acute events on 04/01 (7) Hypokalemia: Now resolved Plan Other chronic medical conditions including CAD: Continue atorvastatin 80, Plavix 75 mg, Coreg 3.125 mg p.o. daily Depression GERD: Currently on Protonix HTN HLD Memory loss STEPHANIE on nightly BiPAP Osteoarthritis of left hip Restless leg Seropositive RA DM2: Sliding scale insulin, glucose monitoring requested. DVT prophylaxis: Lovenox PUD prophylaxis Protonix 40 mg IV daily currently at bedside, updated. Attestations Medical Necessity Statement*: close monitoing of respiratory status , needing HHF and Bipap, monitor mental status, iv steroids, iv diuresis Coding Level of Care Code Critical Care >/= 30 minutes Diagnoses Acute respiratory failure with hypoxia and hypercapnia J96.01; J96.02 Acute exacerbation of chronic obstructive airways disease J44.1 Sepsis A41.9 Elevated brain natriuretic peptide (BNP) level R79.89 Pneumonia J18.9 Acute alteration in mental status R41.82 Hypokalemia E87.6
[2022-04-09] VITALS (39 sets, daily range): BP systolic 135–179; BP diastolic 78–110; PULSE 88–113; RESP 13–46; TEMP 36.7–37.3; O2SAT 81–100
[2022-04-09 03:01] LABS: Basophils # 0.1 10^3/uL (0.0-0.1); Basophils % 0.4 %; Eosinophils # 0.1 10^3/uL (0.0-0.8); Eosinophils % 0.3 %; Hematocrit 53.4 % (42.0-52.0); Hemoglobin 15.7 g/dL (11.7-16.6); Lymphocytes # 1.5 10^3/uL (0.8-4.8); Lymphocytes % 8.7 %; Mean Corpuscular HGB Conc 29.4 g/dL (30.0-36.0); Mean Corpuscular Volume 88.6 fl (80-94); Mean Platelet Volume 10.5 fL (7.4-10.4); Monocytes # 1.7 10^3/uL (0.2-0.9); Neutrophils # 13.34 10^3/uL (1.8-7.7); Neutrophils % 79.3 %; Nucleated Red Blood Cells % 0 %; Platelet Count 344 10^3/cmm (130-400); Red Blood Count 6.03 10^6/uL (4.1-5.3); Red Cell Distribution Width 16.6 % (12.1-15.1); White Blood Count 16.8 10^3/uL (4.0-10.0)
[2022-04-09] MEDS: ipratropium-albuterol 3 mL Neb INHALATION ×6 (03:12→23:57)
[2022-04-09 03:19] LABS: Alanine Aminotransferase 54 U/L (0-41); Albumin Level 3.5 g/dL (3.5-5.2); Alkaline Phosphatase 93 U/L (40-130); Anion Gap 14.4 (5-19); Aspartate Amino Transferase 44 U/L (0-40); Blood Urea Nitrogen 31 mg/dL (8-23); Calcium 9.2 mg/dL (8.5-10.5); Carbon Dioxide 32 mmol/L (22-29); Chloride 100 mmol/L (98-107); Globulin 3.5 g/dL (1.3-4.6); Glomerular Filtration Rate 98.6 mL/min (90-130); Glucose 133 mg/dL (65-115); Osmolality Calculated 304 mOsm/kg (285-295); Potassium 3.4 mmol/L (3.5-5.1); Sodium 143 mmol/L (136-145); Total Bilirubin 0.9 mg/dL (0.15-1.2)
[2022-04-09 03:39] LABS: Glucose Point of Care 119 mg/dL (70-110)
[2022-04-09] MEDS: piperacillin-tazobactam 3.375 GM in sodium chloride 0.9% (plus) 50 ML IV ×3 (04:15→21:19)
[2022-04-09 05:51] LABS: ABG PCO2 48.1 mmHg (35-45); ABG PH Result 7.42 (7.35-7.45); Arterial Blood Gas Hematocrit 49.6 % (42-52); Base Excess ABG 5.6 mmol/L (-2.0-2.0); Blood Gas Allen Test Pos; Blood Gas Operator Identificat JB; Blood Gas Sample Site Radial, right; Blood Gas Sample Type Arterial; HCO3 ABG 31.4 mmol/L (22-26); Oxygen Device HAG; PO2 ABG 70.3 mmHg (80.0-100.0)
[2022-04-09 07:04] LABS: Glucose Point of Care 169 mg/dL (70-110)
[2022-04-09] MEDS: ropinirole 2 mg Tablet 4 MG PO ×3 (07:49→21:19)
[2022-04-09] MEDS: clopidogrel 75 mg Tablet PO (07:49)
[2022-04-09] MEDS: montelukast sodium 10 mg Tablet PO (07:49)
[2022-04-09] MEDS: pregabalin 150 mg Capsule PO (07:49)
[2022-04-09] MEDS: carvedilol 3.125 mg Tablet PO (07:49)
[2022-04-09] MEDS: duloxetine 60 mg Capsule PO (07:49)
[2022-04-09] MEDS: pantoprazole 40 mg SDV IVP (07:49)
[2022-04-09] MEDS: atorvastatin 40 mg Tablet 80 MG PO (07:49)
[2022-04-09] MEDS: FUROsemide 10 mg/mL SDV 2mL 20 MG IVP (07:50)
[2022-04-09] MEDS: insulin lispro 100 unit/1 mL SUBCUT ×3 (08:08→23:45)
[2022-04-09] MEDS: budesonide 0.5 mg/2 mL Neb INHALATION ×2 (08:30→19:57)
[2022-04-09] MEDS: sodium chloride 3.5% neb 4 mL Neb INHALATION ×2 (08:31→19:57)
[2022-04-09] MEDS: enoxaparin 40 mg/0.4 mL Syringe SUBCUT (09:36)
--- NOTE | 2022-04-09 09:59 | PC.CHAP ---
Pastoral Care Encounter/Spiritual Assessment Type of Contact [] Declined excellence specialist visit [] Patient/Family/Request visit [] Outpatient visit [] Follow-up visit [] Physician referral [] Code/Alert [x] Routine visit [] Staff referral [] Actively dying [] Patient sleeping [x] Family support [] [] Out of room [] Palliative care [] [] Receiving care in room [] Pre-surgical visit [] Trauma [] Long length of stay [x] ICU visit [] Other: Relational/Emotional Strength [] Patient feels connected with others/family/visitors/staff [] Distress [] Loneliness/isolation [] Abandonment Spirituality of Patient [] Person of Bisi [] Attends Hindu of their Bisi [] Believes in Prayer [] Reads Bible or Temple materials [] There are Spiritual issues to be addressed Impression Printer Interventions [x] Prayer [] Active listening [] Non-anxious presence [] Spiritual/emotional support [] Crisis/trauma care [] Spiritual counseling [] Bereavement support [] Provided bereavement packet [] Provided Bible/devotional materials [] Provided toy/stuffed animal, coloring book to patient or family member [] Provided Communion [] Anointing/[place] [] Salvation [x] Completed spiritual assessment [] Other: Impact on Illness or Injury [] Angry [] Fearful [] Anxious [] Often cries [] Exhaustion [] Unable to work [] Unable to attend christianity [] Unable to walk/stand [] Unable to read [] Unable to drive [] Unable to eat/drink [] Unable to sleep [] Unable to be with family [] Patient intubated [] Other: Summary Time spent with patient
[2022-04-09 11:41] LABS: Glucose Point of Care 143 mg/dL (70-110)
[2022-04-09] MEDS: vancomycin 1,500 MG/300 ML PIGGYBACK 200 MG IV ×2 (11:57→23:24)
[2022-04-09] MEDS: acetaminophen 325 mg Tablet 650 MG PO (11:58)
--- NOTE | 2022-04-09 13:37 | P.PN_ITS ---
Subjective Subjective: -Extubated 2 days ago to BiPAP -Clinically improving-although appears extremely weak and intermittently confused -Currently high flow nasal cannula 35 L at 35%-recommended to switch to nasal cannula -Physical therapy attempted to make the patient sit but he could not-we will continue to do bedside physical therapy and will pursue for jail home placement for aggressive physical therapy -We will continue to chest vest 3 times daily with hypertonic saline 2 times daily, incentive spirometry and Acapella -Speech therapy reevaluated today and recommended a level 5 minced and moist diet with thin liquids. -Despite tapering down Lasix to 20 Mg once daily-patient still making very good urine output and net -1 L over last 24 hours-so far -13.8 l since admission; will hold off Lasix for now -No fever spikes in last 2 days since starting vancomycin; cultures 04/06/2022 showed gram-positive cocci in clusters-final cultures still pending: Blood cultures 04/07/2022-negative to date -Admission CT head 04/01/2021 did not show any acute events; Medications: Reviewed: Yes Vitals/I&O/Wt Last Vital Signs Temp 99.1 F 04/09/22 08:00 Pulse 95 04/09/22 12:11 Resp 20 H 04/09/22 12:11 BP 179/110 04/09/22 12:00 Pulse Ox 93 04/09/22 12:11 O2 Del Method 04/09/22 12:11 O2 Flow Rate 13 04/09/22 12:11 FiO2 40 04/09/22 11:49 04/08/22 04/09/22 04/09/22 22:59 06:59 14:59 Intake Total 500 / 862.448 350 / 1212.448 830 / 830 Output Total 1400 / 1400 850 / 2250 1000 / 1000 Balance -900 / -537.552 -500 / -1037.552 -170 / -170 Weight last 48 hrs Weight 287 lb 7.724 oz Weight 288 lb 2.307 oz Physical Exam Narrative: PHYSICAL EXAM: General: lying in bed, extubated, following commands appeared little bit drowsy from sedation HEENT:NCAT, PERRLA, EOMI Neck: Supple Lungs: Reduced to bilateral basal sounds with some coarse crepitations Heart: s1/s2, RRR Abd: soft, NT, ND, BS + Normoactive Extremities: No edema 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 Quality of this examination is overall limited by body habitus, position of the arms and motion. 2. No central pulmonary embolism. 3. RIGHT lung pneumonia. Most dense consolidation RIGHT lower lobe. 4. No GI tract obstruction. No renal obstruction. Adnexa normal appendix. Head CT 04/01/22 12:29 IMPRESSION: 1. No acute intracranial hemorrhage or edema. 2. Mild atrophy and moderate small vessel ischemic type changes. Chest CTA 04/02/22 14:04 IMPRESSION: 1. Negative CT angiogram of the chest. No evidence of acute pulmonary embolism. 2. Decreased lung volumes with rather extensive lower lobe atelectasis progressed from previous exam. 3. Superimposed nodular infiltrate right lower lobe improved from earlier study. 4. Significant cardiomegaly, stable. 5. Mild mediastinal lymphadenopathy, stable. Chest X-Ray 04/08/22 07:39 IMPRESSION: 1. Bibasal infiltrates and atelectasis and pleural effusions showing little change. 2. The ET tube and NG tube have been removed. 3. Cardiac enlargement unchanged. Laboratory Results WBC 16.8 10^3/uL (4.0-10.0) H 04/09/22 02:37 RBC 6.03 10^6/uL (4.1-5.3) H 04/09/22 02:37 Hgb 15.7 g/dL (11.7-16.6) 04/09/22 02:37 Hct 53.4 % (42.0-52.0) H 04/09/22 02:37 MCV 88.6 fl (80-94) 04/09/22 02:37 MCH 26.0 pg (28.0-34.0) L 04/09/22 02:37 MCHC 29.4 g/dL (30.0-36.0) L D 04/09/22 02:37 RDW 16.6 % (12.1-15.1) H 04/09/22 02:37 Plt Count 344 10^3/cmm (130-400) D 04/09/22 02:37 MPV 10.5 fL (7.4-10.4) H 04/09/22 02:37 Neut % (Auto) 79.3 % 04/09/22 02:37 Lymph % (Auto) 8.7 % 04/09/22 02:37 Jackson % (Auto) 10.0 % 04/09/22 02:37 Eos % (Auto) 0.3 % 04/09/22 02:37 Baso % (Auto) 0.4 % 04/09/22 02:37 Neut # (Auto) 13.34 10^3/uL (1.8-7.7) H 04/09/22 02:37 Lymph # (Auto) 1.5 10^3/uL (0.8-4.8) 04/09/22 02:37 Jackson # (Auto) 1.7 10^3/uL (0.2-0.9) H 04/09/22 02:37 Eos # (Auto) 0.1 10^3/uL (0.0-0.8) 04/09/22 02:37 Baso # (Auto) 0.1 10^3/uL (0.0-0.1) 04/09/22 02:37 Nucleated RBC % (auto) 0 % 04/09/22 02:37 Nucleated RBCs # 0.0 /100WBC 04/09/22 02:37 PT 14.40 SECONDS (12.1-14.9) 04/01/22 12:15 INR 1.09 (0.8-1.2) 04/01/22 12:15 APTT 32.8 SECONDS (23.9-36.7) 04/01/22 12:15 Specimen Type Arterial 04/09/22 05:39 Sample Site Radial, right 04/09/22 05:39 ABG pH 7.42 (7.35-7.45) 04/09/22 05:39 ABG pCO2 48.1 mmHg (35-45) H 04/09/22 05:39 ABG pO2 70.3 mmHg (80.0-100.0) L 04/09/22 05:39 ABG HCO3 31.4 mmol/L (22-26) H 04/09/22 05:39 ABG O2 Saturation 83.3 04/07/22 21:28 ABG Base Excess 5.6 mmol/L (-2.0-2.0) H 04/09/22 05:39 Wil Test Pos 04/09/22 05:39 A-a O2 Gradient 39.2 mmHg (5-10) H 04/07/22 21:28 Hematocrit 49.6 % (42-52) 04/09/22 05:39 Hgb O2 Saturation 81.6 % (95-100) L 04/07/22 21:28 Carboxyhemoglobin 1.4 %THgb (0.4-20.1) 04/07/22 21:28 Methemoglobin 0.7 % (0.4-1.5) 04/07/22 21:28 Total Hemoglobin 16.3 g/dL (14-18) 04/07/22 21:28 Sodium 146.0 mmol/L (131-143) H 04/07/22 21:28 Potassium 3.7 mmol/L (3.5-5.0) 04/07/22 21:28 Glucose 156.0 mg/dL (70-115) H 04/07/22 21:28 Ionized Calcium 1.2 mmol/L (1.1-1.4) 04/07/22 21:28 O2 Delivery Device Hag 04/09/22 05:39 O2 Liters/Min 40.0 % 04/09/22 05:39 FiO2 40.0 % 04/09/22 05:39 Tidal Volume 0.50 04/06/22 05:57 PEEP 6.0 cmH20 04/07/22 16:19 Specimen Drawn By Anand 04/01/22 17:08 Environmental Sampling Technician ID Anthony 04/09/22 05:39 Sodium 143 mmol/L (136-145) 04/09/22 02:37 Potassium 3.4 mmol/L (3.5-5.1) L 04/09/22 02:37 Chloride 100 mmol/L (98-107) 04/09/22 02:37 Carbon Dioxide 32 mmol/L (22-29) H 04/09/22 02:37 Anion Gap 14.4 (5-19) 04/09/22 02:37 BUN 31 mg/dL (8-23) H 04/09/22 02:37 Creatinine 0.8 mg/dL (0.7-1.2) 04/09/22 02:37 GFR Calculation 98.6 mL/min (90-130) 04/09/22 02:37 Glucose 133 mg/dL (65-115) H 04/09/22 02:37 POC Glucose 143 mg/dL (70-110) H 04/09/22 11:36 Calculated Osmolality 304 mOsm/kg (285-295) H 04/09/22 02:37 Lactic Acid 1.5 mmol/L (0.5-2.2) 04/01/22 12:15 Calcium 9.2 mg/dL (8.5-10.5) 04/09/22 02:37 Magnesium 2.4 mg/dL (1.7-2.3) H 04/05/22 05:00 Total Bilirubin 0.9 mg/dL (0.15-1.2) 04/09/22 02:37 AST 44 U/L (0-40) H 04/09/22 02:37 ALT 54 U/L (0-41) H 04/09/22 02:37 Alkaline Phosphatase 93 U/L (40-130) 04/09/22 02:37 Troponin T Baseline 75 ng/L (0-15) H 04/01/22 12:15 Troponin T 120 Minute 79.13 ng/L (0-15) H 04/01/22 14:30 Delta Troponin T 4.13 ABS# (0-10) 04/01/22 14:30 Troponin T Hi Sens 6Hr 69.13 ng/L (0-15) H 04/01/22 18:35 Troponin T Hi Sens 6Hr Delta -5.87 ng/L (0-12) L 04/01/22 18:35 NT-Pro-B Natriuret Pep 4085 pg/mL (0-125) H 04/01/22 12:15 Total Protein 7.0 g/dL (6.6-8.7) 04/09/22 02:37 Albumin 3.5 g/dL (3.5-5.2) 04/09/22 02:37 Globulin 3.5 g/dL (1.3-4.6) 04/09/22 02:37 Procalcitonin 0.05 ng/mL (0-0.5) 04/05/22 05:00 Nasal Influ A H1 2009 PCR Not detected (NOT DETECT) 04/06/22 18:10 Bronch Specimen Source Right lower lobe 04/06/22 18:25 Bronchial Fluid Color Colorless 04/06/22 18:25 Bronchial Fluid Appearance Hazy (CLEAR) 04/06/22 18:25 Bronchial Fluid WBC 1513 /uL 04/06/22 18:25 Bronchial Fluid RBC 350 10^3/uL 04/06/22 18:25 Bronch Cells Counted 200 04/06/22 18: Bronchial Neutrophils 47.00 % (0.9-2.3) H 04/06/22 18:25 Bronchial Lymphocytes 52.00 % (10.71-12.91) H 04/06/22 18: Bronchial Macrophages 1.00 % (83.6-86.8) L 04/06/22 18:25 Bronchial Diff Comment Yes 04/06/22 18:25 Vancomycin Trough 16.6 ug/mL (10-15) H 04/08/22 22:07 Adenovirus (PCR) Not detected (NOT DETECT) 04/06/22 18:10 C. pneumoniae DNA (PCR) Not detected (NOT DETECT) 04/06/22 18:10 Coronavirus 229E (PCR) Not detected (NOT DETECT) 04/06/22 18:10 Human Metapneumovir PCR Not detected (NOT DETECT) 04/06/22 18:10 Influenza A (H1) PCR Not detected (NOT DETECT) 04/06/22 18:10 Influenza A (H3) PCR Not detected (NOT DETECT) 04/06/22 18:10 Influenza Type A (PCR) Not detected (NOT DETECT) 04/06/22 18:10 Influenza Type B (PCR) Not detected (NOT DETECT) 04/06/22 18:10 M. pneumoniae (PCR) Not detected (NOT DETECT) 04/06/22 18:10 Parainfluenza 1 (PCR) Not detected (NOT DETECT) 04/06/22 18:10 Parainfluenza 2 (PCR) Not detected (NOT DETECT) 04/06/22 18:10 Parainfluenza 3 (PCR) Not detected (NOT DETECT) 04/06/22 18:10 Parainfluenza 4 (PCR) Not detected (NOT DETECT) 04/06/22 18:10 RSV Type A (PCR) Not detected (NOT DETECT) 04/06/22 18:10 RSV Type B (PCR) Not detected (NOT DETECT) 04/06/22 18:10 Entero/Rhino (PCR) Not detected (NOT DETECT) 04/06/22 18:10 SARS-CoV-2 (PCR) Not detected (NOT DETECT) 04/06/22 18:10 Micro: Microbiology 04/06/22 18:25 Gram Stain - Final Lung Right Lower Lobe Bronchoalveolar Lavage Culture - Preliminary 04/07/22 12:54 Blood Culture - Preliminary Blood NEGATIVE TO DATE 04/07/22 12:45 Blood Culture - Preliminary Blood NEGATIVE TO DATE A&P Assessment and plan (1) Acute respiratory failure with hypoxia and hypercapnia: (2) Pneumonia: (3) Acute exacerbation of chronic obstructive airways disease: (4) Morbid obesity with BMI of 40.0-44.9, adult: (5) CAD (coronary artery disease): (6) Seropositive rheumatoid arthritis of multiple sites: (7) Sleep apnea: (8) High risk medication use: (9) Heart failure: (10) Difficult ventilator weaning: (11) Bacteremia: (12) Diuretic-induced hypokalemia: Plan #Acute Hypoxic Hypercapneic respiratory failure secondary to COPD exacerbation due to right lower lobe pneumonia-improving #Underlying CHF with history of CAD s/p stents on Plavix 75 Mg p.o. daily, Lipitor 80 Mg p.o. daily, carvedilol 3.125 Mg p.o. daily, #Underlying seropositive rheumatoid arthritis-on Humira- reported last dose was 1 month ago #Takes Lyrica 150 3 times daily as outpatient #STEPHANIE on BiPAP at nighttime #Severe underlying emphysema patient with chronic smoking history-continue scheduled albuterol/Atrovent/budesonide nebulizations, taper IV steroids based on clinical response #Diuretic induced hypokalemia-supplemented #Difficulty weaning-passed SAT and SBT extubated to BiPAP with 40% FIO2 #Persistent fever spikes-blood culture 04/06/2022 growing gram-positive cocci in pairs and clusters-identification pending-started on vancomycin and continue Zosyn; repeat cultures 04/07/2022 negative so far -Extubated 2 days ago to BiPAP -Clinically improving-although appears extremely weak and intermittently confused -Currently high flow nasal cannula 35 L at 35%-recommended to switch to nasal cannula - continue scheduled nebulizations, IV steroids 40 every 12 hours--I will taper down to 40 Mg daily -Physical therapy attempted to make the patient sit but he could not-we will continue to do bedside physical therapy and will pursue for jail home placement for aggressive physical therapy -We will continue to chest vest 3 times daily with hypertonic saline 2 times daily, incentive spirometry and Acapella -Speech therapy reevaluated today and recommended a level 5 minced and moist diet with thin liquids. -Despite tapering down Lasix to 20 Mg once daily-patient still making very good urine output and net -1 L over last 24 hours-so far -13.8 l since admission; will hold off Lasix for now -K3.4-we will supplement KCl 20 Mg IVPB -No fever spikes in last 2 days since starting vancomycin; cultures 04/06/2022 showed gram-positive cocci in clusters-final cultures still pending: Blood cultures 04/07/2022-negative to date; continue Zosyn and follow-up final BAL cultures -Admission CT head 04/01/2021 did not show any acute events; -Bronchoscopy showed thick mucus secretions in bilateral lower lobes and right middle lobe; there is also concern for fungal pneumonias as patient was receiving Humira 1 month ago for rheumatoid arthritis-sent BAL for galactomannan and PCP as well in view of spiking fevers-please follow-up -I have discontinued Seroquel as patient appears still drowsy and is on Lyrica 150 mg 3 times daily-I will taper down Lyrica 200 Mg 3 times daily -Patient would benefit from pulmonary rehab/physical therapy-would recommend transfer to acute rehab or jail of facility with aggressive physical therapy ICU CHECKLIST: Problem list updated Verbal orders reviewed and signed Code Status: Full code Disposition: Can be transferred to medical floor Critically ill: No-he needs aggressive physical therapy and pulmonary rehabilitation MD discussed with: Hospitalist, RN, RT taking care of the patient Analgesia: N/A Glycemic Control: Insulin scale coverage Nutrition: Diet as directed by speech therapy Restraint Renewal (within 24 hrs): No Ulcer Prophylaxis: PPI Chemical Thromboprophylaxis: Prophylaxis: Lovenox Mechanical Thromboprophylaxis: SCDs Need for Central line: N/A Need for Perez catheter: For urine output monitoring As I am not on-call and will not be available this weekend to see this patient physically. I have notified hospitalist taking care of the patient to call if he has any questions Attestations Medical Necessity Statement*: Clinically improving-FiO2 down to 35% on high flow-can switch to nasal cannula Patient can be transferred out of ICU He needs aggressive physical therapy and pulmonary rehabilitation Time Spent in Patient Care: Greater than 35 minutes (>than 50% of time spen t in counselling and/or direct pt care on unit) . Critical Care Time: Critical Care Time (No Overlap): 53 min This patient has a high probability of clinically significant, sudden or life threatening deterioration of the patient's (respiratory, renal, cardiac, neurological) systems required my full, direct attention, the highest level of physician preparedness for urgent intervention and personal management. I managed/supervised life or organ supporting interventions that required frequent physician assessment. I devoted my full attention in the ICU to the direct care of this patient for the period of time indicated above. Time I spent with famil y or surrogate(s) is included only if the patient was incapable of providing necessary information or participating in decision making. This time includes the following services provided: Telemetry review Mechanical Ventilation Hemodynamic interpretation, assessment and management Review and interpretation of CXR Review and interpretation of lab values Review and interpretation of microbiologic data and culture results Review of medications and administration Review and interpretation of Nutrition requirements and management Discussion of management with other consultants and services Clinical update to family members [x] Data and vital sign review and interpretation [x] Patient assessment, examination and intervention [x] Documentation [x] Medication orders and management Time spent for teaching as well as performing procedures are billed separately and is not included in this note Critical Care Time (min): 53 Coding Level of Care Code Critical Care >/= 30 minutes Diagnoses Acute respiratory failure with hypoxia and hypercapnia J96.01; J96.02 Pneumonia J18.9 Acute exacerbation of chronic obstructive airways disease J44.1 Morbid obesity with BMI of 40.0-44.9, adult E66.01; Z68.41 CAD (coronary artery disease) I25.10 Seropositive rheumatoid arthritis of multiple sites M05.79 Sleep apnea G47.30 High risk medication use Z79.899 Heart failure I50.9 Difficult ventilator weaning Z99.11 Bacteremia R78.81 Diuretic-induced hypokalemia E87.6; T50.2X5A Time Spent (min) 53
--- NOTE | 2022-04-09 13:50 | P.PN_ITS ---
Subjective Subjective: Awake and conversing better this morning. Denies pain. Says that he is more aware of what is going on today. Spouse agrees that he appears better. Vitals/I&O/Wt Last Vital Signs Temp 99.1 F 04/09/22 08:00 Pulse 95 04/09/22 12:11 Resp 20 H 04/09/22 12:11 BP 179/110 04/09/22 12:00 Pulse Ox 93 04/09/22 12:11 O2 Del Method 04/09/22 12:11 O2 Flow Rate 13 04/09/22 12:11 FiO2 40 04/09/22 11:49 04/08/22 04/09/22 04/09/22 22:59 06:59 14:59 Intake Total 500 / 862.448 350 / 1212.448 830 / 830 Output Total 1400 / 1400 850 / 2250 1000 / 1000 Balance -900 / -537.552 -500 / -1037.552 -170 / -170 Weight last 48 hrs Weight 287 lb 7.724 oz Weight 288 lb 2.307 oz Physical Exam Narrative: General: Cooperative patient in no apparent distress. Well d eveloped. HEENT: Normocephalic, Atraumatic. External ears normal. Nasal passages patent without drainage. MMM. Heart: RRR. Resp: High flow oxygen. Lungs with crackles throughout, mild wheezes. Abd: Soft, non-tender. Non-distended. Extremities: No edema. Skin: No rash or lesions on exposed areas. Neuro: A/O x 3. No focal motor or sensory. Urinary Catheter Management: Perez: Cath Placed During This Visit: yes Reason for Continuing Indwelling Catheter: Accurate Measurement of Urinary Output in Critically Ill Patients Urinary Catheter Date of Insertion: 04/01/22 Urinary Catheter Time of Insertion: 17:48 Data 04/09/22 02:37 04/09/22 02:37 Micro: Microbiology 04/06/22 18:25 Gram Stain - Final Lung Right Lower Lobe Bronchoalveolar Lavage Culture - Preliminary 04/07/22 12:54 Blood Culture - Preliminary Blood NEGATIVE TO DATE 04/07/22 12:45 Blood Culture - Preliminary Blood NEGATIVE TO DATE A&P Assessment and plan (1) Acute respiratory failure with hypoxia and hypercapnia: Acute hypoxic hypercapnic respiratory failure, failed BiPAP initially upon admission and needed to be intubated upon arrival. Patient has remained intubated between April 01- April 07, 2022. Likely that his respiratory failure is multifactorial, related to COPD exacerbation, CHF and pneumonia. He has now successfully been extubated on 04/07/22. Currently on heated hi flow Remains lethargic and intermittently confused post extubation, suspect likely contributed by fenatnyl and precedex. The latter is being weaned down this morning. Plan to continue with intermittent and night time Bipap. (2) Acute exacerbation of chronic obstructive airways disease: He is currently on treatment with Solu-Medrol 40 mg IV 12 hours today.--> plan to taper further to q24h Continue DuoNeb inhalation every 4 hours scheduled continue budesonide 0.5 mg elation twice daily glycopyrrolate to assist with secretions Continue pulmonary toilet Had initially hemoptysis upon presentation which has resolved. Appreciate pulmonary recommendations (3) Sepsis: Required transient Levophed support upon admission, has now been weaned off. Sepsis likely related to pneumonia. Developed fever on 04/06; + blood cx for GPC on 04/06, pending further identification Repeat blood cx thus far negative Currently afebrile over last 24 hrs continue zosyn and vancomycin Negative COVID PCR upon admission s/p Bronchoscopy w/ therapeutic aspiration of the tracheobronchial tree (clearance of airway secretions, removal of mucus plugs). BAL cx remains pending. Ag/GM and fungitell added from serum and bronch to evalute for IFI since patient is on Humira, currently low suspcion for the same. (4) Elevated brain natriuretic peptide (BNP) level: Related to acute diastolic CHF. He has diuresed well with Lasix 60 mg twice daily. Edema is resolved. LE now with changes of stasis dermatitis reduced lasix to 20mg iv daily Continue diuresis. Monitor I&O. Creatinine stable at 0.8 TTE - EF 55%. Seems to be mild hypokinesis of apical lateral wall. Normal pu lmonary artery pressure. Will benefit from further CAD risk stratification with acute conditions improve. Troponin with moderate elevation secondary likely to demand ischemia from CHF. History of underlying CAD, wall motion abnormality noted. May benefit subsequently from additional risk stratification with stress testing. (5) Pneumonia: As above and sepsis (6) Acute alteration in mental status: Acute metabolic encephalopathy on presentation secondary to respiratory failure, hypercapnia. CT head negative for acute events on 04/01 (7) Hypokalemia: Now resolved Plan Other chronic medical conditions including CAD: Continue atorvastatin 80, Plavix 75 mg, Coreg 3.125 mg p.o. daily Depression GERD: Currently on Protonix HTN HLD Memory loss STEPHANIE on nightly BiPAP Osteoarthritis of left hip Restless leg Seropositive RA DM2: Sliding scale insulin, glucose monitoring requested. DVT prophylaxis: Lovenox PUD prophylaxis Protonix 40 mg IV daily currently at bedside, updated. Code Status: Full IVF: D5 DVT PPx: Lovenox GI PPx: Protonix ABx: Zosyn Diet: Dysphagia Disposition: ICU -- MedSurg Attestations 2 Medical Necessity Statement*: close monitoing of respiratory status , needing HHF and Bipap, monitor mental status, iv steroids, iv diuresis Coding Level of Care Code Critical Care >/= 30 minutes Critical care time (in minutes): 40 The high probability of a clinically significant, sudden or life threatening deterioration, as referenced in this documentation, required my full and direct attention, intervention and personal management. The critical care time shown is in addition to time spent performing any reported separately billable procedures and includes the following: [x] Data and vital sign review and interpretation [x ] Patient assessment, examination and intervention [x] Medication orders and management [x] Patient/Family updates as able [x] Care Coordination and Documentation. Diagnoses Acute respiratory failure with hypoxia and hypercapnia J96.01; J96.02 Acute exacerbation of chronic obstructive airways disease J44.1 Sepsis A41.9 Elevated brain natriuretic peptide (BNP) level R79.89 Pneumonia J18.9 Acute alteration in mental status R41.82 Hypokalemia E87.6
[2022-04-09] MEDS: pregabalin 100 mg Capsule PO ×2 (15:50→21:19)
[2022-04-09] MEDS: lidocaine 1% 5 ML in potassium chloride premix 100 ML 52.5 ML IV (16:07)
[2022-04-09 17:32] LABS: Glucose Point of Care 104 mg/dL (70-110)
[2022-04-09 18:49] LABS: Blood Urea Nitrogen 28 mg/dL (8-23); Calcium 9.7 mg/dL (8.5-10.5); Carbon Dioxide 29 mmol/L (22-29); Chloride 103 mmol/L (98-107); Glomerular Filtration Rate 137.4 mL/min (90-130); Glucose 152 mg/dL (65-115); Magnesium 2.3 mg/dL (1.7-2.3); Osmolality Calculated 304 mOsm/kg (285-295); Phosphorus 2.8 mg/dL (2.5-4.5); Sodium 143 mmol/L (136-145)
[2022-04-09 18:52] LABS: Anion Gap 14.6 (5-19); Potassium 3.6 mmol/L (3.5-5.1)
[2022-04-09 23:21] LABS: Glucose Point of Care 148 mg/dL (70-110)
[2022-04-10] VITALS (34 sets, daily range): BP systolic 129–173; BP diastolic 72–134; PULSE 80–105; RESP 16–35; TEMP 36.7–37.6; O2SAT 83–99
[2022-04-10] MEDS: LORazepam 2 mg/mL INJ 1 mL 0.5 MG IVP (01:00)
[2022-04-10] MEDS: ipratropium-albuterol 3 mL Neb INHALATION ×6 (03:20→23:04)
[2022-04-10 04:29] LABS: Basophils # 0.1 10^3/uL (0.0-0.1); Basophils % 0.6 %; Eosinophils # 0.1 10^3/uL (0.0-0.8); Eosinophils % 0.9 %; Hematocrit 52.3 % (42.0-52.0); Hemoglobin 15.8 g/dL (11.7-16.6); Lymphocytes # 1.4 10^3/uL (0.8-4.8); Lymphocytes % 11.2 %; Mean Corpuscular HGB Conc 30.2 g/dL (30.0-36.0); Mean Corpuscular Hemoglobin 27.2 pg (28.0-34.0); Mean Corpuscular Volume 90.2 fl (80-94); Mean Platelet Volume 10.6 fL (7.4-10.4); Monocytes # 1.5 10^3/uL (0.2-0.9); Monocytes % 11.8 %; Neutrophils # 9.34 10^3/uL (1.8-7.7); Neutrophils % 74.8 %; Nucleated Red Blood Cells % 0 %; Platelet Count 329 10^3/cmm (130-400); Red Cell Distribution Width 16.9 % (12.1-15.1); White Blood Count 12.5 10^3/uL (4.0-10.0)
[2022-04-10] MEDS: piperacillin-tazobactam 3.375 GM in sodium chloride 0.9% (plus) 50 ML IV ×3 (04:45→22:07)
[2022-04-10 04:52] LABS: Alanine Aminotransferase 47 U/L (0-41); Albumin Level 3.3 g/dL (3.5-5.2); Alkaline Phosphatase 95 U/L (40-130); Aspartate Amino Transferase 33 U/L (0-40); Blood Urea Nitrogen 25 mg/dL (8-23); Carbon Dioxide 28 mmol/L (22-29); Chloride 103 mmol/L (98-107); Globulin 3.4 g/dL (1.3-4.6); Glucose 150 mg/dL (65-115); Osmolality Calculated 303 mOsm/kg (285-295); Sodium 143 mmol/L (136-145); Total Bilirubin 0.9 mg/dL (0.15-1.2); Total Protein 6.7 g/dL (6.6-8.7)
[2022-04-10 05:02] LABS: Anion Gap 15.4 (5-19); Potassium 3.4 mmol/L (3.5-5.1)
[2022-04-10] MEDS: budesonide 0.5 mg/2 mL Neb INHALATION ×2 (08:02→19:52)
[2022-04-10] MEDS: sodium chloride 3.5% neb 4 mL Neb INHALATION ×2 (08:02→19:52)
[2022-04-10 09:20] LABS: Glucose Point of Care 135 mg/dL (70-110)
[2022-04-10] MEDS: atorvastatin 40 mg Tablet 80 MG PO (09:26)
[2022-04-10] MEDS: duloxetine 60 mg Capsule PO (09:26)
[2022-04-10] MEDS: clopidogrel 75 mg Tablet PO (09:26)
[2022-04-10] MEDS: montelukast sodium 10 mg Tablet PO (09:26)
[2022-04-10] MEDS: carvedilol 3.125 mg Tablet PO (09:27)
[2022-04-10] MEDS: pregabalin 100 mg Capsule PO ×3 (09:27→22:08)
[2022-04-10] MEDS: pantoprazole 40 mg SDV IVP (09:27)
[2022-04-10] MEDS: ropinirole 2 mg Tablet 4 MG PO ×3 (09:27→22:08)
[2022-04-10] MEDS: enoxaparin 40 mg/0.4 mL Syringe SUBCUT (12:41)
[2022-04-10] MEDS: vancomycin 1,500 MG/300 ML PIGGYBACK 200 MG IV (12:42)
[2022-04-10] MEDS: insulin lispro 100 unit/1 mL SUBCUT ×2 (12:57→18:20)
[2022-04-10 13:06] LABS: Glucose Point of Care 204 mg/dL (70-110)
--- NOTE | 2022-04-10 14:45 | PC.SOCIAL ---
IMM Updated Updated pt's on IMM. No questions voiced. Provided pt a copy. Initialed, dated, & timed copy in chart.
--- NOTE | 2022-04-10 15:24 | PM.PN ---
Subjective Subjective: Still confused but able to converse. He is oriented to self and time. Endorses some pain in his legs. Remains very weak, is working with PT. Vitals/I&O/Wt Last Vital Signs Temp 99.6 F 04/10/22 13:00 Pulse 91 04/10/22 15:15 Resp 20 H 04/10/22 15:15 BP 146/93 04/10/22 15:00 Pulse Ox 93 04/10/22 15:15 O2 Del Method 04/10/22 15:15 O2 Flow Rate 5 04/10/22 15:15 FiO2 35 04/10/22 08:00 04/10/22 04/10/22 04/10/22 06:59 14:59 22:59 Intake Total 550 / 2195 50 / 50 Output Total 650 / 2400 200 / 200 Balance -100 / -205 -150 / -150 Weight last 48 hrs Weight 287 lb 7.724 oz Physical Exam Narrative: General: Cooperative patient in no apparent distress. Well developed. HEENT: Normocephalic, Atraumatic. External ears normal. Nasal passages patent without drainage. MMM. Heart: RRR. Resp: On N/C. Lungs with crackles throughout, mild wheezes. Abd: Soft, non-tender. Non-distended. Extremities: No edema. Skin: No rash or lesions on exposed areas. Neuro: A/O x 3. No focal motor or sensory. Urinary Catheter Management: Perez: Cath Placed During This Visit: yes Reason for Continuing Indwelling Catheter: Accurate Measurement of Urinary Output in Critically Ill Patients Urinary Catheter Date of Insertion: 04/01/22 Urinary Catheter Time of Insertion: 17:48 Data 04/10/22 03:57 04/10/22 03:57 Micro: Microbiology 04/06/22 18:25 Gram Stain - Final Lung Right Lower Lobe Bronchoalveolar Lavage Culture - Final A&P Assessment and plan (1) Acute respiratory failure with hypoxia and hypercapnia: Acute hypoxic hypercapnic respiratory failure, failed BiPAP initially upon admission and needed to be intubated upon arrival. Patient has remained intubated between April 01- April 07, 2022. Likely that his respiratory failure is multifactorial, related to COPD exacerbation, CHF and pneumonia. He has now successfully been extubated on 04/07/22. Currently on heated hi flow Remains lethargic and intermittently confused post extubation, suspect likely contributed by fenatnyl and precedex. The latter is being weaned down this morning. Plan to continue with intermittent and night time Bipap. (2) Acute exacerbation of chronic obstructive airways disease: He is currently on treatment with Solu-Medrol 40 mg IV 12 hours today.--> plan to taper further to q24h Continue DuoNeb inhalation every 4 hours scheduled continue budesonide 0.5 mg elation twice daily glycopyrrolate to assist with secretions Continue pulmonary toilet Had initially hemoptysis upon presentation which has resolved. Appreciate pulmonary recommendations (3) Sepsis: Required transient Levophed support upon admission, has now been weaned off. Sepsis likely related to pneumonia. Developed fever on 04/06; + blood cx for GPC on 04/06, pending further identification Repeat blood cx thus far negative Currently afebrile over last 24 hrs continue zosyn and vancomycin Negative COVID PCR upon admission s/p Bronchoscopy w/ therapeutic aspiration of the tracheobronchial tree (clearance of airway secretions, removal of mucus plugs). BAL cx remains pending. Ag/GM and fungitell added from serum and bronch to evalute for IFI since patient is on Humira, currently low suspcion for the same. (4) Elevated brain natriuretic peptide (BNP) level: Related to acute diastolic CHF. He has diuresed well with Lasix 60 mg twice daily. Edema is resolved. LE now with changes of stasis dermatitis reduced lasix to 20mg iv daily Continue diuresis. Monitor I&O. Creatinine stable at 0.8 TTE - EF 55%. Seems to be mild hypokinesis of apical lateral wall. Normal pulmonary artery pressure. Will benefit from further CAD risk stratification with acute conditions improve. Troponin with moderate elevation secondary likely to demand ischemia from CHF. History of underlying CAD, wall motion abnormality noted. May benefit subsequently from additional risk stratification with stress testing. (5) Pneumonia: As above and sepsis (6) Acute alteration in mental status: Acute metabolic encephalopathy on presentation secondary to respiratory failure, hypercapnia. CT head negative for acute events on 04/01 (7) Hypokalemia: Now resolved Plan Other chronic medical conditions including CAD: Continue atorvastatin 80, Plavix 75 mg, Coreg 3.125 mg p.o. daily Depression GERD: Currently on Protonix HTN HLD Memory loss STEPHANIE on nightly BiPAP Osteoarthritis of left hip Restless leg Seropositive RA DM2: Sliding scale insulin, glucose monitoring requested. Was unable to get bed upstairs, remains in ICU. Still very weak. Continue therapy. He is on Lyrica at home and we will restart this today. currently at bedside, updated. Labs are improved today. Will recheck in a.m. Continue Zosyn. He will likely need rehab or HH on discharge as he is very weak at this time. Up in chair today if able. Code Status: Full IVF: DVT PPx: Lovenox GI PPx: Protonix ABx: Zosyn Diet: Dysphagia Disposition: ICU -- MedSurg Attestations Medical Necessity Statement*: close monitoing of respiratory status , needing HHF and Bipap, monitor mental status, iv steroids, iv diuresis Coding Level of Care Code Acute Code for Chg Fwd Moderate MDM includes number and complexity of problems actively addressed during encounter, amount and/or complexity of data reviewed/ordered and described risk of complication, morbidity or mortality of management as documented Diagnoses Acute respiratory failure with hypoxia and hypercapnia J96.01; J96.02 Acute exacerbation of chronic obstructive airways disease J44.1 Sepsis A41.9 Elevated brain natriuretic peptide (BNP) level R79.89 Pneumonia J18.9 Acute alteration in mental status R41.82 Hypokalemia E87.6
[2022-04-10 17:34] LABS: Glucose Point of Care 145 mg/dL (70-110)
[2022-04-11] VITALS (33 sets, daily range): BP systolic 92–167; BP diastolic 76–139; PULSE 90–118; RESP 14–44; TEMP 36.8–37.2; O2SAT 90–99
[2022-04-11] MEDS: chlorhexidine gluconate 4% Btl 118 mL 1 APPLIC TOPICAL (00:56)
[2022-04-11] MEDS: vancomycin 1,500 MG/300 ML PIGGYBACK 200 MG IV ×2 (00:57→12:12)
[2022-04-11 00:58] LABS: Glucose Point of Care 133 mg/dL (70-110)
[2022-04-11] MEDS: ipratropium-albuterol 3 mL Neb INHALATION ×5 (04:29→23:10)
[2022-04-11] MEDS: piperacillin-tazobactam 3.375 GM in sodium chloride 0.9% (plus) 50 ML IV ×3 (04:41→20:00)
[2022-04-11 06:13] LABS: Glucose Point of Care 148 mg/dL (70-110)
[2022-04-11] MEDS: insulin lispro 100 unit/1 mL SUBCUT ×3 (06:20→17:43)
[2022-04-11] MEDS: clopidogrel 75 mg Tablet PO (08:30)
[2022-04-11] MEDS: carvedilol 3.125 mg Tablet PO (08:30)
[2022-04-11] MEDS: montelukast sodium 10 mg Tablet PO (08:31)
[2022-04-11] MEDS: atorvastatin 40 mg Tablet 80 MG PO (08:31)
[2022-04-11] MEDS: pantoprazole 40 mg SDV IVP (08:31)
[2022-04-11] MEDS: pregabalin 100 mg Capsule PO ×3 (08:31→21:27)
[2022-04-11] MEDS: duloxetine 60 mg Capsule PO (08:31)
[2022-04-11] MEDS: ropinirole 2 mg Tablet 4 MG PO ×3 (08:31→21:27)
[2022-04-11] MEDS: budesonide 0.5 mg/2 mL Neb INHALATION ×2 (08:45→23:10)
[2022-04-11] MEDS: sodium chloride 3.5% neb 4 mL Neb INHALATION ×2 (08:45→23:10)
--- NOTE | 2022-04-11 10:14 | CTR_ITS ---
PROCEDURE INFORMATION: Exam: CT Head Without Contrast Exam date and time: 04/11/2022 11:46 AM Age: 61 years old Clinical indication: Altered mental status/memory loss TECHNIQUE: Imaging protocol: Computed tomography of the head without contrast. Radiation optimization: All CT scans at this facility use at least one of these dose optimization techniques: automated exposure control; mA and/or kV adjustment per patient size (includes targeted exams where dose is matched to clinical indication); or iterative reconstruction. REPORTING DATA: Count of CT and Cardiac NM exams in prior 12 months: This patient has received 3 known CTs and 0 known cardiac nuclear medicine studies in the 12 months prior to the current study. COMPARISON: CT head wo con* [id number] 04/01/2022 1:57 PM RADIATION DOSE METRICS: Total DLP (mGy-cm): 1151.18 FINDINGS: Brain: No intracranial hemorrhage. No mass effect, edema or midline shift. Cortical sulci are unremarkable for age. There are vague areas of decreased attenuation within the periventricular white matter likely secondary to chronic microvascular changes. Cerebral ventricles: No ventriculomegaly. Paranasal sinuses: Visualized sinuses are unremarkable. No fluid levels. Mastoid air cells: Partial opacification left mastoid sinus developed from previous exam. Bones/joints: Unremarkable. No acute fracture. Soft tissues: Unremarkable. CT/CT head wo con* [id number] IMPRESSION: 1. No acute intracranial abnormality. 2. Small mastoid effusion.
[2022-04-11] MEDS: enoxaparin 40 mg/0.4 mL Syringe SUBCUT (11:03)
[2022-04-11 11:48] LABS: Basophils # 0.1 10^3/uL (0.0-0.1); Basophils % 0.4 %; Eosinophils % 0.3 %; Hematocrit 52.5 % (42.0-52.0); Hemoglobin 15.8 g/dL (11.7-16.6); Lymphocytes # 0.7 10^3/uL (0.8-4.8); Lymphocytes % 4.4 %; Mean Corpuscular HGB Conc 30.1 g/dL (30.0-36.0); Mean Corpuscular Volume 89.7 fl (80-94); Mean Platelet Volume 10.6 fL (7.4-10.4); Monocytes # 0.6 10^3/uL (0.2-0.9); Monocytes % 3.9 %; Neutrophils # 13.33 10^3/uL (1.8-7.7); Neutrophils % 90.5 %; Nucleated Red Blood Cells % 0 %; Platelet Count 347 10^3/cmm (130-400); Red Blood Count 5.85 10^6/uL (4.1-5.3); Red Cell Distribution Width 16.1 % (12.1-15.1); White Blood Count 14.7 10^3/uL (4.0-10.0)
[2022-04-11 12:12] LABS: Glucose Point of Care 208 mg/dL (70-110)
[2022-04-11 12:16] LABS: Alanine Aminotransferase 37 U/L (0-41); Albumin Level 3.2 g/dL (3.5-5.2); Alkaline Phosphatase 104 U/L (40-130); Anion Gap 13.4 (5-19); Aspartate Amino Transferase 23 U/L (0-40); Blood Urea Nitrogen 18 mg/dL (8-23); C Reactive Protein 17.8 mg/L (0.0-4.9); Calcium 9.3 mg/dL (8.5-10.5); Carbon Dioxide 28 mmol/L (22-29); Chloride 105 mmol/L (98-107); Globulin 3.7 g/dL (1.3-4.6); Glomerular Filtration Rate 169.6 mL/min (90-130); Glucose 238 mg/dL (65-115); Osmolality Calculated 306 mOsm/kg (285-295); Potassium 3.4 mmol/L (3.5-5.1); Sodium 143 mmol/L (136-145); Total Bilirubin 0.7 mg/dL (0.15-1.2); Total Protein 6.9 g/dL (6.6-8.7)
--- NOTE | 2022-04-11 12:51 | P.PN_ITS ---
Subjective Subjective: Continues to be quite confused today. He is making statements that he is getting and he is upset about it. is present in room, says this is not the case and this is new since he has been extubated. He has been able to eat some and sat up on EOB yesterday. Oriented only to person. Vitals/I&O/Wt Last Vital Signs Temp 98.6 F 04/11/22 12:00 Pulse 103 H 04/11/22 12:00 Resp 20 H 04/11/22 12:00 BP 148/91 04/11/22 11:00 Pulse Ox 90 04/11/22 12:00 O2 Del Method 04/11/22 12:00 O2 Flow Rate 6 04/11/22 12:00 FiO2 35 04/10/22 08:00 04/10/22 04/11/22 04/11/22 22:59 06:59 14:59 Intake Total 100 / 450 350 / 800 170 / 170 Output Total 450 / 650 400 / 1050 Balance -350 / -200 -50 / -250 170 / 170 Weight last 48 hrs Weight 287 lb 7.724 oz Physical Exam Narrative: General: Cooperative patient in no apparent distress. Well developed. HEENT: Normocephalic, Atraumatic. External ears normal. Nasal passages patent without drainage. MMM. Heart: RRR. Resp: On N/C. Lungs with crackles throughout, mild wheezes. Abd: Soft, non-tender. Non-distended. Extremities: No edema. Skin: No rash or lesions on exposed areas. Neuro: A/O x 3. No focal motor or sensory. Urinary Catheter Management: Perez: Cath Placed During This Visit: yes Reason for Continuing Indwelling Catheter: Accurate Measurement of Urinary Output in Critically Ill Patients Urinary Catheter Date of Insertion: 04/01/22 Urinary Catheter Time of Insertion: 17:48 Data 04/11/22 11:38 04/11/22 11:38 Micro: Microbiology 04/06/22 10:12 Blood Culture - Final Blood Staphylococcus hominis 04/06/22 10:12 Blood Culture - Final Blood Staphylococcus hominis A&P Assessment and plan (1) Acute respiratory failure with hypoxia and hypercapnia: Acute hypoxic hypercapnic respiratory failure, failed BiPAP initially upon a dmission and needed to be intubated upon arrival. Patient has remained intubated between April 01- April 07, 2022. Likely that his respiratory failure is multifactorial, related to COPD exacerba tion, CHF and pneumonia. He has now successfully been extubated on 04/07/22. Currently on heated hi flow Remains lethargic and intermittently confused post extubation, suspect likely contributed by fenatnyl and precedex. The latter is being weaned down this morning. Plan to continue with intermittent and night time Bipap. (2) Acute exacerbation of chronic obstructive airways disease: He is currently on treatment with Solu-Medrol 40 mg IV 12 hours today.--> plan to taper further to q24h Continue DuoNeb inhalation every 4 hours scheduled continue budesonide 0.5 mg elation twice daily glycopyrrolate to assist with secretions Continue pulmonary toilet Had initially hemoptysis upon presentation which has resolved. Appreciate pulmonary recommendations (3) Sepsis: Required transient Levophed support upon admission, has now been weaned off. Sepsis likely related to pneumonia. Developed fever on 04/06; + blood cx for GPC on 04/06, pending further identification Repeat blood cx thus far negative Currently afebrile over last 24 hrs continue zosyn and vancomycin Negative COVID PCR upon admission s/p Bronchoscopy w/ therapeutic aspiration of the tracheobronchial tree (clearance of airway secretions, removal of mucus plugs). BAL cx remains pending. Ag/GM and fungitell added from serum and bronch to evalute for IFI since patient is on Humira, currently low suspcion for the same. (4) Elevated brain natriuretic peptide (BNP) level: Related to acute diastolic CHF. He has diuresed well with Lasix 60 mg twice daily. Edema is resolved. LE now with changes of stasis dermatitis reduced lasix to 20mg iv daily Continue diuresis. Monitor I&O. Creatinine stable at 0.8 TTE - EF 55%. Seems to be mild hypokinesis of apical lateral wall. Normal pulmonary artery pressure. Will benefit from further CAD risk stratification with acute conditions improve. Troponin with moderate elevation secondary likely to demand ischemia from CHF. History of underlying CAD, wall motion abnormality noted. May benefit subsequently from additional risk stratification with stress testing. (5) Pneumonia: As above and sepsis (6) Acute alteration in mental status: Acute metabolic encephalopathy on presentation secondary to respiratory failure, hypercapnia. CT head negative for acute events on 04/01 (7) Hypokalemia: Now resolved Plan Other chronic medical conditions including CAD: Continue atorvastatin 80, Plavix 75 mg, Coreg 3.125 mg p.o. daily Depression GERD: Currently on Protonix HTN HLD Memory loss STEPHANIE on nightly BiPAP Osteoarthritis of left hip Restless leg Seropositive RA DM2: Sliding scale insulin, glucose monitoring requested. Remains very confused. CT head today. DDx: anoxia vs. CVA vs. infectious vs. Metabolic. WBC up slightly from yesterday to 14.7. CRP 17.8. Renal function stable. Good urine output. Continue PT. No improvement with Lyrica. currently at bedside, updated. A.M Labs. Continue Zosyn. He will likely need rehab or HH on discharge as he is very weak at this time. Up in chair today if able. Code Status: Full IVF: DVT PPx: Lovenox GI PPx: Protonix ABx: Zosyn,Vanc. Diet: Dysphagia Disposition: ICU -- MedSurg Attestations Medical Necessity Statement*: close monitoing of respiratory status , needing HHF and Bipap, monitor mental status, iv steroids, iv diuresis Coding Level of Care Code Acute Code for Chg Fwd Moderate MDM includes number and complexity of problems actively addressed during encounter, amount and/or complexity of data reviewed/ordered and described risk of complication, morbidity or mortality of management as doc umented Diagnoses Acute respiratory failure with hypoxia and hypercapnia J96.01; J96.02 Acute exacerbation of chronic obstructive airways disease J44.1 Sepsis A41.9 Elevated brain natriuretic peptide (BNP) level R79.89 Pneumonia J18.9 Acute alteration in mental status R41.82 Hypokalemia E87.6
[2022-04-11 14:30] LABS: P. Jirovecii DNA QL PCR NOT DETECTED
[2022-04-11 17:29] LABS: Glucose Point of Care 174 mg/dL (70-110)
[2022-04-11 18:04] LABS: Aspergillus AG,EIA,Serum NOT DETECTED; Aspergillus Galactomannan Inde <0.50
[2022-04-11 18:04] LABS: Aspergillus AG,EIA NOT DETECTED; Aspergillus AG,EIA, Index <0.50
[2022-04-11 18:49] LABS: Fungitell 1-3-B Glucan Assay <31 pg/mL; Interpretation NEGATIVE
--- NOTE | 2022-04-11 22:00 | PC.NURSE ---
Report received from Ketan in ICU regarding pt transfer to [facility]. Awaiting pt arrival to floor.
--- NOTE | 2022-04-11 22:02 | PC.NURSE ---
Shift report to given to Vane HERNANDEZ.
[2022-04-11] MEDS: acetaminophen 325 mg Tablet 650 MG PO (22:35)
[2022-04-11 22:54] LABS: Glucose Point of Care 145 mg/dL (70-110)
[2022-04-12] VITALS (15 sets, daily range): BP systolic 123–152; BP diastolic 78–92; PULSE 90–112; RESP 17–22; TEMP 36.3–37.3; O2SAT 90–96
[2022-04-12 00:47] LABS: Vancomycin Trough 14.8 ug/mL (10-15)
[2022-04-12] MEDS: vancomycin 1,500 MG/300 ML PIGGYBACK 200 MG IV ×3 (01:06→23:59)
[2022-04-12] MEDS: insulin lispro 100 unit/1 mL SUBCUT ×3 (01:06→17:38)
[2022-04-12] MEDS: chlorhexidine gluconate 4% Btl 118 mL 1 APPLIC TOPICAL (01:55)
[2022-04-12] MEDS: ipratropium-albuterol 3 mL Neb INHALATION ×6 (03:45→23:11)
[2022-04-12] MEDS: piperacillin-tazobactam 3.375 GM in sodium chloride 0.9% (plus) 50 ML IV ×3 (04:16→20:13)
[2022-04-12 05:02] LABS: Basophils # 0.1 10^3/uL (0.0-0.1); Basophils % 0.7 %; Eosinophils # 0.1 10^3/uL (0.0-0.8); Eosinophils % 0.8 %; Hematocrit 51.4 % (42.0-52.0); Hemoglobin 15.2 g/dL (11.7-16.6); Lymphocytes # 1.9 10^3/uL (0.8-4.8); Lymphocytes % 12.9 %; Mean Corpuscular HGB Conc 29.6 g/dL (30.0-36.0); Mean Corpuscular Hemoglobin 26.3 pg (28.0-34.0); Mean Corpuscular Volume 88.8 fl (80-94); Mean Platelet Volume 10.9 fL (7.4-10.4); Monocytes # 1.8 10^3/uL (0.2-0.9); Monocytes % 11.9 %; Neutrophils # 10.74 10^3/uL (1.8-7.7); Neutrophils % 73.2 %; Nucleated Red Blood Cells % 0 %; Platelet Count 325 10^3/cmm (130-400); Red Blood Count 5.79 10^6/uL (4.1-5.3); Red Cell Distribution Width 16.5 % (12.1-15.1); White Blood Count 14.7 10^3/uL (4.0-10.0)
[2022-04-12 05:27] LABS: Alanine Aminotransferase 33 U/L (0-41); Albumin Level 3.3 g/dL (3.5-5.2); Alkaline Phosphatase 99 U/L (40-130); Anion Gap 13.8 (5-19); Aspartate Amino Transferase 20 U/L (0-40); Blood Urea Nitrogen 17 mg/dL (8-23); Carbon Dioxide 29 mmol/L (22-29); Chloride 106 mmol/L (98-107); Globulin 3.4 g/dL (1.3-4.6); Glomerular Filtration Rate 137.4 mL/min (90-130); Glucose 131 mg/dL (65-115); Osmolality Calculated 305 mOsm/kg (285-295); Sodium 146 mmol/L (136-145); Total Bilirubin 0.7 mg/dL (0.15-1.2); Total Protein 6.7 g/dL (6.6-8.7)
[2022-04-12 05:33] LABS: Potassium 2.8 mmol/L (3.5-5.1)
[2022-04-12] MEDS: lidocaine 1% 5 ML in potassium chloride premix 100 ML 26.25 ML IV (06:10)
[2022-04-12 07:13] LABS: Glucose Point of Care 127 mg/dL (70-110)
[2022-04-12] MEDS: budesonide 0.5 mg/2 mL Neb INHALATION ×2 (07:49→19:51)
[2022-04-12] MEDS: sodium chloride 3.5% neb 4 mL Neb INHALATION ×2 (07:50→19:51)
[2022-04-12] MEDS: atorvastatin 40 mg Tablet 80 MG PO (08:42)
[2022-04-12] MEDS: clopidogrel 75 mg Tablet PO (08:42)
[2022-04-12] MEDS: ropinirole 2 mg Tablet 4 MG PO ×3 (08:42→20:12)
[2022-04-12] MEDS: carvedilol 3.125 mg Tablet PO (08:42)
[2022-04-12] MEDS: montelukast sodium 10 mg Tablet PO (08:42)
[2022-04-12] MEDS: pregabalin 100 mg Capsule PO ×3 (08:42→20:12)
[2022-04-12] MEDS: duloxetine 60 mg Capsule PO (08:42)
[2022-04-12 09:42] LABS: Magnesium 2.4 mg/dL (1.7-2.3); Phosphorus 3.6 mg/dL (2.5-4.5)
[2022-04-12] MEDS: enoxaparin 40 mg/0.4 mL Syringe SUBCUT (10:38)
[2022-04-12] MEDS: dextrose 5% 1,000 ML 60 ML IV (10:38)
[2022-04-12] MEDS: pantoprazole 40 mg SDV IVP (10:49)
[2022-04-12 11:34] LABS: Glucose Point of Care 184 mg/dL (70-110)
[2022-04-12 11:50] LABS: 25 Hydroxy Vitamin D 33 ng/mL (30-100)
--- NOTE | 2022-04-12 12:57 | PC.SOCIAL ---
IMM Update pg 2 of IMM updated and reviewed w/ patient. Copy provided and Copy in chart dated, and initialed.
--- NOTE | 2022-04-12 13:31 | P.PN_ITS ---
Subjective Subjective: seen today pt agreable to go to rehab K low this AM. getting IV K at this time present at bedside he offers no complaints at this time hypernatremia today sodium 146 Vitals/I&O/Wt Last Vital Signs Temp 97.8 F 04/12/22 08:00 Pulse 92 04/12/22 11:24 Resp 18 04/12/22 11:24 BP 133/82 04/12/22 08:00 Pulse Ox 94 04/12/22 11:24 O2 Del Method 04/12/22 11:24 O2 Flow Rate 4 04/12/22 11:24 FiO2 35 04/10/22 08:00 04/11/22 04/12/22 04/12/22 22:59 06:59 14:59 Intake Total 185 / 655 520.000 / 1175.000 105 / 105 Output Total 700 / 700 400 / 1100 Balance -515 / -45 120.000 / 75.000 105 / 105 Weight last 48 hrs Weight 124.783 kg Weight 130.4 kg Physical Exam Narrative: General: Cooperative patient in no apparent distress. Well deve loped. Alert and oriented x1 HEENT: Normocephalic, Atraumatic. Heart: RRR. normal s1, s2, muffled heart sounds due to body habitius Resp: On N/C. Lungs clear to auscultation b/l Abd: Soft, non-tender. Non-distended. Extremities: No edema. Skin: No rash or lesions on exposed areas. no gross focal deficits Urinary Catheter Management: Perez: Cath Placed During This Visit: yes Reason for Continuing Indwelling Catheter: Accurate Measurement of Urinary Output in Critically Ill Patients Urinary Catheter Date of Insertion: 04/01/22 Urinary Catheter Time of Insertion: 17:48 Data 04/12/22 04:37 04/12/22 04:37 Micro: Microbiology 04/07/22 12:54 Blood Culture - Final Blood NO GROWTH AFTER 5 DAYS 04/07/22 12:45 Blood Culture - Final Blood NO GROWTH AFTER 5 DAYS 04/06/22 08:25 Fungal Smear - Preliminary Ankle - Bronchial 04/06/22 10:12 Blood Culture - Final Blood Staphylococcus hominis A&P Assessment and plan (1) Bacteremia: (2) Hypokalemia: (3) Pneumonia: (4) Acute exacerbation of chronic obstructive airways disease: (5) Elevated brain natriuretic peptide (BNP) level: (6) Acute respiratory failure with hypoxia and hypercapnia: (7) Chronic bronchitis: (8) Morbid obesity with BMI of 40.0-44.9, adult: (9) GERD (gastroesophageal reflux disease): (10) CAD (coronary artery disease): (11) Essential hypertension: (12) Heart failure: (13) Sleep apnea: (14) Rheumatoid arthritis: Qualifiers: Rheumatoid arthritis location: multiple sites Rheumatoid factor presence: with rheumatoid factor Qualified Code(s): M05.79 - Rheumatoid arthritis with rheumatoid factor of multiple sites without organ or systems involvement (15) COPD (chronic obstructive pulmonary disease): Qualifiers: COPD type: emphysema Emphysema type: unspecified Qualified Code(s): J43.9 - Emphysema, unspecified Plan #Acute Hypoxic Hypercapneic respiratory failure? secondary to COPD exacerbation due to right lower lobe pneumonia #History of CAD status post stents #History of rheumatoid arthritis #Obstructive sleep apnea, BiPAP at nighttime #Severe underlying emphysema/COPD #Chronic smoker #Positive blood cultures #Chronic diastolic congestive heart failure #Hypokalemia -Patient was intubated April 01 of every . Successfully extubated on March 18. High flow and BiPAP. ? Continue budesonide twice daily ? DuoNeb every 4 hour ? Solu-Medrol every 24 hour. Cut down to 20 mg daily. ? Did require transient Levophed upon admission. Did have a fever and positive blood cultures for GPC on 04/06 grew staph hominous sensitive to vancomycin daptomycin Levaquin. Repeat blood cultures have been negative. Patient on vancomycin and Zosyn. Check procalcitonin in AM. ? Status post bronchoscopy with therapeutic aspiration of tracheobronchial tree. BAL culture negative. Fungal smear negative. Acute antigens negative. ? Continue to diurese patient with Lasix 20 IV daily at this time. ? Continue Coreg, Plavix, rosuvastatin ? Continue to supplement potassium as needed ? TTE complete. Mild hypokinesis of apical lateral wall noted. EF 55%. Troponin was elevated due to demand ischemia from CHF. May require stress test prior to discharge versus outpatient. ? Continue BiPAP at nighttime ? Sliding scale insulin moderate dose intensity ? Check blood sugars ACHS ? Patient will need rehab or home health at discharge. Continue with PT OT. ? CT head done 04/11 shows no acute intracranial abnormality. ?Continue Cymbalta, memantine, Lyrica Full code DVT prophylaxis: Lovenox 40 daily Attestations Medical Necessity Statement*: Continue to work with physical therapy and continue IV antibiotics at this time. We will check a procalcitonin level in the morning. Patient to eventually go to rehab and half-way. Other Coding Information Focused coding review requested Diagnoses Bacteremia R78.81 Hypokalemia E87.6 Pneumonia J18.9 Acute exacerbation of chronic obstructive airways disease J44.1 Elevated brain natriuretic peptide (BNP) level R79.89 Acute respiratory failure with hypoxia and hypercapnia J96.01; J96.02 Chronic bronchitis J42 Morbid obesity with BMI of 40.0-44.9, adult E66.01; Z68.41 GERD (gastroesophageal reflux disease) K21.9 CAD (coronary artery disease) I25.10 Essential hypertension I10 Heart failure I50.9 Sleep apnea G47.30 Rheumatoid arthritis M05.79 Rheumatoid arthritis location: multiple sites Rheumatoid factor presence: with rheumatoid factor COPD (chronic obstructive pulmonary disease) J43.9 COPD type: emphysema Emphysema type: unspecified
[2022-04-12 16:54] LABS: Glucose Point of Care 149 mg/dL (70-110)
[2022-04-12] MEDS: acetaminophen 325 mg Tablet 650 MG PO (20:12)
[2022-04-12 20:59] LABS: Glucose Point of Care 126 mg/dL (70-110)
[2022-04-13] VITALS (11 sets, daily range): BP systolic 132–146; BP diastolic 72–93; PULSE 57–102; RESP 16–18; TEMP 36.6–36.8; O2SAT 92–98
[2022-04-13 00:11] LABS: Glucose Point of Care 127 mg/dL (70-110)
[2022-04-13] MEDS: chlorhexidine gluconate 4% Btl 118 mL 1 APPLIC TOPICAL (01:56)
[2022-04-13] MEDS: ipratropium-albuterol 3 mL Neb INHALATION ×3 (03:22→11:23)
[2022-04-13] MEDS: piperacillin-tazobactam 3.375 GM in sodium chloride 0.9% (plus) 50 ML IV (03:33)
[2022-04-13 05:27] LABS: Basophils # 0.1 10^3/uL (0.0-0.1); Basophils % 0.7 %; Eosinophils # 0.1 10^3/uL (0.0-0.8); Eosinophils % 1.1 %; Hematocrit 51.9 % (42.0-52.0); Hemoglobin 15.5 g/dL (11.7-16.6); Lymphocytes # 1.7 10^3/uL (0.8-4.8); Lymphocytes % 13.5 %; Mean Corpuscular HGB Conc 29.9 g/dL (30.0-36.0); Mean Corpuscular Hemoglobin 26.2 pg (28.0-34.0); Mean Corpuscular Volume 87.8 fl (80-94); Mean Platelet Volume 10.8 fL (7.4-10.4); Monocytes # 1.2 10^3/uL (0.2-0.9); Monocytes % 9.2 %; Neutrophils # 9.39 10^3/uL (1.8-7.7); Neutrophils % 74.9 %; Nucleated Red Blood Cells % 0 %; Platelet Count 295 10^3/cmm (130-400); Red Blood Count 5.91 10^6/uL (4.1-5.3); Red Cell Distribution Width 16.2 % (12.1-15.1); White Blood Count 12.6 10^3/uL (4.0-10.0)
[2022-04-13 05:49] LABS: Anion Gap 15.2 (5-19); Blood Urea Nitrogen 12 mg/dL (8-23); Calcium 9.3 mg/dL (8.5-10.5); Carbon Dioxide 27 mmol/L (22-29); Chloride 105 mmol/L (98-107); Glomerular Filtration Rate 137.4 mL/min (90-130); Glucose 150 mg/dL (65-115); Osmolality Calculated 301 mOsm/kg (285-295); Phosphorus 2.9 mg/dL (2.5-4.5); Potassium 3.2 mmol/L (3.5-5.1); Sodium 144 mmol/L (136-145)
[2022-04-13 05:54] LABS: Procalcitonin 0.05 ng/mL (0-0.5)
[2022-04-13 06:38] LABS: Glucose Point of Care 138 mg/dL (70-110)
[2022-04-13] MEDS: sodium chloride 3.5% neb 4 mL Neb INHALATION (07:55)
[2022-04-13] MEDS: budesonide 0.5 mg/2 mL Neb INHALATION (07:55)
[2022-04-13] MEDS: ropinirole 2 mg Tablet 4 MG PO ×2 (10:28→14:24)
[2022-04-13] MEDS: duloxetine 60 mg Capsule PO (10:28)
[2022-04-13] MEDS: atorvastatin 40 mg Tablet 80 MG PO (10:29)
[2022-04-13] MEDS: clopidogrel 75 mg Tablet PO (10:29)
[2022-04-13] MEDS: enoxaparin 40 mg/0.4 mL Syringe SUBCUT (10:29)
[2022-04-13] MEDS: pregabalin 100 mg Capsule PO ×2 (10:29→14:24)
[2022-04-13] MEDS: potassium chloride oral liq 20 mEq/15 mL UDC 40 MEQ PO (10:29)
[2022-04-13] MEDS: montelukast sodium 10 mg Tablet PO (10:29)
[2022-04-13] MEDS: carvedilol 3.125 mg Tablet PO (10:29)
[2022-04-13] MEDS: pantoprazole 40 mg SDV IVP (10:33)
[2022-04-13 11:01] LABS: Glucose Point of Care 144 mg/dL (70-110)
[2022-04-13] MEDS: insulin lispro 100 unit/1 mL SUBCUT (12:50)
--- NOTE | 2022-04-13 13:52 | PM.DCS ---
Discharge Providers Date of Admission: 04/01/22 17:48 Date of Discharge: April 13, 2022 Attending Provider at Admission: Alfredo Broussard Attending Provider at Discharge: Yanni Garcia MD Primary Care Provider: Tania Garcia DO Diagnoses at Discharge Discharge Diagnosis (1) Bacteremia: Status: Resolved (2) Hypokalemia: Status: Acute (3) Pneumonia: Status: Resolved (4) Acute exacerbation of chronic obstructive airways disease: Status: Resolved (5) Elevated brain natriuretic peptide (BNP) level: Status: Resolved (6) Acute respiratory failure with hypoxia and hypercapnia: Status: Resolved (7) Chronic bronchitis: Status: Acute (8) Morbid obesity with BMI of 40.0-44.9, adult: Status: Acute (9) GERD (gastroesophageal reflux disease): Status: Acute (10) CAD (coronary artery disease): Status: Acute (11) Essential hypertension: Status: Acute (12) Heart failure: Status: Acute (13) Sleep apnea: Status: Acute (14) Rheumatoid arthritis: Status: Acute Qualifiers: Rheumatoid arthritis location: multiple sites Rheumatoid factor presence: with rheumatoid factor Qualified Code(s): M05.79 - Rheumatoid arthritis with rheumatoid factor of multiple sites without organ or systems involvement (15) COPD (chronic obstructive pulmonary disease): Status: Acute Qualifiers: COPD type: emphysema Emphysema type: unspecified Qualified Code(s): J43.9 - Emphysema, unspecified Reason for Visit Reason for Visit: low ox Brief History: 61-year-old gentleman was brought in for evaluation from orthopedic clinic where he was following up for assessment of hip arthritis and consideration of hip replacement surgery, there he was found to be hypoxic with saturation down in the 60s.? 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 He has not missed any of his treatments.? She states that he has had worsened productive cough for longer than a week, getting more dyspneic, as well as having hemoptysis, he had a fall on Tuesday with contusion/large bruise on the left upper quadrant of the abdomen, reported some burning sensation at the left side near the umbilicus.? She denies that he had any fever.? They were visited by their little niece last week who had a cold, and thought perhaps he may have picked up an infection from her.? She denies any vomiting, denies any aspiration with food or drink. He also has congestive heart failure, history of cardiac stents.? Has been having some peripheral edema although not clear that this is worse than usual.? Takes diuretics at home, also wears compression stockings. In ER he was found to be in hypoxic and hypercapnic respiratory failure with tachypnea 24, respiratory distress, decreased level of consciousness.? With leukocytosis 16.7, heart rates 80s-90s.? Chest x-ray with patchy right lower lobe opacity which may be pneumonia, atelectasis and/or effusion.? Cardiomegaly and atherosclerosis.? CT chest abdomen pelvis with overall limited quality due to body habitus, position of the arms and motion.? No central pulmonary embolism.? Right lung pneumonia.? Most dense consolidation right lower lobe.? No GI tract obstruction.? No renal obstruction.? Adnexa normal appendix.? Head CT without acute findings.? Mild atrophy and moderate small vessel ischemic type changes. Received breathing treatment, steroid, fluid bolus, Zosyn and vancomycin.? 7.37/66.8/117/30 8.4 initially started on BiPAP, but without improvement, repeat ABG 7.23/88.2/83.5/36.6.? He was intubated and started on mechanical ventilatory support. Hospital Course Hospital Course Patient was admitted for COPD exacerbation along with right lower lobe pneumonia. He was intubated from April 01 to . Did require transient Levophed upon admission. Had a fever and positive blood cultures for GPC on 221 grew Staph hominis sensitive to vancomycin daptomycin and Levaquin. Repeat blood cultures negative. Patient stayed on vancomycin and Zosyn throughout hospital stay. He also had a bronchoscopy done during stay for therapeutic aspiration of tracheobronchial tree. BAL negative, fungal smear negative, acute antigens negative. Patient remained on diuretics. TTE was done which showed mild hypokinesis of apical lateral wall noted. EF 55%. Elevated troponin initially on admission due to demand ischemia from CHF. Patient will probably require a stress test after discharge and to follow-up with cardiology. He sees Dr. Jett as an outpatient. He will be given a follow-up for that. Patient to continue BiPAP at nighttime. Initially patient stayed in the hospital for set up for fci placement for rehab however he was declined by several facilities. Discussed this with patient's who decided to take him home with home health. Patient is on memantine at home for early onset dementia. His mental status was waxing and waning but much improved at time of discharge. Patient was able to walk with a walker to the bathroom independently. All questions were answered. Patient appears in good spirits and was looking forward to going home that day. He was on his baseline oxygen as well. His Coreg was adjusted during hospital stay to 2.125 daily. He was given Levaquin for another 7 days to complete a 14-day course for positive blood culture. He was also given a prednisone taper for his COPD exacerbation. Physical Exam Narrative: General: Cooperative patient in no apparent distress. Well developed. Alert and oriented x1 HEENT: Normocephalic, Atraumatic. Heart: RRR. normal s1, s2, muffled heart sounds due to body habitius Resp: On N/C. Lungs clear to auscultation b/l Abd: Soft, non-tender. Non-distended. Extremities: No edema. Skin: No rash or lesions on exposed areas. no gross focal deficits Urinary Catheter Management: Perez: Cath Placed During This Visit: yes, but has since been removed by the nurse Reason for Continuing Indwelling Catheter: Decision to DC Catheter Urinary Catheter Date of Insertion: 04/01/22 Urinary Catheter Time of Insertion: 17:48 Date Urinary Catheter Removed: 04/13/22 Time Urinary Catheter Discontinued: 10:52 Discharge Data Studies Completed and Pending Completed Studies During Hospitalization Category Date Time Status CT head wo con* [id number] Routine Cat Scan 04/11/22 10:[address] head wo con* [id number] Stat Cat Scan 04/01/22 12:[address] abdomen pelvis [CT angio chest w abd pel w Cat Scan 04/01/22 12:27 Completed con] Stat CTA chest [CT angio chest PE protcl [id number]] Routine Cat Scan 04/02/22 14:04 Completed CXRP [XR chest 1V portable [id number]] AM LABS Exams 04/07/22 04:00 Completed XR chest 1V portable [id number] Routine Exams 04/01/22 17:40 Completed XR chest 1V portable [id number] Routine Exams 04/06/22 05:00 Completed XR chest 1V portable [id number] Routine Exams 04/08/22 07:39 Completed XR chest 1V portable [id number] Stat Exams 04/01/22 12:12 Completed XR chest 1V portable [id number] Stat Exams 04/01/22 15:03 Completed XR chest 1V portable [id number] Urgent Exams 04/03/22 05:40 [place] [id number] Routine Ultrasound 04/02/22 14:04 Completed CV. echo wo/w contrast [id number] Routine Ultrasound 04/02/22 00:03 Completed Pending at discharge Category Date Time Status Fungal Culture not HR/SK/BL Routine Lab 04/06/22 08:25 Results Radiology Impressions Chest/Abdomen/Pelvis CT 04/01/22 12:27 IMPRESSION: 1. Quality of this examination is overall limited by body habitus, position of the arms and motion. 2. No central pulmonary embolism. 3. RIGHT lung pneumonia. Most dense consolidation RIGHT lower lobe. 4. No GI tract obstruction. No renal obstruction. Adnexa normal appendix. Chest CTA 04/02/22 14:04 IMPRESSION: 1. Negative CT angiogram of the chest. No evidence of acute pulmonary embolism. 2. Decreased lung volumes with rather extensive lower lobe atelectasis progressed from previous exam. 3. Superimposed nodular infiltrate right lower lobe improved from earlier study. 4. Significant cardiomegaly, stable. 5. Mild mediastinal lymphadenopathy, stable. Chest X-Ray 04/08/22 07:39 IMPRESSION: 1. Bibasal infiltrates and atelectasis and pleural effusions showing little change. 2. The ET tube and NG tube have been removed. 3. Cardiac enlargement unchanged. Head CT 04/11/22 10:14 IMPRESSION: 1. No acute intracranial abnormality. 2. Small mastoid effusion. Laboratory Results WBC 12.6 10^3/uL (4.0-10.0) H 04/13/22 05:16 RBC 5.91 10^6/uL (4.1-5.3) H 04/13/22 05:16 Hgb 15.5 g/dL (11.7-16.6) 04/13/22 05:16 Hct 51.9 % (42.0-52.0) 04/13/22 05:16 MCV 87.8 fl (80-94) 04/13/22 05:16 MCH 26.2 pg (28.0-34.0) L 04/13/22 05:16 MCHC 29.9 g/dL (30.0-36.0) L 04/13/22 05:16 RDW 16.2 % (12.1-15.1) H 04/13/22 05:16 Plt Count 295 10^3/cmm (130-400) 04/13/22 05:16 MPV 10.8 fL (7.4-10.4) H 04/13/22 05:16 Neut % (Auto) 74.9 % 04/13/22 05:16 Lymph % (Auto) 13.5 % 04/13/22 05:16 [place] % (Auto) 9.2 % 04/13/22 05:16 Eos % (Auto) 1.1 % 04/13/22 05:16 Baso % (Auto) 0.7 % 04/13/22 05:16 Neut # (Auto) 9.39 10^3/uL (1.8-7.7) H 04/13/22 05:16 Lymph # (Auto) 1.7 10^3/uL (0.8-4.8) 04/13/22 05:16 [place] # (Auto) 1.2 10^3/uL (0.2-0.9) H 04/13/22 05:16 Eos # (Auto) 0.1 10^3/uL (0.0-0.8) 04/13/22 05:16 Baso # (Auto) 0.1 10^3/uL (0.0-0.1) 04/13/22 05:16 Nucleated RBC % (auto) 0 % 04/13/22 05:16 Nucleated RBCs # 0.0 /100WBC 04/13/22 05:16 PT 14.40 SECONDS (12.1-14.9) 04/01/22 12:15 INR 1.09 (0.8-1.2) 04/01/22 12:15 APTT 32.8 SECONDS (23.9-36.7) 04/01/22 12:15 Specimen Type Arterial 04/09/22 05:39 Sample Site Radial, right 04/09/22 05:39 ABG pH 7.42 (7.35-7.45) 04/09/22 05:39 ABG pCO2 48.1 mmHg (35-45) H 04/09/22 05:39 ABG pO2 70.3 mmHg (80.0-100.0) L 04/09/22 05:39 ABG HCO3 31.4 mmol/L (22-26) H 04/09/22 05:39 ABG O2 Saturation 83.3 04/07/22 21:28 ABG Base Excess 5.6 mmol/L (-2.0-2.0) H 04/09/22 05:39 Wil Test Pos 04/09/22 05:39 A-a O2 Gradient 39.2 mmHg (5-10) H 04/07/22 21:28 Hematocrit 49.6 % (42-52) 04/09/22 05:39 Hgb O2 Saturation 81.6 % (95-100) L 04/07/22 21:28 Carboxyhemoglobin 1.4 %THgb (0.4-20.1) 04/07/22 21:28 Methemoglobin 0.7 % (0.4-1.5) 04/07/22 21:28 Total Hemoglobin 16.3 g/dL (14-18) 04/07/22 21:28 Sodium 146.0 mmol/L (131-143) H 04/07/22 21:28 Potassium 3.7 mmol/L (3.5-5.0) 04/07/22 21:28 Glucose 156.0 mg/dL (70-115) H 04/07/22 21:28 Ionized Calcium 1.2 mmol/L (1.1-1.4) 04/07/22 21:28 O2 Delivery Device Hag 04/09/22 05:39 O2 Liters/Min 40.0 % 04/09/22 05:39 FiO2 40.0 % 04/09/22 05:39 Tidal Volume 0.50 04/06/22 05:57 PEEP 6.0 cmH20 04/07/22 16:19 Specimen Drawn By Anand 04/01/22 17:08 [employer] Tax Principal ID Anthony 04/09/22 05:39 Sodium 144 mmol/L (136-145) 04/13/22 05:16 Potassium 3.2 mmol/L (3.5-5.1) L 04/13/22 05:16 Chloride 105 mmol/L (98-107) 04/13/22 05:16 Carbon Dioxide 27 mmol/L (22-29) 04/13/22 05:16 Anion Gap 15.2 (5-19) 04/13/22 05:16 BUN 12 mg/dL (8-23) 04/13/22 05:16 Creatinine 0.6 mg/dL (0.7-1.2) L 04/13/22 05:16 GFR Calculation 137.4 mL/min (90-130) H 04/13/22 05:16 Glucose 150 mg/dL (65-115) H 04/13/22 05:16 POC Glucose 144 mg/dL (70-110) H 04/13/22 10:55 Calculated Osmolality 301 mOsm/kg (285-295) H 04/13/22 05:16 Lactic Acid 1.5 mmol/L (0.5-2.2) 04/01/22 12:15 Calcium 9.3 mg/dL (8.5-10.5) 04/13/22 05:16 Phosphorus 2.9 mg/dL (2.5-4.5) 04/13/22 05:16 Magnesium 2.0 mg/dL (1.7-2.3) 04/13/22 05:16 Total Bilirubin 0.7 mg/dL (0.15-1.2) 04/12/22 04:37 AST 20 U/L (0-40) 04/12/22 04:37 ALT 33 U/L (0-41) 04/12/22 04:37 Alkaline Phosphatase 99 U/L (40-130) 04/12/22 04:37 Troponin T Baseline 75 ng/L (0-15) H 04/01/22 12:15 Troponin T 120 Minute 79.13 ng/L (0-15) H 04/01/22 14:30 Delta Troponin T 4.13 ABS# (0-10) 04/01/22 14:30 Troponin T Hi Sens 6Hr 69.13 ng/L (0-15) H 04/01/22 18:35 Troponin T Hi Sens 6Hr Delta -5.87 ng/L (0-12) L 04/01/22 18:35 C-Reactive Protein 17.8 mg/L (0.0-4.9) H 04/11/22 11:38 NT-Pro-B Natriuret Pep 4085 pg/mL (0-125) H 04/01/22 12:15 Total Protein 6.7 g/dL (6.6-8.7) 04/12/22 04:37 Albumin 3.3 g/dL (3.5-5.2) L 04/12/22 04:37 Globulin 3.4 g/dL (1.3-4.6) 04/12/22 04:37 25-OH Vitamin D Total 33 ng/mL (30-100) 04/12/22 04:37 Procalcitonin 0.05 ng/mL (0-0.5) 04/13/22 05:16 Nasal Influ A H1 2009 PCR Not detected (NOT DETECT) 04/06/22 18:10 Bronch Specimen Source Right lower lobe 04/06/22 18:25 Bronchial Fluid Color Colorless 04/06/22 18:25 Bronchial Fluid Appearance Hazy (CLEAR) 04/06/22 18:25 Bronchial Fluid WBC 1513 /uL 04/06/22 18:25 Bronchial Fluid RBC 350 10^3/uL 04/06/22 18:25 Bronch Cells Counted 200 04/06/22 18:25 Bronchial Neutrophils 47.00 % (0.9-2.3) H 04/06/22 18:25 Bronchial Lymphocytes 52.00 % (10.71-12.91) H 04/06/22 18:25 Bronchial Macrophages 1.00 % (83.6-86.8) L 04/06/22 18:25 Bronchial Diff Comment Yes 04/06/22 18:25 Vancomycin Trough 14.8 ug/mL (10-15) 04/12/22 00:08 Adenovirus (PCR) Not detected (NOT DETECT) 04/06/22 18:10 C. pneumoniae DNA (PCR) Not detected (NOT DETECT) 04/06/22 18:10 Coronavirus 229E (PCR) Not detected (NOT DETECT) 04/06/22 18:10 Human Metapneumovir PCR Not detected (NOT DETECT) 04/06/22 18:10 Influenza A (H1) PCR Not detected (NOT DETECT) 04/06/22 18:10 Influenza A (H3) PCR Not detected (NOT DETECT) 04/06/22 18:10 Influenza Type A (PCR) Not detected (NOT DETECT) 04/06/22 18:10 Influenza Type B (PCR) Not detected (NOT DETECT) 04/06/22 18:10 M. pneumoniae (PCR) Not detected (NOT DETECT) 04/06/22 18:10 Parainfluenza 1 (PCR) Not detected (NOT DETECT) 04/06/22 18:10 Parainfluenza 2 (PCR) Not detected (NOT DETECT) 04/06/22 18:10 Parainfluenza 3 (PCR) Not detected (NOT DETECT) 04/06/22 18:10 Parainfluenza 4 (PCR) Not detected (NOT DETECT) 04/06/22 18:10 Pneumocystis Source Right lower lobe bal 04/06/22 18:25 Pneumocyst jirovecii PCR Not detected 04/06/22 18:25 Aspergillus Ag (EIA) Not detected 04/06/22 18:25 A. galactomannan Ag EIA Not detected 04/07/22 04:45 A. galactomannan Ag Idx <0.50 04/07/22 04:45 RSV Type A (PCR) Not detected (NOT DETECT) 04/06/22 18:10 RSV Type B (PCR) Not detected (NOT DETECT) 04/06/22 18:10 Entero/Rhino (PCR) Not detected (NOT DETECT) 04/06/22 18:10 SARS-CoV-2 (PCR) Not detected (NOT DETECT) 04/06/22 18:10 Beta-(1,3)-D-Glucan <31 pg/mL 04/07/22 12:45 B-(1,3)-D-Glucan Intrp Negative 04/07/22 12:45 Vitals Last Vital Signs Temp 98.2 F 04/13/22 12:00 Pulse 97 04/13/22 12:00 Resp 17 04/13/22 12:00 BP 143/78 04/13/22 12:00 Pulse Ox 98 04/13/22 12:00 O2 Del Method 04/13/22 12:00 O2 Flow Rate 4 04/13/22 11:26 FiO2 35 04/10/22 08:00 Discharge Plan Discharge Patient Disposition: Home Health Service Condition: Stable Prescriptions: New carvedilol 3.125 mg Tablet 3.125 mg PO DAILY 30 Days Qty: 30 0RF prednisone 10 mg tablet 10 mg PO DIRECTED 10 Days Qty: 10 0RF Rx Instructions: 20 mg x 3 days 10 mg x 3 days 5 mg x 4 days then stop levofloxacin 750 mg tablet 750 mg PO DAILY 7 Days Qty: 7 0RF Continued memantine [Namenda XR] 28 mg capsule,sprinkle,ER 24hr 28 mg PO DAILY duloxetine 60 mg capsule,delayed release(DR/EC) 60 mg PO DAILY ropinirole 2 mg tablet 4 mg PO TID metformin 1,000 mg tablet 1,000 mg PO BID Hold Instructions: Resume on 07/04/21. oxycodone-acetaminophen 10-325 mg tablet 1 tab PO TID PRN (Reason: Pain) nitroglycerin [Nitrostat] 0.4 mg tablet, sublingual 0.4 mg SUBLINGUAL Q5M PRN (Reason: Chest Pain) rosuvastatin 40 mg tablet 40 mg PO DAILY Trulicity 0.75 mg/0.5 mL pen injector 1.5 mg SUBCUT .Once weekly Rx Instructions: ON TUESDAY albuterol sulfate 2.5 mg /3 mL (0.083 %) solution for nebulization 2.5 mg INHALATION Q6H PRN (Reason: shortness of breath or wheezing) Symbicort 160-4.5 mcg/actuation HFA aerosol inhaler 2 puff INHALATION Q12H 90 Days Qty: 10.2 3RF fluticasone propionate 50 mcg/actuation spray,suspension 2 spray INTRANASAL DAILY PRN (Reason: allergy) Rx Instructions: administer into each nostril potassium chloride 20 mEq tablet extended release 40 meq PO DAILY Qty: 180 3RF albuterol sulfate [ProAir HFA] 90 mcg/actuation HFA aerosol inhaler 2 puff INHALATION Q6H PRN (Reason: Shortness Of Breath) Qty: 8.5 3RF montelukast [Singulair] 10 mg tablet 10 mg PO DAILY Qty: 30 0RF Rx Instructions: NEEDS APPT PRIOR TO FURTHER REFILLS folic acid 20 mg Capsule 20 mg PO DAILY Vitamin C 500 mg Capsule, Extended Release 500 mg PO DAILY cholecalciferol (vitamin D3) [Vitamin D3] 25 mcg (1,000 unit) Capsule 25 mcg PO DAILY Men's 50 Plus Multivitamin 400-20-370 mcg Tablet 1 tab PO DAILY furosemide 40 mg tablet 40 mg PO DAILY meloxicam 15 mg tablet 15 mg PO DAILY clopidogrel 75 mg Tablet 75 mg PO DAILY Qty: 90 3RF Changed Lyrica 150 mg capsule 150 mg PO BID Qty: 60 0RF Held trandolapril 4 mg tablet 4 mg PO DAILY Hold Instructions: see pcp chlorthalidone 25 mg tablet 25 mg PO DAILY Hold Instructions: see pcp [facility] [employer] [facility] 45-3.75-50 mg Tablet,Chewable 1 tab PO DAILY Hold Instructions: see pcp Discontinued carvedilol 6.25 mg tablet 6.25 mg PO DAILY diclofenac sodium 75 mg tablet,delayed release (DR/EC) 75 mg PO Q12H PRN (Reason: for severe pain as needed) Qty: 30 1RF amlodipine 2.5 mg tablet 5 mg PO DAILY Qty: 180 1RF No Action Cimzia 400 mg/2 mL (200 mg/mL x 2) syringe kit 200 mg SUBCUT Q14D Qty: 2 3RF Discharge Orders: Discharge Order (Routine); Ordered 04/13/22 Ordered By: Yanni Garcia Referrals: [facility] ([facility]) [Outside] Datar,Wilfredo Dennis MD [Physician] - 04/20/22 1:30 pm Donis Hernandez M.D [Physician] - 05/17/22 3:30 pm Tania Garcia DO [Primary Care Provider] - 04/19/22 10:30 am Discharge Diet: Cardiac and Diabetic Discharge Activity: Increase activity as tolerated, Use walker/crutches as instructed, As per PT/OT instructions and Oxygen as instructed Patient Instructions: Prednisone (By mouth), Levofloxacin (By mouth), Carvedilol (By mouth), Opioid Safety Activity Restrictions/Additional Instructions: Please follow up with cardiology, pulmonology and your primary care doctor as directed. Return to ER should you have worsening of symptoms or development of any new symptoms. Discharge Attestations Time Spent in Discharge Care*: greater than 30 min Quality Metrics Clinical Quality Measures [ No reported AMI, CVA or VTE this stay] Coding Level of Care Code 82354 Total time (in minutes) for Discharge: 35 Diagnoses Bacteremia R78.81 Hypokalemia E87.6 Pneumonia J18.9 Acute exacerbation of chronic obstructive airways disease J44.1 Elevated brain natriuretic peptide (BNP) level R79.89 Acute respiratory failure with hypoxia and hypercapnia J96.01; J96.02 Chronic bronchitis J42 Morbid obesity with BMI of 40.0-44.9, adult E66.01; Z68.41 GERD (gastroesophageal reflux disease) K21.9 CAD (coronary artery disease) I25.10 Essential hypertension I10 Heart failure I50.9 Sleep apnea G47.30 Rheumatoid arthritis M05.79 Rheumatoid arthritis location: multiple sites Rheumatoid factor presence: with rheumatoid factor COPD (chronic obstructive pulmonary disease) J43.9 COPD type: emphysema Emphysema type: unspecified
--- NOTE | 2022-04-13 14:10 | PC.OT ---
OT TREATMENT ATTEMPTED THIS P.M. PATIENT AND STATE THAT THE PATIENT IS BEING DISCHARGED TODAY.
== END 2022-04-13 14:36 | disposition home or self-care (01) | DRG 870 ==
LOC: ER 15:27 → ICU 17:32 → MEDSURG 04-11 22:30
PROVIDERS: Family Medicine; Internal Medicine Pulmonary Disease; Student in an Organized Health Care Education/Training Program; Admitting Provider Internal Medicine; Emergency Provider Emergency Medicine; PCP Family Medicine; Visit Provider Internal Medicine
DX: R78.81 Bacteremia (principal); I50.33 Acute on chronic diastolic (congestive) heart failure; J18.9 Pneumonia, unspecified organism; J96.22 Acute and chronic respiratory failure with hypercapnia; J96.21 Acute and chronic respiratory failure with hypoxia; G93.41 Metabolic encephalopathy; I24.8 Other forms of acute ischemic heart disease; D84.821 Immunodeficiency due to drugs; R04.2 Hemoptysis; E87.0 Hyperosmolality and hypernatremia; E87.6 Hypokalemia; J43.9 Emphysema, unspecified; E66.01 Morbid (severe) obesity due to excess calories; Z68.38 Body mass index [BMI] 38.0-38.9, adult; K21.9 Gastro-esophageal reflux disease without esophagitis; I25.10 Atherosclerotic heart disease of native coronary artery without angina pectoris; Z95.5 Presence of coronary angioplasty implant and graft; I11.0 Hypertensive heart disease with heart failure; G47.33 Obstructive sleep apnea (adult) (pediatric); M05.9 Rheumatoid arthritis with rheumatoid factor, unspecified; Z99.81 Dependence on supplemental oxygen; Z99.89 Dependence on other enabling machines and devices; B95.7 Other staphylococcus as the cause of diseases classified elsewhere; Z79.60 Long term (current) use of unspecified immunomodulators and immunosuppressants; G25.81 Restless legs syndrome; Z87.891 Personal history of nicotine dependence; E11.9 Type 2 diabetes mellitus without complications; M16.12 Unilateral primary osteoarthritis, left hip; E78.5 Hyperlipidemia, unspecified; F32.A Depression, unspecified; Z79.02 Long term (current) use of antithrombotics/antiplatelets; Z79.51 Long term (current) use of inhaled steroids; Z79.85 Long-term (current) use of injectable non-insulin antidiabetic drugs; Z79.891 Long term (current) use of opiate analgesic; Z79.84 Long term (current) use of oral hypoglycemic drugs; F03.90 Unspecified dementia, unspecified severity, without behavioral disturbance, psychotic disturbance, mood disturbance, and anxiety
CPT/HCPCS: 31500; 31622; 36415; 36416; 36600; 51702; 70450; 71045; 71275; 74177; 80048; 80051; 80053; 80202; 80503; 82306; 82330; 82803; 82805; 82962; 83605; 83735; 83880; 84100; 84145; 84484; 85025; 85610; 85730; 86140; 86403; 87040; 87070; 87077; 87102; 87186; 87205; 87206; 87305; 87449; 87486; 87581; 87633; 87635; 87641; 87798; 89050; 90471; 90686; 92507; 92523; 92526; 92610; 93005; 93970; 94002; 94003; 94640; 94660; 94669; 94799; 96365; 96367; 96372; 96375; 96376; 97110; 97161; 97166; 97530; 97535; 99285; 99291; C8929; C9113; J0360; J1644; J1650; J1815; J1940; J2060; J2543; J2704; J2920; J2930; J3010; J3370; J3480; J3490; J7030; J7040; J7050; J7060; J7070; J7613; J7626; J7644; Q3014; Q9956; Q9967

== ENCOUNTER 2022-04-16 11:31 | Inpatient (IN) | payer MEDICARE, SELFPAY ==
[2022-04-16] VITALS (27 sets, daily range): BP systolic 109–165; BP diastolic 63–107; PULSE 71–147; RESP 14–27; TEMP 36.7–37.2; O2SAT 90–99; BMI 41.8
--- NOTE | 2022-04-16 11:44 | ECG_ITS ---
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 Measurements Intervals Taylor Rate: 148 P: 0 SC: 0 QRS: -28 QRSD: 142 T: 266 QT: 332 QTc: 522 Interpretive Statements ATRIAL FLUTTER/TACHYCARDIA WITH RAPID VENTRICULAR RESPONSE WITH ABERRANT CONDUCTION OR VENTRICULAR PREMATURE COMPLEXES INTRAVENTRICULAR CONDUCTION DELAY [130+ ms QRS DURATION] INFERIOR MYOCARDIAL INFARCTION , OF INDETERMINATE AGE [40+ ms Q WAVE AND/OR ST/T ABNORMALITY IN II/aVF] INTERPRETATION BASED ON A DEFAULT AGE OF 40 YEARS Compared to ECG 04/01/2022 18:43:48 Ventricular premature complex(es) now present Intraventricular conduction delay now present Sinus rhythm no longer present Myocardial infarct finding still present Electronically Signed On 04-16-2022 21:44:41 RADIO MECHANIC HELPER by Ashly Matos M.D. [email or web address]
--- NOTE | 2022-04-16 11:44 | PC.NURSE ---
PT PLACED ON CONTINUOUS SPO2, NIBP, AND CM.
--- NOTE | 2022-04-16 11:50 | XRR_ITS ---
PROCEDURE INFORMATION: Exam: XR Chest Exam date and time: 04/16/2022 11:59 AM Age: 61 years old Clinical indication: Shortness of breath; Prior surgery; Surgery type: Heart stents; Patient HX: History--sob, general weakness; Additional info: Short of breath TECHNIQUE: Imaging protocol: Radiologic exam of the chest. Views: 1 view. COMPARISON: CR XR chest 1V portable [id number] 04/08/2022 7:46 AM FINDINGS: Lungs: There is no consolidation. Pleural spaces: There is no pleural effusion or pneumothorax. Heart/Mediastinum: There is moderate enlargement of the cardiac silhouette. Bones/joints: Bones are unremarkable. XR/XR chest 1V portable [id number] IMPRESSION: Resolution of bilateral lower lung opacity and resolution of pleural effusions since 04/08/2022
--- NOTE | 2022-04-16 11:54 | ED_ITS ---
HPI - Weakness General: Chief complaint: Weakness Stated complaint: GENERAL WEAKNESS/ FALL YESTERDAY Time Seen by Provider: 04/16/22 11:42 Source: patient and EMS Mode of arrival: EMS History of Present Illness: 61-year-old male who is brought in by EMS after he was too weak to get up off the floor. The patient slid out of his chair and was too weak to stand up. He was also noted to be hypoxic at home by his . Per EMS, the patient had a fever in route and was also hypotensive and tachycardic. Upon arrival here, the patient is tachycardic, in atrial fibrillation with RVR which appears to be new for him. Patient denies any complaints. He states he was just in the hospital for pneumonia. He is finished his antibiotics. He denies a cough. He denies feeling short of breath. He denies any sensation of palpitations. He denies injury from falling. Stated he did not fall, he just slid off his chair onto the floor and was too weak to get up. Patient has a history of COPD, on oxygen. He has a history of congestive heart failure, rheumatoid arthritis, coronary artery disease Associated symptoms: Reports fever(s) Review of Systems Narrative: See HPI Const: Reports: fever(s) and other (Bilateral lower extremity weakness) [facility] ED PFSH: Medical History CAD (coronary artery disease) Chest pain CHF (congestive heart failure) COPD (chronic obstructive pulmonary disease) Depression Enteritis GERD (gastroesophageal reflux disease) HTN (hypertension) Hyperlipidemia Memory loss STEPHANIE (obstructive sleep apnea) Osteoarthritis of left hip Restless leg Seropositive rheumatoid arthritis Type 2 diabetes mellitus Surgical History H/O esophagogastroduodenoscopy (12/19/20) History of carpal tunnel surgery History of colonoscopy with polypectomy 2010 History of sinus surgery History of surgical amputation of finger of right hand Stented coronary artery Family History Other Arthritis Diabetes Hypertension Stroke Denies family history of Rheumatoid arthritis Systemic lupus erythematosus (SLE) in adult Social History Smoking and tobacco status: current every day smoker cigarettes Packs smoked per day: 0.25 Years cigarettes smoked: 45 Quit status (tobacco): has quit using tobacco Year quit tobacco: 2020 Former quit date comment: Hx of 1 PPD x 53 Years Second hand smoke exposure: Yes Smoking risk assessment/counseling performed?: No Alcohol intake: former Counseling given: No Counseling given: No Lives independently: Yes Household members: spouse Marital status: Current occupational status: disabled Pets and animals: Yes Current gender identity: Male Physical Exam Const: COMMON NORMALS: alert GENERAL APPEARANCE: well developed and ill appearing HENMT: COMMON NORMALS: normocephalic and atraumatic HEAD & SCALP: normocephalic and atraumatic THROAT: posterior oropharynx normal Eye: COMMON NORMALS: conjunctivae normal CONJUNCTIVA: Yes conjunctivae normal SCLERA: sclerae normal Neck/C-Spine: COMMON NORMALS: supple GENERAL: Yes trachea midline Resp: COMMON NORMALS: normal respiratory effort and clear to auscultation bilaterally AUSCULTATION: clear to auscultation bilaterally Cardio: OTHER: Tachycardic, irregularly irregular GI: COMMON NORMALS: Soft to palpation PALPATION: Yes Soft to palpation and No Tenderness to palpation present (GI) OTHER: Left upper quadrant abdominal contusion Extremity: GENERAL: Yes normal exam except as noted and No edema Neuro: COMMON NORMALS: moves all extremities SENSORIUM/ORIENTATION: Yes ever rt and Yes Orientation impaired Course ED course: Chest x-ray per my interpretation shows cardiomegaly and a promin ent aortic knob. Improving infiltrate in the right lung base. After initial bolus of Cardizem, the heart rate has not changed, will repeat bolus and started drip. Reevaluation(s): Reevaluation #1: Patient given 20 mg Cardizem IV bolus with no change in his rate. We will give a 10 mg bolus and started on a drip at 10 mg/h and titrate for heart rate. Reevaluation #2: After second bolus, rate is now running around 110. Blood pressure remained stable. Patient's initial troponin is elevated at 136. We will give the patient 324 mg of baby aspirin. We will bolus with 4000 units of heparin and placed the patient on a heparin drip. Patient will need admission for new onset atrial fibrillation with RVR. Reevaluation #3: Blood pressure improving as heart rate improves. We will give a 500 cc fluid bolus. IV and oral potassium as well as IV magnesium have been ordered. No infection source at this point. Chest x-ray clear. Awaiting urinalysis. Blood cultures have been sent. Patient has been given 324 mg of aspirin because of the elevated troponin of 136. Heparin bolus and heparin drip ordered for the A-fib with RVR. Discussed with the hospitalist for admission. Consultations: Consultation #1: Discussed wtih Dr. Blair who agrees with admission Time: 13:14 Vital Signs: Vital signs: Vital Signs Temperature 98.9 F 04/16/22 11:32 Pulse Rate 82 04/16/22 11:32 Respiratory Rate 14 04/16/22 11:32 Blood Pressure 129/79 04/16/22 11:32 Pulse Oximetry 94 04/16/22 11:32 Oxygen Delivery Me thod 04/16/22 11:32 Oxygen Flow Rate 3 04/16/22 11:32 MDM - Weakness Medical Decision Making 61-year-old male who presents with generalized weakness, too weak to get up off the floor. Per EMS was hypotensive and had a fever in route. Upon arrival here, he is in atrial fibrillation with rapid ventricular response, rate in the 140s to 150s. Atrial fibrillation is new for him. We will start an IV, give him 20 mg of IV Cardizem. Patient's not febrile here. Saturations 94% on 3 L of oxygen which is baseline for him. Will obtain labs including blood cultures, lactic acid, cardiac enzymes CBC and CMP. Lab Data 04/16/22 11:40 04/16/22 11:40 Laboratory Results WBC 16.5 10^3/uL (4.0-10.0) H 04/16/22 11:40 RBC 5.82 10^6/uL (4.1-5.3) H 04/16/22 11:40 Hgb 15.4 g/dL (11.7-16.6) 04/16/22 11:40 Hct 49.8 % (42.0-52.0) 04/16/22 11:40 MCV 85.6 fl (80-94) 04/16/22 11:40 MCH 26.5 pg (28.0-34.0) L 04/16/22 11:40 MCHC 30.9 g/dL (30.0-36.0) 04/16/22 11:40 RDW 17.2 % (12.1-15.1) H 04/16/22 11:40 Plt Count 290 10^3/cmm (130-400) 04/16/22 11:40 MPV 12.2 fL (7.4-10.4) H 04/16/22 11:40 Neut % (Auto) 75.8 % 04/16/22 11:40 Lymph % (Auto) 13.7 % 04/16/22 11:40 [place] % (Auto) 7.3 % 04/16/22 11:40 Eos % (Auto) 1.9 % 04/16/22 11:40 Baso % (Auto) 0.4 % 04/16/22 11:40 Neut # (Auto) 12.50 10^3/uL (1.8-7.7) H 04/16/22 11:40 Lymph # (Auto) 2.3 10^3/uL (0.8-4.8) 04/16/22 11:40 [place] # (Auto) 1.2 10^3/uL (0.2-0.9) H 04/16/22 11:40 Eos # (Auto) 0.3 10^3/uL (0.0-0.8) 04/16/22 11:40 Baso # (Auto) 0.1 10^3/uL (0.0-0.1) 04/16/22 11:40 Nucleated RBC % (auto) 0 % 04/16/22 11:40 Nucleated RBCs # 0.0 /100WBC 04/16/22 11:40 Sodium 139 mmol/L (136-145) 04/16/22 11:40 Potassium 3.3 mmol/L (3.5-5.1) L 04/16/22 11:40 Chloride 99 mmol/L (98-107) 04/16/22 11:40 Carbon Dioxide 22 mmol/L (22-29) 04/16/22 11:40 Anion Gap 21.3 (5-19) H 04/16/22 11:40 BUN 19 mg/dL (8-23) 04/16/22 11:40 Creatinine 1.6 mg/dL (0.7-1.2) H 04/16/22 11:40 GFR Calculation 44.3 mL/min (90-130) L 04/16/22 11:40 Glucose 179 mg/dL (65-115) H 04/16/22 11:40 Calculated Osmolality 295 mOsm/kg (285-295) 04/16/22 11:40 Lactate 3.2 mmol/L (0.5-2.2) H 04/16/22 11:40 Calcium 8.7 mg/dL (8.5-10.5) 04/16/22 11:40 Magnesium 1.5 mg/dL (1.7-2.3) L 04/16/22 11:40 Total Bilirubin 0.6 mg/dL (0.15-1.2) 04/16/22 11:40 AST 20 U/L (0-40) 04/16/22 11:40 ALT 30 U/L (0-41) 04/16/22 11:40 Alkaline Phosphatase 112 U/L (40-130) 04/16/22 11:40 Troponin T Baseline 136 ng/L (0-15) H* 04/16/22 11:40 NT-Pro-B Natriuret Pep 3049 pg/mL (0-125) H 04/16/22 11:40 Total Protein 6.6 g/dL (6.6-8.7) 04/16/22 11:40 Albumin 3.0 g/dL (3.5-5.2) L 04/16/22 11:40 Globulin 3.6 g/dL (1.3-4.6) 04/16/22 11:40 TSH 1.28 uIU/mL (0.27-4.20) 04/16/22 11:40 EKG Data EKG 1: I personally reviewed and interpreted this EKG as follows: EKG interpretation date: 04/16/22 EKG interpretation time: 12:05 Interpretation: Atrial flutter with rapid ventricular response, rate 148, non-specific ST changes Critical Care Time Critical Care Time: Critical Care Time: Yes Total Critical Care Time: 45 Attestation: The high probability of a clinically significant, sudden or life threatening deterioration, as referenced in this documentation, required my full and direct attention, intervention and personal management. The critical care time shown is in addition to time spent performing any reported separately billable procedures and includes the following: [x] Data and vital sign review and interpretation [x ] Patient assessment, examination and intervention [x] Medication orders and management [x] Patient/Family updates as able [x] Care Coordination and Documentation. Discharge Plan Discharge Clinical Impression: Atrial flutter with rapid ventricular response, Elevated troponin, Hypokalemia, Acute kidney injury, Hypomagnesemia, Elevated lactic acid level Condition: Stable Prescriptions: No Action memantine [Namenda XR] 28 mg capsule,sprinkle,ER 24hr 28 mg PO DAILY@12 trandolapril 4 mg tablet 4 mg PO DAILY Hold Instructions: see pcp duloxetine 60 mg capsule,delayed release(DR/EC) 60 mg PO QAM ropinirole 2 mg tablet 4 mg PO TID metformin 1,000 mg tablet 1,000 mg PO BID Hold Instructions: Resume on 07/04/21. oxycodone-acetaminophen 10-325 mg tablet 1 tab PO Q6H PRN (Reason: Pain) nitroglycerin [Nitrostat] 0.4 mg tablet, sublingual 0.4 mg SUBLINGUAL Q5M PRN (Reason: Chest Pain) rosuvastatin 40 mg tablet 40 mg PO DAILY chlorthalidone 25 mg tablet 25 mg PO QAM Hold Instructions: see pcp Trulicity 0.75 mg/0.5 mL pen injector 1.5 mg SUBCUT .Once weekly Rx Instructions: ON TUESDAY albuterol sulfate 2.5 mg /3 mL (0.083 %) solution for nebulization 2.5 mg INHALATION Q6H PRN (Reason: shortness of breath or wheezing) Symbicort 160-4.5 mcg/actuation HFA aerosol inhaler 2 puff INHALATION Q12H 90 Days Qty: 10.2 3RF fluticasone propionate 50 mcg/actuation spray,suspension 2 spray INTRANASAL DAILY PRN (Reason: allergy) Rx Instructions: administer into each nostril albuterol sulfate [ProAir HFA] 90 mcg/actuation HFA aerosol inhaler 2 puff INHALATION Q6H PRN (Reason: Shortness Of Breath) Qty: 8.5 3RF Cimzia 400 mg/2 mL (200 mg/mL x 2) syringe kit 200 mg SUBCUT Q14D Qty: 2 3RF Rx Instructions: (NOT STARTED OF 04/16/22) folic acid 20 mg Capsule 20 mg PO QAM Vitamin C 500 mg Capsule, Extended Release 500 mg PO DAILY cholecalciferol (vitamin D3) [Vitamin D3] 25 mcg (1,000 unit) Capsule 25 mcg PO QAM Men's 50 Plus Multivitamin 400-20-370 mcg Tablet 1 tab PO DAILY [employer] 45-3.75-50 mg Tablet,Chewable 1 tab PO BEDTIME Hold Instructions: see pcp furosemide 40 mg tablet 40 mg PO QAM meloxicam 15 mg tablet 15 mg PO QAM prednisone 10 mg tablet 10 mg PO DIRECTED 10 Days Qty: 10 0RF Rx Instructions: 20 mg x 3 days 10 mg x 3 days 5 mg x 4 days then stop levofloxacin 750 mg tablet 750 mg PO DAILY 7 Days Qty: 7 0RF carvedilol 3.125 mg tablet 3.125 mg PO QAM clopidogrel 75 mg tablet 75 mg PO QAM Singulair 10 mg tablet 10 mg PO DAILY@12 Rx Instructions: NEEDS APPT PRIOR TO FURTHER REFILLS Lyrica 150 mg capsule 150 mg PO TID potassium chloride 20 mEq tablet extended release 20 meq PO BID Referrals: Tania Garcia DO [Primary Care Provider] - Coding Level of Care Code ED Direct Care Worker for Chg Fabian
[2022-04-16] MEDS: dilTIAZem 5 mg/mL SDV 5 mL 20 MG IV (12:05)
--- NOTE | 2022-04-16 12:07 | PC.NURSE ---
AFTER ADM OF DILTIZEM PT HR IS 147BPM INFORMED DR. COTO NO FURTHER ORDERS.
[2022-04-16] MEDS: ropinirole 1 mg Tablet 2 MG PO ×2 (12:17→14:00)
[2022-04-16] MEDS: dilTIAZem 5 mg/mL SDV 5 mL 10 MG IVP (12:19)
[2022-04-16] MEDS: dilTIAZem 100 MG in sodium chloride 0.9% (add-van) 100 ML 10 MG IV (12:19)
[2022-04-16 12:22] LABS: Basophils # 0.1 10^3/uL (0.0-0.1); Basophils % 0.4 %; Eosinophils # 0.3 10^3/uL (0.0-0.8); Eosinophils % 1.9 %; Hematocrit 49.8 % (42.0-52.0); Hemoglobin 15.4 g/dL (11.7-16.6); Lymphocytes # 2.3 10^3/uL (0.8-4.8); Lymphocytes % 13.7 %; Mean Corpuscular HGB Conc 30.9 g/dL (30.0-36.0); Mean Corpuscular Hemoglobin 26.5 pg (28.0-34.0); Mean Corpuscular Volume 85.6 fl (80-94); Mean Platelet Volume 12.2 fL (7.4-10.4); Monocytes # 1.2 10^3/uL (0.2-0.9); Monocytes % 7.3 %; Neutrophils % 75.8 %; Nucleated Red Blood Cells % 0 %; Platelet Count 290 10^3/cmm (130-400); Red Blood Count 5.82 10^6/uL (4.1-5.3); Red Cell Distribution Width 17.2 % (12.1-15.1); White Blood Count 16.5 10^3/uL (4.0-10.0)
[2022-04-16 12:39] LABS: Lactate (Lactic Acid level) 3.2 mmol/L (0.5-2.2)
[2022-04-16 12:44] LABS: Troponin(5th) Baseline 136 ng/L (0-15)
[2022-04-16 12:52] LABS: Alanine Aminotransferase 30 U/L (0-41); Alkaline Phosphatase 112 U/L (40-130); Anion Gap 21.3 (5-19); Aspartate Amino Transferase 20 U/L (0-40); Blood Urea Nitrogen 19 mg/dL (8-23); Calcium 8.7 mg/dL (8.5-10.5); Carbon Dioxide 22 mmol/L (22-29); Chloride 99 mmol/L (98-107); Globulin 3.6 g/dL (1.3-4.6); Glomerular Filtration Rate 44.3 mL/min (90-130); Glucose 179 mg/dL (65-115); Magnesium 1.5 mg/dL (1.7-2.3); NT Pro B Type Natriuretic Pept 3049 pg/mL (0-125); Osmolality Calculated 295 mOsm/kg (285-295); Potassium 3.3 mmol/L (3.5-5.1); Sodium 139 mmol/L (136-145); Thyroid Stimulating Hormone 1.28 uIU/mL (0.27-4.20); Total Bilirubin 0.6 mg/dL (0.15-1.2); Total Protein 6.6 g/dL (6.6-8.7)
--- NOTE | 2022-04-16 13:20 | ECG_ITS ---
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 Measurements Intervals [place] Rate: 125 P: 0 SD: 366 QRS: -35 QRSD: 127 T: 256 QT: 332 QTc: 479 Interpretive Statements Possible atrial flutter with variable block INFERIOR MYOCARDIAL INFARCTION , OF INDETERMINATE AGE [40+ ms Q WAVE AND/OR ST/T ABNORMALITY IN II/aVF] Compared to ECG 04/16/2022 11:44:26 Ventricular premature complex(es) no longer present Intraventricular conduction delay no longer present Myocardial infarct finding still present Electronically Signed On 04-16-2022 21:45:57 JOB DEVELOPMENT SPECIALIST by Ashly Matos M.D. [email or web address]
--- NOTE | 2022-04-16 13:21 | PC.PHAR ---
PTS VERIFIED PTS MEDICATIONS-PTS STATES THE PT HASNT STARTED CIMZIA 200MG [id number] STATES THE PT TAKES LASIX 40MG QAM EXT MED HISTORY SHOWS LAST FILLED 02/15/22 90D/S FOR 40MG BID-PTS STATES THE PT TAKES LYRICA 150MG TID RX WRITTEN 04/13/[address] SAMUEL-PTS STATES THE PT TAKES KCL 20MEQ BID EXT MED HISTORY SHOWS LAST FILLED 01/28/22 90D/S FOR 20MEQ TID-PTS STATES THE PT IS TAKING ROPINIROLE 4MG TID EXT MED HISTORY SHOWS LAST FILLED 2MG TID FILLED 03/04/22 74D/S-PTS STATES THE PT TAKES ROSUVASTATIN 40MG HS EXT MED HISTORY SHOWS LAST FILLED 01/12/22 90D/S FOR 20MG HS-NOTES ARE MADE IN THE PHARMACY COMMENTS
[2022-04-16] MEDS: aspirin 81 mg Chew Tablet 324 MG PO (13:31)
[2022-04-16] MEDS: potassium chloride ER 20 mEq Tablet 40 MEQ PO (13:33)
[2022-04-16] MEDS: heparin 5,000 unit/mL INJ 1 mL 4000 UNIT IVP (13:37)
[2022-04-16] MEDS: magnesium sulfate premix 2 GM/50 ML PIGGYBACK IV (13:49)
[2022-04-16] MEDS: heparin drip 25,000 UNIT/500 ML PREMIX 36 UNIT IV (13:51)
[2022-04-16] MEDS: sodium chloride 0.9% 500 ML 999 ML IV (13:56)
[2022-04-16] MEDS: potassium chloride premix 100 ML 50 MEQ IV (13:57)
--- NOTE | 2022-04-16 14:21 | PC.NURSE ---
PT BECOMING INCREASINGLY SEDATED. NOTIFIED DR. COTO SHE VERBALIZED UNDERSTANDING NO FURTHER ORDERS.
[2022-04-16 14:24] LABS: D Dimer 2.56 ug/mIFEU (0-0.59)
[2022-04-16 14:25] LABS: Troponin 5 2HR 126.9 ng/L (0-15); Troponin 5 2HR Delta -9.1 ABS# (0-10)
[2022-04-16 14:31] LABS: ABG PCO2 52.1 mmHg (35-45); ABG PH Result 7.35 (7.35-7.45); Arterial Blood Gas Hematocrit 46.4 % (42-52); Base Excess ABG 1.7 mmol/L (-2.0-2.0); Blood Gas Allen Test Pos; Blood Gas Operator Identificat CAK; Blood Gas Sample Site Brachial, left; Blood Gas Sample Type Arterial; HCO3 ABG 28.6 mmol/L (22-26); Oxygen Device NC; PO2 ABG 83.1 mmHg (80.0-100.0)
--- NOTE | 2022-04-16 14:48 | P.HP_ITS ---
Providers/Chief Complaint Admitting Physician: Alfredo Broussard Primary Care Provider: Tania Garcia DO Chief Complaint: GENERAL WEAKNESS/ FALL YESTERDAY History of Present Illness 61-year-old gentleman discharged on 04/13 after management of respiratory failure, sepsis, CHF, pneumonia, requiring mechanical ventilatory support, received antibiotics, diuretics, TTE showing mild hypokinesis of apical lateral wall, EF 55%, with consideration of progression of CAD, prior stenting, consideration of stress testing at discharge, unsuccessful attempt at placement to residential facility, eventually returned home. reports has continued to be weak, progressively worsened mental status, intermittent lethargic episodes, intermittently confused, other times oriented. Slumped off of his chair several times that she had to call an ambulance to get him replaced back in the chair. Slid down again this morning, too weak to get up off the floor, on assessment by EMS noted to tachycardic, heart rates in 150s, reportedly blood pressure soft, 105 at home, reportedly 1 reading 77 systolic in route and EMS, lethargic, weak. reports recently has been having liquid diarrhea 3 times a day. Has some chronic erythema of bilateral lower extremities with chronic stasis. He has not had good oral intake. Has been taking medications, not missing doses. In ER tachycardia, new onset atrial fibrillation with RVR, not hypotensive, maintaining blood pressures. Atrial fibrillation is new to him. Maintaining oxygen saturation on 3 L which is his usual. On work-up noted leukocytosis 16.5, predominantly neutrophilic. Additionally mild hypokalemia, potassium 3.3, AAKASH, creatinine 1.6. Lactate 3.2. Magnesium 1.5. Baseline troponin 136. NT proBNP 3049. Albumin 3. TSH 1.28. Chest x-ray with resolution of bilateral lower lung opacity and resolution of pleural effusions. Due to patient's lethargy all history had to be obtained from his . He does wake up and answer some questions, follows some directions, but with considerable effort to get him woken up. states he wears BiPAP at night for sleep apnea, COPD, sometimes does not put it on when taking a nap during the day. Review of Systems General: Reports: ROS unobtainable due to mental status (Some ROS obtained fro m his , he answers few limited questions) Const: Denies: fever(s) or chills ENMT: Denies: throat pain Card: Denies: chest pain, edema or pre-syncope Resp: Denies: dyspnea, productive cough, change in phlegm color or hemoptysis GI: Denies: abdominal pain, nausea, vomiting, diarrhea, constipation, hematochezia or melena : Denies: flank pain, difficulty urinating, urinary frequency or hematuria Musc: Reports: back pain (chronic); Denies: joint swelling or joint redness Skin/Breast: Denies: rash or new lesions Neuro: Reports: confusion; Denies: headache(s), numbness in extremities, weakness in extremities, dizziness or seizure-like activity Endo: Denies: polyuria Medications/Allergies Home Medications Medication Instructions Recorded Confirmed Last Taken Type chlorthalidone 25 mg tablet 25 mg PO QAM 04/25/19 04/16/22 04/15/22 History duloxetine 60 mg capsule,delayed 60 mg PO QAM 04/25/19 04/16/22 04/15/22 History release memantine 28 mg capsule 28 mg PO DAILY@12 04/25/19 04/16/22 04/15/22 History sprinkle,extended release 24hr (Namenda XR) metformin 1,000 mg tablet 1,000 mg PO BID 04/25/19 04/16/22 04/15/22 History nitroglycerin 0.4 mg sublingual 0.4 mg sublingual Q5M PRN Chest 04/25/19 04/16/22 12/19/20 History tablet (Nitrostat) Pain oxycodone-acetaminophen 10 mg-325 1 tab PO Q6H PRN Pain 04/25/19 04/16/22 04/01/22 History mg tablet ropinirole 2 mg tablet 4 mg PO TID 04/25/19 04/16/22 04/15/22 History rosuvastatin 40 mg tablet 40 mg PO BEDTIME 04/25/19 04/16/22 04/15/22 History trandolapril 4 mg tablet 4 mg PO QAM 04/25/19 04/16/22 04/15/22 History albuterol sulfate 2.5 mg/3 mL 2.5 mg inhalation Q6H PRN 05/23/19 04/16/22 12/19/20 History (0.083 %) solution for nebulization shortness of breath or wheezing fluticasone propionate 50 2 spray intranasal DAILY PRN 05/11/21 04/16/22 Unknown History mcg/actuation nasal allergy spray,suspension albuterol sulfate 90 mcg/actuation 2 puff inhalation Q6H PRN 08/04/21 04/16/22 Unknown Rx aerosol inhaler (ProAir HFA) Shortness Of Breath #8.5 grams cholecalciferol (vitamin D3) 25 25 mcg PO QAM 04/01/22 04/16/22 04/15/22 History mcg (1,000 unit) capsule (Vitamin D3) folic acid 20 mg capsule 20 mg PO QAM 04/01/22 04/16/22 04/15/22 History furosemide 40 mg tablet 40 mg PO QAM 04/01/22 04/16/22 04/15/22 History SEE PHARMACY COMMENT meloxicam 15 mg tablet 15 mg PO QAM 04/01/22 04/16/22 04/15/22 History gacmisizokqu-aut-iamwz acid-vit 1 tab PO DAILY 04/01/22 04/16/22 04/01/22 History K-lycop 400 mcg-20 mcg-370 mcg tablet (Men's 50 Plus Multivitamin) vitamin C 45 mg-zinc citrate 3.75 1 tab PO BEDTIME 04/01/22 04/16/22 03/31/22 History mg-elderberry 50 mg chewable tablet ([employer]) levofloxacin 750 mg tablet 750 mg PO DAILY 7 days #7 tabs 04/13/22 04/16/22 04/15/22 Rx certolizumab pegol 400 mg/2 mL 200 mg SUBCUT Q14D #2 ea 04/15/22 04/16/22 Unknown Rx (200 mg/mL x2) subcutaneous syringe kit (Cimzia) ascorbic acid (vitamin C) 500 mg 500 mg PO QAM 04/16/22 04/16/22 04/15/22 History tablet (Vitamin C) budesonide-formoterol HFA 160 1 puff inhalation Q12H 04/16/22 04/16/22 Unknown History mcg-4.5 mcg/actuation aerosol inhaler (Symbicort) carvedilol 3.125 mg tablet 3.125 mg PO QAM 04/16/22 04/16/22 04/15/22 History clopidogrel 75 mg tablet 75 mg PO QAM 04/16/22 04/16/22 04/15/22 History dulaglutide 1.5 mg/0.5 mL 3 mg SUBCUT Q7D 04/16/22 04/16/22 Unknown History subcutaneous pen injector (Trulicity) montelukast 10 mg tablet 10 mg PO DAILY@12 04/16/22 04/16/22 04/15/22 History (Singulair) potassium chloride 20 mEq 20 meq PO BID 04/16/22 04/16/22 04/15/22 History tablet,extended release prednisone 10 mg tablet See Rx Instructions .Route .COMPLEX 04/16/22 04/16/22 04/15/22 History 20 MG pregabalin 150 mg capsule (Lyrica) 150 mg PO TID 04/16/22 04/16/22 04/15/22 History SEE PHARMACY COMMENT Allergies Allergy/AdvReac Type Severity Reaction Status Date / Time metoclopramide [From Reglan] Allergy Severe ALGY-Hives Verified 04/01/22 11:48 gabapentin Allergy Unknown Unknown Verified 04/01/22 11:48 PFSH Acute PFSH: Medical History CAD (coronary artery disease) Chest pain CHF (congestive heart failure) COPD (chronic obstructive pulmonary disease) Depression Enteritis GERD (gastroesophageal reflux disease) HTN (hypertension) Hyperlipidemia Memory loss STEPHANIE (obstructive sleep apnea) Osteoarthritis of left hip Restless leg Seropositive rheumatoid arthritis Type 2 diabetes mellitus Surgical History H/O esophagogastroduodenoscopy (12/19/20) History of carpal tunnel surgery History of colonoscopy with polypectomy 2010 History of sinus surgery History of surgical amputation of finger of right hand Stented coronary artery Family History Other Arthritis Diabetes Hypertension Stroke Denies family history of Rheumatoid arthritis Systemic lupus erythematosus (SLE) in adult Social History Smoking and tobacco status: current every day smoker cigarettes Packs smoked per day: 0.25 Years cigarettes smoked: 45 Quit status (tobacco): has quit using tobacco Year quit tobacco: 2020 Former qu it date comment: Hx of 1 PPD x 53 Years Second hand smoke exposure: Yes Smoking risk assessment/counseling performed?: No Alcohol intake: former Counseling given: No Counseling given: No Lives independently: Yes Household members: spouse Marital status: Current occupational status: disabled Pets and animals: Yes Current gender identity: Male Vitals/I&O/Wt Last Vital Signs Temp 98.9 F 04/16/22 11:32 Pulse 106 H 04/16/22 14:15 Resp 18 04/16/22 14:15 BP 165/99 04/16/22 14:00 Pulse Ox 91 04/16/22 14:15 O2 Del Method 04/16/22 11:32 O2 Flow Rate 3 04/16/22 11:32 Weight last 48 hrs Weight 136.078 kg Physical Exam Const: COMMON NORMALS: negative for alert GENERAL APPEARANCE: cooperative ORIENTATION/CONSCIOUSNESS: Yes lethargic; not awake OTHER: Wakes up to loud voice with shoulder rub. Sluggish to respond. Gives to brief answers, falls back asleep promptly. HENMT: OTHER: Dry MM Neck/C-Spine: COMMON NORMALS: no JVD Resp: COMMON NORMALS: normal respiratory effort and clear to auscultation bilaterally AUSCULTATION: clear to auscultation bilaterally Cardio: COMMON NORMALS: no JVD, regular rhythm, S1 normal heart sound present, S2 normal heart sound present and No murmurs present (Cardio) RHYTHM: regular rhythm HEART SOUNDS: S1 normal heart sound present and S2 normal heart sound present GI: COMMON NORMALS: Normal to inspection, nondistended, normoactive bowel sounds present, Soft to palpation and non-tender PALPATION: Yes Soft to palpation Extremity: COMMON NORMALS: no joint enlargement and no pedal edema Neuro: COMMON NORMALS: moves all extremities SENSORIUM/ORIENTATION: Yes alert OTHER: Mild asterixis Skin: OTHER: Chronic stasis dermatitis bilateral lower extremities. Chronic mild erythema/stasis of lower extremities up to knees, unchanged per , not worse than usual Sepsis: Is patient septic: Yes Data 04/16/22 11:40 04/16/22 11:40 Micro: Microbiology 04/16/22 12:14 Blood Culture - Preliminary Blood SPECIMEN COLLECTED 04/16/22 12:08 Blood Culture - Preliminary Blood SPECIMEN COLLECTED A&P Assessment and plan (1) Acute encephalopathy: Multifactorial encephalopathy suspect component of metabolic encephalopathy with dehydration, poor intake recently, continue taking medications including diuretic, additionally metabolic acidosis, lactic acidosis, noted soft blood pressure at home, possibly secondary to hypoperfusion, possible sepsis, possible toxic effect of medications in setting of AAKASH with supratherapeutic medicines including ropinirole, Lyrica, duloxetine. Additionally opioid. Possibly other cause. She denies illicit drug use, possibly marijuana once in a great while. Does not drink alcohol. No history of cirrhosis. Afebrile. No meningeal signs. Noted hypomagnesemia. was concerned about possibility of CVA, discussed cannot entirely exclude given he is having atrial fibrillation, is at risk of CVA. Will obtain CT of the head. She thought perhaps was weaker on the left side, but on exam with her agrees that he appears to have symmetrical power, some pronator drift but bilateral, with asterixis, appears to be more related to the metabolic encephalopathy. NPO, sips and chips for now until we see how his mental status progresses. (2) Atrial flutter with rapid ventricular response: Heart rates 150s, currently 120s. Cardizem drip. Maintaining blood pressures. Admission to [facility]. Received EKG reviewed, no interpretation atrial flutter. Pending cardiology read. Continue Cardizem. On carvedilol at home, will switch to metoprolol. Monitor on telemetry. Admission to [facility]. Monitor blood pressures. With noted troponin elevation. Once heart rate improves, additional limited TTE. Discussed with his concern for possibility of underlying progression of CAD, possibility of component of ischemia. Is started on anticoagulation with heparin. Additionally requested D-dimer, noted elevated 2.56. Possibility of PE cannot be excluded at the moment. He is started on anticoagulation as above. D-dimer may be secondary to atrial flutter. (3) Sepsis: Supple sepsis with leukocytosis 16.5, most neutrophilic, tachycardia, altered mental status, GI, at home low blood pressure. Acidosis 3.2. Source unclear, and he is having diarrhea, possibly GI. Possibly C. difficile after recent hospitalization. Question C. difficile. Blood cultures have been collected in ER. Otherwise possibly urinary, UA not yet available. UA is requested in ER. Follow-up. Requesting Perez due to encephalopathy, to allow for urine collection and monitoring of output. (4) Lactic acidosis: Receiving small bolus in ER, he is dehydrated, hypoperfusion is likely with soft blood pressure at home. Possible sepsis with endorgan injury as above. Follow-up lactic acid level. (5) AAKASH (acute kidney injury): Unclear cause, but appears to be possibly multifactorial. reports dark urine. Will check CK. He does appear dry, has been taking diuretics. Additionally is on trandolapril. Also appears to have been on meloxicam. Some fluctuation in blood pressure, hypotension, possibly prerenal component. Possible ATN. High risk of mortality. Assess urine studies. Check CK. Kidney ultrasound. Receiving fluid challenge with a bolus in ER. Continue gentle hydration with LR. Follow-up electrolytes. Follow-up urine output with Perez catheter. Follow-up kidney function, labs requested. (6) Generalized weakness: Likely multi ductal renal as above as per encephalopathy. Checking CK as. Hold statin for now. Phos requested. PT OT once mental status improves, condition improves. CM for discharge planning. states did not do very well at home without therapy. Check COVID PCR (7) Elevated troponin: Disc with his cannot exclude possible NSTEMI. Troponin is severely elevated. Appears to have mildly decreasing trend. No chest pain. Does have underlying coronary disease with prior stenting. Once heart rates improved assess limited TTE. Continue aspirin, Plavix. Statin on hold for now. Beta-nai. Anticoagulation with heparin drip. (8) Dehydration: Gentle rehydration with LR, watch volume status as he has history of CHF and volume overload. Currently dehydrated. Monitor electrolytes. (9) CHF (congestive heart failure): History of CHF, currently not exacerbated. Currently dehydrated. Hold Lasix for now. Monitor volume status. (10) COPD (chronic obstructive pulmonary disease): Currently not in exacerbation, has had a degree of hypercapnia with minimal acidosis, pH 7.35. RT consultation, BiPAP anytime he is asleep. Continue albuterol every 6 hours, inhaled budesonide. Qualifiers: COPD type: emphysema Emphysema type: unspecified Qualified Code(s): J43.9 - Emphysema, unspecified (11) Sleep apnea: BiPAP anytime he is asleep. (12) Hypomagnesemia: Received replacement. Magnesium follow-up requested. (13) Hypokalemia: Received replacement, potassium follow-up requested. (14) Hypercapnia: As above (15) Elevated d-dimer: Cannot exclude possible PE. Will assess lower extremity duplex. May be secondary to A-fib with RVR. Anticoagulation as above. Check COVID PCR (16) Decreased oral intake: Not eating well recently. Monitor mental status for now, resume oral intake if mental status improving/protecting airway. Consider addition of protein shakes. (17) Declining functional status: Weak at home, spending most of the time in a recliner, falling out of the chair, too weak to try to get up. Mental status has been waxing and waning, oriented at times, other times some confusion. Recorded mobile with wheelchair to the bathroom at discharge. Appears was not able to keep that up at home without therapy. Seems was not a candidate for jail placement when attempted at last discharge. Will need reassessment PT, OT once mental status with improvement. CM consultation for discharge planning. Plan Recent pneumonia: Improving/resolved on chest x-ray. MRSA PCR noted negative 04/01. Recent pleural effusions: Resolved on chest x-ray Chronic bronchitis Morbid obesity GERD CAD status post prior stenting HTN STEPHANIE COPD RA Memory loss Depression Other medical problems Discussed with ER physician. Reviewed ER physician documentation. Reviewed prior discharge summary. Reviewed labs, imaging in ER. Reviewed EKG. Discussed with nursing staff. Discussed with his . Attestations Medical Necessity Statement*: Admission of over 2 midnights anticipated for assessment management of acute encephalopathy, A-fib with RVR, AAKASH possibly ATN with elevated risk of mortality, electrolyte deficiencies, dehydration, polypharmacy, medication toxicity, hypercapnia in a gentleman with underlying STEPHANIE, COPD, chronic oxygen and BiPAP with sleep, possible NSTEMI, and additional comorbidities as above with recent hospitalization. and High Time for a total of 110 minutes, includes reviewing past or interval history, examining/interviewing patient, placing orders, counseling patient/family/other support, updating patient/family/other support, discussing plan of care with staff, communicating with other healthcare providers, documenting encounter and coordinating care Diagnoses Acute encephalopathy G93.40 Atrial flutter with rapid ventricular response I48.92 Sepsis A41.9 Lactic acidosis E87.20 AAKASH (acute kidney injury) N17.9 Generalized weakness R53.1 Elevated troponin R77.8 Dehydration E86.0 CHF (congestive heart failure) I50.9 COPD (chronic obstructive pulmonary disease) J43.9 COPD type: emphysema Emphysema type: unspecified Sleep apnea G47.30 Hypomagnesemia E83.42 Hypokalemia E87.6 Hypercapnia R06.89 Elevated d-dimer R79.89 Decreased oral intake R63.8 Declining functional status R53.81
[2022-04-16 15:29] LABS: Creatine Phosphokinase 89 U/L (39-308)
[2022-04-16 15:44] LABS: Ketone (Acetest) Serum Negative (Negative)
--- NOTE | 2022-04-16 15:56 | USR_ITS ---
PROCEDURE INFORMATION: Exam: US Retroperitoneal; Complete; Kidneys and Bladder Exam date and time: 04/16/2022 7:40 PM Age: 61 years old Clinical indication: Screening exam; Other: [place] TECHNIQUE: Imaging protocol: Real-time ultrasound of the retroperitoneum with image documentation. Complete exam focused on the kidneys and bladder. COMPARISON: CT angio chest w abd pel w con 04/01/2022 2:03 PM FINDINGS: Right kidney: Right kidney 3.5 cm cyst. Left kidney: Normal. No stones. No hydronephrosis. Urinary bladder: Unremarkable. US/US renal BI* [id number] IMPRESSION: 1. Negative for hydronephrosis or renal calculus. 2. Right kidney 3.5 cm cyst.
--- NOTE | 2022-04-16 15:56 | USR_ITS ---
PROCEDURE INFORMATION: Exam: US Duplex Lower Extremity Veins, Bilateral Exam date and time: 04/16/2022 7:25 PM Age: 61 years old Clinical indication: Swelling (edema) of limb; Lower extremity, bilateral; Additional info: Assess for dvt TECHNIQUE: Imaging protocol: Real-time duplex ultrasound of the bilateral extremities with 2-D yee scale, color Doppler flow and spectral waveform analysis including responses to compression and other maneuvers (when performed) with image documentation. Complete exam focused on the lower extremity veins. COMPARISON: CT angio chest w abd pel w con 04/01/2022 2:03 PM FINDINGS: Right deep veins: Unremarkable. The common femoral, femoral, proximal profunda femoral and popliteal veins are patent without thrombus. Normal Doppler waveforms. Normal compressibility and/or augmentation response. Right superficial veins: Saphenofemoral junction is patent without thrombus. Left deep veins: Unremarkable. The common femoral, femoral, proximal profunda femoral and popliteal veins are patent without thrombus. Normal Doppler waveforms. Normal compressibility and/or augmentation response. Left superficial veins: Saphenofemoral junction is patent without thrombus. Soft tissues: Unremarkable. US/[place] [id number] IMPRESSION: No evidence of deep vein thrombosis.
--- NOTE | 2022-04-16 15:56 | CTR_ITS ---
PROCEDURE INFORMATION: Exam: CT Head Without Contrast Exam date and time: 04/16/2022 10:54 PM Age: 61 years old Clinical indication: Malaise or fatigue; Additional info: Lethargy TECHNIQUE: Imaging protocol: Computed tomography of the head without contrast. Radiation optimization: All CT scans at this facility use at least one of these dose optimization techniques: automated exposure control; mA and/or kV adjustment per patient size (includes targeted exams where dose is matched to clinical indication); or iterative reconstruction. REPORTING DATA: Count of CT and Cardiac NM exams in prior 12 months: This patient has received 4 known CTs and 0 known cardiac nuclear medicine studies in the 12 months prior to the current study. COMPARISON: CT head wo con* [id number] 04/11/2022 11:46 AM RADIATION DOSE METRICS: Total DLP (mGy-cm): 1101.68 FINDINGS: Brain: No focal hemorrhage or midline shift is identified. The ventricles and parenchyma show moderate atrophy and chronic bicerebral white matter ischemic change. Cerebral ventricles: No ventriculomegaly or evidence of hydrocephalus. Paranasal sinuses: No evidence of acute sinusitis. Chronic appearing right maxillary sinus opacification with small maxillary sinus size. Mastoid air cells: Visualized mastoid air cells are well aerated. Bones/joints: No displaced skull fracture is noted. Soft tissues: Unremarkable. Vasculature: Diffuse vascular calcifications are present. CT/CT head wo con* [id number] IMPRESSION: 1. No acute intracranial abnormality. 2. Moderate age-related changes.
[2022-04-16] MEDS: piperacillin-tazobactam 3.375 GM in sodium chloride 0.9% (plus) 50 ML IV ×2 (18:07→23:33)
[2022-04-16] MEDS: lactated ringers 1,000 ML 75 ML IV (18:08)
[2022-04-16 19:01] LABS: Partial Thromboplastin Time 77.3 SECONDS (23.9-36.7)
[2022-04-16 19:15] LABS: Troponin 5 6HR 99.93 ng/L (0-15)
[2022-04-16 20:15] LABS: Add Urine Microscopic? YES; Bilirubin Urine Neg (Negative); Blood Urine Neg (Negative); Glucose Urine UA Norm (Normal); Ketones Urine Negative (Negative); Leukocyte Esterase Urine Negative (Negative); Nitrate Urine Negative (Negative); Protein Urine Trace (Negative); Urine Appearance Clear (CLEAR); Urine Color Yellow (Yellow); Urobilinogen Urine Neg (Negative); pH Urine 5 (5-7)
[2022-04-16 20:18] LABS: Add Urine Culture? No; Bacteria Urine TRACE /hpf; Hyaline Casts Urine 0-4 /lpf; Mucus Urine TRACE /hpf; RBC Urine 0-4 /hpf (0-2); Squamous Epithelial Cell Urine 0-4 /hpf (0-5); WBC Urine 0-4 /hpf (0-5)
[2022-04-16] MEDS: budesonide 0.5 mg/2 mL Neb 0.25 MG INHALATION (21:08)
[2022-04-16] MEDS: albuterol 2.5 mg/3 mL Neb INHALATION (21:08)
[2022-04-16] MEDS: metoprolol tartrate 25 mg Tablet PO (21:32)
[2022-04-16 21:52] LABS: Adenovirus Not Detected (NOT DETECT); Chlamydia Pneumoniae Not Detected (NOT DETECT); Coronavirus 229E,HKU1,NL63,OC4 Not Detected (NOT DETECT); Human Metapneumovirus Not Detected (NOT DETECT); Human Rhinovirus/Enterovirus Not Detected (NOT DETECT); Influenza A Not Detected (NOT DETECT); Influenza A H1 Not Detected (NOT DETECT); Influenza A H1-2009 Not Detected (NOT DETECT); Influenza A H3 Not Detected (NOT DETECT); Influenza B Not Detected (NOT DETECT); Mycoplasma Pneumoniae Not Detected (NOT DETECT); Parainfluenza Virus Type 1 Not Detected (NOT DETECT); Parainfluenza Virus Type 2 Not Detected (NOT DETECT); Parainfluenza Virus Type 3 Not Detected (NOT DETECT); Parainfluenza Virus Type 4 Not Detected (NOT DETECT); Respiratory Syncytial Virus A Not Detected (NOT DETECT); Respiratory Syncytial Virus B Not Detected (NOT DETECT); SARS-COV-2 Not Detected (NOT DETECT)
[2022-04-17] VITALS (15 sets, daily range): BP systolic 116–125; BP diastolic 60–93; PULSE 69–131; RESP 16–25; TEMP 37.1–37.6; O2SAT 95–100
[2022-04-17 03:35] LABS: Partial Thromboplastin Time 78.7 SECONDS (23.9-36.7)
[2022-04-17 03:40] LABS: Lactic Sepsis W/Reflex 1.3 mmol/L (0.5-2.2)
[2022-04-17 03:42] LABS: Alanine Aminotransferase 23 U/L (0-41); Albumin Level 2.6 g/dL (3.5-5.2); Alkaline Phosphatase 98 U/L (40-130); Anion Gap 14.4 (5-19); Aspartate Amino Transferase 22 U/L (0-40); Blood Urea Nitrogen 13 mg/dL (8-23); Calcium 8.6 mg/dL (8.5-10.5); Carbon Dioxide 27 mmol/L (22-29); Chloride 100 mmol/L (98-107); Globulin 3.3 g/dL (1.3-4.6); Glomerular Filtration Rate 76.2 mL/min (90-130); Glucose 158 mg/dL (65-115); Osmolality Calculated 289 mOsm/kg (285-295); Phosphorus 3.3 mg/dL (2.5-4.5); Potassium 3.4 mmol/L (3.5-5.1); Sodium 138 mmol/L (136-145); Total Bilirubin 0.5 mg/dL (0.15-1.2); Total Protein 5.9 g/dL (6.6-8.7)
[2022-04-17] MEDS: clopidogrel 75 mg Tablet PO (06:09)
[2022-04-17] MEDS: ropinirole 2 mg Tablet 4 MG PO ×3 (06:09→17:31)
[2022-04-17] MEDS: potassium chloride ER 20 mEq Tablet 40 MEQ PO (06:10)
[2022-04-17] MEDS: heparin drip 25,000 UNIT/500 ML PREMIX 30 UNIT IV ×2 (06:12→23:46)
[2022-04-17] MEDS: lactated ringers 1,000 ML 75 ML IV ×2 (06:13→20:29)
[2022-04-17] MEDS: budesonide 0.5 mg/2 mL Neb 0.25 MG INHALATION ×2 (07:50→19:59)
[2022-04-17] MEDS: albuterol 2.5 mg/3 mL Neb INHALATION (07:50)
[2022-04-17] MEDS: piperacillin-tazobactam 3.375 GM in sodium chloride 0.9% (plus) 50 ML IV ×2 (09:42→17:31)
[2022-04-17] MEDS: metoprolol tartrate 25 mg Tablet PO (09:43)
[2022-04-17 10:41] LABS: Partial Thromboplastin Time 66.6 SECONDS (23.9-36.7)
[2022-04-17 16:04] LABS: Partial Thromboplastin Time 66.2 SECONDS (23.9-36.7)
[2022-04-17] MEDS: metoprolol tartrate 25 mg Tablet 50 MG PO (20:26)
--- NOTE | 2022-04-17 21:20 | P.PN_ITS ---
Subjective Subjective: She is doing better today. Reports that he is hungry. Requested to speak with the correct right away. States he would like a burger and a beer. Breathing okay. No chest pain. Vitals/I&O/Wt Last Vital Signs Temp 99.7 F H 04/17/22 20:00 Pulse 131 H 04/17/22 20:00 Resp 25 H 04/17/22 20:00 BP 125/93 04/17/22 20:00 Pulse Ox 95 04/17/22 20:00 O2 Del Method 04/17/22 19:59 O2 Flow Rate 3 04/17/22 13:45 FiO2 40 04/17/22 20:00 04/17/22 04/17/22 04/17/22 06:59 14:59 22:59 Intake Total 1243.883 / 2288.083 192 / 192 1478 / 1670 Output Total 1100 / 1100 1000 / 1000 Balance 143.883 / 1188.083 -808 / -808 1478 / 670 Weight last 48 hrs Weight 125.191 kg Weight 136.078 kg Weight 136.078 kg Physical Exam Const: COMMON NORMALS: alert GENERAL APPEARANCE: cooperative and lethargic ORIENTATION/CONSCIOUSNESS: Yes lethargic; not awake OTHER: Awake, still somewhat sluggish speech and responses, but interactive. Is being visited by a friend. Making jokes. HENMT: OTHER: MM less dry Neck/C-Spine: COMMON NORMALS: no JVD Resp: COMMON NORMALS: normal respiratory effort and clear to auscultation bilaterally AUSCULTATION: clear to auscultation bilaterally Cardio: COMMON NORMALS: no JVD, regular rhythm, S1 normal heart sound present, S2 normal heart sound present and No murmurs present (Cardio) RHYTHM: regular rhythm HEART SOUNDS: S1 normal heart sound present and S2 normal heart sound present GI: COMMON NORMALS: Normal to inspection, nondistended, normoactive bowel sounds present, Soft to palpation and non-tender PALPATION: Yes Soft to palpation Extremity: COMMON NORMALS: no joint enlargement and no pedal edema Neuro: COMMON NORMALS: moves all extremities SENSORIUM/ORIENTATION: Yes alert and Yes lethargic Skin: OTHER: Chronic stasis dermatitis bilateral lower extremities. Chronic mild erythema/stasis of lower extremities up to knees, unchanged per , not worse than usual Urinary Catheter Management: Perez: Cath Placed During This Visit: yes Reason for Continuing Indwelling Catheter: Accurate Measurement of Urinary Output in Critically Ill Patients Urinary Catheter Date of Insertion: 04/16/22 Urinary Catheter Time of Insertion: 16:40 Data 04/16/22 11:40 04/17/22 02:40 Micro: Microbiology 04/16/22 12:14 Blood Culture - Preliminary Blood NEGATIVE TO DATE 04/16/22 12:08 Blood Culture - Preliminary Blood NEGATIVE TO DATE A&P Assessment and plan (1) Acute encephalopathy: Today appears to be improving. AAKASH appears improved. Hold additional LR for now. Recheck renal function requested. Noted that he was restarted on ropinirole. For now hold Lyrica, duloxetine. Reassess mental status. Multifactorial encephalopathy suspect component of metabolic encephalopathy with dehydration, poor intake recently, continue taking medications including diuretic, additionally metabolic acidosis, lactic acidosis, noted soft blood pressure at home, possibly secondary to hypoperfusion, possible sepsis, possible toxic effect of medications in setting of AAKASH with supratherapeutic medicines including ropinirole, Lyrica, duloxetine. Additionally opioid. Possibly other cause. She denies illicit drug use, possibly marijuana once in a great while. Does not drink alcohol. No history of cirrhosis. Afebrile. No meningeal signs. Noted hypomagnesemia. was concerned about possibility of CVA, discussed cannot entirely exclude given he is having atrial fibrillation, is at risk of CVA. Will obtain CT of the head. She thought perhaps was weaker on the left side, but on exam with her agrees that he appears to have symmetrical power, some pronator drift but bilateral, with asterixis, appears to be more related to the metabolic encephalopathy. Did well with trial of diet. Advanced. (2) Atrial flutter with rapid ventricular response: Given replacement potassium. Continues on Cardizem drip. P.o. metoprolol, dose is increased. Wean off Cardizem drip. With noted troponin elevation. Once heart rate improves, additional limited TTE. Discussed with his concern for possibility of underlying progression of CAD, possibility of component of ischemia. anticoagulation with heparin. Additionally requested D-dimer, noted elevated 2.56. PE could not be initially. Considered VQ scan, but given he may require stress test, for now we will hold off. (3) Sepsis: CBC for some reason not obtained this morning. We will request repeat CBC. Lactic acidosis resolved. AMS is resolving. Source unclear, and he is having diarrhea, possibly GI. Possibly C. difficile after recent hospitalization. Requested C. difficile, not yet collected. Blood cultures have been collected in ER. UA not suggestive of UTI. Requesting Perez due to encephalopathy, to allow for urine collection and monitoring of output. (4) Lactic acidosis: Resolved. (5) AAKASH (acute kidney injury): Resolving. Creatinine down to 1. Follow-up with chemistry requested. Hold further IVF Unclear cause, but appears to be possibly multifactorial. reports dark urine. Will check CK. He does appear dry, has been taking diuretics. Additionally is on trandolapril. Also appears to have been on meloxicam. Some fluctuation in blood pressure, hypotension, possibly prerenal component. Possible ATN. High risk of mortality. Assess urine studies. Check CK. Kidney ultrasound. Receiving fluid challenge with a bolus in ER. Continue gentle hydration with LR. Follow-up electrolytes. Follow-up urine output with Perez catheter. Follow-up kidney function, labs requested. (6) Generalized weakness: Likely multi ductal renal as above as per encephalopathy. Checking CK as. Hold statin for now. Phos requested. PT OT once mental status improves, condition improves. CM for discharge michael hearnmelany. states did not do very well at home without therapy. Check COVID PCR (7) Elevated troponin: Disc with his cannot exclude possible NSTEMI. Troponin is severely elevated. Appears to have mildly decreasing trend. No chest pain. Does have underlying coronary disease with prior stenting. Once heart rates improved assess limited TTE. Continue aspirin, Plavix. Statin on hold for now. Beta-nai. Anticoagulation with heparin drip. (8) Dehydration: Gentle rehydration with LR, watch volume status as he has history of CHF and volume overload. Currently dehydrated. Monitor electrolytes. (9) CHF (congestive heart failure): History of CHF, currently not exacerbated. Currently dehydrated. Hold Lasix for now. Monitor volume status. (10) COPD (chronic obstructive pulmonary disease): Currently not in exacerbation, has had a degree of hypercapnia with minimal acidosis, pH 7.35. RT consultation, BiPAP anytime he is asleep. Continue albuterol every 6 hours, inhaled budesonide. Qualifiers: COPD type: emphysema Emphysema type: unspecified Qualified Code(s): J43.9 - Emphysema, unspecified (11) Sleep apnea: BiPAP anytime he is asleep. (12) Hypomagnesemia: Received replacement. Magnesium follow-up requested. (13) Hypokalemia: Received replacement, potassium follow-up requested. (14) Hypercapnia: As above (15) Elevated d-dimer: Cannot exclude possible PE. Will assess lower extremity duplex. May be se condary to A-fib with RVR. Anticoagulation as above. Check COVID PCR (16) Decreased oral intake: Not eating well recently. Monitor mental status for now, resume oral intake if mental status improving/protecting airway. Consider addition of protein shakes. (17) Declining functional status: Weak at home, spending most of the time in a recliner, falling out of the chair, too weak to try to get up. Mental status has been waxing and waning, oriented at times, other times some confusion. Recorded mobile with wheelchair to the bathroom at discharge. Appears was not able to keep that up at home without therapy. Seems was not a candidate for skilled nursing placement when attempted at last discharge. Will need reassessment PT, OT once mental status with improvement. CM consultation for discharge planning. PT, OT assessment requested. Plan Recent pneumonia: Improving/resolved on chest x-ray. MRSA PCR noted negative 04/01. Recent pleural effusions: Resolved on chest x-ray Chronic bronchitis Morbid obesity GERD CAD status post prior stenting HTN STEPHANIE COPD RA Memory loss Depression Other medical problems Discussed with ER physician. Reviewed ER physician documentation. Reviewed prior discharge summary. Reviewed labs, imaging in ER. Reviewed EKG. Discussed with nursing staff. Discussed with his . Attestations Medical Necessity Statement*: Continue admission for assessment management of acute encephalopathy, optimization of control of A-fib with RVR, further assessment and treatment of possible NSTEMI. Diagnoses Acute encephalopathy G93.40 Atrial flutter with rapid ventricular response I48.92 Sepsis A41.9 Lactic acidosis E87.20 AAKASH (acute kidney injury) N17.9 Generalized weakness R53.1 Elevated troponin R77.8 Dehydration E86.0 CHF (congestive heart failure) I50.9 COPD (chronic obstructive pulmonary disease) J43.9 COPD type: emphysema Emphysema type: unspecified Sleep apnea G47.30 Hypomagnesemia E83.42 Hypokalemia E87.6 Hypercapnia R06.89 Elevated d-dimer R79.89 Decreased oral intake R63.8 Declining functional status R53.81
[2022-04-18] VITALS: BP 92/68; PULSE 67; RESP 22; TEMP 37.2; O2SAT 96
[2022-04-18 00:43] VITALS: PULSE 67; RESP 21; O2SAT 96
[2022-04-18 01:32] LABS: Basophils # 0.1 10^3/uL (0.0-0.1); Basophils % 0.8 %; Eosinophils # 0.5 10^3/uL (0.0-0.8); Eosinophils % 4.2 %; Hematocrit 43.8 % (42.0-52.0); Hemoglobin 13.5 g/dL (11.7-16.6); Lymphocytes # 1.6 10^3/uL (0.8-4.8); Lymphocytes % 14.4 %; Mean Corpuscular HGB Conc 30.8 g/dL (30.0-36.0); Mean Corpuscular Hemoglobin 27.2 pg (28.0-34.0); Mean Corpuscular Volume 88.3 fl (80-94); Mean Platelet Volume 12.2 fL (7.4-10.4); Monocytes % 8.9 %; Neutrophils # 7.76 10^3/uL (1.8-7.7); Neutrophils % 70.8 %; Nucleated Red Blood Cells % 0 %; Platelet Count 218 10^3/cmm (130-400); Red Blood Count 4.96 10^6/uL (4.1-5.3); Red Cell Distribution Width 16.5 % (12.1-15.1)
[2022-04-18 01:46] LABS: Alanine Aminotransferase 20 U/L (0-41); Albumin Level 2.8 g/dL (3.5-5.2); Alkaline Phosphatase 96 U/L (40-130); Anion Gap 13.3 (5-19); Aspartate Amino Transferase 20 U/L (0-40); Blood Urea Nitrogen 8 mg/dL (8-23); Calcium 8.7 mg/dL (8.5-10.5); Carbon Dioxide 32 mmol/L (22-29); Chloride 99 mmol/L (98-107); Creatinine Clr Calc Pharmacy 151.2006; Globulin 3.2 g/dL (1.3-4.6); Glucose 168 mg/dL (65-115); Magnesium 1.6 mg/dL (1.7-2.3); Osmolality Calculated 294 mOsm/kg (285-295); Potassium 3.3 mmol/L (3.5-5.1); Sodium 141 mmol/L (136-145); Total Bilirubin 0.2 mg/dL (0.15-1.2)
[2022-04-18] MEDS: piperacillin-tazobactam 3.375 GM in sodium chloride 0.9% (plus) 50 ML IV (02:06)
[2022-04-18 03:08] VITALS: PULSE 68; RESP 21; O2SAT 96
[2022-04-18] MEDS: potassium chloride ER 20 mEq Tablet 40 MEQ PO (03:14)
[2022-04-18 04:00] VITALS: BP 144/86; PULSE 91; RESP 25; TEMP 37.2; O2SAT 95
[2022-04-18 04:23] LABS: Partial Thromboplastin Time 71.9 SECONDS (23.9-36.7)
[2022-04-18 04:23] LABS: Partial Thromboplastin Time 44.1 SECONDS (23.9-36.7)
[2022-04-18] MEDS: heparin 5,000 unit/mL INJ 1 mL IV (04:41)
[2022-04-18 06:00] VITALS: PULSE 103
[2022-04-18] MEDS: clopidogrel 75 mg Tablet PO (06:24)
--- NOTE | 2022-04-18 07:00 | PC.NURSE ---
Pt removed his IV's and getting restless, agitated and paranoid. HR is 140s. notified
[2022-04-18 08:00] VITALS: PULSE 130; O2SAT 97
--- NOTE | 2022-04-18 08:00 | PC.NURSE ---
Dr at bedside to talk to family and pt. received order to give oral haldol for now instead of IM haldol. Son and unable to talk to him clearly. Rosio is agitated and frustated. Rosio told dr that pt had an incident here in the hospital. Pt's came to nurses station and said that pt does not want to take his morning meds and would like pt to be transferred to [facility]. Pt and informed that we need to transfer him via ambulance. Pt and refused to ride an ambulance. Educated and pt and son that pt needs to be monitored due to his elevated HR, confusion and he is not safe in their private vehicle. Explained to and son that either one of them can stay in the ambulance. and pt then said they don't have money to pay for the ambulance, i told them i can ask our shoe caser today to help them with the cost. Pt and still refused. Family started to get frustated, stated, removed his jo catheter so we can go. Notified Dr. Broussard,notified housekeeping coordinator Isabel and will notify admin ammunition assembly laborer on risk mgt. SHONDAA paper prepared.
--- NOTE | 2022-04-18 08:17 | PC.NURSE ---
pt refused his oxygen nasal cannula. and son at bedside. pt is getting agitated and paranoid.
--- NOTE | 2022-04-18 08:56 | PC.NURSE ---
pt does not want us to touch him, he refused his oral meds. he removed his telemetry off. and mercedes at bedside.
--- NOTE | 2022-04-18 10:18 | W.PM.EVENTAC ---
Event Note Event Note: AMA discharge note Patient's and friend signing patient out AGAINST MEDICAL ADVICE to their responsibility, currently already got wheelchair to take patient out. Last night patient's heart rate is reported elevated by overnight physician, had to restart Cardizem drip, metoprolol dose was increased. Overnight patient pulled out his IV, refused replacement of IV or additional Cardizem. Early this morning received telephone call nurse reporting patient with paranoid ideation, with statements that he does not trust anybody in this hospital. Patient reportedly getting up in bed and starting to leave AMA. Recently has had a number of falls at home out of his recliner for which ambulance had to be called to reposition him back into the chair. Requested for 2 mg IM Haldol with the nurse. On arriving to see the patient he tells me that he needs to meet with you and your buddies and him and his buddies and have a talk, then clarifying client relations associate. He then starts telling his everything started when we were on the airplane, remember , to which she replies she has never been on an airplane, and never would be because she is scared of heights , after a [id number] he replies to her fine that's all you've got to say . Discussed with him that his heart rate is still elevated, heart rate 143 on the monitor, atrial flutter with RVR. Discussed that he needs additional treatment. He states he will not allow the IV to be replaced and later declines to take oral medications as well, intending to leave and go home. Discussing with his spouse outside the room, she tells me that the airplane reference was likely in reference to his past helicopter rides at work, but she has never flown on an airplane. Discussed with her it appears now with encephalopathy he is having delirium, he appears to be ready to start getting up and leaving and is in danger of falling down and injuring himself or risking decompensating his condition further and risking his life that way. We discussed giving IM Haldol to which his is agreeable, or the suggested perhaps he would take oral medication if he was told it was his Requip. Oral medication was tried but he had declined that as well. Family with patient. Shortly after family request for transfer to [facility] in [facility]. I called down there, speaking with the transfer center was connected with on-call physician and he was accepted for transfer and will be taken into the ICU there. Patient and family refuse to go by ambulance. We discussed with him and his and trying that his heart rate is uncontrolled, he is at risk of life-threatening arrhythmia, at risk of severe disabling or life-threatening complications if transferring in an untreated and unmonitored condition in a private vehicle. He is additionally confused and delirious which is another reason for transfer by ambulance. Patient further stating what sounds like a past grievance, but stating there is a cover up plot and Suhail or Ketan deleted all the monitor data and camera footage. His says that they will not stay here any longer. Brought a wheelchair to take him out AGAINST MEDICAL ADVICE. Discussed the above risks again which she stated understands and takes responsibility. Discussed that they are welcome to change her mind and stay or return to this facility. Discussed again with nursing staff. Perez is removed. High MDM includes number and complexity of problems actively addressed during encounter, amount and/or complexity of data reviewed/ordered [ resulted lab(s)/test(s), independent historian and other healthcare professional discussion] and described risk of complication, morbidity or mortality of management as documented and High Time for a total of 65 minutes, includes reviewing past or interval history, examining/interviewing patient, placing orders, counseling patient/family/other support, discussing plan of care with staff, communicating with other healthcare providers, documenting encounter and coordinating care
--- NOTE | 2022-04-18 10:31 | PC.NURSE ---
Bedside Shift report 0700 am-Pt bed alarm goes off. this nurse and night nurse Maria E at bedside. pt turned on to his side. noted pt removed his IV w/ heparin drip running. Pt HR-in 100s aflutter,spO2-97% on 3 L/ NC. Talked to pt at bedside, charge nurse Melida called , nurses at bedside. Dr Broussard notified about pt's restlessness,agitation and paranoia., Pt saying, I have to go to [place] for an investigation to get out here. Pt informed that his HR is high and we need to start and IV to control his HR. Pt started refusing to be touched and sat in the edge of the bed. He refused us to start an IV and he stated, My suppose to be here 2 hrs ago. I will wait until she gets here. He started talking to the nurse about her . Nurse asked if he has any thoughts of harming himself or others, Pt stated No. I promise I will not hurt you. Can you stay and hold on until my gets here. Nurse stayed at bedside, until pt Rosio and Mercedes son arrived in room. Pt started to argue with and son mercedes that he wants to go home. and son is aware that his HR started to get high and he is more restless and agitated today and refused cares and treatments.
--- NOTE | 2022-04-18 11:13 | PC.OT ---
OT Eval Not Complete - Patient discharged AMA before time of OT evaluation.
--- NOTE | 2022-04-18 11:27 | PC.NURSE ---
0954 AM- Dr Hall at bedside. Discuss to pt, , son on the risks of leaving AMA. Pt signed AMA papers, brought a wheelchair in room. lucinda gamino per verbal order of dr lowe. house sup close by. verified to if she has a portable oxyen. she stated, i have it in my car.
== END 2022-04-18 11:59 | disposition left against medical advice (07) | DRG 280 ==
LOC: ER 13:04 → CSU 13:47
PROVIDERS: Admitting Provider Internal Medicine; Emergency Provider Emergency Medicine; PCP Family Medicine; Visit Provider Internal Medicine
DX: I48.91 Unspecified atrial fibrillation (principal); G93.41 Metabolic encephalopathy; I21.4 Non-ST elevation (NSTEMI) myocardial infarction; N17.0 Acute kidney failure with tubular necrosis; E87.20 Acidosis, unspecified; Z53.29 Procedure and treatment not carried out because of patient's decision for other reasons; E87.6 Hypokalemia; G47.33 Obstructive sleep apnea (adult) (pediatric); Z99.89 Dependence on other enabling machines and devices; J43.9 Emphysema, unspecified; I25.10 Atherosclerotic heart disease of native coronary artery without angina pectoris; Z95.5 Presence of coronary angioplasty implant and graft; I50.9 Heart failure, unspecified; I11.0 Hypertensive heart disease with heart failure; F32.A Depression, unspecified; K21.9 Gastro-esophageal reflux disease without esophagitis; E78.5 Hyperlipidemia, unspecified; G25.81 Restless legs syndrome; M05.9 Rheumatoid arthritis with rheumatoid factor, unspecified; Z87.01 Personal history of pneumonia (recurrent); E83.42 Hypomagnesemia; E86.0 Dehydration; F17.210 Nicotine dependence, cigarettes, uncomplicated; E11.9 Type 2 diabetes mellitus without complications; W19.XXXA Unspecified fall, initial encounter
CPT/HCPCS: 36415; 36600; 51702; 70450; 71045; 76770; 80048; 80053; 81001; 82009; 82550; 82803; 83605; 83735; 83880; 84100; 84443; 84484; 85025; 85378; 85730; 87040; 87635; 93005; 93970; 94640; 94660; 94664; 96365; 96367; 96375; 99291; J1644; J2543; J3475; J3480; J3490; J7040; J7120; J7613; J7626